=== PATIENT | male | born 1955 | race Caucasian/White ===

== ENCOUNTER → 2018-02-19 11:10 | Outpatient (CLI) | payer BC, SELFPAY ==
[2018-02-19 12:01] LABS: HCT 34.8 % (40.0-50.0); HGB 11.7 g/dL (13.5-17.5); Mean Corp. HGB Concentration 33.6 g/dL (32.0-36.0); Mean Corpuscular Hemoglobin 34.3 pg (27.0-33.0); Mean Corpuscular Volume 102.1 fL (80-95); Mean Platelet Volume 10.9 fL (8.0-11.0); Platelet Count 495 x1000/uL (130-400); RBC 3.41 m/cumm (4.50-6.00); Reticulocyte 8.7 % (0.5-2.4)
[2018-02-19 12:14] LABS: LDH 453 U/L (85-227)
[2018-02-19 12:33] LABS: Absolute Basophil Count 0.29 k/cumm (0.0-0.2); Absolute Lymphocyte Count 2.57 k/cumm (1.2-3.4); Absolute Monocyte Count 2.29 k/cumm (0.11-0.7); Absolute Neutrophil Count 23.46 k/cumm (1.2-6.7); White Blood Cell Count 28.61 k/cumm (4.4-10.8)
[2018-02-19 12:34] LABS: Anisocytosis 1+; Diff Comment Manual Differential; Howell-Jolly Bodies Present; Macrocytosis 1+; Microcytosis 1+; Nucleated RBC 3 /100WBC; Polychromasia Present
== END ==
PROVIDERS: PCP Family Medicine; Visit Provider Internal Medicine Hematology & Oncology
DX: D59.1 Other autoimmune hemolytic anemias (principal)
CPT/HCPCS: 36415; 83615; 85025; 85045

== ENCOUNTER 2018-05-07 09:55 | Day surgery (SDC) | payer BC, SELFPAY ==
[2018-05-07 10:07] VITALS: BP 144/78; PULSE 88; RESP 18; TEMP 37.5; O2SAT 92
[2018-05-07] MEDS: Lactated Ringers 1,000 ML 30 ML IV (10:48)
--- NOTE | 2018-05-07 11:27 | W.COLOREPORT ---
Date of service: 05/07/18 Time of Service: 11:27 Colonoscopy Report Date of procedure: 05/07/18 Pre-op diagnosis general: Personal history of colon polyps Post-op diagnosis procedure note: other (Normal colonoscopy to the cecum) Procedure: Colonoscopy to the cecum Surgeon: Louie Singh Anesthesia proc note operative: MAC (Fanny Boland CRNA; ASA 3 Mallampati class) Estimated blood loss (mL): 0 Pathology: none sent Complications: None Disposition: same day Indications: 62-year-old gentleman presenting for colorectal cancer screening with a personal history of colon polyps. He has been asymptomatic since his last colonoscopy. He has no family history of colorectal cancer. The procedure has been reviewed with him, and the risks of the procedure have been discussed. All his questions been answered to his satisfaction. Consents been obtained to proceed with colonoscopy. Prep: Miralax/Dulcolax (Prep quality excellent) Procedure End Time: 11:55 Findings: Exam the colon from cecum to anus, no abnormalities are noted Procedure Description: The patient was seen in the day surgery waiting area. His identification was confirmed, and procedure checked. He was then brought to the procedure room. Monitoring for telemetry, blood pressure, oxygen saturation, and end tidal CO2 monitoring were applied. An appropriate time out was performed to confirm, identification, allergies, medication, procedure, was performed. Sedation was titrated for affect by the LICENSED WEIGHER; Once adequate sedation was achieved, I performed a inspection of the external perineum, and a digitial rectal examination. No significant external abnormalities were noted. On digital rectal examination, there was no blood, no masses, good rectal tone, and a normal prostate. I advanced the colonoscope from the anus to the cecum under direct visualization. The cecum was identified by the ileal-cecal valve, and the appendiceal orifice. The scope was then withdrawn in circumferential manner from the cecum to the rectum. No abnormalites were noted in the colon. The scope was then withdrawn into the rectum, and retroflexed. No abnormalities were noted of the rectum or anorectal junction. The scope was then withdrawn, terminating the procedure. There were no complications during the procedure, and the patient tolerated the procedure well. He was returned to the day surgery recovery area in good condition. Plan: Will continue with routine screening for colorectal cancer according to current consensus guidelines, which is currently 10 years.
--- NOTE | 2018-05-07 12:03 | W.PM.DSUDISC ---
Discharge Plan Disposition Patient Disposition: HOME Condition: Good Discharge Details Reason For Visit: SCREENING with Personal h/o colon polyps Attending Provider: Louie Singh Primary Care Provider: Carlton Velázquez Home Meds and New Rx's Prescriptions: Continue prednisone 10 mg tablet 12.5 mg PO DAILY RF: 0 alendronate 70 mg tablet 70 mg PO QWEEK RF: 0 sulfamethoxazole-trimethoprim 800-160 mg tablet 1 tab PO .MON, WED, FRI RF: 0 furosemide 20 mg tablet 20 mg PO DAILY RF: 0 albuterol sulfate 90 mcg/actuation HFA aerosol inhaler 2 puff IH Q6H PRNRF: 0 apixaban [Eliquis] 5 mg tablet 5 mg PO BID RF: 0 venlafaxine 37.5 mg tablet 37.5 mg PO DAILY RF: 0 methadone 10 MG/5 ML solution 110 mg PO DAILY RF: 0 magnesium oxide 400 MG tablet 400 mg PO HS Qty: 30 RF: 11 cholecalciferol (vitamin D3) [Vitamin D3] 400 UNIT tablet 1 tab PO DAILY RF: 0 multivitamin 1 EACH tablet 1 ea PO DAILY RF: 0 ferrous sulfate 325 MG tablet 325 mg PO DAILY RF: 0 calcium carbonate [Tums] 200 MG tablet,chewable 2 tab PO DAILY RF: 0 valacyclovir 500 MG tablet 1 tab PO DAILY RF: 0 folic acid 1 MG tablet 1 mg PO DAILY Qty: 90 RF: 4 lisinopril 5 mg tablet 5 mg PO DAILY Qty: 90 RF: 4 prednisone 20 MG tablet 10 mg PO DAILY Qty: 0 RF: 0 Discharge Instructions Instructions: Colonoscopy (DC) Activity:: Activity as Tolerated Diet:: As Tolerated Discharge Orders Discharge Orders: Discharge Order (Routine); Ordered 05/07/18 Ordered By: Louie Singh Discharge Data Discharge Comment: Start ephraim greene DS: Diagnosis Discharge Diagnosis (1) Personal history of colonic polyps: Start date: 05/07/18 Start time: 12:04 Status: Acute Asessment and Plan: Colonoscopy performed: Colonoscopy Report Date of procedure: 05/07/18 Pre-op diagnosis general: Personal history of colon polyps Post-op diagnosis procedure note: other (Normal colonoscopy to the cecum) Procedure: Colonoscopy to the cecum Surgeon: Louie Singh Anesthesia proc note operative: MAC (Fanny Boland CRNA; ASA 3 Mallampati class) Estimated blood loss (mL): 0 Pathology: none sent Complications: NoneDisposition: same day Indications: 62-year-old gentleman presenting for colorectal cancer screening with a personal history of colon polyps. He has been asymptomatic since his last colonoscopy. He has no family history of colorectal cancer. The procedure has been reviewed with him, and the risks of the procedure have been discussed. All his questions been answered to his satisfaction. Consents been obtained to proceed with colonoscopy. Prep: Miralax/Dulcolax (Prep quality excellent) Procedure End Time: 11:55 Findings: Exam the colon from cecum to anus, no abnormalities are noted Procedure Description: The patient was seen in the day surgery waiting area. His identification was confirmed, and procedure checked. He was then brought to the procedure room. Monitoring for telemetry, blood pressure, oxygen saturation, and end tidal CO2 monitoring were applied. An appropriate time out was performed to confirm, identification, allergies, medication, procedure, was performed. Sedation was titrated for affect by the CREATIVE SERVICES DESIGNER; Once adequate sedation was achieved, I performed a inspection of the external perineum, and a digitial rectal examination. No significant external abnormalities were noted. On digital rectal examination, there was no blood, no masses, good rectal tone, and a normal prostate. I advanced the colonoscope from the anus to the cecum under direct visualization. The cecum was identified by the ileal-cecal valve, and the appendiceal orifice. The scope was then withdrawn in circumferential manner from the cecum to the rectum. No abnormalites were noted in the colon. The scope was then withdrawn into the rectum, and retroflexed. No abnormalities were noted of the rectum or anorectal junction. The scope was then withdrawn, terminating the procedure. There were no complications during the procedure, and the patient tolerated the procedure well. He was returned to the day surgery recovery area in good condition. Plan: Will continue with routine screening for colorectal cancer according to current consensus guidelines, which is currently 10 years.
[2018-05-07 12:26] VITALS: BP 139/79; PULSE 75; RESP 16; TEMP 36.9; O2SAT 94
== END 2018-05-07 12:55 | disposition home or self-care (01) ==
PROVIDERS: PCP Family Medicine; Visit Provider Surgery
PROC: 0DJD8ZZ Inspection of Lower Intestinal Tract, Via Natural or Artificial Opening Endoscopic (ICD-10-PCS; CPT 45378; principal; 2018-05-07 10:45)
DX: Z12.11 Encounter for screening for malignant neoplasm of colon (principal); Z86.010 Personal history of colon polyps; J44.9 Chronic obstructive pulmonary disease, unspecified; I10 Essential (primary) hypertension; F17.210 Nicotine dependence, cigarettes, uncomplicated
CPT/HCPCS: 45378

== ENCOUNTER 2019-04-29 06:56 | Outpatient (CLI) | payer BC, SELFPAY ==
--- NOTE | 2019-04-29 10:42 | DI.RAD_ITS ---
EXAM: XR WRIST LT COMPLETE INDICATION: Chronic pain left wrist M25.532. COMPARISON: No exams were available for comparison TECHNIQUE: 2D digital imaging was performed. FINDINGS: There is narrowing of the radiocarpal joint space, greater at the radial scaphoid joint. There is sp urring from the navicular aspect of the distal radius. There is a subchondral cyst seen in the scapho id. There is dorsal tilt of the lunate. The scapholunate lunate joint is not well profiled. Mild d egenerative changes are seen elsewhere. 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
== END 2019-04-29 07:16 ==
PROVIDERS: PCP Family Medicine; Visit Provider Family Medicine
DX: M25.532 Pain in left wrist (principal); G89.29 Other chronic pain; M19.032 Primary osteoarthritis, left wrist
CPT/HCPCS: 73110

== ENCOUNTER 2019-11-25 03:09 | Outpatient (CLI) | payer BC, MEDICARE, SELFPAY ==
[2019-11-25 11:40] LABS: Abs Immature Grans 0.11 k/cumm (0.0-0.09); HCT 30.1 % (40.0-50.0); HGB 9.7 g/dL (13.5-17.5); Mean Corp. HGB Concentration 32.2 g/dL (32.0-36.0); Mean Corpuscular Hemoglobin 35.5 pg (27.0-33.0); Mean Corpuscular Volume 110.3 fL (80-95); Mean Platelet Volume 10.2 fL (8.0-11.0); RBC 2.73 m/cumm (4.50-6.00); RBC Distribution Width 21.5 % (11.8-14.1)
--- NOTE | 2019-11-25 11:53 | DI.RAD_ITS ---
EXAM: XR CHEST 2V PA LATERAL CLINICAL HISTORY: shortness of breath, R06.02 TECHNIQUE: COMPARISON: CR CHEST 2 VIEWS PA,LAT from 10/19/2017 CT CHEST WITH CONTRAST from 12/03/2017 FINDINGS: Heart is not enlarged. Examination is compared with previous examination of October 19, 2017. Small l eft pleural effusion again noted. Bilateral vaguely nodular multifocal radiodensities again seen, a chest CT of November 2017 showed bilateral areas of apparent rounded atelectasis and the areas of pleural based increased radiodensity appear to correspond to these areas, little interval change in appearan ce comparison with prior studies. No gross new consolidation seen. IMPRESSION: Probably stable appearance of the chest. Follow-up chest CT would be more accurate in determining wh ether there has been any change in the masslike radiodensities previously noted to have appearance co nsistent with rounded atelectasis.
[2019-11-25 12:39] LABS: Platelet Count 447 x1000/uL (130-400)
[2019-11-25 12:40] LABS: Anisocytosis 2+; Basophilic Stippling Present; Diff Comment Manual Differential; Hypochromasia 2+; Macrocytosis 2+; Polychromasia Present
[2019-11-25 12:41] LABS: Absolute Eosinophil Count 0.46 k/cumm (0.0-0.7); Absolute Lymphocyte Count 4.41 k/cumm (1.2-3.4); Absolute Monocyte Count 1.67 k/cumm (0.11-0.7); Absolute Neutrophil Count 8.68 k/cumm (1.2-6.7)
[2019-11-25 12:42] LABS: Nucleated RBC 50 /100WBC; White Blood Cell Count 15.22 k/cumm (4.4-10.8)
[2019-11-25 12:53] LABS: ALT 40 U/L (16-63); AST 102 U/L (15-37); Albumin 3.7 g/dL (3.4-5.0); Alkaline Phosphatase 77 U/L (46-116); Anion Gap 6.5 mmol/L (3-11); BUN 15 mg/dL (7-18); Bilirubin, Total 2.7 mg/dL (0.2-1.0); CO2 28.5 mmol/L (21.0-32.0); CREATININE 0.76 mg/dL (0.70-1.30); Calcium 9.2 mg/dL (8.5-10.1); Chloride 107 mmol/L (98-107); Glucose 94 mg/dL (74-106); Potassium 4.6 mmol/L (3.5-5.1); Sodium 142 mmol/L (136-145); Total Protein 6.2 g/dL (6.4-8.2)
== END 2019-11-25 03:29 ==
PROVIDERS: PCP Family Medicine; Visit Provider Nurse Practitioner Family
DX: R06.02 Shortness of breath (principal); J90 Pleural effusion, not elsewhere classified; J98.4 Other disorders of lung
CPT/HCPCS: 36415; 80053; 71046; 85025

== ENCOUNTER 2020-02-18 22:01 | Inpatient (IN) | payer BC, MEDICARE, SELFPAY ==
[2020-02-18] VITALS (18 sets, daily range): BP systolic 125–151; BP diastolic 51–65; PULSE 58–86; RESP 6–29; TEMP 37.2; O2SAT 93–99
--- NOTE | 2020-02-18 22:15 | RT.EKG_ITS ---
APPROVED REPORT Exam: Resting ECG Patient Location: E HR:73 bpm ECG Measurements Heart Rate 73 AXIS LA 175 P 58 QRSd 92 QRS 34 QT 395 T 35 QTc 436 Conclusion Sinus rhythm...normal P axis, V-rate 60- 99 Normal Electrocardiogram
--- NOTE | 2020-02-18 22:27 | W.ED.GENAD ---
Discharge Plan Disposition Patient Disposition: [facility]IENT Condition: Stable Discharge Details Chief Complaint: SOB Clinical Impression: Pleural effusion, right, Pneumonia Admit Date/Time: 02/19/20 01:12 Admit Provider: Carlton Mcdonough Attending Provider: Carlton Mcdonough Primary Care Provider: Kelly Masterson ED Provider: Lorri Ordoñez Discharge Data Discharge Date/Time-TO BE ENTERED AT DEPARTURE: 02/19/20 02:25 Medical Decision Making 64-year-old male presents to the ER chief complaint of shortness of breath which is gotten worse in the last few days. He states that tonight he took a hot bath got out of the bathtub and began with shortness of breath which is gotten worse. He does endorse few beers earlier tonight. He denies any chest pain, fever, chills, nausea vomiting diarrhea. He also states that he has had some increased swelling which is been worse over the last few days as well. He does have a history of hemolytic anemia, COPD, pleural effusions, hypertension, depressive disorder, pulmonary embolus, hepatitis C, and is a current everyday smoker. 2227: Spoke with Federico, son who states he just started Azthiaprinewhich is a immunosuppressive drug prescribed by his family welfare social work professor specialist Dr. Valladares at [facility], has had some increased SOB for last few days. 12:49 AM: CT chest results show a moderate right pleural effusion, right lower lobe infiltrate and atelectasis which is questionable for pneumonia. No pulmonary embolism. I reviewed patient's past thoracentesis cytology report from August 2017 which shows no evidence of a clonal lymphoproliferative disorder. Patient states it has been a couple years since he has had to have a thoracentesis performed. He has no known diagnosis of lung cancer and is not sure why he has recurrent pleural effusions. Will consult with hospitalist regarding patient for pleural effusion and possible pneumonia, and admission to the hospital. 0120: Spoke with Dr. Mcdonough regarding admission for right-sided moderate pleural effusion versus pneumonia. Discussed case in details with him and he was personally able to view the CT. He agrees to accept patient for admission. HPI General Mode of arrival: ambulatory. Date/Time Provider Initiated Documentation: 02/18/20 22:10. Limitations to Documentation: no limitations. Information obtained by: patient and family (7). HPI Narrative: 64-year-old male presents to the ER chief complaint of shortness of breath which is gotten worse in the last few days. He states that tonight he took a hot bath got out of the bathtub and began with shortness of breath which is gotten worse. He does endorse few beers earlier tonight. He denies any chest pain, fever, chills, nausea vomiting diarrhea. He also states that he has had some increased swelling which is been worse over the last few days as well. He does have a history of hemolytic anemia, COPD, pleural effusions, hypertension, depressive disorder, pulmonary embolus, hepatitis C, and is a current everyday smoker. Related Data Home Medications Medication Instructions Recorded Confirmed magnesium oxide 400 mg PO HS #30 tab 02/21/16 02/19/20 calcium carbonate [Tums] 2 tab PO DAILY tab.chew 09/17/16 02/19/20 cholecalciferol (vitamin D3) 1 tab PO DAILY 09/17/16 02/19/20 [Vitamin D3] ferrous sulfate 325 mg PO DAILY 09/17/16 02/19/20 multivitamin 1 ea PO DAILY 09/17/16 02/19/20 folic acid 1 mg tablet 1 mg PO DAILY #90 tab 08/06/18 02/19/20 albuterol sulfate 90 mcg/actuation 2 puff IH Q6H PRN #18 gm 03/08/19 02/19/20 aerosol inhaler alendronate 70 mg tablet 70 mg PO QWEEK #12 tab 05/27/19 02/19/20 furosemide 20 mg tablet 20 mg PO DAILY #90 tab 05/27/19 02/19/20 nicotine 14 mg/24 hr daily 1 patch TD Q24H #28 each 08/22/19 02/19/20 transdermal patch prednisone 5 mg tablet 10 mg PO DAILY #180 tab 08/23/19 02/19/20 methadone 10 mg/5 mL oral solution 115 mg PO DAILY ml 11/23/19 02/19/20 apixaban 5 mg tablet 5 mg PO BID #180 tab 01/03/20 02/19/20 lisinopril 10 mg tablet 10 mg PO DAILY #90 tab 01/20/20 02/19/20 trazodone 50 mg tablet 50 mg PO QHS PRN #30 tab 01/20/20 02/19/20 azathioprine [Azasan] 75 mg PO DAILY 02/19/20 02/19/20 fluocinonide 1 applic TP BID PRN 02/19/20 02/19/20 pantoprazole 40 mg PO DAILY 02/19/20 02/19/20 Previous Rx's Medication Instructions Recorded folic acid 1 mg tablet 1 mg PO DAILY #90 tab 08/06/18 albuterol sulfate 90 mcg/actuation 2 puff IH Q6H PRN #18 gm 03/08/19 aerosol inhaler alendronate 70 mg tablet 70 mg PO QWEEK #12 tab 05/27/19 furosemide 20 mg tablet 20 mg PO DAILY #90 tab 05/27/19 nicotine 14 mg/24 hr daily 1 patch TD Q24H #28 each 08/22/19 transdermal patch prednisone 5 mg tablet 10 mg PO DAILY #180 tab 08/23/19 apixaban 5 mg tablet 5 mg PO BID #180 tab 01/03/20 lisinopril 10 mg tablet 10 mg PO DAILY #90 tab 01/20/20 trazodone 50 mg tablet 50 mg PO QHS PRN #30 tab 01/20/20 Allergies Allergy/AdvReac Type Severity Reaction Status Date / Time No Known Allergies Allergy Unverified 02/18/20 22:11 General Stated Complaint: SOB CANDIDO: 2 Review of Systems Narrative: Constitutional: Negative for weight loss, alert and oriented, well groomed, thin body habitus, appears uncomfortable. And anxious. Appears pale avoids eye contact. HEENT: Denies trauma, headaches, blurry vision, nasal discharge, sore throat, trouble swallowing. Chest: Denies chest pain, palpitations, irregular rhythm, Respiratory: Denies cough, hemoptysis. Positive shortness of breath. GI: Denies abdominal pain, nausea, vomiting, diarrhea, constipation. : Denies dysuria, hematuria, flank pain, rectal bleeding. Neuro: Denies dizziness, blurry vision, weakness, syncope, headache or facial numbness. Hematologic: Denies easy bruising, intolerance to heat or hair loss. [facility] Medical History (Updated 02/19/20 @ 02:52 by Carlton Mcdonough) Opioid dependence on agonist therapy (Acute) Pleural effusion, left (Resolved) Pulmonary emboli (Resolved) Surgical History H/O colonoscopy (Resolved 05/07/18) dr gibson,no abnormalities, repeat 10 years Repair of inguinal hernia RIGHT Status post unilateral inguinal hernia repair (Resolved) Thoracentesis (06/08/16) left Family History Mother Essential hypertension Father No problems noted. Sister Neoplasm Sister No problems noted. Sister No problems noted. Grandfather Heart disease Grandfather No problems noted. Grandmother No problems noted. Grandmother No problems noted. Son No problems noted. Son No problems noted. 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 Lives with girlfriend. Exam Narrative Exam Narrative: Constitutional: Alert and oriented x3. Appears older than stated age. Thin body habitus. Avoids eye contact appears anxious, pale. Head: Normocephalic, no trauma. Eyes: Pupils PERRLA, Red reflex noted, EOM's intact. Eyelids symmetrical without lesions, discharge, or swelling. ENT: Bilateral TM's WNL, External ear normal to inspection, no mastoid TTP, swelling, or erythema, Nasal turbinates WNL, no nasal discharge. Normal dentition, Posterior pharynx WNL, no exudate. Chest: RRR, Normal S1, S2, distal pulses intact. Resp: Lungs diminished bilaterally to auscultation, no wheezes noted. Initial sat is 97% on room air. Does appear dyspneic. Musculoskeletal: Normal gait, 5/5 strength to all four extremities. 2+ pitting edema noted to bilateral lower extremities. Skin: No suspicious rashes or lesions. Capillary refill less than 2 sec. Neurologic: Cranial nerves II-XII intact. Alert and oriented x 3. DTR's intact. Hematologic/Lymphatic: No ecchymosis, no lymphadenopathy. Course Vital Signs Vital signs: Vital Signs Temperature 37.2 C 02/18/20 22:07 Pulse 82 02/18/20 22:07 Respiratory Rate 20 02/18/20 22:07 Blood Pressure 151/54 H 02/18/20 22:07 Pulse Oximetry 94 L 02/18/20 22:07 Temperature 37.2 C 02/18/20 22:07 Temperature Source Temporal Artery Scan 02/18/20 22:07 Pulse 79 02/18/20 22:19 Pulse 86 02/18/20 22:19 Respiratory Rate 23 02/18/20 22:19 Respiratory Effort 02/18/20 22:13 Respiratory Depth Shallow 02/18/20 22:13 Respiratory Pattern Normal 02/18/20 22:13 Blood Pressure 131/51 L 02/18/20 22:19 Blood Pressure Mean 69 02/18/20 22:19 Blood Pressure Position Sitting 02/18/20 22:07 Pulse Oximetry 94 L 02/18/20 22:07 Oxygen Delivery Method Room Air 02/18/20 22:07 Oxygen Flow Rate 0 02/18/20 22:07 Pain Level 0 02/18/20 22:07
[2020-02-18 22:58] LABS: Abs Immature Grans 0.18 10^3/uL (0.0-0.06); HCT 28.1 % (40.0-50.0); MCH 37.5 pg (27.0-33.0); MCV 117.1 fL (80-95); MPV 10.8 fL (8.0-11.0); Platelet Count 411 10^3/uL (130-400); RDW 22.4 % (11.8-14.1); RDW-SD 86.6 fL; WBC 15.99 10^3/uL (4.4-10.8)
[2020-02-18 23:11] LABS: ALT 41 U/L (16-63); AST 143 U/L (15-37); Albumin 3.8 g/dL (3.4-5.0); Alkaline Phosphatase 80 U/L (46-116); Anion Gap 6.8 mmol/L (3-11); BUN 13 mg/dL (7-18); Bilirubin, Total 2.6 mg/dL (0.2-1.0); CO2 31.2 mmol/L (21.0-32.0); CREATININE 0.99 mg/dL (0.70-1.30); Calcium 9.4 mg/dL (8.5-10.1); Chloride 104 mmol/L (98-107); Glucose 80 mg/dL (74-106); Magnesium 2.3 mg/dL (1.8-2.4); Potassium 3.9 mmol/L (3.5-5.1); Sodium 142 mmol/L (136-145); Total Protein 6.7 g/dL (6.4-8.2)
[2020-02-18 23:16] LABS: NT-proBNP 533 pg/mL (<300)
[2020-02-18 23:21] LABS: Troponin I < 0.05 ng/mL (<0.06)
--- NOTE | 2020-02-18 23:44 | DI.CT_ITS ---
EXAM: CT CHEST PE CTA CLINICAL HISTORY: SOB, Hx pleural effusions. TECHNIQUE: Imaging Protocol: Axial CT angiography was performed with multi-slice acquisition and mu lti-planar and/or 3D reconstructions. CONTRAST MATERIAL: Intravenous: Omnipaque 350 Contrast volume:61 mL COMPARISON: CT CHEST FOR PULMONARY EMBOLUS from 10/19/2017 FINDINGS: Pulmonary Arteries: No evidence of filling defect to suggest pulmonary emboli. Tracheobronchial tree: Patent where visualized. Mediastinum and Yin: No dominant adenopathy or fluid collection. Pulmonary parenchyma: Centrilobular and paraseptal emphysema. The rounded opacity in the anterior asp ect of the left upper lobe is again seen. There is also a persistent opacity in the lateral aspect of the left lower lobe. There is a ground-glass infiltrate in the right lower lobe. Pleura: Large right pleural effusion. No pneumothorax. Heart: The heart is not dilated. No coronary artery calcifications are seen. No pericardial effusion. Aorta: Thoracic aorta non-dilated. Atherosclerosis. No dissection. Upper abdomen: Unremarkable. Bones: No acute abnormality. Soft tissues: Unremarkable. IMPRESSION: 1. No evidence of pulmonary embolism, thoracic aortic dissection or aneurysm. 2. Large right pleural effusion. 3. Scarring or rounded atelectasis seen in the right upper lobe and right lower lobe. This was presen t on the examination from 10/19/2017. 4. Right lower lobe infiltrate which may reflect pneumonia or atelectasis. RADIATION DOSE DELIVERED: 286.19mGy.cm Total DLP DATA REPOSITORY: All CT scans at this facility are submitted to the National Radiology Data Registry (NRDR) Dose Index Registry (DIR) with the [employer] (ACR). RADIATION OPTIMIZATION: All CT scans at this facility use at least one of these dose optimization te chniques: automated exposure control; mA and/or kV adjustment per patient size (includes targeted exa ms where dose is matched to clinical indication); or iterative reconstruction.
[2020-02-18 23:45] LABS: Absolute Eosinophil Count 0.32 10^3/uL (0.0-0.7); Absolute Lymphocyte Count 3.52 10^3/uL (1.2-3.4); Absolute Monocyte Count 2.56 10^3/uL (0.1-0.8); Absolute Neutrophil Count 9.59 10^3/uL (1.2-6.7); Diff Comment Manual Differential
[2020-02-18 23:46] LABS: Anisocytosis 2+; Hypochromasia 1+; Macrocytosis 2+; Poikilocytes 1+; Polychromasia Present
[2020-02-18 23:53] LABS: Nucleated RBC 35 %
[2020-02-19] VITALS (30 sets, daily range): BP systolic 122–163; BP diastolic 54–77; PULSE 54–74; RESP 9–22; TEMP 36.4–37.2; O2SAT 89–97
[2020-02-19] MEDS: Omnipaque 350 MG/ML 100 ML BTL IJ (00:08)
[2020-02-19] MEDS: Normal Saline - Diluent 50 ML VIAL IV (00:09)
--- NOTE | 2020-02-19 00:19 | DI.VRAD_ITS ---
PROCEDURE INFORMATION: Exam: CT Angiography Chest With Contrast Exam date and time: 02/18/2020 11:54 PM Age: 64 years old Clinical indication: Shortness of breath; Patient HX: SOB, history of pleural effusions TECHNIQUE: Imaging protocol: Computed tomographic angiography of the chest with intravenous contrast. 3D rendering (Not supervised by radiologist): MIP and/or 3D reconstructed images were created by the technologist. COMPARISON: CT CHEST WITH CONTRAST 12/03/2017 1:50 PM FINDINGS: Pulmonary arteries: Normal. No pulmonary emboli. Aorta: Unremarkable. No aortic aneurysm. No aortic dissection. Lungs: Subpleural opacities bilaterally may reflect areas of scarring/rounded atelectasis. Right lower lobe infiltrate/atelectasis may reflect pneumonia in the correct clinical setting.. Pleural space: Moderate right pleural effusion. Heart: Unremarkable. No cardiomegaly. No pericardial effusion. Lymph nodes: Unremarkable. No enlarged lymph nodes. Bones/joints: Unremarkable. No acute fracture. Soft tissues: Unremarkable. IMPRESSION: 1. Moderate right pleural effusion. 2. Right lower lobe infiltrate/atelectasis may reflect pneumonia in the correct clinical setting.. 3. Probable areas of scarring/rounded atelectasis most prominent in the left upper lobe Dictated and Authenticated by: Sanjay Ma MD. Ordering:DANNY Blackmon MD
[2020-02-19] MEDS: cefTRIAXone 1 GM/50 ML BAG IVPB (01:45)
[2020-02-19 02:10] LABS: Troponin I < 0.05 ng/mL (<0.06)
[2020-02-19] MEDS: AZITHROMYCIN 500 MG in Normal Saline 250 ML 250 MG IVPB (02:21)
--- NOTE | 2020-02-19 02:22 | HPE_ITS ---
Date of service: 02/19/20 Time of Service: 02:22 Assessment and Plan Assessment and plan (1) Pneumonia: Status: Acute Assessment and plan: With the patient's shortness of breath, cough, and CT findings consistent with possible pneumonia I think we should treat this as community-acquired pneumonia. Continue ceftriaxone, but changed from azithromycin to doxycycline to avoid QT prolongation with methadone. Blood cultures have been sent, I ordered sputum cultures as well. (2) Pleural effusion, right: Status: Acute Assessment and plan: Patient has a significant pleural effusion that is likely contributing to his symptoms. Consulted surgery nonurgently to consider thoracentesis. I will hold his apixaban until he is seen. 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 May make sense to touch base with hematology regarding the azathioprine whether to continue this. I will continue it for now. (4) Benign essential hypertension: Status: Chronic Assessment and plan: Continue outpatient regimen (5) Smoker: Status: Chronic Assessment and plan: He is contemplative regarding quitting. Nexium replacement patches for now. (6) COPD (chronic obstructive pulmonary disease): Status: Chronic Assessment and plan: I do not think active COPD playing a significant role in his presentation. Albuterol as needed, continue to observe. (7) Abnormal liver enzymes: Status: Acute Assessment and plan: Patient has elevated AST with a slight upward trend in recent labs. This could be related to alcohol, his azathioprine, hepatitis C, or combination of the above. Will monitor intermittently. The elevated bilirubin is likely related to his hemolysis. (8) Opioid dependence on agonist therapy: Status: Acute Assessment and plan: Confirm methadone dose with BAART in the morning and continue the therapy. UDS ordered test for other drug use that may trigger respiratory symptoms or hemolysis. (9) DVT prophylaxis: Status: Acute Assessment and plan: Patient is on apixaban chronically for history of PE (10) Discharge planning issues: Status: Acute Assessment and plan: Patient will be admitted to medical surgical floor. He is a full code. History of Present Illness History of Present Illness Chief Complaint: Shortness of breath Narrative: 64-year-old man with history of acquired hemolytic anemia, recurrent pleural effusions, history of pulmonary embolus, and opioid dependence on methadone with MILA who presented with increasing shortness of breath starting the afternoon prior to admission. Patient states he went to work as usual on February 17. He came home and had a bath. When he got out of the bath, he had difficulty catching his breath and felt himself gasping for air and called for emergency medical services. He has chronic cough and sputum production, this is not changed appreciably in the past several days. He denies fevers or chills. He did not have any associated chest pain or palpitations. Not had recent leg pain or swelling or immobility. Denies any recent drug use, though he did have a few beers today before coming in today. The patient's azathioprine is a relatively recent addition to his medications, prescribed by his cook larder at [facility]. Patient states he has had effusion drained at least 3 times, which is really helped his symptoms in the past. Review of Systems All systems reviewed & are unremarkable except as noted in HPI and below Constitutional Constitutional: Denies chills, Denies fever(s) and Reports poor appetite Comments: He has lost a little bit of weight over the past several months ENT Ears, Nose, Mouth, and Throat: Reports nasal discharge (Chronic) and Denies sore throat Comments: Chronically has poor taste, this has not changed recently. Integumentary/Breasts Skin/Breast: Denies non-healing lesions and Denies rash Psychiatric Psychiatric: Denies mood swings Hematologic/Lymphatic Hematologic/Lymphatic: Denies easy bleeding and Denies lymphadenopathy [facility] Medical History Pleural effusion, left (Resolved) Pulmonary emboli (Resolved) Surgical History H/O colonoscopy (Resolved 05/07/18) dr gibson,no abnormalities, repeat 10 years Repair of inguinal hernia RIGHT Status post unilateral inguinal hernia repair (Resolved) Thoracentesis (06/08/16) left Family History Mother Essential hypertension Father No problems noted. Sister Neoplasm Sister No problems noted. Sister No problems noted. Grandfather Heart disease Grandfather No problems noted. Grandmother No problems noted. Grandmother No problems noted. Son No problems noted. Son No problems noted. 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 Lives with girlfriend. Meds Home Medications and Allergies Home Medications Medication Instructions Recorded Confirmed Type magnesium oxide 400 mg PO HS #30 tab 02/21/16 02/19/20 History calcium carbonate [Tums] 2 tab PO DAILY tab.chew 09/17/16 02/19/20 History cholecalciferol (vitamin D3) 1 tab PO DAILY 09/17/16 02/19/20 History [Vitamin D3] ferrous sulfate 325 mg PO DAILY 09/17/16 02/19/20 History multivitamin 1 ea PO DAILY 09/17/16 02/19/20 History folic acid 1 mg tablet 1 mg PO DAILY #90 tab 08/06/18 02/19/20 Rx albuterol sulfate 90 mcg/actuation 2 puff IH Q6H PRN #18 gm 03/08/19 02/19/20 Rx aerosol inhaler alendronate 70 mg tablet 70 mg PO QWEEK #12 tab 05/27/19 02/19/20 Rx furosemide 20 mg tablet 20 mg PO DAILY #90 tab 05/27/19 02/19/20 Rx nicotine 14 mg/24 hr daily 1 patch TD Q24H #28 each 08/22/19 02/19/20 Rx transdermal patch prednisone 5 mg tablet 10 mg PO DAILY #180 tab 08/23/19 02/19/20 Rx methadone 10 mg/5 mL oral solution 115 mg PO DAILY ml 11/23/19 02/19/20 History apixaban 5 mg tablet 5 mg PO BID #180 tab 01/03/20 02/19/20 Rx lisinopril 10 mg tablet 10 mg PO DAILY #90 tab 01/20/20 02/19/20 Rx trazodone 50 mg tablet 50 mg PO QHS PRN #30 tab 01/20/20 02/19/20 Rx azathioprine [Azasan] 75 mg PO DAILY 02/19/20 02/19/20 History fluocinonide 1 applic TP BID PRN 02/19/20 02/19/20 History pantoprazole 40 mg PO DAILY 02/19/20 02/19/20 History Allergies Allergy/AdvReac Type Severity Reaction Status Date / Time No Known Allergies Allergy Unverified 02/18/20 22:11 Exam Narrative Exam Narrative: General: Alert and oriented, sitting up and speaking in full sentences with no distress. Pleasant and coherent. HEENT: Atraumatic. Mild icterus. Pupils equal round reactive to light, size 3 to 4 mm in room light. Extraocular motions intact. Moist mucous membranes with oropharynx benign. Neck is supple with no masses or lymphadenopathy. Trachea m idline. No increase in JVP. Lungs: Clear to auscultation bilaterally with normal effort, though slightly diminished in the right base Cardiovascular: Regular rate and rhythm no murmurs gallops or rubs Abdomen: Active bowel sounds, soft, nontender nondistended with no organomegaly. Extremities: Trace bilateral edema to the ankles. Nontender to palpation in the legs. No joint redness or swelling. Skin: No rashes, ulcers, or other skin lesions. No significant bruising. Neurologic: Cranial nerves II through XII grossly intact. Normal movement all 4 extremities. Normal speech and coordination. No tremor. Psychiatric: Affect is mildly depressed, but normal thought process Results CT chest showing moderate right pleural effusion (increased size from previous). Right lower lobe infiltrate/atelectasis, may reflect pneumonia. Probable areas of scarring most prominent left upper lobe. Labs Result diagrams: 02/18/20 22:39 02/18/20 22:39 Labs: Laboratory Results - last 24 hr 02/18/20 02/18/20 02/18/20 22:39 22:39 22:39 WBC 15.99 H RBC 2.40 L Hgb 9.0 L Hct 28.1 L MCV 117.1 H MCH 37.5 H MCHC 32.0 RDW 22.4 H Plt Count 411 H MPV 10.8 Immature Gran % 0.0 Neutrophils % 60.0 Lymphocytes % 22.0 Monocytes % 16.0 Eosinophils % 2.0 Basophils % 0.0 Nucleated RBC % 35 Absolute Neutrophils 9.59 H Absolute Lymphocytes 3.52 H Absolute Monocytes 2.56 H Absolute Eosinophils 0.32 Absolute Basophils 0.00 RBC Morphology See below Polychromasia Present Hypochromasia 1+ Poikilocytosis 1+ Anisocytosis 2+ Macrocytosis 2+ Sodium 142 Potassium 3.9 Chloride 104 Carbon Dioxide 31.2 Anion Gap 6.8 BUN 13 Creatinine 0.99 Estimated GFR/1.73 m2 >= 60.00 Glucose 80 Calcium 9.4 Magnesium 2.3 Total Bilirubin 2.6 H AST 143 H ALT 41 Alkaline Phosphatase 80 Troponin I < 0.05 NT-Pro-B Natriuret Pep 533 H Total Protein 6.7 Albumin 3.8 02/19/20 01:40 WBC RBC Hgb Hct MCV MCH MCHC RDW Plt Count MPV Immature Gran % Neutrophils % Lymphocytes % Monocytes % Eosinophils % Basophils % Nucleated RBC % Absolute Neutrophils Absolute Lymphocytes Absolute Monocytes Absolute Eosinophils Absolute Basophils RBC Morphology Polychromasia Hypochromasia Poikilocytosis Anisocytosis Macrocytosis Sodium Potassium Chloride Carbon Dioxide Anion Gap BUN Creatinine Estimated GFR/1.73 m2 Glucose Calcium Magnesium Total Bilirubin AST ALT Alkaline Phosphatase Troponin I < 0.05 NT-Pro-B Natriuret Pep Total Protein Albumin Last Vital Signs Temp 37.2 C 02/18/20 22:07 Pulse 54 L 02/19/20 02:15 Resp 9 L 02/19/20 02:20 BP 122/55 L 02/19/20 02:15 Pulse Ox 94 L 02/19/20 02:20 COVID-19 Screening Have you,or household,traveled outside [place] in last 14 days?: Yes Had IN PERSON contact w/suspected or confirmed C-19 person: No
[2020-02-19] MEDS: DOXYCYCLINE 100 MG in Normal Saline 100 ML IVPB ×2 (03:49→15:15)
[2020-02-19] MEDS: traZODone 50 MG TAB PO ×2 (03:50→23:45)
[2020-02-19] MEDS: Normal Saline Flush 10 ML SYR IVP ×2 (03:50→15:13)
[2020-02-19] MEDS: Methadone Liquid 10 MG/ML 115 MG PO (08:16)
[2020-02-19] MEDS: predniSONE 5 MG TAB 10 MG PO (08:17)
[2020-02-19] MEDS: Lisinopril 10 MG TAB PO (08:17)
[2020-02-19] MEDS: Furosemide 20 MG TAB PO (08:18)
[2020-02-19] MEDS: Pantoprazole 40 MG TABCR PO (08:18)
[2020-02-19] MEDS: Ferrous Sulfate 325 MG TAB PO (08:18)
[2020-02-19] MEDS: Folic Acid 1 MG TAB PO (08:18)
[2020-02-19] MEDS: azaTHIOprine 50 MG TAB 75 MG PO (08:18)
[2020-02-19] MEDS: Nicotine 21 MG/24 HR PATCH TD (08:28)
[2020-02-19] MEDS: Thiamine 100 MG TAB PO (10:39)
[2020-02-19 10:41] LABS: HCT 24.6 % (40.0-50.0); HGB 7.8 g/dL (13.5-17.5); MCH 36.8 pg (27.0-33.0); MCHC 31.7 % (32.0-36.0); MPV 11.1 fL (8.0-11.0); Platelet Count 344 10^3/uL (130-400); RBC 2.12 10^6/uL (4.36-5.78); RDW-SD 82.7 fL; WBC 14.59 10^3/uL (4.4-10.8)
[2020-02-19 11:02] LABS: Absolute Lymphocyte Count 2.33 10^3/uL (1.2-3.4); Absolute Monocyte Count 1.17 10^3/uL (0.1-0.8)
[2020-02-19 11:03] LABS: Absolute Eosinophil Count 0.29 10^3/uL (0.0-0.7); Anisocytosis 2+; Diff Comment Manual Differential; Macrocytosis 2+; Nucleated RBC 45 %; Polychromasia Present
[2020-02-19 11:12] LABS: *AMPHETAMINES SCREEN URINE Negative (Negative); *BARBITURATES SCREEN URINE Negative (Negative); *BENZODIAZEPINES SCREEN URINE Negative (Negative); Cannabinoids THC Negative (Negative); Cocaine Screen,Urine Negative (Negative); METHADONE URINE SCREEN POSITIVE (Negative); OPIATES URINE SCREEN Negative (Negative)
[2020-02-19 11:15] LABS: Tricyclic Antidepressants Negative (Negative)
[2020-02-19 11:27] LABS: ETHANOL BLOOD < 3.0 mg/dL (<3)
[2020-02-19 11:40] LABS: Bilirubin Negative (Negative); Blood Moderate (Negative); Clarity Clear (Clear); Glucose Negative (Negative); Ketones Negative (Negative); Leukocyte Esterase Negative (Negative); Nitrite Negative (Negative)
[2020-02-19 11:59] LABS: C & S Indicated? No; Epithelial Cells Rare HPF (Negative); RBC 0-2 HPF (0-2); WBC 0-2 HPF (0-5)
[2020-02-19 13:12] LABS: TSH 1.07 uIU/mL (0.36-3.74)
[2020-02-19] MEDS: valACYclovir 500 MG TAB PO (13:35)
--- NOTE | 2020-02-19 14:49 | SCONE_ITS ---
Date of service: 02/19/20 Time of Service: 14:49 Assessment and Plan Assessment and plan (1) Pleural effusion, right: Status: Acute Assessment and plan: right pleural effusion that needs to tapped for erica jimenez. This is re-current. It has been on going sine 2016. There is also an underlying pneumonia. He is a PUI- high risk situation. His Covid is pd. He is also on apixiban for PE in the past. This is being held as of 02/18. He has hep C. 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 He has not been treated for the HepC. We will plan on doing this procedure on 02/19. He is currently stable from resp standpoint and can wait for the procedure until Thursday. Risks: bleeding/infection/PTX/ broncho-pleural fistula/complications of anesthesia, need for more tissue. History of Present Illness Narrative: pt admitted w/ SOB and cough. Hx of pleural eff. has had mult taps in past. Cultures requested. Pt is on apixiban. Will plan on doing Thursday am. Pt lives at [facility]. He is currently a PUI. His RA sat is 96%. He is wearing O2 b/c of his anxiety. Consults Consult date: 02/19/20 Requesting physician: Evelyn Mendoza [facility] Medical History (Updated 02/19/20 @ 02:52 by Carlton Mcdonough) Opioid dependence on agonist therapy (Acute) Pleural effusion, left (Resolved) Pulmonary emboli (Resolved) Surgical History H/O colonoscopy (Resolved 05/07/18) dr gibson,no abnormalities, repeat 10 years Repair of inguinal hernia RIGHT Status post unilateral inguinal hernia repair (Resolved) Thoracentesis (06/08/16) left Family History Mother Essential hypertension Father No problems noted. Sister Neoplasm Sister No problems noted. Sister No problems noted. Grandfather Heart disease Grandfather No problems noted. Grandmother No problems noted. Grandmother No problems noted. Son No problems noted. Son No problems noted. 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 Lives with girlfriend. Results Last Vital Signs Temp 36.9 C 02/19/20 09:25 Pulse 62 02/19/20 09:25 Resp 18 02/19/20 09:25 BP 138/63 02/19/20 09:25 Pulse Ox 94 L 02/19/20 09:25 Labs Result diagrams: 02/19/20 10:20 02/18/20 22:39 Labs: Laboratory Results - last 24 hr 02/18/20 02/18/20 02/18/20 22:39 22:39 22:39 WBC 15.99 H RBC 2.40 L Hgb 9.0 L Hct 28.1 L MCV 117.1 H MCH 37.5 H MCHC 32.0 RDW 22.4 H Plt Count 411 H MPV 10.8 Immature Gran % 0.0 Neutrophils % 60.0 Lymphocytes % 22.0 Monocytes % 16.0 Eosinophils % 2.0 Basophils % 0.0 Nucleated RBC % 35 Absolute Neutrophils 9.59 H Absolute Lymphocytes 3.52 H Absolute Monocytes 2.56 H Absolute Eosinophils 0.32 Absolute Basophils 0.00 RBC Morphology See below Polychromasia Present Hypochromasia 1+ Poikilocytosis 1+ Anisocytosis 2+ Macrocytosis 2+ Sodium 142 Potassium 3.9 Chloride 104 Carbon Dioxide 31.2 Anion Gap 6.8 BUN 13 Creatinine 0.99 Estimated GFR/1.73 m2 >= 60.00 Glucose 80 Calcium 9.4 Magnesium 2.3 Total Bilirubin 2.6 H AST 143 H ALT 41 Alkaline Phosphatase 80 Troponin I < 0.05 NT-Pro-B Natriuret Pep 533 H Total Protein 6.7 Albumin 3.8 TSH Free T4 Urine Color Urine Clarity Urine pH Ur Specific [place] Urine Protein Urine Ketones Urine Blood Urine Nitrite Urine Bilirubin Urine Urobilinogen Ur Leukocyte Esterase Urine RBC Urine WBC Ur Epithelial Cells Urine Crystals Urine Bacteria Urine Mucus Ur Culture Indicated? Urine Glucose Urine Opiates Screen Urine Methadone Screen Ur Barbiturates Screen Ur Tricyclics Screen Ur Amphetamines Screen U Benzodiazepines Scrn Urine Cocaine Screen Ur THC Screen Ethyl Alcohol COVID-19 PCR Nasopharyn COVID-19 PCR Ref Test Perform Site 02/19/20 02/19/20 02/19/20 01:30 01:40 08:20 WBC RBC Hgb Hct MCV MCH MCHC RDW Plt Count MPV Immature Gran % Neutrophils % Lymphocytes % Monocytes % Eosinophils % Basophils % Nucleated RBC % Absolute Neutrophils Absolute Lymphocytes Absolute Monocytes Absolute Eosinophils Absolute Basophils RBC Morphology Polychromasia Hypochromasia Poikilocytosis Anisocytosis Macrocytosis Sodium Potassium Chloride Carbon Dioxide Anion Gap BUN Creatinine Estimated GFR/1.73 m2 Glucose Calcium Magnesium Total Bilirubin AST ALT Alkaline Phosphatase Troponin I < 0.05 NT-Pro-B Natriuret Pep Total Protein Albumin TSH Free T4 Urine Color Urine Clarity Urine pH Ur Specific [place] Urine Protein Urine Ketones Urine Blood Urine Nitrite Urine Bilirubin Urine Urobilinogen Ur Leukocyte Esterase Urine RBC Urine WBC Ur Epithelial Cells Urine Crystals Urine Bacteria Urine Mucus Ur Culture Indicated? Urine Glucose Urine Opiates Screen Negative Urine Methadone Screen Positive A Ur Barbiturates Screen Negative Ur Tricyclics Screen Negative Ur Amphetamines Screen Negative U Benzodiazepines Scrn Negative Urine Cocaine Screen Negative Ur THC Screen Negative Ethyl Alcohol COVID-19 PCR Cancelled Nasopharyn COVID-19 PCR Cancelled Ref Test Perform Site Cancelled 02/19/20 02/19/20 02/19/20 08:20 10:20 10:20 WBC 14.59 H RBC 2.12 L Hgb 7.8 L Hct 24.6 L MCV 116.0 H MCH 36.8 H MCHC 31.7 L RDW 22.0 H Plt Count 344 MPV 11.1 H Immature Gran % 0.0 Neutrophils % 74.0 Lymphocytes % 16.0 Monocytes % 8.0 Eosinophils % 2.0 Basophils % 0.0 Nucleated RBC % 45 Absolute Neutrophils 10.80 H Absolute Lymphocytes 2.33 Absolute Monocytes 1.17 H Absolute Eosinophils 0.29 Absolute Basophils 0.00 RBC Morphology See below Polychromasia Present Hypochromasia Poikilocytosis Anisocytosis 2+ Macrocytosis 2+ Sodium Potassium Chloride Carbon Dioxide Anion Gap BUN Creatinine Estimated GFR/1.73 m2 Glucose Calcium Magnesium Total Bilirubin AST ALT Alkaline Phosphatase Troponin I NT-Pro-B Natriuret Pep Total Protein Albumin TSH 1.07 Free T4 1.00 Urine Color [place] Urine Clarity Clear Urine pH 7.0 Ur Specific [place] 1.020 Urine Protein Trace H Urine Ketones Negative Urine Blood Moderate H Urine Nitrite Negative Urine Bilirubin Negative Urine Urobilinogen 2.0 H Ur Leukocyte Esterase Negative Urine RBC 0-2 Urine WBC 0-2 Ur Epithelial Cells Rare Urine Crystals Not Applicable Urine Bacteria Urine Mucus Not Applicable Ur Culture Indicated? No Urine Glucose Negative Urine Opiates Screen Urine Methadone Screen Ur Barbiturates Screen Ur Tricyclics Screen Ur Amphetamines Screen U Benzodiazepines Scrn Urine Cocaine Screen Ur THC Screen Ethyl Alcohol < 3.0 COVID-19 PCR Nasopharyn COVID-19 PCR Ref Test Perform Site
[2020-02-19] MEDS: IRON SUCROSE COMPLEX 200 MG in Normal Saline 100 ML IVPB (16:24)
--- NOTE | 2020-02-19 17:28 | PGE_ITS ---
Date of Service Date of service: 02/19/20 Time of Service: 17:28 Subjective Subjective Interval history since last seen: Patient seen in brief follow up. COVID-19 still pending. Mr Guzmán will have his thoracenthesis tomorrow. He told us that being on oxygen makes him feel better - so he was placed on oxygen. Remains short of breath. States he feels pressure in his chest. Denies dizziness, chest pain, does endorse nausea. States his urine has been dark. When he hemolizes, he states that usually his dose of steroids is not increased, but I told him I will talk to him licensed physical therapist assistant about this. Objective Objective Clinical Data: Abnormal lab results 02/18/20 02/18/20 02/18/20 Range/Units 22:39 22:39 22:39 WBC 15.99 H (4.4-10.8) 10^3/uL RBC 2.40 L (4.36-5.78) 10^6/uL Hgb 9.0 L (13.5-17.5) g/dL Hct 28.1 L (40.0-50.0) % MCV 117.1 H (80-95) fL MCH 37.5 H (27.0-33.0) pg MCHC (32.0-36.0) % RDW 22.4 H (11.8-14.1) % Plt Count 411 H (130-400) 10^3/uL MPV (8.0-11.0) fL Absolute Neutrophils 9.59 H (1.2-6.7) 10^3/uL Absolute Lymphocytes 3.52 H (1.2-3.4) 10^3/uL Absolute Monocytes 2.56 H (0.1-0.8) 10^3/uL Total Bilirubin 2.6 H (0.2-1.0) mg/dL AST 143 H (15-37) U/L NT-Pro-B Natriuret Pep 533 H (<300) pg/mL Urine Protein (Negative) mg/dL Urine Blood (Negative) Urine Urobilinogen (Up TO 0.2) EU/dL Urine Methadone Screen (Negative) 02/19/20 02/19/20 02/19/20 Range/Units 08: 08: 10:20 WBC 14.59 H (4.4-10.8) 10^3/uL RBC 2.12 L (4.36-5.78) 10^6/uL Hgb 7.8 L (13.5-17.5) g/dL Hct 24.6 L (40.0-50.0) % MCV 116.0 H (80-95) fL MCH 36.8 H (27.0-33.0) pg MCHC 31.7 L (32.0-36.0) % RDW 22.0 H (11.8-14.1) % Plt Count (130-400) 10^3/uL MPV 11.1 H (8.0-11.0) fL Absolute Neutrophils 10.80 H (1.2-6.7) 10^3/uL Absolute Lymphocytes (1.2-3.4) 10^3/uL Absolute Monocytes 1.17 H (0.1-0.8) 10^3/uL Total Bilirubin (0.2-1.0) mg/dL AST (15-37) U/L NT-Pro-B Natriuret Pep (<300) pg/mL Urine Protein Trace H (Negative) mg/dL Urine Blood Moderate H (Negative) Urine Urobilinogen 2.0 H (Up TO 0.2) EU/dL Urine Methadone Screen Positive A (Negative) Vital Signs Temperature 36.4 C L 02/19/20 15:18 Temperature Source Tympanic 02/19/20 15:18 Pulse 62 02/19/20 15:18 Pulse Rhythm Regular 02/19/20 10:09 Pulse 61 02/19/20 02:20 Respiratory Rate 18 02/19/20 15:18 Respiratory Effort 02/19/20 10:09 Respiratory Depth Normal 02/19/20 10:09 Respiratory Pattern Normal 02/19/20 10:09 Blood Pressure 141/74 H 02/19/20 15:18 Blood Pressure Mean 72 02/19/20 02:15 Blood Pressure Position Sitting 02/18/20 22:07 Pulse Oximetry 96 02/19/20 15:18 Oxygen Delivery Method Nasal Cannula 02/19/20 15:18 Oxygen Flow Rate 2 02/19/20 15:18 Pain Level 0 02/19/20 15:18 Intake & Output 02/18/20 02/19/20 02/19/20 23:59 11:59 23:59 Intake Total 850 / 1060 210 / 1060 Output Total 400 / 400 Balance 850 / 660 -190 / 660 Weight 61.235 kg 61.235 kg Intake: IV 150 / 360 210 / 360 Oral 700 / 700 Output: Urine 400 / 400 Other: Urine Color Dark [place] Yellow Comment Pt voided into the toilet and flushed it. Missed hat. unable to measure. Voiding Methods Toilet Toilet Laboratory Results WBC 14.59 10^3/uL (4.4-10.8) H 02/19/20 10:20 RBC 2.12 10^6/uL (4.36-5.78) L 02/19/20 10:20 Hgb 7.8 g/dL (13.5-17.5) L 02/19/20 10:20 Hct 24.6 % (40.0-50.0) L 02/19/20 10:20 MCV 116.0 fL (80-95) H 02/19/20 10:20 MCH 36.8 pg (27.0-33.0) H 02/19/20 10:20 MCHC 31.7 % (32.0-36.0) L 02/19/20 10:20 RDW 22.0 % (11.8-14.1) H 02/19/20 10:20 Plt Count 344 10^3/uL (130-400) 02/19/20 10:20 MPV 11.1 fL (8.0-11.0) H 02/19/20 10:20 Immature Gran % 0.0 02/19/20 10:20 Neutrophils % 74.0 02/19/20 10:20 Lymphocytes % 16.0 02/19/20 10:20 Monocytes % 8.0 02/19/20 10:20 Eosinophils % 2.0 02/19/20 10:20 Basophils % 0.0 02/19/20 10:20 Nucleated RBC % 45 % 02/19/20 10:20 Absolute Neutrophils 10.80 10^3/uL (1.2-6.7) H 02/19/20 10:20 Absolute Lymphocytes 2.33 10^3/uL (1.2-3.4) 02/19/20 10:20 Absolute Monocytes 1.17 10^3/uL (0.1-0.8) H 02/19/20 10:20 Absolute Eosinophils 0.29 10^3/uL (0.0-0.7) 02/19/20 10:20 Absolute Basophils 0.00 10^3/uL (0.0-0.2) 02/19/20 10:20 RBC Morphology See below 02/19/20 10:20 Polychromasia Present 02/19/20 10:20 Hypochromasia 1+ 02/18/20 22:39 Poikilocytosis 1+ 02/18/20 22:39 Anisocytosis 2+ 02/19/20 10:20 Macrocytosis 2+ 02/19/20 10:20 Sodium 142 mmol/L (136-145) 02/18/20 22:39 Potassium 3.9 mmol/L (3.5-5.1) 02/18/20 22:39 Chloride 104 mmol/L (98-107) 02/18/20 22:39 Carbon Dioxide 31.2 mmol/L (21.0-32.0) 02/18/20 22:39 Anion Gap 6.8 mmol/L (3-11) 02/18/20 22:39 BUN 13 mg/dL (7-18) 02/18/20 22:39 Creatinine 0.99 mg/dL (0.70-1.30) 02/18/20 22:39 Estimated GFR/1.73 m2 >= 60.00 (mL/min/1.73m2) 02/18/20 22:39 Glucose 80 mg/dL (74-106) 02/18/20 22:39 Calcium 9.4 mg/dL (8.5-10.1) 02/18/20 22:39 Magnesium 2.3 mg/dL (1.8-2.4) 02/18/20 22:39 Total Bilirubin 2.6 mg/dL (0.2-1.0) H 02/18/20 22:39 AST 143 U/L (15-37) H 02/18/20 22:39 ALT 41 U/L (16-63) 02/18/20 22:39 Alkaline Phosphatase 80 U/L (46-116) 02/18/20 22:39 Troponin I < 0.05 ng/mL (<0.06) 02/19/20 01:40 NT-Pro-B Natriuret Pep 533 pg/mL (<300) H 02/18/20 22:39 Total Protein 6.7 g/dL (6.4-8.2) 02/18/20 22:39 Albumin 3.8 g/dL (3.4-5.0) 02/18/20 22:39 TSH 1.07 uIU/mL (0.36-3.74) 02/19/20 10:20 Free T4 1.00 ng/dL (0.76-1.46) 02/19/20 10:20 Urine Color [place] (Yellow) 02/19/20 08:20 Urine Clarity Clear (Clear) 02/19/20 08:20 Urine pH 7.0 (5-8) 02/19/20 08:20 Ur Specific [place] 1.020 (1.005-1.025) 02/19/20 08:20 Urine Protein Trace mg/dL (Negative) H 02/19/20 08:20 Urine Ketones Negative mg/dL (Negative) 02/19/20 08:20 Urine Blood Moderate (Negative) H 02/19/20 08:20 Urine Nitrite Negative (Negative) 02/19/20 08:20 Urine Bilirubin Negative (Negative) 02/19/20 08:20 Urine Urobilinogen 2.0 EU/dL (Up TO 0.2) H 02/19/20 08:20 Ur Leukocyte Esterase Negative (Negative) 02/19/20 08:20 Urine RBC 0-2 HPF (0-2) 02/19/20 08:20 Urine WBC 0-2 HPF (0-5) 02/19/20 08:20 Ur Epithelial Cells Rare HPF (Negative) 02/19/20 08:20 Urine Crystals Not Applicable 02/19/20 08:20 Urine Bacteria HPF (Negative) 02/19/20 08:20 Urine Mucus Not Applicable 02/19/20 08:20 Ur Culture Indicated? No 02/19/20 08:20 Urine Glucose Negative mg/dL (Negative) 02/19/20 08:20 Urine Opiates Screen Negative (Negative) 02/19/20 08:20 Urine Methadone Screen Positive (Negative) A 02/19/20 08:20 Ur Barbiturates Screen Negative (Negative) 02/19/20 08:20 Ur Tricyclics Screen Negative (Negative) 02/19/20 08:20 Ur Amphetamines Screen Negative (Negative) 02/19/20 08:20 U Benzodiazepines Scrn Negative (Negative) 02/19/20 08:20 Urine Cocaine Screen Negative (Negative) 02/19/20 08:20 Ur THC Screen Negative (Negative) 02/19/20 08:20 Ethyl Alcohol < 3.0 mg/dL (<3) 02/19/20 10:20 COVID-19 PCR Cancelled 02/19/20 01:30 Nasopharyn COVID-19 PCR Cancelled 02/19/20 01:30 Ref Test Perform Site Cancelled 02/19/20 01:30
[2020-02-19] MEDS: LORazepam 0.5 MG TAB PO ×2 (17:37→23:45)
[2020-02-19] MEDS: Magnesium Oxide 400 MG TAB PO (21:24)
--- NOTE | 2020-02-20 | DI.RAD_ITS ---
EXAM: XR PORTABLE CHEST AP CLINICAL HISTORY: pt is in PACU TECHNIQUE: 2D digital imaging was performed. COMPARISON: CR XR CHEST 2V PA LATERAL from 11/25/2019 FINDINGS: Heart size and pulmonary vasculature are within normal limits. The lungs are hyperinflated suggestin g underlying COPD there is unchanged scarring in the right upper lobe. No new infiltrates are seen i n the lungs. There is blunting of both costophrenic angle suggesting small pleural effusions and/or scarring. No pneumothorax is identified. IMPRESSION: Small bilateral pleural effusions and/or scarring. No new pulmonary infiltrates. DATA REPOSITORY: RADIATION DOSE DELIVERED:
[2020-02-20] MEDS: cefTRIAXone 1 GM/50 ML BAG IVPB (01:28)
[2020-02-20] MEDS: Normal Saline Flush 10 ML SYR IVP ×2 (01:29→13:52)
[2020-02-20] MEDS: DOXYCYCLINE 100 MG in Normal Saline 100 ML IVPB (03:24)
[2020-02-20 03:32] VITALS: BP 139/69; PULSE 63; RESP 16; TEMP 36.3; O2SAT 96
[2020-02-20 07:39] VITALS: BP 139/55; PULSE 74; RESP 19; TEMP 36.2; O2SAT 97
[2020-02-20 07:39] LABS: HCT 26.3 % (40.0-50.0); HGB 8.3 g/dL (13.5-17.5); MCH 37.6 pg (27.0-33.0); MCHC 31.6 % (32.0-36.0); MPV 11.1 fL (8.0-11.0); Platelet Count 363 10^3/uL (130-400); RBC 2.21 10^6/uL (4.36-5.78); RDW-SD 91.6 fL; WBC 14.97 10^3/uL (4.4-10.8)
[2020-02-20 07:46] LABS: Prothrombin Time 10.4 sec (9.3-11.0)
[2020-02-20 08:00] LABS: ALT 34 U/L (16-63); AST 119 U/L (15-37); Alkaline Phosphatase 67 U/L (46-116); Anion Gap 6.7 mmol/L (3-11); BUN 12 mg/dL (7-18); Bilirubin, Total 2.1 mg/dL (0.2-1.0); C-Reactive Protein 0.51 mg/dL (0.0-0.3); CO2 29.3 mmol/L (21.0-32.0); CREATININE 0.95 mg/dL (0.70-1.30); Calcium 8.5 mg/dL (8.5-10.1); Chloride 106 mmol/L (98-107); Glucose 80 mg/dL (74-106); Potassium 3.7 mmol/L (3.5-5.1); Sodium 142 mmol/L (136-145); Total Protein 5.5 g/dL (6.4-8.2)
[2020-02-20 08:15] LABS: Absolute Lymphocyte Count 2.54 10^3/uL (1.2-3.4); Absolute Neutrophil Count 10.93 10^3/uL (1.2-6.7); Nucleated RBC 43 %
[2020-02-20 08:16] LABS: Anisocytosis 2+; Diff Comment Manual Differential; Macrocytosis 2+; Polychromasia Present
[2020-02-20 08:24] LABS: Procalcitonin 0.3 ng/mL
[2020-02-20 08:28] LABS: COVID-19 RT-PCR UVMMC Result Negative
[2020-02-20 08:28] LABS: GGT 46 U/L (15-85)
[2020-02-20] MEDS: LORazepam 0.5 MG TAB PO (11:09)
[2020-02-20] MEDS: Methadone Liquid 10 MG/ML 115 MG PO (11:40)
[2020-02-20 11:52] VITALS: BP 135/71; PULSE 72; RESP 18; TEMP 37.2; O2SAT 94
--- NOTE | 2020-02-20 13:13 | W.PM.OP ---
Date of service: 02/20/20 Time of Service: 13:13 Operative Note Operative Note DATE OF PROCEDURE: 02/20/20 PRE-OP DIAGNOSIS: R symptomatic pleural effusion POST-OP DIAGNOSIS: same SURGEON: Shelia Caraballo ANESTHESIA: local ESTIMATED BLOOD LOSS: 1 PATHOLOGY: other Patient was transported to: PACU Patient's condition: stable Procedure Description: Operative Note Pt is here today for thoracentesis for symptoms of shortness of breath. Chest x-ray was reviewed prior to beginning the procedure. Informed consent was obtained explaining risks and benefits of the procedure, including but not limited to bleeding, infection, pneumothorax, recurrence, complications of anesthesia, and other unforetold complications. PROCEDURE: The patient is brought to the procedure room and placed in the seated position. Ultrasound is used to localize the pocket on the left chest. The area is marked and then prepped and draped in the usual sterile fashion using a ChloraPrep scrub solution. 10 cc's of 1% Lidocaine is used to anesthetize the T10 interspace. The small shaun is made with a #11 blade. The needle and catheter is then inserted over the top of the rib, aspirating as it is inserted. The needle is then removed. The catheter is then hooked up to the Vacutainer system and 1100 cc's of gold-colored fluid is evacuated. The catheter is removed; pressure is held. Sterile compression dressing is applied. Portable chest x-ray shows no pneumothorax.
[2020-02-20] MEDS: metroNIDAZOLE 500 MG/100 ML BAG 100 MG IVPB (13:50)
[2020-02-20] MEDS: Nicotine 21 MG/24 HR PATCH TD (13:51)
[2020-02-20] MEDS: Thiamine 100 MG TAB PO (13:51)
[2020-02-20] MEDS: Folic Acid 1 MG TAB PO (13:51)
[2020-02-20] MEDS: predniSONE 5 MG TAB 10 MG PO (13:51)
[2020-02-20] MEDS: valACYclovir 500 MG TAB PO (13:51)
[2020-02-20] MEDS: azaTHIOprine 50 MG TAB 75 MG PO (13:51)
[2020-02-20] MEDS: Ferrous Sulfate 325 MG TAB PO (13:52)
[2020-02-20] MEDS: Lisinopril 10 MG TAB PO (13:52)
[2020-02-20] MEDS: Pantoprazole 40 MG TABCR PO (13:52)
[2020-02-20] MEDS: Furosemide 20 MG TAB PO (13:52)
[2020-02-20] MEDS: Multivitamin TAB 1 TAB PO (13:52)
[2020-02-20 14:28] LABS: Clarity Clear; Source Pleural
[2020-02-20 14:33] LABS: Mononuclear Cells 87 %; Polynuclear Cells 13 %
[2020-02-20 14:34] LABS: Nucleated Cells 1863 uL (0)
[2020-02-20 15:43] VITALS: PULSE 82; PULSE 85; PULSE 98; RESP 17; RESP 18; RESP 20; O2SAT 91; O2SAT 96
[2020-02-20 15:47] VITALS: BP 126/68; PULSE 83; RESP 17; TEMP 36.8; O2SAT 98
--- NOTE | 2020-02-20 16:15 | DSE_ITS ---
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 (4) Opioid dependence on agonist therapy: Status: Acute (5) History of pulmonary embolism: Status: Chronic Asessment and Plan: Ok to resume eliquis tomorrow (02/21/2020) pm (6) Chronic hepatitis C without mention of hepatic coma: Status: Chronic (7) COPD (chronic obstructive pulmonary disease): Status: Chronic (8) Anxiety disorder: Status: Chronic (9) COVID-19 ruled out by laboratory testing: Status: Ruled-out Discharge Plan Disposition Patient Disposition: HOME Condition: Stable Discharge Details Chief Complaint: SOB Clinical Impression: Pleural effusion, right, Pneumonia Reason For Visit: PLEURAL EFFUSION, PNEUMONIA Admit Date/Time: 02/19/20 01:12 Admit Provider: Carlton Mcdonough Attending Provider: Carlton Mcdonough Primary Care Provider: Kelly Masterson ED Provider: [facility] Course Hospital Course: Mr Guzmán is a 64 year old male with PMHx of recurrent pleural effusions, having required thoracenthesis in the past, as well as h/o drug induced hemolytic anemia on prednisone and azathioprine, h/o PE on eliquis, and opioid abuse on methadone through [facility], who was a patient on [facility] hospitalist service from 02/19/2020 until 02/20/2020 for a symptomatic right pleural effusion with suspicion of underlying community acquired vs aspiration pneumonia, based on RLL location. The patient was treated with empiric antibiotics (doxycycline, ceftriaxone, flagyl), hand negative blood cultures, had a normal sputum culture, had ruled out for COVID-19. He underwent a thoracenthesis by Dr Caraballo on 02/20/2020 with 1100 cc of gold-colored fluid removed which was sent for cultures, which are pending at the time of discharge. The patient had a postoperative chest x ray which was negative for a pneumothorax and showed small bilateral pleural effusions. He feels a lot better and feels ready to go home. He is instructed to continue furosemide 20 mg PO daily. His TSH was wnl. He is being discharged home with PO antibiotics (augmentin) x 5 days. He is medically stable for discharge home today with follow up with his PCP in 1-2 weeks. Care for patient as well as completion of his discharge summary took 45 minutes on day of discharge. Of note, per recommendations of patient's chief nursing officer in his last note, his apixaban dose is decreasing to 2.5 mg PO BID, and orophylactic valtrex is being re-instituted. Home Meds and New Rx's Prescriptions: New thiamine mononitrate (vit B1) [Vitamin B-1 (mononitrate)] 100 mg Tablet 100 mg PO DAILY Qty: 30 RF: 0 valacyclovir 500 mg Tablet 500 mg PO DAILY Qty: 30 RF: 0 Eliquis 2.5 mg Tablet 2.5 mg PO BID Qty: 60 RF: 0 amoxicillin-pot clavulanate [Augmentin] 875-125 mg tablet 1 tab PO BID Qty: 10 RF: 0 Continued furosemide 20 mg tablet 20 mg PO DAILY Qty: 90 RF: 4 alendronate 70 mg tablet 70 mg PO QWEEK Qty: 12 RF: 4 trazodone 50 mg tablet 50 mg PO QHS PRN (Reason: sleep) Qty: 30 RF: 3 lisinopril 10 mg tablet 10 mg PO DAILY Qty: 90 RF: 4 magnesium oxide 400 MG tablet 400 mg PO HS Qty: 30 RF: 11 cholecalciferol (vitamin D3) [Vitamin D3] 400 UNIT tablet 1 tab PO DAILY RF: 0 multivitamin 1 EACH tablet 1 ea PO DAILY RF: 0 ferrous sulfate 325 MG tablet 325 mg PO DAILY RF: 0 calcium carbonate [Tums] 200 MG tablet,chewable 2 tab PO DAILY RF: 0 folic acid 1 mg tablet 1 mg PO DAILY Qty: 90 RF: 4 albuterol sulfate 90 mcg/actuation HFA aerosol inhaler 2 puff IH Q6H PRN (Reason: shortness of breath or wheezing) Qty: 18 RF: 4 nicotine 14 mg/24 hr patch 24 hour 1 patch TD Q24H Qty: 28 RF: 1 prednisone 5 mg tablet 10 mg PO DAILY Qty: 180 RF: 4 methadone 10 mg/5 mL solution 115 mg PO DAILY RF: 0 fluocinonide 0.05 % cream 1 applic TP BID PRN (Reason: Rash) RF: 0 pantoprazole 40 mg tablet,delayed release (DR/EC) 40 mg PO DAILY RF: 0 Azasan 75 mg tablet 75 mg PO DAILY RF: 0 Discontinued Eliquis 5 mg tablet 5 mg PO BID Qty: 180 RF: 4 Discharge Instructions Instructions: Amoxicillin/Clavulanate Potassium (By mouth), Aspiration Pneumonia (DC), Pleural Effusion (DC) Additional Instructions: Finish your antibiotics as prescribed. Do not take eliquis until tomorrow evening - and note that your dose has changed to 2.5 mg twice daily. You are supposed to take valtrex for shingles prophylaxis - we represcribed this on discharge. Follow up with your PCP in 1-2 weeks. Referrals: Kelly Masterson NP [Primary Care Provider] - Activity:: Activity as Tolerated Equipment/Supplies:: No Equipment Needed Diet:: As Tolerated Discharge Orders Discharge Orders: Discharge Order (Routine); Ordered 02/20/20 Ordered By: Evelyn Mendoza DS: Summary Status at Discharge Functional status at discharge: independent ambulation Overall status at discharge: patient is back to baseline Mental Status: mental status grossly normal Speech and Movement: speech and movement normal Mood: anxious mood Affect: normal affect Exam Narrative Exam Narrative: General: Pleasant middle-aged male, anxious, A&Ox3, looks better than yesterday HEENT: EOMI, MMM Heart: RRR, +SHIRLEY Lungs: Diminished at B bases Abdomen: soft, nontender, nondistended Extremities: no edema BLEs Psych Mental Status: mental status grossly normal Speech and Movement: speech and movement normal Mood: anxious mood Affect: normal affect DS: Data Vitals/I&O Vitals and I&O: Vital Signs Temperature 36.8 C 02/20/20 15:47 Temperature Source Tympanic 02/20/20 15:47 Pulse 83 02/20/20 15:47 Pulse Rhythm Regular 02/20/20 09:56 Pulse 61 02/19/20 02:20 Respiratory Rate 17 02/20/20 15:47 Respiratory Effort 02/20/20 09:56 Respiratory Depth Normal 02/20/20 09:56 Respiratory Pattern Normal 02/20/20 09:56 Blood Pressure 126/68 02/20/20 15:47 Blood Pressure Mean 72 02/19/20 02:15 Blood Pressure Position Sitting 02/18/20 22:07 Pulse Oximetry 98 02/20/20 15:47 Oxygen Delivery Method Room Air 02/20/20 15:47 Oxygen Flow Rate 0 02/20/20 15:47 Pain Level 0 02/20/20 15:47 Intake & Output 02/19/20 02/20/20 02/20/20 23:59 11:59 23:59 Intake Total 760 / 1610 150 / 150 Output Total 400 / 400 500 / 500 Balance 360 / 1210 -350 / -350 Weight 61.8 kg Intake: IV 210 / 360 150 / 150 Oral 550 / 1250 Output: Urine 400 / 400 500 / 500 Other: Urine Color Yellow Dark Loraine Stool Size Moderate Stool Characteristics Liquid Voiding Methods Toilet Urinal Data Completed and Pending Completed studies during hospitalization [Text1]: CTA 02/18/2020: 1. No evidence of pulmonary embolism, thoracic aortic dissection or aneurysm. 2. Large right pleural effusion. 3. Scarring or rounded atelectasis seen in the right upper lobe and right lower lobe. This was present on the examination from 10/19/2017. 4. Right lower lobe infiltrate which may reflect pneumonia or atelectasis. Post thoracenthesis CXR 02/20/2020: Small bilateral pleural effusions and/or scarring. No new pulmonary infiltrates. Labs on day of discharge: Labs from last 24 hours 02/20/20 02/20/20 02/20/20 12:55 12:55 06:50 WBC RBC Hgb Hct MCV MCH MCHC RDW Plt Count MPV Immature Gran % Neutrophils % Lymphocytes % Monocytes % Eosinophils % Basophils % Nucleated RBC % Absolute Neutrophils Absolute Lymphocytes Absolute Monocytes Absolute Eosinophils Absolute Basophils RBC Morphology Polychromasia Anisocytosis Macrocytosis Haptoglobin PT 10.4 INR 1.0 Sodium Potassium Chloride Carbon Dioxide Anion Gap BUN Creatinine Estimated GFR/1.73 m2 Glucose Calcium Magnesium Total Bilirubin GGT AST ALT Alkaline Phosphatase C-Reactive Protein Total Protein Albumin Procalcitonin Fluid Type Pending Fluid Source Pleural Fluid Color Yellow Fluid Clarity Clear Fluid WBC 1863 Fld Polynuclear WBCs % 13 Fluid Mononuclear Cell 87 Fluid Tot Bilirubin Pending COVID-19 PCR Nasopharyn COVID-19 PCR Path Cons Comment Pending Ref Test Perform Site 02/20/20 02/20/20 02/20/20 06:50 06:50 06:50 WBC 14.97 H RBC 2.21 L Hgb 8.3 L Hct 26.3 L MCV 119.0 H D MCH 37.6 H MCHC 31.6 L RDW 22.0 H Plt Count 363 MPV 11.1 H Immature Gran % 0.0 Neutrophils % 73.0 Lymphocytes % 17.0 Monocytes % 8.0 Eosinophils % 2.0 Basophils % 0.0 Nucleated RBC % 43 Absolute Neutrophils 10.93 H Absolute Lymphocytes 2.54 Absolute Monocytes 1.20 H Absolute Eosinophils 0.30 Absolute Basophils 0.00 RBC Morphology See below Polychromasia Present Anisocytosis 2+ Macrocytosis 2+ Haptoglobin Pending PT INR Sodium Potassium Chloride Carbon Dioxide Anion Gap BUN Creatinine Estimated GFR/1.73 m2 Glucose Calcium Magnesium Total Bilirubin GGT AST ALT Alkaline Phosphatase C-Reactive Protein Total Protein Albumin Procalcitonin 0.3 Fluid Type Fluid Source Fluid Color Fluid Clarity Fluid WBC Fld Polynuclear WBCs % Fluid Mononuclear Cell Fluid Tot Bilirubin COVID-19 PCR Nasopharyn COVID-19 PCR Path Cons Comment Ref Test Perform Site 02/20/20 02/20/20 02/19/20 06:50 05:35 01:30 WBC RBC Hgb Hct MCV MCH MCHC RDW Plt Count MPV Immature Gran % Neutrophils % Lymphocytes % Monocytes % Eosinophils % Basophils % Nucleated RBC % Absolute Neutrophils Absolute Lymphocytes Absolute Monocytes Absolute Eosinophils Absolute Basophils RBC Morphology Polychromasia Anisocytosis Macrocytosis Haptoglobin PT INR Sodium 142 Cancelled Potassium 3.7 Cancelled Chloride 106 Cancelled Carbon Dioxide 29.3 Cancelled Anion Gap 6.7 Cancelled BUN 12 Cancelled Creatinine 0.95 Cancelled Estimated GFR/1.73 m2 >= 60.00 Cancelled Glucose 80 Cancelled Calcium 8.5 Cancelled Magnesium 2.0 Total Bilirubin 2.1 H Cancelled GGT 46 AST 119 H Cancelled ALT 34 Cancelled Alkaline Phosphatase 67 Cancelled C-Reactive Protein 0.51 H Total Protein 5.5 L Cancelled Albumin 3.0 L Cancelled Procalcitonin Fluid Type Fluid Source Fluid Color Fluid Clarity Fluid WBC Fld Polynuclear WBCs % Fluid Mononuclear Cell Fluid Tot Bilirubin COVID-19 PCR Negative Nasopharyn COVID-19 PCR Not Applicable Path Cons Comment Ref Test Perform Site [facility] 02/20/20 12:55 Pleural Body Fluid Culture - Pending Preliminary micro results at discharge 02/20/20 12:55 Body Fluid Culture - Pending Pleural 02/19/20 05:15 Sputum Culture - Preliminary Sputum Normal Ethel 02/19/20 01:28 Blood Culture - Preliminary Blood NO GROWTH 24 HOURS 02/19/20 01:40 Blood Culture - Preliminary Blood NO GROWTH 24 HOURS [facility] Medical History (Updated 02/20/20 @ 16:19 by Evelyn eMndoza MD) Opioid dependence on agonist therapy (Acute) Pleural effusion, left (Resolved) Pulmonary emboli (Resolved) Surgical History H/O colonoscopy (Resolved 05/07/18) dr gibson,no abnormalities, repeat 10 years Repair of inguinal hernia RIGHT Status post unilateral inguinal hernia repair (Resolved) Thoracentesis (06/08/16) left Family History Mother Essential hypertension Father No problems noted. Sister Neoplasm Sister No problems noted. Sister No problems noted. Grandfather Heart disease Grandfather No problems noted. Grandmother No problems noted. Grandmother No problems noted. Son No problems noted. Son No problems noted. 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 Lives with girlfriend.
--- NOTE | 2020-02-20 17:05 | INITIAL_ITS ---
- If Service Date Differs Date of service: 02/20/20 Time of Service: 17:05 Care Management Initial Assess REASON FOR HOSPITALIZATION:: Pneumonia PAST MEDICAL HISTORY/PAST SURGICAL HISTORY:: Medical History . Pleural effusion, left (Resolved). Pulmonary emboli (Resolved). Surgical History . H/O colonoscopy (Resolved 05/07/18). dr gibson,no abnormalities, repeat 10 years. Repair of inguinal hernia. RIGHT. Status post unilateral inguinal hernia repair (Resolved). Thoracentesis (06/08/16). left PREVIOUS FUNCTIONAL STATUS/SOCIAL/FAMILY SUPPORTS:: Franc lives in a single family home in [facility] with his girlfriend Jennifer. 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 CURRENT FUNCTIONAL STATUS:: Franc was sitting up in bed when CM met with him. He was a bit resistant to conversation at first, but gradually became more soci able, even joking with CM. Franc stated that he just really wants to go home. He is scheduled to have a thoracentesis later today. ADVANCE DIRECTIVES:: provided with Vt. AD forms Has patient been provided with info about the portal/API?: Yes Did the patient sign up for the portal?: No CODE STATUS:: Full Code INSURANCE COVERAGE / FINANCIAL ISSUES:: /BS. Medicare CURRENT HOME/COMMUNITY SERVICES/EQUIPMENT:: Franc is on a Methadone maintenance program through [facility] PRIMARY CARE PHYSICIAN:: Kelly Masterson POTENTIAL DISCHARGE NEEDS:: Follow up with PCP and discharge plan of care PATIENT/FAMILY EDUCATION NEEDS:: Discharge plan, limitations, follow up plan. Ask me Three TRANSPORTATION:: via private vehicle with girlfriend PLAN:: Franc will be discharged home with no new services. He will follow up with his PCP and discharge plan of care and transport with his girlfriend.
--- NOTE | 2020-02-20 17:20 | PDOC.CMDIS ---
- If Service Date Differs Date of service: 02/20/20 Time of Service: 17:20 LACE Index Scoring Tool - Questions: Length of Stay (in days): 1 Acuity (Admit via E.D.?): Yes E.D. Visits: 1 - Answers: Total Score: 5 Risk of Readmission: Low Risk Care Management Discharge Reason for Hospitalization: Pneumonia Discharge Plan: Franc will be discharged home with no new services. He will follow up with his PCP and discharge plan of care and transport with his girlfriend. Patient/Family Education Needs: Discharge plan, limitations, follow up plan. Ask me Three
[2020-02-21 10:58] LABS: Haptoglobin <7 mg/dL (32-197)
== END 2020-02-20 17:00 | disposition home or self-care (01) | DRG 194 ==
LOC: ER 02-19 01:07 → MS 02-19 02:27
PROVIDERS: Internal Medicine; Surgery; Admitting Provider Family Medicine; Emergency Provider Registered Nurse Emergency; Visit Provider Family Medicine
PROC: 0W993ZX Drainage of Right Pleural Cavity, Percutaneous Approach, Diagnostic (ICD-10-PCS; CPT 32554; principal; 2020-02-20 10:15)
DX: J18.9 Pneumonia, unspecified organism (principal); J44.0 Chronic obstructive pulmonary disease with (acute) lower respiratory infection; F11.20 Opioid dependence, uncomplicated; J90 Pleural effusion, not elsewhere classified; D59.0 Drug-induced autoimmune hemolytic anemia; I10 Essential (primary) hypertension; F17.210 Nicotine dependence, cigarettes, uncomplicated; F32.9 Major depressive disorder, single episode, unspecified; Z86.711 Personal history of pulmonary embolism; B18.2 Chronic viral hepatitis C; Z11.59 Encounter for screening for other viral diseases
CPT/HCPCS: 32555; 36415; 71275; 80048; 80053; 80307; 84145; 87040; 93005; 94618; 96365; 96375; 99222; 99239; 99285; NC; U0003; 71045; 80320; 81003; 81015; 82247; 82977; 83010; 83735; 83880; 84439; 84443; 84484; 85025; 85610; 86140; 87070; 87205; 89051; 93010; J0456; J0696; J1756; J3490; J7500; J7512

== ENCOUNTER 2020-03-05 18:09 | Outpatient (CLI) | payer BC, MEDICARE, SELFPAY ==
--- NOTE | 2020-03-05 18:21 | DI.RAD_ITS ---
EXAM: XR ABD FLAT UPRIGHT PA CHEST CLINICAL HISTORY: SOB, hx recent pleural effusions. TECHNIQUE: COMPARISON: CR CHEST 2 VIEWS PA,LAT from 10/15/2017 CT CHEST WITH CONTRAST from 12/03/2017 CR XR PORTABLE CHEST AP from 02/20/2020 FINDINGS: Single view of the chest and two views of the abdomen were obtained. Examination is compared with ltiple prior chest films including September 2017. Left and right pleural blunting again noted, probable pleural effusions. Left lateral lower thoracic rounded radiodensity seen on prior examination is le ss prominent the current examination. Triangular pleural-based right apical radiodensity unchanged f rom prior study. Moderate COPD and pulmonary scarring noted. No acute consolidation. No free intraperitoneal air seen. Bowel gas pattern is within normal limits. Probable hepatomegaly. No other specific abnormality seen. IMPRESSION: Chronic findings as described above. No evidence of acute process. Bilateral pleural effusions of u ncertain etiology. Additional evaluation with contrast enhanced chest CT may be obtained for compari son with prior chest CT examinations. RADIATION DOSE DELIVERED: Total DLP
== END 2020-03-05 18:29 ==
PROVIDERS: Visit Provider Physician Assistant
DX: J90 Pleural effusion, not elsewhere classified (principal); R06.02 Shortness of breath; J44.9 Chronic obstructive pulmonary disease, unspecified
CPT/HCPCS: 74022

== ENCOUNTER 2021-07-17 20:23 | Emergency (ER) | payer BC, SELFPAY ==
[2021-07-17] VITALS (8 sets, daily range): BP systolic 131–145; BP diastolic 62–85; PULSE 83–88; RESP 14–21; TEMP 36.6; O2SAT 92–94
--- NOTE | 2021-07-17 20:30 | RT.EKG_ITS ---
APPROVED REPORT Exam: Resting ECG Reason for Exam: sob Patient Location: E HR:82 bpm ECG Measurements Heart Rate 82 AXIS WV 129 P 66 QRSd 93 QRS 55 QT 393 T 43 QTc 461 Conclusion Sinus rhythm...normal P axis, V-rate 60- [address] depression, lateral leads...ST <-0.07mV, I aVL V5 V6
[2021-07-17 21:10] LABS: HCT 30.1 % (40.0-50.0); HGB 9.4 g/dL (13.5-17.5); Immature Grans % 0.9; MCH 35.1 pg (27.0-33.0); MCHC 31.2 % (32.0-36.0); MCV 112.3 fL (80-95); MPV 10.9 fL (8.0-11.0); Platelet Count 452 10^3/uL (130-400); RBC 2.68 10^6/uL (4.36-5.78); RDW-SD 77.4 fL; WBC 17.65 10^3/uL (4.4-10.8)
[2021-07-17 21:23] LABS: Absolute Lymphocyte Count 2.82 10^3/uL (1.2-3.4); Absolute Monocyte Count 1.06 10^3/uL (0.1-0.8); Absolute Neutrophil Count 13.41 10^3/uL (1.2-6.7)
[2021-07-17 21:24] LABS: Absolute Eosinophil Count 0.18 10^3/uL (0.0-0.7); Anisocytosis 2+; Diff Comment Manual Differential; Macrocytosis 2+; Metamyelocytes % 1; Microcytosis 1+; Nucleated RBC 4 %; Polychromasia Present
[2021-07-17 21:28] LABS: ALT 27 U/L (16-63); AST 105 U/L (15-37); Albumin 3.2 g/dL (3.4-5.0); Alkaline Phosphatase 93 U/L (46-116); Anion Gap 9.2 mmol/L (3-11); BUN 17 mg/dL (7-18); Bilirubin, Total 3.2 mg/dL (0.2-1.0); CO2 28.8 mmol/L (21.0-32.0); CREATININE 0.8 mg/dL (0.70-1.30); Calcium 8.7 mg/dL (8.5-10.1); Chloride 105 mmol/L (98-107); Glucose 86 mg/dL (74-106); Potassium 4.3 mmol/L (3.5-5.1); Sodium 143 mmol/L (136-145); Total Protein 6.5 g/dL (6.4-8.2); Troponin I < 50 ng/L (<or=60)
--- NOTE | 2021-07-17 21:30 | DI.RAD_ITS ---
Exam(s) XR CHEST 2V PA LATERAL EXAM: XR CHEST 2V PA LATERAL CLINICAL HISTORY: weakness TECHNIQUE: 2D digital imaging was performed of the chest. Two images were obtained. PA and lateral views were obtained. COMPARISON: CR XR CHEST 2V PA LATERAL from 11/25/[address] CHEST/ABD/PEL W from 05/22/2021 FINDINGS: MEDIASTINUM: Normal. HEART: Normal. PULMONARY VASCULATURE: Normal. LUNGS: There is underlying COPD. There is stable parenchymal scarring in the lungs. No new focal in filtrates are seen. PLEURAL SPACE: There has been interval increase in size of the right pleural effusion which is now mo derate. There is a stable left pleural effusion. No pneumothorax. BONE:Within normal limits for the patient's age. There is an anterior wedge deformity of the T8 vert ebral body. This was not present on the most recent examination of the area which is a CT scan from 05/22/2021. OTHER FINDINGS:Normal. IMPRESSION: 1. No new pulmonary infiltrates. 2. Increase in right pleural effusion which is now moderate. Stable left pleural effusion. 3. Stable parenchymal opacities in the lungs likely reflecting scarring. These are present on the est x-ray from 11/25/2019. 4. Pulmonary emphysema. 5. Anterior wedge deformity of the T8 vertebral body of indeterminate acuity. Follow-up as clinicall y appropriate. DATA REPOSITORY: RADIATION DOSE DELIVERED:
--- NOTE | 2021-07-17 21:39 | W.ED.GENAD ---
Discharge Plan Disposition Patient Disposition: HOME Condition: Stable Discharge Details Clinical Impression: Generalized weakness, Abnormal weight loss, Pleural effusion on right, Opacities of both lungs present on chest x-ray Primary Care Provider: Kelly Masterson ED Provider: Pedro Luis Lopez Home Meds and New Rx's Prescriptions: Continued sertraline 100 mg tablet 200 mg PO DAILY Qty: 180 RF: 3 thiamine mononitrate (vit B1) [Vitamin B-1 (mononitrate)] 100 mg tablet 100 mg PO DAILY Qty: 30 RF: 6 furosemide 20 mg tablet 20 mg PO BID RF: 0 Eliquis 2.5 mg tablet 2.5 mg PO BID Qty: 180 RF: 3 duloxetine 60 mg capsule,delayed release(DR/EC) 60 mg PO DAILY Qty: 90 RF: 3 magnesium oxide 400 MG tablet 400 mg PO HS Qty: 30 RF: 11 cholecalciferol (vitamin D3) [Vitamin D3] 400 UNIT tablet 1 tab PO DAILY RF: 0 multivitamin 1 EACH tablet 1 ea PO DAILY RF: 0 ferrous sulfate 325 MG tablet 325 mg PO DAILY RF: 0 calcium carbonate [Tums] 200 MG tablet,chewable 2 tab PO DAILY RF: 0 albuterol sulfate 90 mcg/actuation HFA aerosol inhaler 2 puff IH Q6H PRN (Reason: shortness of breath or wheezing) Qty: 18 RF: 4 methadone 10 mg/5 mL solution 115 mg PO DAILY RF: 0 lisinopril 10 mg tablet 10 mg PO DAILY Qty: 90 RF: 4 folic acid 1 mg tablet 1 mg PO DAILY Qty: 90 RF: 4 alendronate 70 mg tablet 70 mg PO QWEEK Qty: 12 RF: 4 lorazepam 0.5 mg tablet 0.25 - 0.5 mg PO BID MDD 0.75mg PRN (Reason: anxiety) Qty: 45 RF: 0 prednisone 5 mg tablet 5 mg PO DAILY RF: 0 Discharge Instructions Instructions: Pleural Effusion (ED), Failure to Thrive in Older Adults (ED) Additional Instructions: Please increase caloric intake. I recommend drinking high calorie nutritional shakes daily. Please follow-up with your hematology/human resources benefits specialist as soon as possible. You has a moderate sized right pleural effusion that will likely require drainage. Please discuss radiology findings including chronic pulmonary opacities with your oncologist. Please contact your primary care physician to arrange follow-up. Return to the ER immediately for any worsening or new concerning symptoms. Referrals: Kelly Masterson NP [Primary Care Provider] - Medical Decision Making 66-year-old male with multiple medical problems including history of splenectomy, chronic hemolytic anemia, COPD, hypertension, hepatitis C, recurrent pleural effusions requiring pleurocentesis, here with generalized weakness the past months and worse over the past week, unintentional weight loss over the past year. EKG was reviewed and interpreted by me: Please see report, sinus rhythm 82 bpm, no STEMI, subtle ST depressions noted laterally and were present on a prior EKG. I considered ACS. Patient has no chest pain. Given ongoing symptoms for the past week a troponin was checked and normal. Concern for electrolyte abnormality. Labs reviewed and nondiagnostic. Chronic anemia noted, improved from prior. Leukocytosis, noted this is also chronic. No significant electrolyte abnormalities. Mild transaminitis noted. Normal platelets. Chest x-ray was reviewed and interpreted by radiology: IMPRESSION: 1. Hyperinflation consistent with emphysema. 2. Moderate right pleural effusion. Minor left pleural effusion. 3. Bilateral areas of airspace opacification which are evident on CT 05/22/2021 and are of uncertain significance. These may represent chronic areas of peripheral atelectasis or scarring. No distinct masslike features. These regions also appear stable since 02/18/2020. We discussed pleuracentesis and patient provided informed refusal and would prefer to follow-up with his specialist. He has had this drained a few weeks ago and understands he will likely need it drained again soon. I am concerned that patient is failing to thrive. I did speak with his son who notes that his father is inconsistent in maintaining adequate nutrition. I recommended that he use nutritional high caloric shakes at least daily. Consideration should also be admitted for potential opportunistic infection given splenectomy. Patient is to be referred to his heme-onc specialist for timely outpatient follow-up. HPI General Mode of arrival: ambulatory. Date/Time Provider Initiated Documentation: 07/17/21 20:54. Limitations to Documentation: no limitations. Information obtained by: patient and family. HPI Narrative: 66-year-old male with multiple medical problems including history of hemolytic anemia, COPD, hypertension, hepatitis, pleural effusion requiring pleurocentesis, pulmonary embolism, here with chief complaint of weakness. Patient notes generalized weakness over the past 2 years, worse over the past 1 week. Patient notes decreased energy level. Symptoms are moderate to severe. No modifiers. Patient also notes 60 to 70 pound unintentional weight loss over the past 1 year. Patient is followed by heme-onc at [facility] but has no known cancer. Related Data Home Medications Medication Instructions Recorded Confirmed magnesium oxide 400 mg PO HS #30 tab 02/21/16 07/17/21 calcium carbonate [Tums] 2 tab PO DAILY tab.chew 09/17/16 07/17/21 cholecalciferol (vitamin D3) 1 tab PO DAILY 09/17/16 07/17/21 [Vitamin D3] ferrous sulfate 325 mg PO DAILY 09/17/16 07/17/21 multivitamin 1 ea PO DAILY 09/17/16 07/17/21 albuterol sulfate 90 mcg/actuation 2 puff IH Q6H PRN #18 gm 03/08/19 07/17/21 aerosol inhaler methadone 10 mg/5 mL oral solution 115 mg PO DAILY ml 11/23/19 07/17/21 thiamine mononitrate (vit B1) 100 100 mg PO DAILY #30 tab 04/17/20 07/17/21 mg tablet lisinopril 10 mg tablet 10 mg PO DAILY #90 tab 09/11/20 07/17/21 folic acid 1 mg tablet 1 mg PO DAILY #90 tab 09/24/20 07/17/21 sertraline 100 mg tablet 200 mg PO DAILY #180 tab 02/07/21 07/17/21 apixaban 2.5 mg tablet 2.5 mg PO BID #180 tab 04/30/21 07/17/21 duloxetine 60 mg capsule,delayed 60 mg PO DAILY #90 cap 04/30/21 07/17/21 release furosemide 20 mg tablet 20 mg PO BID 04/30/21 07/17/21 alendronate 70 mg tablet 70 mg PO QWEEK #12 tab 06/12/21 07/17/21 lorazepam 0.5 mg tablet 0.25 - 0.5 mg PO BID PRN #45 tab 07/15/21 07/17/21 MDD 0.75mg prednisone 5 mg PO DAILY 07/17/21 07/17/21 Previous Rx's Medication Instructions Recorded albuterol sulfate 90 mcg/actuation 2 puff IH Q6H PRN #18 gm 03/08/19 aerosol inhaler thiamine mononitrate (vit B1) 100 100 mg PO DAILY #30 tab 04/17/20 mg tablet lisinopril 10 mg tablet 10 mg PO DAILY #90 tab 09/11/20 folic acid 1 mg tablet 1 mg PO DAILY #90 tab 09/24/20 sertraline 100 mg tablet 200 mg PO DAILY #180 tab 02/07/21 apixaban 2.5 mg tablet 2.5 mg PO BID #180 tab 04/30/21 duloxetine 60 mg capsule,delayed 60 mg PO DAILY #90 cap 04/30/21 release alendronate 70 mg tablet 70 mg PO QWEEK #12 tab 06/12/21 lorazepam 0.5 mg tablet 0.25 - 0.5 mg PO BID PRN #45 tab 07/15/21 MDD 0.75mg Allergies Allergy/AdvReac Type Severity Reaction Status Date / Time No Known Allergies Allergy Verified 07/17/21 20:39 General Stated Complaint: GenMedical CANDIDO: 3 Review of Systems All systems reviewed & are unremarkable except as noted in HPI and below Constitutional Constitutional: Denies fever(s), Reports lethargy and Reports weakness Cardiovascular Cardiovascular: Denies chest pain and Denies dyspnea Respiratory Respiratory: Denies cough and Denies dyspnea Gastrointestinal Gastrointestinal: Denies abdominal pain and Reports constipation Genitourinary Genitourinary: Denies dysuria Neurologic Neurologic: Reports weakness PFSH All Active Problems Generalized weakness (Acute) Abnormal weight loss (Acute) Pleural effusion on right (Acute) Opacities of both lungs present on chest x-ray (Acute) Depression (Chronic) Weight loss (Acute) Annual physical exam (Acute) Breathlessness (Acute) History of pulmonary embolism (Chronic) Anxiety disorder (Chronic) Abnormal liver enzymes (Acute) Opioid dependence on agonist therapy (Acute) Pleural effusion, right (Acute) 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) Hand dermatitis (Acute) Left wrist pain (Acute) Insomnia (Acute) Personal history of colonic polyps (Acute) 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) Chronic sphenoidal sinusitis (Chronic 04/07/16) Chronic maxillary sinusitis (Chronic 04/07/16) Chronic frontal sinusitis (Chronic 04/07/16) Chronic ethmoidal sinusitis (Chronic 04/07/16) Chronic hepatitis C without mention of hepatic coma (Chronic 09/20/12) Benign essential hypertension (Chronic 10/21/12) Anosmia (Chronic 04/07/16) Smoker (Chronic 02/15/15) Shingles (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) Sexual function problem (Chronic) Postnasal drip (Chronic 08/07/14) Peyronie disease (Chronic 02/15/15) Nasal polyp, unspecified (Chronic 03/23/17) Moderate single current episode of major depressive disorder (Chronic 04/07/17) Hearing loss (Chronic) Bilateral lower extremity edema (Chronic 08/25/16) Allergic rhinitis due to pollen (Chronic 07/09/15) Allergic fungal sinusitis (Chronic 05/23/13) Allergy Injections COPD (chronic obstructive pulmonary disease) (Chronic) Medical History Pleural effusion, left Pneumonia Pulmonary emboli Surgical History H/O colonoscopy (05/07/18) dr gibson,no abnormalities, repeat 10 years Repair of inguinal hernia RIGHT Status post unilateral inguinal hernia repair Thoracentesis (06/08/16) left Family History Mother Essential hypertension Father No problems noted. Sister Neoplasm Sister No problems noted. Sister No problems noted. Grandfather Heart disease Grandfather No problems noted. Grandmother No problems noted. Grandmother No problems noted. Son No problems noted. Son No problems noted. 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 Lives with girlfriend. Exam Const General: cooperative and no acute distress Nutritional Appearance: cachectic Orientation: alert and awake HENVT Mouth: oral mucosae normal and moist mucous membranes Teeth and gingiva: gingiva normal Eyes Conjunctivae: normal conjunctivae Sclera: scleral abnormality bilaterally other (icterus) Neck Neck: trachea midline and supple Resp Effort & Inspection: able to speak in complete sentences, not labored and no respiratory distress Auscultation: diminished lung sounds on the right in the lower lung solitario, no rales, no rhonchi and no wheezes Cardio Jugular venous pressure: no JVD Rate: regular rate and not tachycardic Rhythm: regular rhythm Heart Sounds: no murmurs GI Palpation: soft, not firm, no guarding, no masses, not rigid and nontender Skin General skin exam: no rashes or lesions noted Neuro General: patient alert, patient awake, patient oriented x3 and tone normal Extrem General: no edema Psych Appearance: grossly normal Mental Status: mental status grossly normal Speech and Movement: speech and movement normal Course Vital Signs Vital signs: Vital Signs Temperature 36.6 C 07/17/21 20:35 Pulse 83 07/17/21 20:35 Respiratory Rate 21 07/17/21 20:35 Blood Pressure 145/69 H 07/17/21 20:35 Pulse Oximetry 92 07/17/21 20:35 Temperature 36.6 C 07/17/21 20:35 Temperature Source Skin 07/17/21 20:35 Pulse 84 07/17/21 21:36 Pulse 85 07/17/21 21:36 Respiratory Rate 16 07/17/21 21:36 Respiratory Effort 07/17/21 20:44 Respiratory Pattern Normal 07/17/21 20:44 Blood Pressure 138/62 07/17/21 21:36 Blood Pressure Mean 82 07/17/21 21:36 Pulse Oximetry 94 07/17/21 21:36 Pain Level 0 07/17/21 20:35 Lab/Test Results Lab/Test Results: Laboratory Tests Range/Units 07/17/21 07/17/21 21:05 21:05 WBC (4.4-10.8) 10^3/uL 17.65 H RBC (4.36-5.78) 10^6/uL 2.68 L Hgb (13.5-17.5) g/dL 9.4 L Hct (40.0-50.0) % 30.1 L MCV (80-95) fL 112.3 H MCH (27.0-33.0) pg 35.1 H MCHC (32.0-36.0) % 31.2 L RDW (11.8-14.1) % 21.0 H Plt Count (130-400) 10^3/uL 452 H MPV (8.0-11.0) fL 10.9 Immature Gran % 0.9 Neutrophils % 76.0 Lymphocytes % 16.0 Monocytes % 6.0 Eosinophils % 1.0 Basophils % 0.0 Metamyelocytes % 1 Nucleated RBC % % 4 Absolute Neutrophils (1.2-6.7) 10^3/uL 13.41 H Absolute Lymphocytes (1.2-3.4) 10^3/uL 2.82 Absolute Monocytes (0.1-0.8) 10^3/uL 1.06 H Absolute Eosinophils (0.0-0.7) 10^3/uL 0.18 Absolute Basophils (0.0-0.2) 10^3/uL 0.00 RBC Morphology See Below Polychromasia Present Anisocytosis 2+ Microcytosis 1+ Macrocytosis 2+ Sodium (136-145) mmol/L 143 Potassium (3.5-5.1) mmol/L 4.3 Chloride (98-107) mmol/L 105 Carbon Dioxide (21.0-32.0) mmol/L 28.8 Anion Gap (3-11) mmol/L 9.2 BUN (7-18) mg/dL 17 Creatinine (0.70-1.30) mg/dL 0.8 Estimated GFR/1.73 m2 (mL/min/1.73m2) >= 60.00 Glucose (74-106) mg/dL 86 Calcium (8.5-10.1) mg/dL 8.7 Magnesium (1.8-2.4) mg/dL 2.0 Total Bilirubin (0.2-1.0) mg/dL 3.2 H AST (15-37) U/L 105 H ALT (16-63) U/L 27 Alkaline Phosphatase (46-116) U/L 93 Troponin I (<or=60) ng/L < 50 Total Protein (6.4-8.2) g/dL 6.5 Albumin (3.4-5.0) g/dL 3.2 L
[2021-07-17 21:49] LABS: Source Nasal/Nares
--- NOTE | 2021-07-17 22:40 | DI.VRAD_ITS ---
PROCEDURE INFORMATION: Exam: XR Chest Exam date and time: 07/17/2021 9:36 PM Age: 66 years old Clinical indication: Other: Weak TECHNIQUE: Imaging protocol: XR of the chest. Views: 2 views. COMPARISON: CT CHEST/ABD/PEL W 05/22/2021 1:05 PM FINDINGS: Lungs: Hyperinflation consistent with emphysema. Scattered bilateral nonspecific lung opacifications. Possibility of these being infectious or neoplastic should be considered. Right lower lobe opacity measuring 9 mm. Left lower lobe opacity measuring 20 mm. Left mid lung field 16 mm opacification. Bilateral areas of streaky interstitial type scarring. There is a previous CT chest from approximately 2 months ago. This study shows severe emphysema. Left upper lobe anterior peripheral consolidated focus or scar like process is evident. Left lower lobe peripheral area of opacification also is noted which appears to correlate with the current x-ray finding. A small right middle lobe peripheral opacification appears to correlate with the x-ray focus in the right lower lung field. Pleural spaces: Moderate right pleural effusion. Minor left pleural effusion. Heart/Mediastinum: Normal heart size. Bones/joints: Degenerative thoracic spine disease. Midthoracic mild anterior wedge compression fracture with chronic appearing features. IMPRESSION: 1. Hyperinflation consistent with emphysema. 2. Moderate right pleural effusion. Minor left pleural effusion. 3. Bilateral areas of airspace opacification which are evident on CT 05/22/2021 and are of uncertain significance. These may represent chronic areas of peripheral atelectasis or scarring. No distinct masslike features. These regions also appear stable since 02/18/2020. Dictated and Authenticated by: Sacha Tilley MD. Ordering:KARLA Cloud MD
[2021-07-18 00:13] LABS: COVID-19 PCR Negative (Negative)
--- NOTE | 2021-07-18 09:24 | NUR.NOTE ---
negative covid result relayed to pt via phone message machine.Nursing Note:
== END 2021-07-17 23:03 | disposition home or self-care (01) ==
PROVIDERS: Emergency Provider Student in an Organized Health Care Education/Training Program
DX: R53.1 Weakness (principal); R63.4 Abnormal weight loss; J90 Pleural effusion, not elsewhere classified; R91.8 Other nonspecific abnormal finding of lung field; R06.02 Shortness of breath; F17.210 Nicotine dependence, cigarettes, uncomplicated
CPT/HCPCS: 80053; 87635; 93005; 99284; 71046; 83735; 84484; 85025; 93010

== ENCOUNTER 2021-08-13 03:18 | Outpatient (CLI) | payer BC, MEDICARE, SELFPAY ==
[2021-08-13 15:11] LABS: Source Nasal/Nares
[2021-08-13 17:12] LABS: COVID-19 PCR Negative (Negative)
== END 2021-08-13 03:19 | disposition home or self-care (01) ==
PROVIDERS: Visit Provider Thoracic Surgery (Cardiothoracic Vascular Surgery)
DX: Z20.822 Contact with and (suspected) exposure to COVID-19 (principal); Z01.818 Encounter for other preprocedural examination
CPT/HCPCS: 87635

== ENCOUNTER 2021-09-30 17:32 | Inpatient (IN) | payer OTHER, MEDICARE, SELFPAY ==
[2021-09-30] VITALS (9 sets, daily range): BP systolic 146–163; BP diastolic 67–81; PULSE 66–82; RESP 16–20; TEMP 36.4; O2SAT 90–100
--- NOTE | 2021-09-30 17:30 | RT.EKG_ITS ---
APPROVED REPORT Exam: Resting ECG Reason for Exam: ANXIETY SOB Patient Location: E HR:68 bpm ECG Measurements Heart Rate 68 AXIS WI 160 P 62 QRSd 76 QRS 41 QT 442 T 47 QTc 471 Conclusion Sinus rhythm.. Borderline ST depression, anterolateral leads...ST <-0.07mV, I aVL V2-V6. Similar to previous of 07/17
--- NOTE | 2021-09-30 18:00 | DI.RAD_ITS ---
Exam(s) XR CHEST 2V PA LATERAL EXAM: XR CHEST 2V PA LATERAL CLINICAL HISTORY: SOB TECHNIQUE: 2D digital imaging was performed of the chest. Two images were obtained. PA and lateral views were obtained. COMPARISON: CR,XR XR CHEST 2V PA LATERAL from 07/17/2021 FINDINGS: MEDIASTINUM: Normal. HEART: Normal. PULMONARY VASCULATURE: Normal. LUNGS: There are persistent bilateral pulmonary infiltrates. They have a chronic appearance. No new infiltrates are seen. The lungs are hyperinflated consistent with underlying COPD. PLEURAL SPACE: There has been an interval decrease in size of the right pleural effusion since 022. There is blunting of both costophrenic angles bilaterally suggesting persistent tiny pleural ef fusions. No pneumothorax. BONE:Within normal limits for the patient's age. Old mid thoracic compression deformity is seen. OTHER FINDINGS:Normal. IMPRESSION: 1. Stable parenchymal findings in the lungs. 2. Small bilateral pleural effusions. Improved since 07/17/2021. DATA REPOSITORY: RADIATION DOSE DELIVERED:
--- NOTE | 2021-09-30 18:05 | ED.GENADUL_ITS ---
Discharge Plan Discharge Details Chief Complaint: SOB Admit Date/Time: 09/30/21 20:34 Admit Provider: Evelyn Mendoza Attending Provider: Evelyn Mendoza Primary Care Provider: Kelly Masterson ED Provider: Venessa Meza Discharge Data Discharge Date/Time-TO BE ENTERED AT DEPARTURE: 09/30/21 21:34 Medical Decision Making Patient is a pleasant 66-year-old gentleman, brought in by significant other, with chief complaint of increased shortness of breath. Patient does have complex past medical history including hemolytic anemia, depression, PE, anxiety, opioid dependence, pleural effusion, drug-induced antibody type hemolytic anemia, chronic hepatitis C, hypertension, smoker, bilateral lower extremity edema, COPD. Patient describes undergoing a pleurodesis by [facility] 1.5 months ago. Over the past few weeks, significant other has noted increased jaundice as well as increased lower extremity edema. Patient reports he had intermittent shortness of breath that has been increasing. In particular, today he began noting increased shortness of breath and feeling quite anxious. He states that he began pacing secondary to the increase shortness of breath and finds that this is to make his symptoms worse. Patient reports that he has run out of his Ativan but is questioning if this may be contributing to his symptoms today. Patient significant other reports that he has been jaundiced historically but that this is worse than his typical. Patient denies any fever/chills, cough, congestion. Reviewed chart from [facility]. Patient was last seen by his hematology oncology team on 09/20/2021. At that time, the patient was endorsing dark urine, increase shortness of breath with exertion. 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 Patient has failed treatment for his hemolyze steroids and rituximab, underwent a splenectomy in 2017 with temporary improvement but now has continued hemolyze once again. This was performed over telehealth visit and patient was noted to slightly jaundiced at that time. Patient O2 in high 90s on 2L NC On exam, patient appears acute on chronically ill. Is quite cachectic with notable jaundice. No petechiae. He does have bruising on his upper extremities. He is 2+ pitting edema bilateral lower extremities. Diminished breath sounds bilaterally. He has incisions from recent surgical intervention appear to be healing well with no evidence of infection. Calves are soft nontender. 2+ pulses. No appreciable ascites. Patient is tender in the right upper quadrant but states this is baseline. Labs reviewed. Leukocytosis noted which appears to be baseline. Hgb 8.0. He was 8.1 3 days ago, 8.7 a week prior to that. PT 15, INR 1.5, aPTT 28.8. Tbili 5.7, AST 167. BNP 1632. Albumoin 3.6. ALT and alk phos normal. Chest x-ray reviewed by radiologist: FINDINGS: Lungs: Lungs are hyperaerated. Mild airspace opacity is present in both lungs. Pulmonary vessels are not congested. Pleural spaces: Blunting noted in both costophrenic angles, mild and notably improved on the right. No pneumothorax. Heart/Mediastinum: Unremarkable. No cardiomegaly. Bones/joints: Unremarkable. IMPRESSION: 1. Chronic lung disease. 2. Bilateral pleural effusions, mild and improved. 3. Mild multifocal infiltrates and/or edema. Will obtain COVID testing. With the new O2 demand and notable jaundice which is reported to be acute per , feel that patient would benefit from admission. Patient and family in agreement with thisplan. They report that he is upposed to start Retuximab this week for his hemolytic anemia. Report that he is corrently on increased prednisone dosing. Came up from 5mg to 60mg PO QD. Consulted with Dr. Mendoza who requested consultation with hematology, will call to discuss. Consulted with hematology at [facility], Dr. Hernandez. He reviewed labs. Does not have acute change. He is questioning if the coag elevation is secondary to vitamin K deficiency. Agrees with US of liver and work up for this further given change in jaundice. SOB likely fluid overload. Recommended continueing with prednisone for the hemolytic anemia. He recommended adding on LDH, Haptoglobin, conjugated bili. Consulted with Dr. Mendoza who agrees to admission. Dr. Hernandez called back, does not feel this is associated with acute hemolysis syndrome. Did recommend adding on reticulocyte count, B12, folate. HPI General Date/Time Provider Initiated Documentation: 09/30/21 17:37 . Limitations to Documentation: no limitations . Information obtained by: patient, family, RN notes reviewed and old records reviewed . History of Present Illness 66 year old M presents to the emergency department with the chief complaint of shortness of breath, described as moderate and similar to prior episodes, and is localized to the chest. Patient reports no radiation. Patient started experiencing this day(s) (has waxed/waned, progressively increased over time, maximal today) and it has been intermittent. improves with Immobilization improves symptom(s), Movement worsens symptoms . Patient notes loss of appetite, malaise, nausea/vomiting, rash (jaundiced) and shortness of breath; denies confusion, chest pain, cough and fever/chills. Patient did receive the following treatments prior to arr ival, none (feels that his anxiety alos makes things worse) Related Data Home Medications Medication Instructions Recorded Confirmed magnesium oxide 400 mg (241.3 mg 400 mg PO HS #30 tab 02/21/16 09/30/21 magnesium) tablet calcium carbonate 200 mg calcium 2 tab PO DAILY tab.chew 09/17/16 09/30/21 (500 mg) chewable tablet (Tums) ferrous sulfate 325 mg (65 mg 325 mg PO DAILY 09/17/16 09/30/21 iron) tablet multivitamin 1 ea PO DAILY 09/17/16 09/30/21 albuterol sulfate 90 mcg/actuation 2 puff IH Q6H PRN #18 gm 03/08/19 09/30/21 aerosol inhaler methadone 10 mg/5 mL oral solution 115 mg PO DAILY ml 11/23/19 09/30/21 thiamine mononitrate (vit B1) 100 100 mg PO DAILY #30 tab 04/17/20 09/30/21 mg tablet (Vitamin B-1 (mononitrate)) folic acid 1 mg tablet 1 mg PO DAILY #90 tab 09/24/20 09/30/21 duloxetine 60 mg capsule,delayed 60 mg PO DAILY #90 cap 04/30/21 09/30/21 release furosemide 20 mg tablet 20 mg PO DAILY 04/30/21 09/30/21 alendronate 70 mg tablet 70 mg PO QWEEK #12 tab 06/12/21 09/30/21 rivaroxaban 10 mg tablet 10 mg PO DAILY #90 tab 07/24/21 09/30/21 atorvastatin 40 mg tablet 40 mg PO DAILY 09/30/21 09/30/21 cetirizine 5 mg tablet 5 mg PO DAILY PRN PRN 09/30/21 09/30/21 gabapentin 300 mg capsule 300 mg PO TID 09/30/21 09/30/21 lisinopril 5 mg tablet 5 mg PO DAILY 09/30/21 09/30/21 lorazepam 0.5 mg tablet 0.25 - 0.5 mg PO DIRECTED PRN 09/30/21 09/30/21 MDD 0.75mg omeprazole 20 mg capsule,delayed 20 mg PO DAILY 09/30/21 09/30/21 release prednisone 20 mg tablet 60 mg PO DAILY 09/30/21 09/30/21 sennosides 8.6 mg tablet (senna) 8.6 mg PO QHS 09/30/21 09/30/21 sertraline 100 mg tablet 150 mg PO DAILY 09/30/21 09/30/21 sertraline 50 mg tablet 150 mg PO DAILY 09/30/21 09/30/21 valacyclovir 500 mg tablet 500 mg PO DAILY 09/30/21 09/30/21 Previous Rx's Medication Instructions Recorded albuterol sulfate 90 mcg/actuation 2 puff IH Q6H PRN #18 gm 03/08/19 aerosol inhaler thiamine mononitrate (vit B1) 100 100 mg PO DAILY #30 tab 04/17/20 mg tablet (Vitamin B-1 (mononitrate)) folic acid 1 mg tablet 1 mg PO DAILY #90 tab 09/24/20 duloxetine 60 mg capsule,delayed 60 mg PO DAILY #90 cap 04/30/21 release alendronate 70 mg tablet 70 mg PO QWEEK #12 tab 06/12/21 rivaroxaban 10 mg tablet 10 mg PO DAILY #90 tab 07/24/21 Allergies Allergy/AdvReac Type Severity Reaction Status Date / Time No Known Allergies Allergy Verified 09/30/21 17:46 General Stated Complaint: SOB CANDIDO: 2 Review of Systems Constitutional Constitutional: Reports as per HPI, Denies chills, Reports fatigue, Denies fever(s), Denies headache(s), Reports lethargy and Reports poor appetite Eyes Eyes: Denies change in vision ENT Ears, Nose, Mouth, and Throat: Denies dizziness and Denies headache(s) Cardiovascular Cardiovascular: Reports as per HPI, Denies chest pain, Reports leg edema, Denies lightheadedness, Denies radiating jaw, neck or arm pain, Reports dyspnea and Reports dyspnea on exertion Respiratory Respiratory: Reports as per HPI, Denies chest congestion, Denies cough, Denies hemoptysis, Denies pain on inspiration, Denies pain with cough, Reports dyspnea, Reports dyspnea on exertion and Denies wheezing Gastrointestinal Gastrointestinal: Reports as per HPI, Reports abdominal pain (reports chronic RUQ discomfort), Denies diarrhea, Reports nausea and Denies vomiting Genitourinary Genitourinary: Denies system reviewed and no additional complaints, except as documented (denies change in urinary habits) Musculoskeletal Musculoskeletal: Reports as per HPI and Denies back pain Integumentary/Breasts Skin/Breast: Reports as per HPI Neurologic Neurologic: Reports as per HPI, Denies dizziness and Denies headache(s) Endocrine Endocrine: Reports fatigue Allergic/Immunologic Allergic/Immunologic: Denies wheezing PFSH All Active Problems (Updated 10/01/21 @ 08:10 by Ethel Paniagua MD) Pulmonary hypertension (Acute) COPD (chronic obstructive pulmonary disease) (Chronic) Hypoxia (Acute) Discharge planning issues (Acute) DVT prophylaxis (Acute) Pulmonary infiltrates (Acute) Hyperbilirubinemia (Chronic) Bilateral pleural effusion (Chronic) Acute diastolic CHF (congestive heart failure) (Acute) Weight loss (Acute) Annual physical exam (Acute) Breathlessness (Acute) History of pulmonary embolism (Chronic) Pleural effusion, right (Acute) 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) Hand dermatitis (Acute) Left wrist pain (Acute) Insomnia (Acute) Personal history of colonic polyps (Acute) Chronic sphenoidal sinusitis (Chronic 04/07/16) Chronic maxillary sinusitis (Chronic 04/07/16) Chronic frontal sinusitis (Chronic 04/07/16) Chronic ethmoidal sinusitis (Chronic 04/07/16) Anosmia (Chronic 04/07/16) Smoker (Chronic 02/15/15) Shingles (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) Sexual function problem (Chronic) Postnasal drip (Chronic 08/07/14) Peyronie disease (Chronic 02/15/15) Nasal polyp, unspecified (Chronic 03/23/17) Moderate single current episode of major depressive disorder (Chronic 04/07/17) Hearing loss (Chronic) Bilateral lower extremity edema (Chronic 08/25/16) Allergic rhinitis due to pollen (Chronic 07/09/15) Allergic fungal sinusitis (Chronic 05/23/13) Allergy Injections Medical History (Updated 10/01/21 @ 08:10 by Ethel Paniagua MD) Abnormal liver enzymes Anxiety disorder Autoimmune hemolytic anemia Benign essential hypertension (10/21/12) Chronic anticoagulation Chronic hepatitis C without mention of hepatic coma (09/20/12) Constipation COPD (chronic obstructive pulmonary disease) Depression 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) Opioid dependence on agonist therapy Pleural effusion, left Pneumonia Pulmonary emboli Pulmonary hypertension Surgical History (Updated 09/30/21 @ 23:15 by Evelyn Mendoza MD) H/O colonoscopy (05/07/18) dr gibson,no abnormalities, repeat 10 years Recurrent right pleural effusion s/p VATS, RML wedge, biopsies, mec/talc pleurodesis 08/14/21 [facility] Repair of inguinal hernia RIGHT Status post unilateral inguinal hernia repair Thoracentesis (06/08/16) left Family History Mother Essential hypertension Father No problems noted. Sister Neoplasm Sister No problems noted. Sister No problems noted. Grandfather Heart disease Grandfather No problems noted. Grandmother No problems noted. Grandmother No problems noted. Son No problems noted. Son No problems noted. Social History Smoking/Tobacco Use Status: Current every day Tobacco Type: cigarettes Tobacco: How many years used: 40 Quit status: has quit before Second Hand Exposure: Yes Smoking risk assessment performed?: Yes Alcohol Intake: current Alcohol Intake frequency: a few times a week Alcohol type: beer Drug use: Current Sobriety Substance use type: does not use Household members: other Details: 2 current occupation: [employer] Pets and animals: No Current gender identity: male Frequency: 1-2 times per week Layne/Anglican: Church Special layne needs: No Do you feel safe at home: Yes Do you feel safe in your relationship?: Yes Additional Social history: 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 Lives with girlfriend. Exam Const General: in distress, anxious, disheveled, frail appearing and ill appearing acutely and chronically Nutritional Appearance: cachectic Orientation: alert, awake and oriented x3 HENMT Head: normal to inspection Ears: hearing grossly normal bilaterally Mouth: mucous membranes dry (patient appears dry, jaundiced membranes, no petechea) and no muffled voice Eyes General: appearance abnormal, both eyes (jaundiced) Neck Neck: normal visual inspection, no lymphadenopathy, no meningeal signs and trachea midline Chest Chest: normal inspection of the chest, normal palpation of entire chest wall and no crepitus Resp Effort & Inspection: able to speak in complete sentences, labored and r espiratory distress (mild, improving with 2L NC) Auscultation: diminished lung sounds, no rales, no rhonchi and no wheezes Cardio Rate: regular rate Rhythm: regular rhythm Heart Sounds: S1 normal and S2 normal GI Inspection: normal to inspection, no edema and non-distended Palpation: soft, not firm, no guarding, hepatomegaly, not rigid and tender (patient reports that this discomfort is chronic) in the RUQ Auscultation: normal bowel sounds Back/Spine/Pelvis Back: no CVA tenderness Thoracic/Lumbar Spine: thoracic and lumbar spine normal to inspection Skin General skin exam: ecchymosis (dorsal hands, appear chronic) and jaundice (trunk and proximal extremities) Trauma: no lacerations or abrasions Neuro General: patient alert, patient awake and patient oriented x3 Cognition: normal cognition Speech: speech normal Gait: normal gait Extrem General: capillary refill normal, no calf tenderness and pedal edema bilaterally pitting and 2+ Psych Appearance: grossly normal and well kempt Mental Status: mental status grossly normal Speech and Movement: speech and movement normal Course Vital Signs Vital signs: Vital Signs Temperature 36.4 C L 09/30/21 17:41 Pulse 72 09/30/21 17:41 Respiratory Rate 16 09/30/21 17:41 Blood Pressure 146/68 H 09/30/21 17:41 Pulse Oximetry 90 L 09/30/21 17:41 Temperature 36.4 C L 09/30/21 17:41 Temperature Source Skin 09/30/21 17:41 Pulse 72 09/30/21 17:41 Respiratory Rate 16 09/30/21 17:41 Respiratory Effort 09/30/21 17:41 Blood Pressure 146/68 H 09/30/21 17:41 Blood Pressure Position Sitting 09/30/21 17:41 Pulse Oximetry 90 L 09/30/21 17:41 Oxygen Delivery Method Room Air 09/30/21 17:41 Oxygen Flow Rate 0 09/30/21 17:41 Pain Level 4 09/30/21 17:41 Comment 09/30/21 17:41
[2021-09-30 18:52] LABS: Absolute Lymphocyte Count 0.58 10^3/uL (1.2-3.4); Absolute Monocyte Count 2.07 10^3/uL (0.1-0.8); Absolute Neutrophil Count 13.57 10^3/uL (1.2-6.7); Basophils % 0.7; HCT 25.1 % (40.0-50.0); Immature Grans % 1.2; Lymphocytes % 3.5; MCH 38.1 pg (27.0-33.0); MCHC 31.9 % (32.0-36.0); MPV 10.8 fL (8.0-11.0); Monocytes % 12.5; Neutrophils % 82.1; Nucleated RBC 54 %; Platelet Count 365 10^3/uL (130-400); RDW 22.7 % (11.8-14.1); RDW-SD 93.3 fL; WBC 16.53 10^3/uL (4.4-10.8)
[2021-09-30] MEDS: LORazepam 2 MG/ML VIAL 1 MG IVP (18:52)
[2021-09-30 19:01] LABS: Absolute Basophil Count 0.12 10^3/uL (0.0-0.2)
--- NOTE | 2021-09-30 19:03 | NUR.NOTE ---
Nursing Note: Pt medicated IV ativan as ordered for anxiety control, pt reports it is helping pt to DI for ordered exams, continue to monitor.
[2021-09-30 19:04] LABS: MCV 119.5 fL (80-95)
[2021-09-30 19:11] LABS: PTT Activated 28.8 sec (21.0-27.5)
[2021-09-30 19:12] LABS: ALT 34 U/L (16-63); AST 167 U/L (15-37); Albumin 3.6 g/dL (3.4-5.0); Alkaline Phosphatase 81 U/L (46-116); Anion Gap 7.6 mmol/L (3-11); BUN 18 mg/dL (7-18); Bilirubin, Total 5.7 mg/dL (0.2-1.0); CO2 29.4 mmol/L (21.0-32.0); CREATININE 0.7 mg/dL (0.70-1.30); Calcium 8.9 mg/dL (8.5-10.1); Chloride 105 mmol/L (98-107); Glucose 85 mg/dL (74-106); INR 1.5 (0.9-1.1); Magnesium 2.1 mg/dL (1.8-2.4); NT-proBNP 1632 pg/mL (<300); Potassium 4.3 mmol/L (3.5-5.1); Sodium 142 mmol/L (136-145); Total Protein 6.3 g/dL (6.4-8.2); Troponin I < 50 ng/L (<or=60)
[2021-09-30 19:33] LABS: Anisocytosis 3+; Basophilic Stippling 1+; Diff Comment Agrees w/ Instrument
[2021-09-30 19:34] LABS: Macrocytosis 3+; Polychromasia Present
[2021-09-30 19:35] LABS: Poikilocytes 2+
--- NOTE | 2021-09-30 19:55 | DI.VRAD_ITS ---
PROCEDURE INFORMATION: Exam: XR Chest Exam date and time: 09/30/2021 7:08 PM Age: 66 years old Clinical indication: Other: SOB TECHNIQUE: Imaging protocol: XR of the chest. Views: 2 views. COMPARISON: CR XR CHEST 2V PA LATERAL 07/17/2021 10:11 PM FINDINGS: Lungs: Lungs are hyperaerated. Mild airspace opacity is present in both lungs. Pulmonary vessels are not congested. Pleural spaces: Blunting noted in both costophrenic angles, mild and notably improved on the right. No pneumothorax. Heart/Mediastinum: Unremarkable. No cardiomegaly. Bones/joints: Unremarkable. IMPRESSION: 1. Chronic lung disease. 2. Bilateral pleural effusions, mild and improved. 3. Mild multifocal infiltrates and/or edema. Dictated and Authenticated by: Franc Muniz MD. Ordering:MARLO Clifford MD
[2021-09-30] MEDS: Furosemide 20 MG/2 ML VIAL IVP (20:18)
[2021-09-30 21:23] LABS: Source Nasal/Nares
[2021-09-30 21:48] LABS: Troponin I < 50 ng/L (<or=60)
[2021-09-30 21:51] LABS: Lab Add On Test DONE
[2021-09-30 21:52] LABS: Bilirubin, Direct 0.8 mg/dL (0.0-0.2)
[2021-09-30 22:06] LABS: Reticulocyte 14.3 % (0.5-2.4)
[2021-09-30 22:10] LABS: COVID-19 PCR Negative (Negative)
[2021-09-30 22:12] LABS: Vitamin B12 1028 pg/mL (193-986)
[2021-09-30 22:22] LABS: Folate > 20.0 ng/mL (8.6-20.0)
--- NOTE | 2021-09-30 22:22 | HPE_ITS ---
Date of service: 09/30/21 Time of Service: 22:22 Assessment and Plan Assessment and plan (1) Acute diastolic CHF (congestive heart failure): Status: Acute Assessment and plan: Probably a combination of fluid retention due to noncompliance with salt restriction (the patient admits to trying to follow it, but he is taking in more than 2 grams/day), recently increased steroid dose. He does also have pulmonary hypertension (never had a sleep study) which could also be contributing to the edema and shortness of breath. Will diurese, while monitoring I/O's and daily weights. (2) Hypoxia: Status: Acute Assessment and plan: Due to above - as above. However, due to a borderline elevated procalcitonin and appearance of possible multifocal process on CXR, I also added antibiotics empirically (doxycycline/ceftriaxone). Also has h/o COPD, PE in the past, and appearance of chronic lung disease on CXR - may benefit from a CT of the chest on this admission and a pulmonology consult. Doubt PE on this admission, however - he is on chronic anticoagulation. Will check venous doppler BLEs. (3) Pulmonary infiltrates: Status: Acute Assessment and plan: As above (4) Bilateral pleural effusion: Status: Chronic Assessment and plan: Chronic and improved from prior CXR. S/p VATS/pleurodesis on R in 07/2021 and had required thoracenthesis on the L in the past. Will monitor with diuresis. May require repeat thoracenthesis. (5) Hyperbilirubinemia: Status: Chronic Assessment and plan: Acute on chronic. Has a h/o untreated Hep C and hemolysis, both of which could result in elevation of Bili, but AST elevation is new. Given pain in RUQ, will obtain US abdomen. The patient no longer drinks alcohol. 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 Refractory to splenectomy, azathioprine, and rituxan, according to [facility] [facility] heme. 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 [facility] hematology recommended obtaining hemolysis labs, which we ordered. Monitor H/H. We will continue to consult with [facility] [place] [facility] hematology on further plan of care. 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, who presented to [facility] ED today c/o shortness of breath. This has been going on for some time, but was especially bad today. The patient states that with his shortness of breath, he was feeling anxious and that he had missed his dose of ativan today and that's why he thinks he was feeling so short of breath. Ativan normally helps him feel better. He does note that his legs got more swollen lately. He denies orthopnea/DIANE, but endorses PND. He denies fever, endorses a chronic minimally productive cough with clear sputum. He does not have a pulse oximeter at home. He was saturating 87% on RA and required 2L of O2 to saturate in the 90s. He does not normally use oxygen. His clinical presentation was c/w CHF with evidence of elevated proBNP and bilateral pleural effusions and pulmonary edema vs infiltrates. He was given one dose of lasix 20 mg IV. He does have a leucocytosis, but it is chronic. He tested negative for COVID-19. Additionally, he was found to be jaundiced with T. bili of 5.7 and Conjugated Bili of 0.8. His AST was 167 and ALT was 34 with Alk phos of 81. Of note, the patient does have a h/o Hep C, which is untreated. The case was discussed with [facility] hematology who recommended continuing current dose of prednisone, obtaining ultrasound of the abdomen to further evaluate his LFT abnormalities, and checking his LDH, reticulocyte count, haptoglobin, and diuresing. If the patient did not respond to diuresis, it was recommended to obtain a CT of the chest. Hospitalist admission was requested. Review of Systems Narrative: Additionally, the patient endorses coca-cola colored urine. All systems reviewed & are unremarkable except as noted in HPI and below PFSH All Active Problems (Updated 10/01/21 @ 00:47 by Evelyn Mendoza MD) Hypoxia (Acute) Discharge planning issues (Acute) DVT prophylaxis (Acute) Pulmonary infiltrates (Acute) Hyperbilirubinemia (Chronic) Bilateral pleural effusion (Chronic) Acute diastolic CHF (congestive heart failure) (Acute) Weight loss (Acute) Annual physical exam (Acute) Breathlessness (Acute) History of pulmonary embolism (Chronic) Pleural effusion, right (Acute) 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) Hand dermatitis (Acute) Left wrist pain (Acute) Insomnia (Acute) Personal history of colonic polyps (Acute) Chronic sphenoidal sinusitis (Chronic 04/07/16) Chronic maxillary sinusitis (Chronic 04/07/16) Chronic frontal sinusitis (Chronic 04/07/16) Chronic ethmoidal sinusitis (Chronic 04/07/16) Anosmia (Chronic 04/07/16) Smoker (Chronic 02/15/15) Shingles (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) Sexual function problem (Chronic) Postnasal drip (Chronic 08/07/14) Peyronie disease (Chronic 02/15/15) Nasal polyp, unspecified (Chronic 03/23/17) Moderate single current episode of major depressive disorder (Chronic 04/07/17) Hearing loss (Chronic) Bilateral lower extremity edema (Chronic 08/25/16) Allergic rhinitis due to pollen (Chronic 07/09/15) Allergic fungal sinusitis (Chronic 05/23/13) Allergy Injections Medical History (Updated 10/01/21 @ 00:47 by Evelyn Mendoza MD) Abnormal liver enzymes Anxiety disorder Autoimmune hemolytic anemia Benign essential hypertension (10/21/12) Chronic anticoagulation Chronic hepatitis C without mention of hepatic coma (09/20/12) Constipation COPD (chronic obstructive pulmonary disease) Depression 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 Sister Neoplasm Sister No problems noted. Sister No problems noted. Grandfather Heart disease Grandfather No problems noted. Grandmother No problems noted. Grandmother No problems noted. Son No problems noted. Son No problems noted. Social History Smoking/Tobacco Use Status: Current every day Tobacco Type: cigarettes Tobacco: How many years used: 40 Quit status: has quit before Second Hand Exposure: Yes Smoking risk assessment performed?: Yes Alcohol Intake: current Alcohol Intake frequency: a few times a week Alcohol type: beer Drug use: Current Sobriety Substance use type: does not use Household members: other Details: 2 current occupation: [employer] Pets and animals: No Current gender identity: male Frequency: 1-2 times per week Layne/Cheondoism: Cheondoism Special layne needs: No Do you feel safe at home: Yes Do you feel safe in your relationship?: Yes Additional Social history: Works in [employer] at a [employer]. Lives with girlfriend. Meds Allergies and Home Medications Allergies Allergy/AdvReac Type Severity Reaction Status Date / Time No Known Allergies Allergy Verified 09/30/21 17:46 Home Medications Medication Instructions Recorded Confirmed Type magnesium oxide 400 mg (241.3 mg 400 mg PO HS #30 tab 02/21/16 09/30/21 History magnesium) tablet calcium carbonate 200 mg calcium 2 tab PO DAILY tab.chew 09/17/16 09/30/21 History (500 mg) chewable tablet (Tums) ferrous sulfate 325 mg (65 mg 325 mg PO DAILY 09/17/16 09/30/21 History iron) tablet multivitamin 1 ea PO DAILY 09/17/16 09/30/21 History albuterol sulfate 90 mcg/actuation 2 puff IH Q6H PRN #18 gm 03/08/19 09/30/21 Rx aerosol inhaler methadone 10 mg/5 mL oral solution 115 mg PO DAILY ml 11/23/19 09/30/21 History thiamine mononitrate (vit B1) 100 100 mg PO DAILY #30 tab 04/17/20 09/30/21 Rx mg tablet (Vitamin B-1 (mononitrate)) folic acid 1 mg tablet 1 mg PO DAILY #90 tab 09/24/20 09/30/21 Rx duloxetine 60 mg capsule,delayed 60 mg PO DAILY #90 cap 04/30/21 09/30/21 Rx release furosemide 20 mg tablet 20 mg PO DAILY 04/30/21 09/30/21 History alendronate 70 mg tablet 70 mg PO QWEEK #12 tab 06/12/21 09/30/21 Rx rivaroxaban 10 mg tablet 10 mg PO DAILY #90 tab 07/24/21 09/30/21 Rx atorvastatin 40 mg tablet 40 mg PO DAILY 09/30/21 09/30/21 History cetirizine 5 mg tablet 5 mg PO DAILY PRN PRN 09/30/21 09/30/21 History gabapentin 300 mg capsule 300 mg PO TID 09/30/21 09/30/21 History lisinopril 5 mg tablet 5 mg PO DAILY 09/30/21 09/30/21 History lorazepam 0.5 mg tablet 0.25 - 0.5 mg PO DIRECTED PRN 09/30/21 09/30/21 History MDD 0.75mg omeprazole 20 mg capsule,delayed 20 mg PO DAILY 09/30/21 09/30/21 History release prednisone 20 mg tablet 60 mg PO DAILY 09/30/21 09/30/21 History sennosides 8.6 mg tablet (senna) 8.6 mg PO QHS 09/30/21 09/30/21 History sertraline 100 mg tablet 150 mg PO DAILY 09/30/21 09/30/21 History sertraline 50 mg tablet 150 mg PO DAILY 09/30/21 09/30/21 History valacyclovir 500 mg tablet 500 mg PO DAILY 09/30/21 09/30/21 History Exam Narrative Exam Narrative: General: Somnolent but arousable middle-aged male who is jaundiced, tired appearing, A&Ox3, forgetful about his medications, on 2L of O2 by NC without increased work of breathing/cyanosis Neurological: A&Ox3, no focal deficits Psychiatric: appropriate speech pattern/content Skin: jaundiced, intact HEENT: Atraumatic, normocephalic, EOMI, MMM, clear oropharynx, no submandibular or cervical lymphadenopathy, no goiter, +mild JVD while sitting up at near 90 degree angle Cardiovascular: RRR, no m/r/g Lungs: Diminished breath sounds R lung base, CTA on L Gastrointestinal: soft, tender in RUQ (ever since VATS), nondistended Genitourinary: deferred Extremities: 2+ BLE edema, symmetric, no clubbing/cyanosis, 1+ pedal pulses palpable despite edema Results Imaging Additional studies: CXR: 1. Chronic lung disease. 2. Bilateral pleural effusions, mild and improved. 3. Mild multifocal infiltrates and/or edema. EKG: HR 68, NSR, ST depressions in lateral precordial leads (old) Also reviewed echo from [facility] 08/07/21: LV chamber size nml. Mild concentric LVH. LVEF 68%. No wall motion abnormalities. RV size nml, RVSP 40 mmHg. Mild to moderate mitral regurgitation, small pericardial effusion, Large bilateral pleural effusions. Labs Result diagrams: 09/30/21 18:45 09/30/21 18:45 Labs: Laboratory Results - last 24 hr 09/30/21 09/30/21 09/30/21 18:45 18:45 18:45 WBC 16.53 H RBC 2.10 L Hgb 8.0 L Hct 25.1 L MCV 119.5 H MCH 38.1 H MCHC 31.9 L RDW 22.7 H Plt Count 365 MPV 10.8 Reticulocyte % (Auto) Immature Gran % 1.2 Neutrophils % 82.1 Lymphocytes % 3.5 Monocytes % 12.5 Eosinophils % 0.0 Basophils % 0.7 Nucleated RBC % 54 Absolute Neutrophils 13.57 H Absolute Lymphocytes 0.58 L Absolute Monocytes 2.07 H Absolute Eosinophils 0.00 Absolute Basophils 0.12 RBC Morphology See Below Polychromasia Present Poikilocytosis 2+ Basophilic Stippling 1+ Anisocytosis 3+ Macrocytosis 3+ PT 15.0 H INR 1.5 H APTT 28.8 H Sodium 142 Potassium 4.3 Chloride 105 Carbon Dioxide 29.4 Anion Gap 7.6 BUN 18 Creatinine 0.7 Estimated GFR/1.73 m2 >= 60.00 Glucose 85 Calcium 8.9 Magnesium 2.1 Total Bilirubin 5.7 H Conjugated Bilirubin AST 167 H ALT 34 Alkaline Phosphatase 81 Troponin I < 50 NT-Pro-B Natriuret Pep 1632 H Total Protein 6.3 L Albumin 3.6 Vitamin B12 Folate COVID-19 Source SARS-CoV-2 (PCR) Add-On Test Request 09/30/21 09/30/21 09/30/21 18:45 18:45 21:10 WBC RBC Hgb Hct MCV MCH MCHC RDW Plt Count MPV Reticulocyte % (Auto) 14.3 H Immature Gran % Neutrophils % Lymphocytes % Monocytes % Eosinophils % Basophils % Nucleated RBC % Absolute Neutrophils Absolute Lymphocytes Absolute Monocytes Absolute Eosinophils Absolute Basophils RBC Morphology Polychromasia Poikilocytosis Basophilic Stippling Anisocytosis Macrocytosis PT INR APTT Sodium Potassium Chloride Carbon Dioxide Anion Gap BUN Creatinine Estimated GFR/1.73 m2 Glucose Calcium Magnesium Total Bilirubin Conjugated Bilirubin AST ALT Alkaline Phosphatase Troponin I NT-Pro-B Natriuret Pep Total Protein Albumin Vitamin B12 1028 H Folate > 20.0 H COVID-19 Source Nasal/Nares SARS-CoV-2 (PCR) Negative Add-On Test Request 09/30/21 09/30/21 09/30/21 21:16 21:16 21:16 WBC RBC Hgb Hct MCV MCH MCHC RDW Plt Count MPV Reticulocyte % (Auto) Immature Gran % Neutrophils % Lymphocytes % Monocytes % Eosinophils % Basophils % Nucleated RBC % Absolute Neutrophils Absolute Lymphocytes Absolute Monocytes Absolute Eosinophils Absolute Basophils RBC Morphology Polychromasia Poikilocytosis Basophilic Stippling Anisocytosis Macrocytosis PT INR APTT Sodium Potassium Chloride Carbon Dioxide Anion Gap BUN Creatinine Estimated GFR/1.73 m2 Glucose Calcium Magnesium Total Bilirubin Conjugated Bilirubin 0.8 H AST ALT Alkaline Phosphatase Troponin I < 50 NT-Pro-B Natriuret Pep Total Protein Albumin Vitamin B12 Folate COVID-19 Source SARS-CoV-2 (PCR) Add-On Test Request DONE Last Vital Signs Temp 36.4 C L 09/30/21 21:48 Pulse 70 09/30/21 21:55 Resp 18 09/30/21 21:48 BP 163/81 H 09/30/21 21:48 Pulse Ox 97 09/30/21 21:55
[2021-09-30 23:04] LABS: Procalcitonin 0.3 ng/mL
[2021-09-30] MEDS: Gabapentin 300 MG CAP PO (23:20)
[2021-09-30] MEDS: Senna TAB 1 TAB PO (23:20)
[2021-09-30] MEDS: Magnesium Oxide 400 MG TAB PO (23:21)
[2021-09-30 23:38] LABS: LDH 3609 U/L (85-227)
[2021-09-30] MEDS: Albuterol/Ipratropium 3 ML UPD VIAL UPD (23:58)
[2021-10-01] VITALS (15 sets, daily range): BP systolic 126–167; BP diastolic 66–78; PULSE 65–83; RESP 1–20; TEMP 36.5–37; O2SAT 94–100
--- NOTE | 2021-10-01 | DI.CT_ITS ---
Exam(s) CT CHEST WO EXAM: CT CHEST WO CLINICAL HISTORY: Plearal effusions, recent VATS. TECHNIQUE: Imaging protocol: Axial computed tomography images were obtained and coronal and sagittal reformatted images were created and reviewed. COMPARISON: CT CT CHEST/ABD/PEL W from 05/22/2021 CR,XR XR CHEST 2V PA LATERAL from 07/17/2021 CR,XR XR CHEST 2V PA LATERAL from 09/30/2021 FINDINGS: Tracheobronchial tree: Patent where visualized. Pulmonary parenchyma: The pleural and parenchymal scarring in the left lung is stable. There is pleu ral and parenchymal scarring in the right lung. No focal consolidating infiltrates are seen. Emphys ematous changes are present in the lungs. Mediastinum and Yin: No dominant adenopathy or fluid collection. There is thickening of the wall of the lower half of the esophagus. Fluid is seen within the distal esophagus. Thyroid gland: Unremarkable. Pleura: There is no left pleural effusion. There has been significant decrease in size of the right pleural effusion which is now small. Heart: The heart is not dilated. No coronary artery calcifications are seen. No pericardial effusion. Aorta: Thoracic aorta non-dilated. Upper abdomen: The fluid collection in the splenic bed now measures 3.5 x 2 cm. This compares to 3. 9 x 2.4 cm on 05/22/2021. Lymph nodes: Within normal limits. Soft tissues: Unremarkable. Bones:Within normal limits for the patient's age. Old bilateral healed rib fractures. There is again seen a compression fracture of the T8 vertebral body. This was present on the x-ray of the chest fro m 07/17/2021. IMPRESSION: 1. Significant decrease in size of right pleural effusion which is now small. 2. Interval decrease in size of the fluid collection in the splenic bed. 3. Thickening of the wall of the distal half of the esophagus. An inflammatory or infectious esophagi tis should be considered. Follow-up as clinically appropriate. Neoplasm not entirely excluded. RADIATION DOSE DELIVERED: 346.04mGy.cm Total DLP 346.04mGy.cm Total DLP DATA REPOSITORY: All CT scans at this facility are submitted to the National Radiology Data Registry (NRDR) Dose Index Registry (DIR) with the [employer] ([employer]). RADIATION OPTIMIZATION: All CT scans at this facility use at least one of these dose optimization te chniques: automated exposure control; mA and/or kV adjustment per patient size (includes targeted exa ms where dose is matched to clinical indication); or iterative reconstruction.
[2021-10-01] MEDS: Normal Saline Flush 10 ML SYR IVP ×5 (00:02→23:07)
[2021-10-01] MEDS: cefTRIAXone 2 GM/50 ML BAG IVPB (00:03)
[2021-10-01] MEDS: LORazepam 0.5 MG TAB 0.25 MG PO (00:27)
[2021-10-01 00:42] LABS: Bilirubin Negative (Negative); Blood Moderate (Negative); Clarity Clear (Clear); Glucose Negative (Negative); Ketones Negative (Negative); Leukocyte Esterase Negative (Negative); Nitrite Negative (Negative); Urobilinogen 0.2 EU/dL (Up TO 0.2)
[2021-10-01] MEDS: DOXYCYCLINE 100 MG in Normal Saline 100 ML IVPB ×3 (00:46→23:06)
[2021-10-01 00:50] LABS: *AMPHETAMINES SCREEN URINE Negative (Negative); *BARBITURATES SCREEN URINE Negative (Negative); *BENZODIAZEPINES SCREEN URINE Negative (Negative); Cannabinoids THC Negative (Negative); Cocaine Screen,Urine Negative (Negative); METHADONE URINE SCREEN Positive (Negative); OPIATES URINE SCREEN Negative (Negative)
[2021-10-01 01:00] LABS: Tricyclic Antidepressants Negative (Negative)
[2021-10-01 01:07] LABS: Bacteria Few HPF (Negative); C & S Indicated? No; Casts 0-2 Hyaline LPF (Negative); Crystals Few Amorphous HPF (Negative); Epithelial Cells Rare HPF (Negative); Mucus Negative (Negative); RBC 0-2 HPF (0-2); WBC 0-2 HPF (0-5)
[2021-10-01] MEDS: Albuterol/Ipratropium 3 ML UPD VIAL UPD ×4 (05:07→23:07)
[2021-10-01 06:48] LABS: HCT 24.5 % (40.0-50.0); HGB 7.3 g/dL (13.5-17.5); MCH 36.9 pg (27.0-33.0); MCHC 29.8 % (32.0-36.0); MCV 123.7 fL (80-95); MPV 11.1 fL (8.0-11.0); Platelet Count 343 10^3/uL (130-400); RBC 1.98 10^6/uL (4.36-5.78); RDW 22.5 % (11.8-14.1); RDW-SD 95.7 fL
[2021-10-01 07:00] LABS: INR 1.1 (0.9-1.1); Prothrombin Time 11.3 sec (9.3-11.0)
[2021-10-01 07:12] LABS: ALT 31 U/L (16-63); AST 150 U/L (15-37); Albumin 3.3 g/dL (3.4-5.0); Alkaline Phosphatase 71 U/L (46-116); Anion Gap 6.7 mmol/L (3-11); BUN 18 mg/dL (7-18); Bilirubin, Direct 0.6 mg/dL (0.0-0.2); Bilirubin, Total 3.8 mg/dL (0.2-1.0); CO2 32.3 mmol/L (21.0-32.0); CREATININE 0.7 mg/dL (0.70-1.30); Calcium 8.5 mg/dL (8.5-10.1); Chloride 105 mmol/L (98-107); Glucose 84 mg/dL (74-106); Magnesium 2.2 mg/dL (1.8-2.4); Potassium 3.4 mmol/L (3.5-5.1); Sodium 144 mmol/L (136-145); TSH (W/Ref FT4) 2.01 uIU/mL (0.36-3.74); Total Protein 5.9 g/dL (6.4-8.2)
--- NOTE | 2021-10-01 07:23 | W.PULMCON ---
General Date Of Service Date of service: 10/01/21 Time of Service: 07:23 Reason for Consult: Hypoxia Assessment and Plan Assessment and plan (1) Hypoxia: Status: Acute (2) Pulmonary infiltrates: Status: Acute (3) History of pulmonary embolism: Status: Chronic (4) COPD (chronic obstructive pulmonary disease): Status: Chronic (5) Pulmonary hypertension: Status: Acute Assessment and plan: This is a complex 66 yo man with active IgG autoimmune hemolytic anemia who also has a history of PE on chronic A/C, pulmonary hypertension and COPD. He does not have any home inhalers and given his diagnosis he should be on some. His eosinophil levels are elevated - 480 so he may benefit from ICS therapy in the future if he exacerbates. Currently starting him on Stiolto will be a good place to start. His dyspnea and hypoxia are likely more related to his hemolytic anemia as opposed to his lungs. That being said, his thoracic surgeon at [facility] did order him for a chest CT in August so we will get this completed today and push the images. He is involved in a smoking cessation program at [facility]. He would benefit from continued pulmonary care. COPD - start Stiolto - continue albuterol prn - can continue Duonebs as needed while admitted - he qualifies to be enrolled in LDCT lung cancer screening - I will do as an outpatient - I will follow up with him as an outpatient h/o PE - will be on lifelong A/C per hematology Pulmonary Hypertension - recommend an updated echo to assess this Pleural effusion - recommend chest CT History of Present Illness Narrative: This is a medically complicated 66 yo man who receives much of his care at [facility]. He follows with hematology for IgG autoimmune hemolytic anemia and is currently on prednisone 60mg for this. It is noted that he had a pleural effusion that seemed temporally related but there in confusion as to how or if this is truly related. He has had a significant work up as well as a complicated treatment history as summarrized in his last hematology note in the [facility] system from 09/20/21. He also follows with thoracic surgery as he is status post right VATS RML wedge, pleural biopsies, mech/talc pleurodesis on 08/14/21 for a recurrent pleural effusion that based on the pleural fluid did look exudative. He also holds a diagnosis of COPD and has had PFT's completed at [facility] on 07/26/21: Spirometry Date FEV1/FVC LLN FEV1 % LLN FVC % LLN Comments 07/26/21 56 64 1.80 63 2.07 3.21 87 2.76 Date TLC % LLN RV % DLCO LLN sGaw % Pressures 07/26/21 8.47 37% He has seen pulmonary in the past at [facility] but the last visit was in 2018. These encounters were in the setting of the pleural effusion and at that time he was not interested in pleurodesis and so he was discharged from pulmonary clinic. He also has had past chest CT's, his last being 05/22/21, which shows significant centrilobular and paraseptal emphysema and at that time he had a pleural effusion as this was pre-VATS. His chest X-ray from this admission shows evidence of the VATS with possible infiltrates. Today, Review of Systems All systems reviewed & are unremarkable except as noted in HPI and below PFSH All Active Problems (Updated 10/01/21 @ 08:10 by Ethel Paniagua MD) Pulmonary hypertension (Acute) COPD (chronic obstructive pulmonary disease) (Chronic) Hypoxia (Acute) Discharge planning issues (Acute) DVT prophylaxis (Acute) Pulmonary infiltrates (Acute) Hyperbilirubinemia (Chronic) Bilateral pleural effusion (Chronic) Acute diastolic CHF (congestive heart failure) (Acute) Weight loss (Acute) Annual physical exam (Acute) Breathlessness (Acute) History of pulmonary embolism (Chronic) Pleural effusion, right (Acute) 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) Hand dermatitis (Acute) Left wrist pain (Acute) Insomnia (Acute) Personal history of colonic polyps (Acute) Chronic sphenoidal sinusitis (Chronic 04/07/16) Chronic maxillary sinusitis (Chronic 04/07/16) Chronic frontal sinusitis (Chronic 04/07/16) Chronic ethmoidal sinusitis (Chronic 04/07/16) Anosmia (Chronic 04/07/16) Smoker (Chronic 02/15/15) Shingles (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) Sexual function problem (Chronic) Postnasal drip (Chronic 08/07/14) Peyronie disease (Chronic 02/15/15) Nasal polyp, unspecified (Chronic 03/23/17) Moderate single current episode of major depressive disorder (Chronic 04/07/17) Hearing loss (Chronic) Bilateral lower extremity edema (Chronic 08/25/16) Allergic rhinitis due to pollen (Chronic 07/09/15) Allergic fungal sinusitis (Chronic 05/23/13) Allergy Injections Medical History (Updated 10/01/21 @ 08:10 by Ethel Paniagua MD) Abnormal liver enzymes Anxiety disorder Autoimmune hemolytic anemia Benign essential hypertension (10/21/12) Chronic anticoagulation Chronic hepatitis C without mention of hepatic coma (09/20/12) Constipation COPD (chronic obstructive pulmonary disease) Depression 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 Sister Neoplasm Sister No problems noted. Sister No problems noted. Grandfather Heart disease Grandfather No problems noted. Grandmother No problems noted. Grandmother No problems noted. Son No problems noted. Son No problems noted. Social History Smoking/Tobacco Use Status: Current every day Tobacco Type: cigarettes Tobacco: How many years used: 40 Quit status: has quit before Second Hand Exposure: Yes Smoking risk assessment performed?: Yes Alcohol Intake: current Alcohol Intake frequency: a few times a week Alcohol type: beer Drug use: Current Sobriety Substance use type: does not use Household members: other Details: 2 current occupation: [employer] Pets and animals: No Current gender identity: male Frequency: 1-2 times per week Layne/Jewish: Yazdanism Special layne needs: No Do you feel safe at home: Yes Do you feel safe in your relationship?: Yes Additional Social history: 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 Lives with girlfriend. Visit Medication and Allergies Active Medications Generic Name Dose Route Start Last Admin Trade Name Freq PRN Reason Stop Dose Admin Acetaminophen 325 - 650 mg 09/30/21 20:33 Acetaminophen 325 Mg Tab PO Q4H PRN PRN Al Hydrox/Mg Hydrox/Simethicone 30 ml 09/30/21 20:33 Mylanta Suspension 30 Ml Cup PO Q2H PRN PRN Albuterol Sulfate 2.5 mg 09/30/21 20:33 Albuterol 2.5 Mg/3 Ml Inh Soln Vial UPD Q2H PRN PRN Albuterol Sulfate 2 puff 09/30/21 22:50 Albuterol Hfa 8 Gm 60 Puff Inh IH Q6H PRN PRN shortness of breath or wheezing Albuterol/Ipratropium 3 ml 10/01/21 00:00 10/01/21 05:07 Albuterol/Ipratropium 3 Ml Upd Vial UPD 3 ml Q6H DIANDRA Administration Atorvastatin Calcium 40 mg 10/01/21 20:00 Atorvastatin 40 Mg Tab PO QPM [facility] Calcium Carbonate 1,000 mg 10/01/21 08:30 Calcium Carbonate *Tums* 500 Mg Chew PO DAILY [facility] Cetirizine HCl 5 mg 09/30/21 23:14 Cetirizine 10 Mg Tab PO DAILY PRN PRN Device 1 each 09/30/21 23:00 Inhaler, Assist Device MC DIRECTED [facility] Dimethicone/Zinc Oxide 0 gm 09/30/21 20:33 Sharron Protect Cream 142 Gm Tube TP PRN PRN Docusate Sodium 100 mg 09/30/21 20:33 Docusate Sodium 100 Mg Cap PO TID PRN PRN Duloxetine HCl 60 mg 10/01/21 08:30 Duloxetine 30 Mg Cap PO DAILY [facility] Ferrous Sulfate 325 mg 10/01/21 08:30 Ferrous Sulfate 325 Mg Tab PO DAILY [facility] Folic Acid 1 mg 10/01/21 08:30 Folic Acid 1 Mg Tab PO DAILY [facility] Furosemide 20 mg 10/01/21 08:00 Furosemide 20 Mg/2 Ml Vial IVP BID@0800,1600 [facility] Gabapentin 300 mg 10/01/21 08:30 Gabapentin 300 Mg Cap PO TID [facility] Doxycycline Hyclate 100 mg/ 100 mls @ 100 mls/hr 10/01/21 00:00 10/01/21 02:28 Sodium Chloride IVPB Infused Q12H DIANDRA Infusion IV Miscellaneous Supplies 1 each 09/30/21 18:15 Iv Access IV DIRECTED [facility] Lisinopril 5 mg 10/01/21 08:30 Lisinopril 5 Mg Tab PO DAILY [facility] Lorazepam 0.25 - 0.5 mg 09/30/21 22:50 Lorazepam 0.5 Mg Tab PO DAILY PRN PRN anxiety Magnesium Hydroxide 30 ml 09/30/21 20:33 Milk Of Magnesia 30 Ml Cup PO DAILY PRN PRN Magnesium Oxide 400 mg 10/01/21 22:00 Magnesium Oxide 400 Mg Tab PO HS [facility] Methadone HCl 115 mg 10/01/21 08:30 Methadone Liquid 10 Mg/Ml PO DAILY [facility] Multivitamins 1 tab 10/01/21 08:30 Multivitamin Tab PO DAILY [facility] Nicotine 21 mg 10/01/21 00:33 Nicotine 21 Mg/24 Hr Patch TD DAILY PRN PRN Omeprazole 20 mg 10/01/21 08:30 Omeprazole 20 Mg Capcr PO DAILY [facility] Prednisone 60 mg 10/01/21 08:30 Prednisone 20 Mg Tab PO DAILY [facility] Rivaroxaban 10 mg 10/01/21 08:30 Rivaroxaban 10 Mg Tablet PO DAILY [facility] Sennosides 1 tab 10/01/21 22:00 Senna Tab PO HS [facility] Sertraline HCl 150 mg 10/01/21 08:30 Sertraline 50 Mg Tab PO DAILY [facility] Sodium Chloride 0 ml 09/30/21 18:06 10/01/21 00:02 Normal Saline Flush 10 Ml Syr IVP 10 ml PRN PRN Administration Thiamine HCl 100 mg 10/01/21 08:30 Thiamine 100 Mg Tab PO DAILY [facility] Valacyclovir HCl 500 mg 10/01/21 08:30 Valacyclovir 500 Mg Tab PO DAILY [facility] Allergies No Known Allergies Allergy (Verified 09/30/21 17:46) Exam Narrative Exam Narrative: Gen: NAD, normal respiratory effort, thin, jaundiced HENT: PERRL, nasal turbinates normal without erythema or inflammation, moist oral mucosa, Mallampati 2, No LAD or JVD Chest: No respiratory distress, normal appearance of chest,bilateral wheeze noted, normal inspiratory effort Heart: regular rate and rhythym, no murmurs, rubs or gallops Abdomen: Non-distended, soft, non tender Extremities: No clubbing, edema, cyanosis, rashes Neuro: AAOx3 , non focal Psych: cooperative, appropriate mental affect Results Last Vital Signs Temp 36.8 C 10/01/21 03:29 Pulse 74 10/01/21 03:29 Resp 18 10/01/21 03:29 BP 126/69 10/01/21 03:29 Pulse Ox 99 10/01/21 03:29 Labs Result diagrams: 10/01/21 12:00 10/01/21 06:32 Labs: Laboratory Results - last 24 hr 09/30/21 09/30/21 09/30/21 18:45 18:45 18:45 WBC 16.53 H RBC 2.10 L Hgb 8.0 L Hct 25.1 L MCV 119.5 H MCH 38.1 H MCHC 31.9 L RDW 22.7 H Plt Count 365 MPV 10.8 Reticulocyte % (Auto) Immature Gran % 1.2 Neutrophils % 82.1 Lymphocytes % 3.5 Monocytes % 12.5 Eosinophils % 0.0 Basophils % 0.7 Nucleated RBC % 54 Absolute Neutrophils 13.57 H Absolute Lymphocytes 0.58 L Absolute Monocytes 2.07 H Absolute Eosinophils 0.00 Absolute Basophils 0.12 RBC Morphology See Below Polychromasia Present Poikilocytosis 2+ Basophilic Stippling 1+ Anisocytosis 3+ Macrocytosis 3+ PT 15.0 H INR 1.5 H APTT 28.8 H Sodium 142 Potassium 4.3 Chloride 105 Carbon Dioxide 29.4 Anion Gap 7.6 BUN 18 Creatinine 0.7 Estimated GFR/1.73 m2 >= 60.00 Glucose 85 Calcium 8.9 Magnesium 2.1 Total Bilirubin 5.7 H Conjugated Bilirubin AST 167 H ALT 34 Alkaline Phosphatase 81 Lactate Dehydrogenase Troponin I < 50 NT-Pro-B Natriuret Pep 1632 H Total Protein 6.3 L Albumin 3.6 Vitamin B12 Folate Procalcitonin TSH Urine Color Urine Clarity Urine pH Ur Specific [place] Urine Protein Urine Ketones Urine Blood Urine Nitrite Urine Bilirubin Urine Urobilinogen Ur Leukocyte Esterase Urine RBC Urine WBC Ur Epithelial Cells Urine Crystals Urine Bacteria Urine Casts Urine Mucus Ur Culture Indicated? Urine Glucose Urine Opiates Screen Urine Methadone Screen Ur Barbiturates Screen Ur Tricyclics Screen Ur Amphetamines Screen U Benzodiazepines Scrn Urine Cocaine Screen Ur THC Screen COVID-19 Source SARS-CoV-2 (PCR) Add-On Test Request 09/30/21 09/30/21 09/30/21 18:45 18:45 21:10 WBC RBC Hgb Hct MCV MCH MCHC RDW Plt Count MPV Reticulocyte % (Auto) 14.3 H Immature Gran % Neutrophils % Lymphocytes % Monocytes % Eosinophils % Basophils % Nucleated RBC % Absolute Neutrophils Absolute Lymphocytes Absolute Monocytes Absolute Eosinophils Absolute Basophils RBC Morphology Polychromasia Poikilocytosis Basophilic Stippling Anisocytosis Macrocytosis PT INR APTT Sodium Potassium Chloride Carbon Dioxide Anion Gap BUN Creatinine Estimated GFR/1.73 m2 Glucose Calcium Magnesium Total Bilirubin Conjugated Bilirubin AST ALT Alkaline Phosphatase Lactate Dehydrogenase Troponin I NT-Pro-B Natriuret Pep Total Protein Albumin Vitamin B12 1028 H Folate > 20.0 H Procalcitonin TSH Urine Color Urine Clarity Urine pH Ur Specific [place] Urine Protein Urine Ketones Urine Blood Urine Nitrite Urine Bilirubin Urine Urobilinogen Ur Leukocyte Esterase Urine RBC Urine WBC Ur Epithelial Cells Urine Crystals Urine Bacteria Urine Casts Urine Mucus Ur Culture Indicated? Urine Glucose Urine Opiates Screen Urine Methadone Screen Ur Barbiturates Screen Ur Tricyclics Screen Ur Amphetamines Screen U Benzodiazepines Scrn Urine Cocaine Screen Ur THC Screen COVID-19 Source Nasal/Nares SARS-CoV-2 (PCR) Negative Add-On Test Request 09/30/21 09/30/21 09/30/21 21:16 21:16 21:16 WBC RBC Hgb Hct MCV MCH MCHC RDW Plt Count MPV Reticulocyte % (Auto) Immature Gran % Neutrophils % Lymphocytes % Monocytes % Eosinophils % Basophils % Nucleated RBC % Absolute Neutrophils Absolute Lymphocytes Absolute Monocytes Absolute Eosinophils Absolute Basophils RBC Morphology Polychromasia Poikilocytosis Basophilic Stippling Anisocytosis Macrocytosis PT INR APTT Sodium Potassium Chloride Carbon Dioxide Anion Gap BUN Creatinine Estimated GFR/1.73 m2 Glucose Calcium Magnesium Total Bilirubin Conjugated Bilirubin 0.8 H AST ALT Alkaline Phosphatase Lactate Dehydrogenase 3609 H Troponin I < 50 NT-Pro-B Natriuret Pep Total Protein Albumin Vitamin B12 Folate Procalcitonin TSH Urine Color Urine Clarity Urine pH Ur Specific [place] Urine Protein Urine Ketones Urine Blood Urine Nitrite Urine Bilirubin Urine Urobilinogen Ur Leukocyte Esterase Urine RBC Urine WBC Ur Epithelial Cells Urine Crystals Urine Bacteria Urine Casts Urine Mucus Ur Culture Indicated? Urine Glucose Urine Opiates Screen Urine Methadone Screen Ur Barbiturates Screen Ur Tricyclics Screen Ur Amphetamines Screen U Benzodiazepines Scrn Urine Cocaine Screen Ur THC Screen COVID-19 Source SARS-CoV-2 (PCR) Add-On Test Request 09/30/21 09/30/21 10/01/21 21:16 21:16 00:05 WBC RBC Hgb Hct MCV MCH MCHC RDW Plt Count MPV Reticulocyte % (Auto) Immature Gran % Neutrophils % Lymphocytes % Monocytes % Eosinophils % Basophils % Nucleated RBC % Absolute Neutrophils Absolute Lymphocytes Absolute Monocytes Absolute Eosinophils Absolute Basophils RBC Morphology Polychromasia Poikilocytosis Basophilic Stippling Anisocytosis Macrocytosis PT INR APTT Sodium Potassium Chloride Carbon Dioxide Anion Gap BUN Creatinine Estimated GFR/1.73 m2 Glucose Calcium Magnesium Total Bilirubin Conjugated Bilirubin AST ALT Alkaline Phosphatase Lactate Dehydrogenase Troponin I NT-Pro-B Natriuret Pep Total Protein Albumin Vitamin B12 Folate Procalcitonin 0.3 TSH Urine Color Urine Clarity Urine pH Ur Specific [place] Urine Protein Urine Ketones Urine Blood Urine Nitrite Urine Bilirubin Urine Urobilinogen Ur Leukocyte Esterase Urine RBC Urine WBC Ur Epithelial Cells Urine Crystals Urine Bacteria Urine Casts Urine Mucus Ur Culture Indicated? Urine Glucose Urine Opiates Screen Negative Urine Methadone Screen Positive A Ur Barbiturates Screen Negative Ur Tricyclics Screen Negative Ur Amphetamines Screen Negative U Benzodiazepines Scrn Negative Urine Cocaine Screen Negative Ur THC Screen Negative COVID-19 Source SARS-CoV-2 (PCR) Add-On Test Request DONE 10/01/21 10/01/21 10/01/21 00:05 06:32 06:32 WBC RBC Hgb Hct MCV MCH MCHC RDW Plt Count MPV Reticulocyte % (Auto) Not Applicable Immature Gran % Neutrophils % Lymphocytes % Monocytes % Eosinophils % Basophils % Nucleated RBC % Absolute Neutrophils Absolute Lymphocytes Absolute Monocytes Absolute Eosinophils Absolute Basophils RBC Morphology Polychromasia Poikilocytosis Basophilic Stippling Anisocytosis Macrocytosis PT INR APTT Sodium 144 Potassium 3.4 L Chloride 105 Carbon Dioxide 32.3 H Anion Gap 6.7 BUN 18 Creatinine 0.7 Estimated GFR/1.73 m2 >= 60.00 Glucose 84 Calcium 8.5 Magnesium 2.2 Total Bilirubin 3.8 H Conjugated Bilirubin 0.6 H AST 150 H ALT 31 Alkaline Phosphatase 71 Lactate Dehydrogenase Troponin I NT-Pro-B Natriuret Pep Total Protein 5.9 L Albumin 3.3 L Vitamin B12 Folate Procalcitonin TSH 2.01 Urine Color Yellow Urine Clarity Clear Urine pH 7.0 Ur Specific [place] 1.020 Urine Protein Negative Urine Ketones Negative Urine Blood Moderate H Urine Nitrite Negative Urine Bilirubin Negative Urine Urobilinogen 0.2 Ur Leukocyte Esterase Negative Urine RBC 0-2 Urine WBC 0-2 Ur Epithelial Cells Rare Urine Crystals Few Amorphous Urine Bacteria Few Urine Casts 0-2 Hyaline Urine Mucus Negative Ur Culture Indicated? No Urine Glucose Negative Urine Opiates Screen Urine Methadone Screen Ur Barbiturates Screen Ur Tricyclics Screen Ur Amphetamines Screen U Benzodiazepines Scrn Urine Cocaine Screen Ur THC Screen COVID-19 Source SARS-CoV-2 (PCR) Add-On Test Request 10/01/21 06:32 WBC RBC Hgb Hct MCV MCH MCHC RDW Plt Count MPV Reticulocyte % (Auto) Immature Gran % Neutrophils % Lymphocytes % Monocytes % Eosinophils % Basophils % Nucleated RBC % Absolute Neutrophils Absolute Lymphocytes Absolute Monocytes Absolute Eosinophils Absolute Basophils RBC Morphology Polychromasia Poikilocytosis Basophilic Stippling Anisocytosis Macrocytosis PT 11.3 H D INR 1.1 APTT Sodium Potassium Chloride Carbon Dioxide Anion Gap BUN Creatinine Estimated GFR/1.73 m2 Glucose Calcium Magnesium Total Bilirubin Conjugated Bilirubin AST ALT Alkaline Phosphatase Lactate Dehydrogenase Troponin I NT-Pro-B Natriuret Pep Total Protein Albumin Vitamin B12 Folate Procalcitonin TSH Urine Color Urine Clarity Urine pH Ur Specific [place] Urine Protein Urine Ketones Urine Blood Urine Nitrite Urine Bilirubin Urine Urobilinogen Ur Leukocyte Esterase Urine RBC Urine WBC Ur Epithelial Cells Urine Crystals Urine Bacteria Urine Casts Urine Mucus Ur Culture Indicated? Urine Glucose Urine Opiates Screen Urine Methadone Screen Ur Barbiturates Screen Ur Tricyclics Screen Ur Amphetamines Screen U Benzodiazepines Scrn Urine Cocaine Screen Ur THC Screen COVID-19 Source SARS-CoV-2 (PCR) Add-On Test Request
[2021-10-01 07:51] LABS: Absolute Eosinophil Count 0.48 10^3/uL (0.0-0.7); Absolute Lymphocyte Count 4.16 10^3/uL (1.2-3.4); Absolute Monocyte Count 1.28 10^3/uL (0.1-0.8); Absolute Neutrophil Count 10.08 10^3/uL (1.2-6.7); Anisocytosis 3+; Diff Comment Manual Differential; Nucleated RBC 57 %
[2021-10-01 07:52] LABS: Hypochromasia 2+; Macrocytosis 2+
--- NOTE | 2021-10-01 08:00 | DI.US_ITS ---
Exam(s) US EXTREMITY VENOUS BI EXAM: US EXTREMITY VENOUS BI CLINICAL HISTORY: BLE edema, h/o VTE. TECHNIQUE: Bilateral lower extremity venous ultrasound performed using grayscale, color-flow, and sp ectral Doppler analysis. COMPARISON: No exams were available for comparison FINDINGS: The bilateral common femoral, femoral and popliteal veins demonstrate normal compressibility, augment ation, and color Doppler. The posterior tibial veins are patent. The saphenofemoral junctions are unr emarkable. There is no evidence of a Garzon's cyst. The soft tissues are unremarkable. IMPRESSION: Right: Negative for DVT Left: Negative for DVT DATA REPOSITORY:
--- NOTE | 2021-10-01 08:00 | DI.US_ITS ---
Exam(s) US ABDOMEN EXAM: US ABDOMEN CLINICAL HISTORY: hyperbilirubinemia TECHNIQUE: Ultrasound abdomen performed using standard protocol. COMPARISON: CT CT CHEST/ABD/PEL W from 05/22/2021 FINDINGS: ABDOMINAL AORTA AND IVC: Visualized portions normal caliber. Atherosclerosis is present. PANCREAS: Normal where visualized. LIVER: Normal. Hepatopedal flow in the Portal Vein. The liver measures 15 cm long. GALLBLADDER:No evidence of cholelithiasis. No evidence of wall thickening. No pericholecystic fluid i dentified. There is a 3.2 mm polyp on the gallbladder. BILIARY SYSTEM: Common bile duct measures < 7 mm. No intrahepatic biliary ductal dilation. SANABRIA'S SIGN: Negative. KIDNEYS: Kidneys are symmetric in size. No evidence of renal calculi. No evidence of hydronephrosis. There is a 3.3 x 1.9 x 2.4 cm simple cyst in the left kidney. SPLEEN: Status post splenectomy. ASCITES: None seen. IMPRESSION: Small gallbladder polyp. Otherwise unremarkable abdominal ultrasound. DATA REPOSITORY:
[2021-10-01] MEDS: Gabapentin 300 MG CAP PO ×3 (08:51→21:15)
[2021-10-01] MEDS: predniSONE 20 MG TAB 60 MG PO (08:51)
[2021-10-01] MEDS: Sertraline 50 MG TAB 150 MG PO (08:51)
[2021-10-01] MEDS: valACYclovir 500 MG TAB PO (08:51)
[2021-10-01] MEDS: Folic Acid 1 MG TAB PO (08:52)
[2021-10-01] MEDS: Ferrous Sulfate 325 MG TAB PO (08:52)
[2021-10-01] MEDS: Multivitamin TAB 1 TAB PO (08:52)
[2021-10-01] MEDS: Thiamine 100 MG TAB PO (08:52)
[2021-10-01] MEDS: DULoxetine 30 MG CAP 60 MG PO (08:52)
[2021-10-01] MEDS: Calcium Carbonate *TUMS* 500 MG CHEW 1000 MG PO (08:52)
[2021-10-01] MEDS: Lisinopril 5 MG TAB PO (08:52)
[2021-10-01] MEDS: Omeprazole 20 MG CAPCR PO (08:53)
[2021-10-01] MEDS: Furosemide 20 MG/2 ML VIAL IVP ×2 (08:53→16:33)
[2021-10-01] MEDS: Methadone Liquid 10 MG/ML 115 MG PO (08:54)
--- NOTE | 2021-10-01 09:16 | PDOC.CMIN ---
- If Service Date Differs Date of service: 10/01/21 Time of Service: 09:16 Care Management Initial Assess REASON FOR HOSPITALIZATION:: Acute CHF, Hypoxia PAST MEDICAL HISTORY/PAST SURGICAL HISTORY:: All Active Problems (Updated 10/01/21 @ 00:47 by Evelyn Mendoza MD). Hypoxia (Acute). Discharge planning issues (Acute). DVT prophylaxis (Acute). Pulmonary infiltrates (Acute). Hyperbilirubinemia (Chronic). Bilateral pleural effusion (Chronic). Acute diastolic CHF (congestive heart failure) (Acute). Weight loss (Acute). Annual physical exam (Acute). Breathlessness (Acute). History of pulmonary embolism (Chronic). Pleural effusion, right (Acute). 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). Hand dermatitis (Acute). Left wrist pain (Acute). Insomnia (Acute). Personal history of colonic polyps (Acute). Chronic sphenoidal sinusitis (Chronic 04/07/16). Chronic maxillary sinusitis (Chronic 04/07/16). Chronic frontal sinusitis (Chronic 04/07/16). Chronic ethmoidal sinusitis (Chronic 04/07/16). Anosmia (Chronic 04/07/16). Smoker (Chronic 02/15/15). Shingles (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). Sexual function problem (Chronic). Postnasal drip (Chronic 08/07/14). Peyronie disease (Chronic 02/15/15). Nasal polyp, unspecified (Chronic 03/23/17). Moderate single current episode of major depressive disorder (Chronic 04/07/17). Hearing loss (Chronic). Bilateral lower extremity edema (Chronic 08/25/16). Allergic rhinitis due to pollen (Chronic 07/09/15). Allergic fungal sinusitis (Chronic 05/23/13). Allergy Injections. Medical History (Updated 10/01/21 @ 00:47 by Evelyn Mendoza MD). Abnormal liver enzymes. Anxiety disorder. Autoimmune hemolytic anemia. Benign essential hypertension (10/21/12). Chronic anticoagulation. Chronic hepatitis C without mention of hepatic coma (09/20/12). Constipation. COPD (chronic obstructive pulmonary disease). Depression. 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 Opioid dependence on agonist therapy. Pleural effusion, left. Pneumonia. Pulmonary emboli. Pulmonary hypertension. Surgical History (Updated 09/30/21 @ 23:15 by Eevlyn Mendoza MD). H/O colonoscopy (05/07/18). dr gibson,no abnormalities, repeat 10 years. Recurrent right pleural effusion. s/p VATS, RML wedge, biopsies, mec/talc pleurodesis 08/14/21 [facility] [place]. Repair of inguinal hernia. RIGHT. Status post unilateral inguinal hernia repair. Thoracentesis (06/08/16). left PREVIOUS FUNCTIONAL STATUS/SOCIAL/FAMILY SUPPORTS:: Franc lives in a single family home in [place] [facility] with his girlfriend Jennifer. 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 CURRENT FUNCTIONAL STATUS:: Franc was sitting up in bed when CM met with him. He was drowsy, alert and able to engage in conversation. He is 96% on room air. He shared with CM that he hasn't had much of an appetite for several months. He would be willing to try an appetite stimulant if the provider feels it may help. ADVANCE DIRECTIVES:: None on file, Franc has AD forms to fill out at home when he's ready. Has patient been provided with info about the portal/API?: Yes Did the patient sign up for the portal?: No CODE STATUS:: Full Code INSURANCE COVERAGE / FINANCIAL ISSUES:: /BS. Medicare. [facility] CURRENT HOME/COMMUNITY SERVICES/EQUIPMENT:: Franc is on a Methadone maintenance program through [facility] PRIMARY CARE PHYSICIAN:: [facility] POTENTIAL DISCHARGE NEEDS:: Follow up appointments and discharge plan of care PATIENT/FAMILY EDUCATION NEEDS:: Review discharge plan, limitations, medications and plan to follow up with community providers. Ask me Three ANTICIPATED BARRIERS TO DISCHARGE:: None identified. TRANSPORTATION:: via private vehicle with girlfriend PLAN:: Franc requires hospital admission for close monitoring and Franc will be discharged home with no new services. He will follow up with his PCP and discharge plan of care and transport with his girlfriend.
[2021-10-01 12:11] LABS: HCT 25.6 % (40.0-50.0); HGB 7.8 g/dL (13.5-17.5)
--- NOTE | 2021-10-01 13:30 | W.NUTCONSULT ---
Date of service: 10/01/21 Time of Service: 13:30 Nutritional Consult ASSESSMENT: Met with Franc and his significant other. 66 year old male admitted with pulmonary hypertension, COPD, CHF, hx of wt loss with BMI>19 indicating underweight status. Appears cachexic with muscle wasting. Weight has been stable x 1 year however, reports appetite has decreased in last couple of weeks due to nausea. Following low sodium diet with adequate intake since admission. SO reports not using salt in cooking, however, Franc likes going to diner often and often eats high salt foods. Estimated needs: [id number] kcal, 60-70 g protein, 1600 ml fluid. Will meet nutrient needs with 75% meal completion. NUTRITIONAL DIAGNOSIS: Severe malnutrition in view of low BMI, muscle wasting and lack of subqutaneous fat stores INTERVENTION: continue current diet order/ continue reinforcement of importance of low sodium diet choices for CHF consider appetite stimulant such as marinol at time of discharge MONITORING AND EVALUATION: weight, po intake, labs Time Spent in Nutritional Counseling and Treatment: 10
[2021-10-01] MEDS: Potassium Chloride 20 MEQ TABCR 40 MEQ PO (14:27)
[2021-10-01 17:57] LABS: Legionella Ag Detection Urine Negative (Negative)
[2021-10-01] MEDS: Atorvastatin 40 MG TAB PO (21:14)
[2021-10-01] MEDS: Senna TAB 1 TAB PO (21:14)
[2021-10-01] MEDS: Magnesium Oxide 400 MG TAB PO (21:15)
[2021-10-02] VITALS (11 sets, daily range): BP systolic 136–156; BP diastolic 58–71; PULSE 60–81; RESP 17–21; TEMP 36.5–37.2; O2SAT 94–99
[2021-10-02] MEDS: Albuterol/Ipratropium 3 ML UPD VIAL UPD ×2 (05:12→11:46)
[2021-10-02 06:33] LABS: HCT 23.4 % (40.0-50.0); HGB 7.1 g/dL (13.5-17.5); MCH 37.4 pg (27.0-33.0); MCHC 30.3 % (32.0-36.0); MCV 123.2 fL (80-95); Nucleated RBC 20 %; Platelet Count 350 10^3/uL (130-400); RDW 22.3 % (11.8-14.1); RDW-SD 92.8 fL; WBC 21.71 10^3/uL (4.4-10.8)
[2021-10-02 07:05] LABS: ALT 29 U/L (16-63); AST 138 U/L (15-37); Albumin 3.3 g/dL (3.4-5.0); Alkaline Phosphatase 64 U/L (46-116); Anion Gap 4.6 mmol/L (3-11); BUN 17 mg/dL (7-18); Bilirubin, Total 3.9 mg/dL (0.2-1.0); CO2 32.4 mmol/L (21.0-32.0); CREATININE 0.8 mg/dL (0.70-1.30); Calcium 8.6 mg/dL (8.5-10.1); Chloride 106 mmol/L (98-107); Glucose 98 mg/dL (74-106); LDH 3236 U/L (85-227); Potassium 4.2 mmol/L (3.5-5.1); Sodium 143 mmol/L (136-145); Total Protein 5.9 g/dL (6.4-8.2)
--- NOTE | 2021-10-02 07:13 | PGE_ITS ---
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 He does not have any home inhalers and given his diagnosis he should be on some. His eosinophil levels are elevated - 480 so he may benefit from ICS therapy in the future if he exacerbates. Currently starting him on Stiolto will be a good place to start. His dyspnea and hypoxia are likely more related to his hemolytic anemia as opposed to his lungs. His chest CT looks much improved and his pleurodesis does seem to be holding. He has stable scarring present on the left lung as well. He would benefit from continued pulmonary care. COPD - continue Stiolto - continue albuterol prn - can continue Duonebs as needed while admitted - he qualifies to be enrolled in LDCT lung cancer screening - I will do as an outpatient - I will follow up with him as an outpatient h/o PE - will be on lifelong A/C per hematology Pulmonary Hypertension - recommend an updated echo to assess this Pleural effusion - minimal effusion - pleurodesis is holding General Date Of Service Date of service: 10/02/21 Time of Service: 07:13 Reason for Consult: Emphysema, pleural effusion Exam Narrative Exam Narrative: Gen: NAD, normal respiratory effort, well-nourished HENT: PERRL, nasal turbinates normal without erythema or inflammation, moist oral mucosa, Mallampati 2, No LAD or JVD Chest: No respiratory distress, normal appearance of chest, clear to auscultation bilaterally, no crackles or wheezes, normal inspiratory effort Heart: regular rate and rhythym, no murmurs, rubs or gallops Abdomen: Non-distended, soft, non tender Extremities: No clubbing, edema, cyanosis, rashes Neuro: AAOx3 , non focal Psych: cooperative, appropriate mental affect Objective Last Vital Signs Temp 36.5 C 10/02/21 03:30 Pulse 60 10/02/21 03:30 Resp 20 10/02/21 03:30 BP 156/71 H 10/02/21 03:30 Pulse Ox 99 04/13/22 03:30 Laboratory Results - last 24 hr 10/01/21 10/01/21 10/01/21 06:32 06:32 06:32 WBC 16.00 H RBC 1.98 L Hgb 7.3 L Hct 24.5 L MCV 123.7 H D MCH 36.9 H MCHC 29.8 L RDW 22.5 H Plt Count 343 MPV 11.1 H Reticulocyte % (Auto) Cancelled Immature Gran % 0.0 Neutrophils % 63.0 Lymphocytes % 26.0 Monocytes % 8.0 Eosinophils % 3.0 Basophils % 0.0 Nucleated RBC % 57 Absolute Neutrophils 10.08 H Absolute Lymphocytes 4.16 H Absolute Monocytes 1.28 H Absolute Eosinophils 0.48 Absolute Basophils 0.00 RBC Morphology See Below Hypochromasia 2+ Anisocytosis 3+ Macrocytosis 2+ PT 11.3 H D INR 1.1 Sodium 144 Potassium 3.4 L Chloride 105 Carbon Dioxide 32.3 H Anion Gap 6.7 BUN 18 Creatinine 0.7 Estimated GFR/1.73 m2 >= 60.00 Glucose 84 Calcium 8.5 Magnesium 2.2 Total Bilirubin 3.8 H Conjugated Bilirubin 0.6 H AST 150 H ALT 31 Alkaline Phosphatase 71 Lactate Dehydrogenase Total Protein 5.9 L Albumin 3.3 L TSH 2.01 10/01/21 10/02/21 12:00 06:10 WBC RBC Hgb 7.8 L Hct 25.6 L MCV MCH MCHC RDW Plt Count MPV Reticulocyte % (Auto) Immature Gran % Neutrophils % Lymphocytes % Monocytes % Eosinophils % Basophils % Nucleated RBC % Absolute Neutrophils Absolute Lymphocytes Absolute Monocytes Absolute Eosinophils Absolute Basophils RBC Morphology Hypochromasia Anisocytosis Macrocytosis PT INR Sodium 143 Potassium 4.2 D Chloride 106 Carbon Dioxide 32.4 H Anion Gap 4.6 BUN 17 Creatinine 0.8 Estimated GFR/1.73 m2 >= 60.00 Glucose 98 Calcium 8.6 Magnesium Total Bilirubin 3.9 H Conjugated Bilirubin AST 138 H ALT 29 Alkaline Phosphatase 64 Lactate Dehydrogenase 3236 H Total Protein 5.9 L Albumin 3.3 L TSH Results Medications Medications: Active Medications Generic Name Dose Route Start Last Admin Trade Name Freq PRN Reason Stop Dose Admin Acetaminophen 325 - 650 mg 09/30/21 20:33 Acetaminophen 325 Mg Tab PO Q4H PRN PRN Al Hydrox/Mg Hydrox/Simethicone 30 ml 09/30/21 20:33 Mylanta Suspension 30 Ml Cup PO Q2H PRN PRN Albuterol Sulfate 2 puff 09/30/21 22:50 Albuterol Hfa 8 Gm 60 Puff Inh IH Q6H PRN PRN shortness of breath or wheezing Albuterol/Ipratropium 3 ml 10/01/21 00:00 10/02/21 05:12 Albuterol/Ipratropium 3 Ml Upd Vial UPD 3 ml Q6H DIANDRA Administration Atorvastatin Calcium 40 mg 10/01/21 20:00 10/01/21 21:14 Atorvastatin 40 Mg Tab PO 40 mg QPM DIANDRA Administration Calcium Carbonate 1,000 mg 10/01/21 08:30 10/01/21 08:52 Calcium Carbonate *Tums* 500 Mg Chew PO 1,000 mg DAILY DIANDRA Administration Cetirizine HCl 5 mg 09/30/21 23:14 Cetirizine 10 Mg Tab PO DAILY PRN PRN Device 1 each 09/30/21 23:00 Inhaler, Assist Device MC DIRECTED [facility] Device 1 each 10/01/21 14:00 Inhaler, Assist Device MC DIRECTED [facility] Dimethicone/Zinc Oxide 0 gm 09/30/21 20:33 Sharron Protect Cream 142 Gm Tube TP PRN PRN Docusate Sodium 100 mg 09/30/21 20:33 Docusate Sodium 100 Mg Cap PO TID PRN PRN Duloxetine HCl 60 mg 10/01/21 08:30 10/01/21 08:52 Duloxetine 30 Mg Cap PO 60 mg DAILY DIANDRA Administration Ferrous Sulfate 325 mg 10/01/21 08:30 10/01/21 08:52 Ferrous Sulfate 325 Mg Tab PO 325 mg DAILY DIANDRA Administration Folic Acid 1 mg 10/01/21 08:30 10/01/21 08:52 Folic Acid 1 Mg Tab PO 1 mg DAILY DIANDRA Administration Furosemide 20 mg 10/01/21 08:00 10/01/21 16:33 Furosemide 20 Mg/2 Ml Vial IVP 20 mg BID@0800,1600 DIANDRA Administration Gabapentin 300 mg 10/01/21 08:30 10/01/21 21:15 Gabapentin 300 Mg Cap PO 300 mg TID DIANDRA Administration Doxycycline Hyclate 100 mg/ 100 mls @ 100 mls/hr 10/01/21 00:00 10/02/21 00:31 Sodium Chloride IVPB Infused Q12H DIANDRA Infusion IV Miscellaneous Supplies 1 each 09/30/21 18:15 Iv Access IV DIRECTED DIANDRA Lisinopril 5 mg 10/01/21 08:30 10/01/21 08:52 Lisinopril 5 Mg Tab PO 5 mg DAILY DIANDRA Administration Lorazepam 0.25 mg 10/01/21 13:15 Lorazepam 0.5 Mg Tab PO Q8H PRN PRN Magnesium Hydroxide 30 ml 09/30/21 20:33 Milk Of Magnesia 30 Ml Cup PO DAILY PRN PRN Magnesium Oxide 400 mg 10/01/21 22:00 10/01/21 21:15 Magnesium Oxide 400 Mg Tab PO 400 mg HS DIANDRA Administration Methadone HCl 115 mg 10/01/21 08:30 10/01/21 08:54 Methadone Liquid 10 Mg/Ml PO 115 mg DAILY DIANDRA Administration Multivitamins 1 tab 10/01/21 08:30 10/01/21 08:52 Multivitamin Tab PO 1 tab DAILY DIANDRA Administration Nicotine 21 mg 10/01/21 00:33 Nicotine 21 Mg/24 Hr Patch TD DAILY PRN PRN Omeprazole 20 mg 10/01/21 08:30 10/01/21 08:53 Omeprazole 20 Mg Capcr PO 20 mg DAILY [facility] Administration Potassium Chloride 20 meq 10/02/21 08:30 Potassium Chloride 20 Meq Tabcr PO DAILY [facility] Prednisone 60 mg 10/01/21 08:30 10/01/21 08:51 Prednisone 20 Mg Tab PO 60 mg DAILY DIANDRA Administration Rivaroxaban 10 mg 10/01/21 08:30 10/01/21 08:55 Rivaroxaban 10 Mg Tablet PO Not Given DAILY [facility] Sennosides 1 tab 10/01/21 22:00 10/01/21 21:14 Senna Tab PO 1 tab HS DIANDRA Administration Sertraline HCl 150 mg 10/01/21 08:30 10/01/21 08:51 Sertraline 50 Mg Tab PO 150 mg DAILY [facility] Administration Sodium Chloride 0 ml 09/30/21 18:06 10/01/21 23:07 Normal Saline Flush 10 Ml Syr IVP 10 ml PRN PRN Administration Thiamine HCl 100 mg 10/01/21 08:30 10/01/21 08:52 Thiamine 100 Mg Tab PO 100 mg DAILY [facility] Administration Tiotropium [place]/Olodaterol 2 puff 04/13/22 08:30 Tiotropium/Olodaterol 10 Puff Inhaler IH DAILY DIANDRA Valacyclovir HCl 500 mg 10/01/21 08:30 10/01/21 08:51 Valacyclovir 500 Mg Tab PO 500 mg DAILY DIANDRA Administration Allergies No Known Allergies Allergy (Verified 09/30/21 17:46) Labs Result Diagrams: 10/01/21 12:00 10/02/21 06:10 Labs: 10/01/21 02:18 Blood Blood Culture - Preliminary NO GROWTH 24 HOURS 10/01/21 02:18 Blood Blood Culture - Preliminary NO GROWTH 24 HOURS 10/01/21 00:01 Nose MRSA Screen - Pending Laboratory Tests Range/Units 09/30/21 09/30/21 09/30/21 18:45 18:45 18:45 WBC (4.4-10.8) 10^3/uL 16.53 H RBC (4.36-5.78) 10^6/uL 2.10 L Hgb (13.5-17.5) g/dL 8.0 L Hct (40.0-50.0) % 25.1 L MCV (80-95) fL 119.5 H MCH (27.0-33.0) pg 38.1 H MCHC (32.0-36.0) % 31.9 L RDW (11.8-14.1) % 22.7 H Plt Count (130-400) 10^3/uL 365 MPV (8.0-11.0) fL 10.8 Reticulocyte % (Auto) (0.5-2.4) % Immature Gran % 1.2 Neutrophils % 82.1 Lymphocytes % 3.5 Monocytes % 12.5 Eosinophils % 0.0 Basophils % 0.7 Nucleated RBC % % 54 Absolute Neutrophils (1.2-6.7) 10^3/uL 13.57 H Absolute Lymphocytes (1.2-3.4) 10^3/uL 0.58 L Absolute Monocytes (0.1-0.8) 10^3/uL 2.07 H Absolute Eosinophils (0.0-0.7) 10^3/uL 0.00 Absolute Basophils (0.0-0.2) 10^3/uL 0.12 RBC Morphology See Below Polychromasia Present Hypochromasia Poikilocytosis 2+ Basophilic Stippling 1+ Anisocytosis 3+ Macrocytosis 3+ PT (9.3-11.0) sec 15.0 H INR (0.9-1.1) 1.5 H APTT (21.0-27.5) sec 28.8 H Sodium (136-145) mmol/L 142 Potassium (3.5-5.1) mmol/L 4.3 Chloride (98-107) mmol/L 105 Carbon Dioxide (21.0-32.0) mmol/L 29.4 Anion Gap (3-11) mmol/L 7.6 BUN (7-18) mg/dL 18 Creatinine (0.70-1.30) mg/dL 0.7 Estimated GFR/1.73 m2 (mL/min/1.73m2) >= 60.00 Glucose (74-106) mg/dL 85 Calcium (8.5-10.1) mg/dL 8.9 Magnesium (1.8-2.4) mg/dL 2.1 Total Bilirubin (0.2-1.0) mg/dL 5.7 H Conjugated Bilirubin (0.0-0.2) mg/dL AST (15-37) U/L 167 H ALT (16-63) U/L 34 Alkaline Phosphatase (46-116) U/L 81 Lactate Dehydrogenase (85-227) U/L Troponin I (<or=60) ng/L < 50 NT-Pro-B Natriuret Pep (<300) pg/mL 1632 H Total Protein (6.4-8.2) g/dL 6.3 L Albumin (3.4-5.0) g/dL 3.6 Vitamin B12 (193-986) pg/mL Folate (8.6-20.0) ng/mL Procalcitonin ng/mL TSH (0.36-3.74) uIU/mL Urine Color (Yellow) Urine Clarity (Clear) Urine pH (5-8) Ur Specific [place] (1.005-1.025) Urine Protein (Negative) mg/dL Urine Ketones (Negative) mg/dL Urine Blood (Negative) Urine Nitrite (Negative) Urine Bilirubin (Negative) Urine Urobilinogen (Up TO 0.2) EU/dL Ur Leukocyte Esterase (Negative) Urine RBC (0-2) HPF Urine WBC (0-5) HPF Ur Epithelial Cells (Negative) HPF Urine Crystals (Negative) HPF Urine Bacteria (Negative) HPF Urine Casts (Negative) LPF Urine Mucus (Negative) Ur Culture Indicated? Urine Glucose (Negative) mg/dL Urine Opiates Screen (Negative) Urine Methadone Screen (Negative) Ur Barbiturates Screen (Negative) Ur Tricyclics Screen (Negative) Ur Amphetamines Screen (Negative) U Benzodiazepines Scrn (Negative) Urine Cocaine Screen (Negative) Ur THC Screen (Negative) COVID-19 Source SARS-CoV-2 (PCR) (Negative) Add-On Test Request Range/Units 09/30/21 09/30/21 09/30/21 18:45 18:45 21:10 WBC (4.4-10.8) 10^3/uL RBC (4.36-5.78) 10^6/uL Hgb (13.5-17.5) g/dL Hct (40.0-50.0) % MCV (80-95) fL MCH (27.0-33.0) pg MCHC (32.0-36.0) % RDW (11.8-14.1) % Plt Count (130-400) 10^3/uL MPV (8.0-11.0) fL Reticulocyte % (Auto) (0.5-2.4) % 14.3 H Immature Gran % Neutrophils % Lymphocytes % Monocytes % Eosinophils % Basophils % Nucleated RBC % % Absolute Neutrophils (1.2-6.7) 10^3/uL Absolute Lymphocytes (1.2-3.4) 10^3/uL Absolute Monocytes (0.1-0.8) 10^3/uL Absolute Eosinophils (0.0-0.7) 10^3/uL Absolute Basophils (0.0-0.2) 10^3/uL RBC Morphology Polychromasia Hypochromasia Poikilocytosis Basophilic Stippling Anisocytosis Macrocytosis PT (9.3-11.0) sec INR (0.9-1.1) APTT (21.0-27.5) sec Sodium (136-145) mmol/L Potassium (3.5-5.1) mmol/L Chloride (98-107) mmol/L Carbon Dioxide (21.0-32.0) mmol/L Anion Gap (3-11) mmol/L BUN (7-18) mg/dL Creatinine (0.70-1.30) mg/dL Estimated GFR/1.73 m2 (mL/min/1.73m2) Glucose (74-106) mg/dL Calcium (8.5-10.1) mg/dL Magnesium (1.8-2.4) mg/dL Total Bilirubin (0.2-1.0) mg/dL Conjugated Bilirubin (0.0-0.2) mg/dL AST (15-37) U/L ALT (16-63) U/L Alkaline Phosphatase (46-116) U/L Lactate Dehydrogenase (85-227) U/L Troponin I (<or=60) ng/L NT-Pro-B Natriuret Pep (<300) pg/mL Total Protein (6.4-8.2) g/dL Albumin (3.4-5.0) g/dL Vitamin B12 (193-986) pg/mL 1028 H Folate (8.6-20.0) ng/mL > 20.0 H Procalcitonin ng/mL TSH (0.36-3.74) uIU/mL Urine Color (Yellow) Urine Clarity (Clear) Urine pH (5-8) Ur Specific [place] (1.005-1.025) Urine Protein (Negative) mg/dL Urine Ketones (Negative) mg/dL Urine Blood (Negative) Urine Nitrite (Negative) Urine Bilirubin (Negative) Urine Urobilinogen (Up TO 0.2) EU/dL Ur Leukocyte Esterase (Negative) Urine RBC (0-2) HPF Urine WBC (0-5) HPF Ur Epithelial Cells (Negative) HPF Urine Crystals (Negative) HPF Urine Bacteria (Negative) HPF Urine Casts (Negative) LPF Urine Mucus (Negative) Ur Culture Indicated? Urine Glucose (Negative) mg/dL Urine Opiates Screen (Negative) Urine Methadone Screen (Negative) Ur Barbiturates Screen (Negative) Ur Tricyclics Screen (Negative) Ur Amphetamines Screen (Negative) U Benzodiazepines Scrn (Negative) Urine Cocaine Screen (Negative) Ur THC Screen (Negative) COVID-19 Source Nasal/Nares SARS-CoV-2 (PCR) (Negative) Negative Add-On Test Request Range/Units 09/30/21 09/30/21 09/30/21 21:16 21:16 21:16 WBC (4.4-10.8) 10^3/uL RBC (4.36-5.78) 10^6/uL Hgb (13.5-17.5) g/dL Hct (40.0-50.0) % MCV (80-95) fL MCH (27.0-33.0) pg MCHC (32.0-36.0) % RDW (11.8-14.1) % Plt Count (130-400) 10^3/uL MPV (8.0-11.0) fL Reticulocyte % (Auto) (0.5-2.4) % Immature Gran % Neutrophils % Lymphocytes % Monocytes % Eosinophils % Basophils % Nucleated RBC % % Absolute Neutrophils (1.2-6.7) 10^3/uL Absolute Lymphocytes (1.2-3.4) 10^3/uL Absolute Monocytes (0.1-0.8) 10^3/uL Absolute Eosinophils (0.0-0.7) 10^3/uL Absolute Basophils (0.0-0.2) 10^3/uL RBC Morphology Polychromasia Hypochromasia Poikilocytosis Basophilic Stippling Anisocytosis Macrocytosis PT (9.3-11.0) sec INR (0.9-1.1) APTT (21.0-27.5) sec Sodium (136-145) mmol/L Potassium (3.5-5.1) mmol/L Chloride (98-107) mmol/L Carbon Dioxide (21.0-32.0) mmol/L Anion Gap (3-11) mmol/L BUN (7-18) mg/dL Creatinine (0.70-1.30) mg/dL Estimated GFR/1.73 m2 (mL/min/1.73m2) Glucose (74-106) mg/dL Calcium (8.5-10.1) mg/dL Magnesium (1.8-2.4) mg/dL Total Bilirubin (0.2-1.0) mg/dL Conjugated Bilirubin (0.0-0.2) mg/dL 0.8 H AST (15-37) U/L ALT (16-63) U/L Alkaline Phosphatase (46-116) U/L Lactate Dehydrogenase (85-227) U/L 3609 H Troponin I (<or=60) ng/L < 50 NT-Pro-B Natriuret Pep (<300) pg/mL Total Protein (6.4-8.2) g/dL Albumin (3.4-5.0) g/dL Vitamin B12 (193-986) pg/mL Folate (8.6-20.0) ng/mL Procalcitonin ng/mL TSH (0.36-3.74) uIU/mL Urine Color (Yellow) Urine Clarity (Clear) Urine pH (5-8) Ur Specific [place] (1.005-1.025) Urine Protein (Negative) mg/dL Urine Ketones (Negative) mg/dL Urine Blood (Negative) Urine Nitrite (Negative) Urine Bilirubin (Negative) Urine Urobilinogen (Up TO 0.2) EU/dL Ur Leukocyte Esterase (Negative) Urine RBC (0-2) HPF Urine WBC (0-5) HPF Ur Epithelial Cells (Negative) HPF Urine Crystals (Negative) HPF Urine Bacteria (Negative) HPF Urine Casts (Negative) LPF Urine Mucus (Negative) Ur Culture Indicated? Urine Glucose (Negative) mg/dL Urine Opiates Screen (Negative) Urine Methadone Screen (Negative) Ur Barbiturates Screen (Negative) Ur Tricyclics Screen (Negative) Ur Amphetamines Screen (Negative) U Benzodiazepines Scrn (Negative) Urine Cocaine Screen (Negative) Ur THC Screen (Negative) COVID-19 Source SARS-CoV-2 (PCR) (Negative) Add-On Test Request Range/Units 09/30/21 09/30/21 10/01/21 21:16 21:16 00:05 WBC (4.4-10.8) 10^3/uL RBC (4.36-5.78) 10^6/uL Hgb (13.5-17.5) g/dL Hct (40.0-50.0) % MCV (80-95) fL MCH (27.0-33.0) pg MCHC (32.0-36.0) % RDW (11.8-14.1) % Plt Count (130-400) 10^3/uL MPV (8.0-11.0) fL Reticulocyte % (Auto) (0.5-2.4) % Immature Gran % Neutrophils % Lymphocytes % Monocytes % Eosinophils % Basophils % Nucleated RBC % % Absolute Neutrophils (1.2-6.7) 10^3/uL Absolute Lymphocytes (1.2-3.4) 10^3/uL Absolute Monocytes (0.1-0.8) 10^3/uL Absolute Eosinophils (0.0-0.7) 10^3/uL Absolute Basophils (0.0-0.2) 10^3/uL RBC Morphology Polychromasia Hypochromasia Poikilocytosis Basophilic Stippling Anisocytosis Macrocytosis PT (9.3-11.0) sec INR (0.9-1.1) APTT (21.0-27.5) sec Sodium (136-145) mmol/L Potassium (3.5-5.1) mmol/L Chloride (98-107) mmol/L Carbon Dioxide (21.0-32.0) mmol/L Anion Gap (3-11) mmol/L BUN (7-18) mg/dL Creatinine (0.70-1.30) mg/dL Estimated GFR/1.73 m2 (mL/min/1.73m2) Glucose (74-106) mg/dL Calcium (8.5-10.1) mg/dL Magnesium (1.8-2.4) mg/dL Total Bilirubin (0.2-1.0) mg/dL Conjugated Bilirubin (0.0-0.2) mg/dL AST (15-37) U/L ALT (16-63) U/L Alkaline Phosphatase (46-116) U/L Lactate Dehydrogenase (85-227) U/L Troponin I (<or=60) ng/L NT-Pro-B Natriuret Pep (<300) pg/mL Total Protein (6.4-8.2) g/dL Albumin (3.4-5.0) g/dL Vitamin B12 (193-986) pg/mL Folate (8.6-20.0) ng/mL Procalcitonin ng/mL 0.3 TSH (0.36-3.74) uIU/mL Urine Color (Yellow) Urine Clarity (Clear) Urine pH (5-8) Ur Specific [place] (1.005-1.025) Urine Protein (Negative) mg/dL Urine Ketones (Negative) mg/dL Urine Blood (Negative) Urine Nitrite (Negative) Urine Bilirubin (Negative) Urine Urobilinogen (Up TO 0.2) EU/dL Ur Leukocyte Esterase (Negative) Urine RBC (0-2) HPF Urine WBC (0-5) HPF Ur Epithelial Cells (Negative) HPF Urine Crystals (Negative) HPF Urine Bacteria (Negative) HPF Urine Casts (Negative) LPF Urine Mucus (Negative) Ur Culture Indicated? Urine Glucose (Negative) mg/dL Urine Opiates Screen (Negative) Negative Urine Methadone Screen (Negative) Positive A Ur Barbiturates Screen (Negative) Negative Ur Tricyclics Screen (Negative) Negative Ur Amphetamines Screen (Negative) Negative U Benzodiazepines Scrn (Negative) Negative Urine Cocaine Screen (Negative) Negative Ur THC Screen (Negative) Negative COVID-19 Source SARS-CoV-2 (PCR) (Negative) Add-On Test Request DONE Range/Units 10/01/21 10/01/21 10/01/21 00:05 06:32 06:32 WBC (4.4-10.8) 10^3/uL 16.00 H RBC (4.36-5.78) 10^6/uL 1.98 L Hgb (13.5-17.5) g/dL 7.3 L Hct (40.0-50.0) % 24.5 L MCV (80-95) fL 123.7 H D MCH (27.0-33.0) pg 36.9 H MCHC (32.0-36.0) % 29.8 L RDW (11.8-14.1) % 22.5 H Plt Count (130-400) 10^3/uL 343 MPV (8.0-11.0) fL 11.1 H Reticulocyte % (Auto) (0.5-2.4) % Cancelled Immature Gran % 0.0 Neutrophils % 63.0 Lymphocytes % 26.0 Monocytes % 8.0 Eosinophils % 3.0 Basophils % 0.0 Nucleated RBC % % 57 Absolute Neutrophils (1.2-6.7) 10^3/uL 10.08 H Absolute Lymphocytes (1.2-3.4) 10^3/uL 4.16 H Absolute Monocytes (0.1-0.8) 10^3/uL 1.28 H Absolute Eosinophils (0.0-0.7) 10^3/uL 0.48 Absolute Basophils (0.0-0.2) 10^3/uL 0.00 RBC Morphology See Below Polychromasia Hypochromasia 2+ Poikilocytosis Basophilic Stippling Anisocytosis 3+ Macrocytosis 2+ PT (9.3-11.0) sec INR (0.9-1.1) APTT (21.0-27.5) sec Sodium (136-145) mmol/L 144 Potassium (3.5-5.1) mmol/L 3.4 L Chloride (98-107) mmol/L 105 Carbon Dioxide (21.0-32.0) mmol/L 32.3 H Anion Gap (3-11) mmol/L 6.7 BUN (7-18) mg/dL 18 Creatinine (0.70-1.30) mg/dL 0.7 Estimated GFR/1.73 m2 (mL/min/1.73m2) >= 60.00 Glucose (74-106) mg/dL 84 Calcium (8.5-10.1) mg/dL 8.5 Magnesium (1.8-2.4) mg/dL 2.2 Total Bilirubin (0.2-1.0) mg/dL 3.8 H Conjugated Bilirubin (0.0-0.2) mg/dL 0.6 H AST (15-37) U/L 150 H ALT (16-63) U/L 31 Alkaline Phosphatase (46-116) U/L 71 Lactate Dehydrogenase (85-227) U/L Troponin I (<or=60) ng/L NT-Pro-B Natriuret Pep (<300) pg/mL Total Protein (6.4-8.2) g/dL 5.9 L Albumin (3.4-5.0) g/dL 3.3 L Vitamin B12 (193-986) pg/mL Folate (8.6-20.0) ng/mL Procalcitonin ng/mL TSH (0.36-3.74) uIU/mL 2.01 Urine Color (Yellow) Yellow Urine Clarity (Clear) Clear Urine pH (5-8) 7.0 Ur Specific [place] (1.005-1.025) 1.020 Urine Protein (Negative) mg/dL Negative Urine Ketones (Negative) mg/dL Negative Urine Blood (Negative) Moderate H Urine Nitrite (Negative) Negative Urine Bilirubin (Negative) Negative Urine Urobilinogen (Up TO 0.2) EU/dL 0.2 Ur Leukocyte Esterase (Negative) Negative Urine RBC (0-2) HPF 0-2 Urine WBC (0-5) HPF 0-2 Ur Epithelial Cells (Negative) HPF Rare Urine Crystals (Negative) HPF Few Amorphous Urine Bacteria (Negative) HPF Few Urine Casts (Negative) LPF 0-2 Hyaline Urine Mucus (Negative) Negative Ur Culture Indicated? No Urine Glucose (Negative) mg/dL Negative Urine Opiates Screen (Negative) Urine Methadone Screen (Negative) Ur Barbiturates Screen (Negative) Ur Tricyclics Screen (Negative) Ur Amphetamines Screen (Negative) U Benzodiazepines Scrn (Negative) Urine Cocaine Screen (Negative) Ur THC Screen (Negative) COVID-19 Source SARS-CoV-2 (PCR) (Negative) Add-On Test Request Range/Units 10/01/21 10/01/21 10/02/21 06:32 12:00 06:10 WBC (4.4-10.8) 10^3/uL RBC (4.36-5.78) 10^6/uL Hgb (13.5-17.5) g/dL 7.8 L Hct (40.0-50.0) % 25.6 L MCV (80-95) fL MCH (27.0-33.0) pg MCHC (32.0-36.0) % RDW (11.8-14.1) % Plt Count (130-400) 10^3/uL MPV (8.0-11.0) fL Reticulocyte % (Auto) (0.5-2.4) % Immature Gran % Neutrophils % Lymphocytes % Monocytes % Eosinophils % Basophils % Nucleated RBC % % Absolute Neutrophils (1.2-6.7) 10^3/uL Absolute Lymphocytes (1.2-3.4) 10^3/uL Absolute Monocytes (0.1-0.8) 10^3/uL Absolute Eosinophils (0.0-0.7) 10^3/uL Absolute Basophils (0.0-0.2) 10^3/uL RBC Morphology Polychromasia Hypochromasia Poikilocytosis Basophilic Stippling Anisocytosis Macrocytosis PT (9.3-11.0) sec 11.3 H D INR (0.9-1.1) 1.1 APTT (21.0-27.5) sec Sodium (136-145) mmol/L 143 Potassium (3.5-5.1) mmol/L 4.2 D Chloride (98-107) mmol/L 106 Carbon Dioxide (21.0-32.0) mmol/L 32.4 H Anion Gap (3-11) mmol/L 4.6 BUN (7-18) mg/dL 17 Creatinine (0.70-1.30) mg/dL 0.8 Estimated GFR/1.73 m2 (mL/min/1.73m2) >= 60.00 Glucose (74-106) mg/dL 98 Calcium (8.5-10.1) mg/dL 8.6 Magnesium (1.8-2.4) mg/dL Total Bilirubin (0.2-1.0) mg/dL 3.9 H Conjugated Bilirubin (0.0-0.2) mg/dL AST (15-37) U/L 138 H ALT (16-63) U/L 29 Alkaline Phosphatase (46-116) U/L 64 Lactate Dehydrogenase (85-227) U/L 3236 H Troponin I (<or=60) ng/L NT-Pro-B Natriuret Pep (<300) pg/mL Total Protein (6.4-8.2) g/dL 5.9 L Albumin (3.4-5.0) g/dL 3.3 L Vitamin B12 (193-986) pg/mL Folate (8.6-20.0) ng/mL Procalcitonin ng/mL TSH (0.36-3.74) uIU/mL Urine Color (Yellow) Urine Clarity (Clear) Urine pH (5-8) Ur Specific [place] (1.005-1.025) Urine Protein (Negative) mg/dL Urine Ketones (Negative) mg/dL Urine Blood (Negative) Urine Nitrite (Negative) Urine Bilirubin (Negative) Urine Urobilinogen (Up TO 0.2) EU/dL Ur Leukocyte Esterase (Negative) Urine RBC (0-2) HPF Urine WBC (0-5) HPF Ur Epithelial Cells (Negative) HPF Urine Crystals (Negative) HPF Urine Bacteria (Negative) HPF Urine Casts (Negative) LPF Urine Mucus (Negative) Ur Culture Indicated? Urine Glucose (Negative) mg/dL Urine Opiates Screen (Negative) Urine Methadone Screen (Negative) Ur Barbiturates Screen (Negative) Ur Tricyclics Screen (Negative) Ur Amphetamines Screen (Negative) U Benzodiazepines Scrn (Negative) Urine Cocaine Screen (Negative) Ur THC Screen (Negative) COVID-19 Source SARS-CoV-2 (PCR) (Negative) Add-On Test Request
[2021-10-02 07:26] LABS: Absolute Lymphocyte Count 4.34 10^3/uL (1.2-3.4); Absolute Monocyte Count 1.74 10^3/uL (0.1-0.8); Anisocytosis 3+; Bands % 1; Diff Comment Manual Differential; Macrocytosis 2+; Other Cells % 2
[2021-10-02 07:27] LABS: Polychromasia Present
[2021-10-02] MEDS: Ferrous Sulfate 325 MG TAB PO (07:48)
[2021-10-02] MEDS: Omeprazole 20 MG CAPCR PO (07:48)
[2021-10-02] MEDS: Gabapentin 300 MG CAP PO ×3 (07:48→19:41)
[2021-10-02] MEDS: Rivaroxaban 10 MG TABLET PO (07:48)
[2021-10-02] MEDS: Lisinopril 5 MG TAB PO (07:48)
[2021-10-02] MEDS: predniSONE 20 MG TAB 60 MG PO (07:49)
[2021-10-02] MEDS: Sertraline 50 MG TAB 150 MG PO (07:49)
[2021-10-02] MEDS: Calcium Carbonate *TUMS* 500 MG CHEW 1000 MG PO (07:49)
[2021-10-02] MEDS: Thiamine 100 MG TAB PO (07:50)
[2021-10-02] MEDS: valACYclovir 500 MG TAB PO (07:50)
[2021-10-02] MEDS: Folic Acid 1 MG TAB PO (07:50)
[2021-10-02] MEDS: Multivitamin TAB 1 TAB PO (07:50)
[2021-10-02] MEDS: Furosemide 20 MG/2 ML VIAL IVP ×2 (07:51→16:44)
[2021-10-02] MEDS: Potassium Chloride 20 MEQ TABCR PO (07:51)
[2021-10-02] MEDS: DULoxetine 30 MG CAP 60 MG PO (07:51)
[2021-10-02] MEDS: Normal Saline Flush 10 ML SYR IVP ×2 (07:52→16:44)
[2021-10-02] MEDS: Tiotropium/Olodaterol 10 PUFF INHALER 2 PUFF IH (09:28)
[2021-10-02] MEDS: Methadone Liquid 10 MG/ML 115 MG PO (09:30)
--- NOTE | 2021-10-02 09:49 | PDOC.CMPRO ---
- If Service Date Differs Date of service: 10/02/21 Time of Service: 09:49 Care Management Progress Note S/O: Rocky was sitting up in bed when CM met with him. He was shaky, which he shares is a normal response when he gets anxious. RN aware and gave patient Lorazapam. Franc c/o decreased appetite for several weeks and was started on an appetite stimulant this afternoon. A: 66 year old male admitted to [facility] on 09/30/21 for Acute CHF, Hypoxia P: Franc requires hospital admission for close monitoring, labs and further medical workup. Anticipate, Franc will be discharged home with no new services via private vehicle with Jennifer. He will follow up with his PCP and discharge plan of care.
[2021-10-02] MEDS: DOXYCYCLINE 100 MG in Normal Saline 100 ML IVPB (11:56)
[2021-10-02] MEDS: Dronabinol 2.5 MG CAP PO ×2 (11:57→16:12)
[2021-10-02] MEDS: LORazepam 0.5 MG TAB 0.25 MG PO (12:38)
[2021-10-02 14:25] LABS: HCT 24.2 % (40.0-50.0); HGB 7.4 g/dL (13.5-17.5)
--- NOTE | 2021-10-02 16:06 | W.PM.PROGNOT ---
Date of Service Date of service: 10/02/21 Time of Service: 16:06 Assessment and Plan Assessment and plan (1) Acute diastolic CHF (congestive heart failure): Status: Acute Assessment and plan: Probably a combination of fluid retention due to noncompliance with salt restriction (the patient admits to trying to follow it, but he is taking in more than 2 grams/day), recently increased steroid dose. He does also have pulmonary hypertension (never had a sleep study) which could also be contributing to the edema and shortness of breath. Diuresing well. Cont lasix and wt monitoring. (2) Hypoxia: Status: Acute Assessment and plan: Due to above - as above. Now on RA and stable. CT chest showed only a small left sided pleural effusion. He is s/p VATS with pleuradesis recently. Pulmonary medicine evaluated. (3) Bilateral pleural effusion: Status: Chronic Assessment and plan: Chronic and improved from prior CXR and CT scan. S/p VATS/pleurodesis on R in 07/2021 and had required thoracenthesis on the L in the past. Diuresing. (4) Hyperbilirubinemia: Status: Chronic Assessment and plan: Acute on chronic. Has a h/o untreated Hep C and hemolysis, both of which could result in elevation of Bili, but AST elevation is new but is improving. Abd US w/o ascites. +gall bladder polyp. The patient no longer drinks alcohol. 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 Refractory to splenectomy, azathioprine, and rituxan, [place] [facility] 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 Cont prednisone 60mg daily; discussed with [facility] [place]. Hgb 7.1 this AM; repeat at 1400 was 7.4 LDH modestly lower today. Haptglobin pending. We will continue to consult with [facility] [place] on further plan of care. (6) DVT prophylaxis: Status: Acute Assessment and plan: On therapeutic xarelto (7) Discharge planning issues: Status: Acute Assessment and plan: Full code Subjective Subjective Patient reports: no new complaints, tolerating a regular diet and afebrile; denies nausea, vomiting or shortness of breath Interval history since last seen: Feels some fatigue but not worsened. Exam Const General: cooperative, no acute distress and frail appearing Nutritional Appearance: underweight Orientation: alert and oriented x3 Eyes General: appearance normal, both eyes and all related structures Conjunctivae: conjunctival abnormality bilaterally conjunctival icterus and pallor Resp Effort & Inspection: normal respiratory effort Auscultation: clear to auscultation bilaterally Cardio Rate: regular rate Rhythm: regular rhythm Heart Sounds: S1 normal and S2 normal GI Palpation: soft and nontender Auscultation: normal bowel sounds Skin General skin exam: no rashes or lesions noted and jaundice Extrem General: no calf tenderness and edema Laterality: bilateral Psych Appearance: grossly normal Speech and Movement: speech clear Affect: normal affect Objective Last Vital Signs Temp 36.7 C 10/02/21 11:48 Pulse 78 10/02/21 15:05 Resp 18 10/02/21 11:48 BP 136/65 10/02/21 11:48 Pulse Ox 94 10/02/21 11:48 Laboratory Results - last 24 hr 09/30/21 10/01/21 10/02/21 21:16 00:05 06:10 WBC RBC Hgb Hct MCV MCH MCHC RDW Plt Count MPV Immature Gran % Neutrophils % Band Neutrophils % Lymphocytes % Monocytes % Eosinophils % Basophils % Other Cells % Nucleated RBC % Absolute Neutrophils Absolute Lymphocytes Absolute Monocytes Absolute Eosinophils Absolute Basophils RBC Morphology Polychromasia Anisocytosis Macrocytosis Haptoglobin SEE BELOW Sodium 143 Potassium 4.2 D Chloride 106 Carbon Dioxide 32.4 H Anion Gap 4.6 BUN 17 Creatinine 0.8 Estimated GFR/1.73 m2 >= 60.00 Glucose 98 Calcium 8.6 Total Bilirubin 3.9 H AST 138 H ALT 29 Alkaline Phosphatase 64 Lactate Dehydrogenase 3236 H Total Protein 5.9 L Albumin 3.3 L Urine Legionella Ag Negative 10/02/21 10/02/21 10/02/21 06:10 08:30 14:07 WBC 21.71 H D RBC 1.90 L Hgb 7.1 L Cancelled 7.4 L Hct 23.4 L Cancelled 24.2 L MCV 123.2 H MCH 37.4 H MCHC 30.3 L RDW 22.3 H Plt Count 350 MPV 11.0 Immature Gran % 0.0 Neutrophils % 69.0 Band Neutrophils % 1 Lymphocytes % 20.0 Monocytes % 8.0 Eosinophils % 0.0 Basophils % 0.0 Other Cells % 2 Nucleated RBC % 20 Absolute Neutrophils 15.20 H Absolute Lymphocytes 4.34 H Absolute Monocytes 1.74 H Absolute Eosinophils 0.00 Absolute Basophils 0.00 RBC Morphology See Below Polychromasia Present Anisocytosis 3+ Macrocytosis 2+ Haptoglobin Sodium Potassium Chloride Carbon Dioxide Anion Gap BUN Creatinine Estimated GFR/1.73 m2 Glucose Calcium Total Bilirubin AST ALT Alkaline Phosphatase Lactate Dehydrogenase Total Protein Albumin Urine Legionella Ag PAWSS Have you Been Recently Intoxicated or Drunk Within the Last 30 days?: No Have you Ever Experienced Previous Episodes of Alcohol Withdrawal?: No Have you ever Experienced Withdrawal Seizures?: No Have you ever Experienced Delirium Tremens(DT)s?: No Have you ever undergone Alcohol Rehabilitation Treatment (i.e, inpt ot outpatient treatment programs)?: No Have you ever Experienced Blackouts?: No Have you ever Combined Alcohol with other Downers within the last 90 days?: No Have you ever Combined Alcohol with any other Substance of Abuse during the last 90 days?: No Positive Blood Alcohol level on Presentation? [PCS.BAL]: Unable to Obtain Evidence of Increased Autonomic Activity (i.e. HR>120, tremor, sweating, agitation, nausea)?: No Result: 0
[2021-10-02 16:48] LABS: Streptococcus Pneumoniae Ag, U Negative (Negative)
[2021-10-02] MEDS: Atorvastatin 40 MG TAB PO (19:41)
[2021-10-02] MEDS: Magnesium Oxide 400 MG TAB PO (22:28)
[2021-10-02] MEDS: Senna TAB 1 TAB PO (22:28)
[2021-10-03] VITALS (9 sets, daily range): BP systolic 128–154; BP diastolic 55–72; PULSE 65–78; RESP 16–18; TEMP 36.2–37.2; O2SAT 90–99
[2021-10-03] MEDS: Albuterol/Ipratropium 3 ML UPD VIAL UPD ×2 (00:02→05:57)
[2021-10-03] MEDS: DOXYCYCLINE 100 MG in Normal Saline 100 ML IVPB ×3 (00:03→23:30)
[2021-10-03 07:50] LABS: HCT 21.6 % (40.0-50.0); HGB 6.7 g/dL (13.5-17.5)
[2021-10-03 07:59] LABS: ALT 34 U/L (16-63); AST 148 U/L (15-37); Albumin 3.3 g/dL (3.4-5.0); Alkaline Phosphatase 70 U/L (46-116); Anion Gap 5.2 mmol/L (3-11); BUN 18 mg/dL (7-18); Bilirubin, Total 4.1 mg/dL (0.2-1.0); CO2 33.8 mmol/L (21.0-32.0); CREATININE 0.7 mg/dL (0.70-1.30); Calcium 8.3 mg/dL (8.5-10.1); Chloride 104 mmol/L (98-107); Glucose 76 mg/dL (74-106); Sodium 143 mmol/L (136-145); Total Protein 5.8 g/dL (6.4-8.2)
[2021-10-03 08:22] LABS: LDH 3175 U/L (85-227)
[2021-10-03] MEDS: Normal Saline Flush 10 ML SYR IVP ×3 (08:30→20:27)
[2021-10-03] MEDS: Methadone Liquid 10 MG/ML 115 MG PO (08:30)
[2021-10-03] MEDS: Tiotropium/Olodaterol 10 PUFF INHALER 2 PUFF IH (08:31)
[2021-10-03] MEDS: Furosemide 20 MG/2 ML VIAL IVP ×2 (08:31→16:28)
[2021-10-03] MEDS: Calcium Carbonate *TUMS* 500 MG CHEW 1000 MG PO (08:32)
[2021-10-03] MEDS: DULoxetine 30 MG CAP 60 MG PO (08:32)
[2021-10-03] MEDS: Gabapentin 300 MG CAP PO ×3 (08:33→21:08)
[2021-10-03] MEDS: Potassium Chloride 20 MEQ TABCR PO (08:33)
[2021-10-03] MEDS: Omeprazole 20 MG CAPCR 40 MG PO (08:33)
[2021-10-03] MEDS: Thiamine 100 MG TAB PO (08:34)
[2021-10-03] MEDS: Sertraline 50 MG TAB 150 MG PO (08:34)
[2021-10-03] MEDS: Multivitamin TAB 1 TAB PO (08:34)
[2021-10-03] MEDS: Rivaroxaban 10 MG TABLET PO (08:34)
[2021-10-03] MEDS: predniSONE 20 MG TAB 60 MG PO (08:34)
[2021-10-03] MEDS: Ferrous Sulfate 325 MG TAB PO (08:35)
[2021-10-03] MEDS: Lisinopril 5 MG TAB PO (08:35)
[2021-10-03] MEDS: Folic Acid 1 MG TAB PO (08:35)
[2021-10-03] MEDS: valACYclovir 500 MG TAB PO (08:35)
[2021-10-03 08:50] LABS: Procalcitonin 0.2 ng/mL
[2021-10-03 10:01] LABS: Misc Referral (UVM) See Comments
--- NOTE | 2021-10-03 10:35 | PDOC.CMPRO ---
- If Service Date Differs Date of service: 10/03/21 Time of Service: 10:35 Care Management Progress Note S/O: Franc requires hospitalization for his low blood count and sob. He is currently 95% on 1L NC. Dr. Stokes continues to consult [facility] [place]. His hemoglobin is being closely monitored. Franc will have repeat labs tomorrow. CM will continue to support discharge planning. A: 66 year old male admitted to [facility] on 09/30/21 for Acute CHF, Hypoxia P: Franc requires hospital admission for close monitoring, labs and further medical workup. Anticipate, Franc will be discharged home with no new services via private vehicle with Jennifer. He will follow up with his PCP and discharge plan of care.
--- NOTE | 2021-10-03 13:54 | PGE_ITS ---
Date of Service Date of service: 10/03/21 Time of Service: 13:54 Assessment and Plan Assessment and plan (1) Acute diastolic CHF (congestive heart failure): Status: Acute Assessment and plan: Probably a combination of fluid retention due to noncompliance with salt restriction (the patient admits to trying to follow it, but he is taking in more than 2 grams/day), recently increased steroid dose. He does also have pulmonary hypertension (never had a sleep study) which could also be contributing to the edema and shortness of breath. Diuresing well. Cont lasix and wt monitoring. (2) Hypoxia: Status: Acute Assessment and plan: Due to above - as above. Now on RA - 1L NC. CT chest showed only a small left sided pleural effusion. He is s/p VATS with pleuradesis recently. Pulmonary medicine evaluated. (3) Bilateral pleural effusion: Status: Chronic Assessment and plan: Chronic and improved from prior CXR and CT scan. S/p VATS/pleurodesis on R in 07/2021 and had required thoracenthesis on the L in the past. Diuresing. (4) Hyperbilirubinemia: Status: Chronic Assessment and plan: Acute on chronic. Has a h/o untreated Hep C and hemolysis, both of which could result in elevation of Bili, but AST elevation is new but is improving. Abd US w/o ascites. +gall bladder polyp. The patient no longer drinks alcohol. 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 Refractory to splenectomy, azathioprine, and rituxan, according to [facility] [place] heme. 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 Cont prednisone 60mg daily; discussed with [facility] [place] heme/Onc. Hgb 6.7 this AM LDH modestly lower today. Haptglobin pending. We will continue to consult with [facility] [place] hematology on further plan of care. No change in current plan unless develops symptoms or hemoglobin continues to drop. (6) DVT prophylaxis: Status: Acute Assessment and plan: On therapeutic xarelto (7) Discharge planning issues: Status: Acute Assessment and plan: Full code Subjective Subjective Patient reports: no new complaints, tolerating a regular diet and afebrile; denies nausea or vomiting Interval history since last seen: Fatigued. No CP/palpitations. Exam Const General: cooperative, no acute distress and frail appearing Nutritional Appearance: underweight Orientation: alert and oriented x3 Eyes General: appearance normal, both eyes and all related structures Conjunctivae: conjunctival abnormality bilaterally conjunctival icterus and pallor Resp Effort & Inspection: normal respiratory effort Auscultation: clear to auscultation bilaterally Cardio Rate: regular rate Rhythm: regular rhythm Heart Sounds: S1 normal and S2 normal GI Palpation: soft and nontender Auscultation: normal bowel sounds Skin General skin exam: no rashes or lesions noted and jaundice Extrem General: no calf tenderness and edema Laterality: bilateral Psych Appearance: grossly normal Speech and Movement: speech clear Affect: normal affect Objective Last Vital Signs Temp 36.7 C 10/03/21 11:16 Pulse 74 10/03/21 11:16 Resp 18 10/03/21 11:16 BP 129/62 10/03/21 11:16 Pulse Ox 95 10/03/21 11:16 Laboratory Results - last 24 hr 10/01/21 10/01/21 10/02/21 00:05 06:32 14:07 Hgb 7.4 L Hct 24.2 L Sodium Potassium Chloride Carbon Dioxide Anion Gap BUN Creatinine Estimated GFR/1.73 m2 Glucose Calcium Total Bilirubin AST ALT Alkaline Phosphatase Lactate Dehydrogenase Total Protein Albumin Procalcitonin Ur Strep pneumoniae Ag Negative Miscellaneous Test See Comments 10/03/21 10/03/21 10/03/21 07:10 07:10 07:10 Hgb 6.7 L* Hct 21.6 L Sodium 143 Potassium 4.0 Chloride 104 Carbon Dioxide 33.8 H Anion Gap 5.2 BUN 18 Creatinine 0.7 Estimated GFR/1.73 m2 >= 60.00 Glucose 76 Calcium 8.3 L Total Bilirubin 4.1 H AST 148 H ALT 34 Alkaline Phosphatase 70 Lactate Dehydrogenase 3175 H Total Protein 5.8 L Albumin 3.3 L Procalcitonin 0.2 Ur Strep pneumoniae Ag Miscellaneous Test PAWSS Have you Been Recently Intoxicated or Drunk Within the Last 30 days?: No Have you Ever Experienced Previous Episodes of Alcohol Withdrawal?: No Have you ever Experienced Withdrawal Seizures?: No Have you ever Experienced Delirium Tremens(DT)s?: No Have you ever undergone Alcohol Rehabilitation Treatment (i.e, inpt ot outpatient treatment programs)?: No Have you ever Experienced Blackouts?: No Have you ever Combined Alcohol with other Downers within the last 90 days?: No Have you ever Combined Alcohol with any other Substance of Abuse during the last 90 days?: No Positive Blood Alcohol level on Presentation? [PCS.BAL]: Unable to Obtain Evidence of Increased Autonomic Activity (i.e. HR>120, tremor, sweating, agitation, nausea)?: No Result: 0
[2021-10-03] MEDS: LORazepam 0.5 MG TAB 0.25 MG PO (14:38)
[2021-10-03] MEDS: Magnesium Oxide 400 MG TAB PO (21:07)
[2021-10-03] MEDS: Senna TAB 1 TAB PO (21:08)
[2021-10-03] MEDS: Atorvastatin 40 MG TAB PO (21:08)
[2021-10-04] VITALS (10 sets, daily range): BP systolic 145–155; BP diastolic 62–73; PULSE 64–87; RESP 18–20; TEMP 36.4–36.8; O2SAT 92–96
--- NOTE | 2021-10-04 03:19 | NUR.NOTE ---
Nursing Note: assumed care of Pt. Requested drink, Pt sitting in bed watching tv alert and able to make needs known.
[2021-10-04 06:46] LABS: HCT 20.9 % (40.0-50.0); HGB 6.5 g/dL (13.5-17.5)
[2021-10-04] MEDS: Tiotropium/Olodaterol 10 PUFF INHALER 2 PUFF IH (07:21)
[2021-10-04] MEDS: Normal Saline Flush 10 ML SYR IVP ×3 (07:41→16:36)
[2021-10-04] MEDS: Furosemide 20 MG/2 ML VIAL IVP ×2 (07:43→16:35)
[2021-10-04] MEDS: Thiamine 100 MG TAB PO (07:44)
[2021-10-04] MEDS: Rivaroxaban 10 MG TABLET PO (07:44)
[2021-10-04] MEDS: Omeprazole 20 MG CAPCR 40 MG PO (07:44)
[2021-10-04] MEDS: predniSONE 20 MG TAB 60 MG PO (07:44)
[2021-10-04] MEDS: Sertraline 50 MG TAB 150 MG PO (07:44)
[2021-10-04] MEDS: Ferrous Sulfate 325 MG TAB PO (07:44)
[2021-10-04] MEDS: Folic Acid 1 MG TAB PO (07:45)
[2021-10-04] MEDS: Potassium Chloride 20 MEQ TABCR PO (07:45)
[2021-10-04] MEDS: Calcium Carbonate *TUMS* 500 MG CHEW 1000 MG PO (07:45)
[2021-10-04] MEDS: DULoxetine 30 MG CAP 60 MG PO (07:45)
[2021-10-04] MEDS: Gabapentin 300 MG CAP PO ×3 (07:45→21:12)
[2021-10-04] MEDS: Multivitamin TAB 1 TAB PO (07:45)
[2021-10-04] MEDS: Lisinopril 5 MG TAB PO (07:45)
[2021-10-04] MEDS: valACYclovir 500 MG TAB PO (07:45)
[2021-10-04] MEDS: Methadone Liquid 10 MG/ML 115 MG PO (07:52)
--- NOTE | 2021-10-04 10:06 | CMPROGNOTE_ITS ---
- If Service Date Differs Date of service: 10/04/21 Time of Service: 10:06 Care Management Progress Note S/O: Franc requires hospitalization for his low blood count and sob. He is currently 96% on RA Dr. Stokes continues to consult [facility] hemotology. His hemoglobin is being closely monitored. CM will continue to support discharge planning. A: 66 year old male admitted to [facility] on 09/30/21 for Acute CHF, Hypoxia P: Franc requires hospital admission for close monitoring, labs and further medical workup. Anticipate, Franc will be discharged home with no new services via private vehicle with Jennifer. He will follow up with his PCP and discharge plan of care.
[2021-10-04] MEDS: DOXYCYCLINE 100 MG in Normal Saline 100 ML IVPB (12:08)
[2021-10-04 12:10] LABS: Bilirubin, Direct 0.8 mg/dL (0.0-0.2); Bilirubin, Total 3.8 mg/dL (0.2-1.0); LDH 3359 U/L (85-227); NT-proBNP 1352 pg/mL (<300)
--- NOTE | 2021-10-04 18:15 | PGE_ITS ---
Date of Service Date of service: 10/04/21 Time of Service: 18:16 Assessment and Plan Assessment and plan (1) Acute diastolic CHF (congestive heart failure): Status: Acute Assessment and plan: Probably a combination of fluid retention due to noncompliance with salt restriction (the patient admits to trying to follow it, but he is taking in more than 2 grams/day), recently increased steroid dose. He does also have pulmonary hypertension (never had a sleep study) which could also be contributing to the edema and shortness of breath. Negative troponins. Diuresing well. BNP decreased but still elevated above normal. Change to torsemide 20mg po QAM. (2) Hypoxia: Status: Acute Assessment and plan: Due to above - as above. Now on RA - 1L NC. CT chest showed only a small left sided pleural effusion. He is s/p VATS with pleuradesis recently. Pulmonary medicine evaluated and initiated Stiolto. Cont prn albuterol I, [place]. (3) Bilateral pleural effusion: Status: Chronic Assessment and plan: Chronic and improved from prior CXR and CT scan. S/p VATS/pleurodesis on R in 07/2021 and had required thoracenthesis on the L in the past. Diuresing. (4) Hyperbilirubinemia: Status: Chronic Assessment and plan: Acute on chronic. Has a h/o untreated Hep C and hemolysis, both of which could result in elevation of Bili, but AST elevation is new but is improving. Abd US w/o ascites. +gall bladder polyp. The patient no longer drinks alcohol. 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 Refractory to splenectomy, azathioprine, and rituxan, according to [facility] [place]. 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 Cont prednisone 60mg daily; discussing daily with [facility] heme/Onc. Hgb 6.5 today; LDH consistently in the 3000's. Haptoglobin was unable to be obtained d/t icteric state interferring with the assay. We will continue to consult with [facility] hematology on further plan of care. No change in current plan unless develops symptoms or hemoglobin continues to drop and/or LDH trends upward. (6) DVT prophylaxis: Status: Acute Assessment and plan: On therapeutic xarelto (7) Discharge planning issues: Status: Acute Assessment and plan: Full code Subjective Subjective Patient reports: no new complaints, tolerating a regular diet and afebrile; denies nausea or vomiting Interval history since last seen: Fatigued. No CP/palpitations. Anxious intermittently Exam Const General: cooperative, no acute distress and frail appearing Nutritional Appearance: underweight Orientation: alert and oriented x3 Eyes General: appearance normal, both eyes and all related structures Conjunctivae: conjunctival abnormality bilaterally conjunctival icterus and pallor Resp Effort & Inspection: normal respiratory effort Auscultation: clear to auscultation bilaterally Cardio Rate: regular rate Rhythm: regular rhythm Heart Sounds: S1 normal and S2 normal GI Palpation: soft and nontender Auscultation: normal bowel sounds Skin General skin exam: no rashes or lesions noted and jaundice Extrem General: no calf tenderness and edema Laterality: bilateral Psych Appearance: grossly normal Speech and Movement: speech clear Affect: normal affect Objective Last Vital Signs Temp 36.8 C 10/04/21 13:51 Pulse 80 10/04/21 13:51 Resp 18 10/04/21 13:51 BP 148/68 H 10/04/21 13:51 Pulse Ox 93 10/04/21 13:51 Laboratory Results - last 24 hr 10/04/21 10/04/21 10/04/21 06:15 07:39 10:39 Hgb 6.5 L* Hct 20.9 L* Reticulocyte % (Auto) Total Bilirubin Conjugated Bilirubin Lactate Dehydrogenase Cancelled NT-Pro-B Natriuret Pep Add-On Test Request TNP 10/04/21 10/04/21 10/04/21 10:39 10:39 10:39 Hgb Hct Reticulocyte % (Auto) Cancelled Total Bilirubin Cancelled Conjugated Bilirubin Cancelled Lactate Dehydrogenase NT-Pro-B Natriuret Pep Add-On Test Request 10/04/21 10/04/21 10:39 11:30 Hgb Hct Reticulocyte % (Auto) Total Bilirubin Cancelled 3.8 H Conjugated Bilirubin Cancelled 0.8 H Lactate Dehydrogenase Cancelled 3359 H NT-Pro-B Natriuret Pep Cancelled 1352 H Add-On Test Request PAWSS Have you Been Recently Intoxicated or Drunk Within the Last 30 days?: No Have you Ever Experienced Previous Episodes of Alcohol Withdrawal?: No Have you ever Experienced Withdrawal Seizures?: No Have you ever Experienced Delirium Tremens(DT)s?: No Have you ever undergone Alcohol Rehabilitation Treatment (i.e, inpt ot outpatient treatment programs)?: No Have you ever Experienced Blackouts?: No Have you ever Combined Alcohol with other Downers within the last 90 days?: No Have you ever Combined Alcohol with any other Substance of Abuse during the last 90 days?: No Positive Blood Alcohol level on Presentation? [PCS.BAL]: Unable to Obtain Evidence of Increased Autonomic Activity (i.e. HR>120, tremor, sweating, agitation, nausea)?: No Result: 0
[2021-10-04] MEDS: Atorvastatin 40 MG TAB PO (21:11)
[2021-10-04] MEDS: Magnesium Oxide 400 MG TAB PO (21:12)
[2021-10-04] MEDS: Senna TAB 1 TAB PO (21:12)
[2021-10-05] VITALS (9 sets, daily range): BP systolic 115–162; BP diastolic 61–83; PULSE 61–94; RESP 18–20; TEMP 36.8–37.1; O2SAT 91–96
[2021-10-05] MEDS: DOXYCYCLINE 100 MG in Normal Saline 100 ML IVPB ×2 (00:54→11:58)
[2021-10-05 06:25] LABS: HCT 23.7 % (40.0-50.0); HGB 7.3 g/dL (13.5-17.5); Immature Grans % 1.9; MCH 37.1 pg (27.0-33.0); MCHC 30.8 % (32.0-36.0); MCV 120.3 fL (80-95); MPV 11.2 fL (8.0-11.0); Platelet Count 365 10^3/uL (130-400); RBC 1.97 10^6/uL (4.36-5.78); RDW 20.5 % (11.8-14.1); RDW-SD 80.3 fL; WBC 20.49 10^3/uL (4.4-10.8)
[2021-10-05 06:45] LABS: ALT 35 U/L (16-63); AST 125 U/L (15-37); Albumin 3.2 g/dL (3.4-5.0); Alkaline Phosphatase 76 U/L (46-116); BUN 22 mg/dL (7-18); Bilirubin, Total 3.4 mg/dL (0.2-1.0); CREATININE 0.7 mg/dL (0.70-1.30); Calcium 8.5 mg/dL (8.5-10.1); Chloride 104 mmol/L (98-107); Glucose 76 mg/dL (74-106); Potassium 4.2 mmol/L (3.5-5.1); Sodium 142 mmol/L (136-145); Total Protein 5.7 g/dL (6.4-8.2)
[2021-10-05 06:47] LABS: LDH 3021 U/L (85-227)
[2021-10-05 07:10] LABS: Absolute Lymphocyte Count 4.51 10^3/uL (1.2-3.4); Absolute Monocyte Count 1.84 10^3/uL (0.1-0.8); Absolute Neutrophil Count 13.93 10^3/uL (1.2-6.7); Anisocytosis 2+; Diff Comment Manual Differential; Macrocytosis 2+; Microcytosis 1+; Polychromasia Present
[2021-10-05] MEDS: Tiotropium/Olodaterol 10 PUFF INHALER 2 PUFF IH (07:44)
[2021-10-05] MEDS: DULoxetine 30 MG CAP 60 MG PO (07:45)
[2021-10-05] MEDS: Calcium Carbonate *TUMS* 500 MG CHEW 1000 MG PO (07:45)
[2021-10-05] MEDS: valACYclovir 500 MG TAB PO (07:46)
[2021-10-05] MEDS: Thiamine 100 MG TAB PO (07:46)
[2021-10-05] MEDS: Lisinopril 5 MG TAB PO (07:46)
[2021-10-05] MEDS: Omeprazole 20 MG CAPCR 40 MG PO (07:46)
[2021-10-05] MEDS: Gabapentin 300 MG CAP PO ×3 (07:46→21:01)
[2021-10-05] MEDS: Ferrous Sulfate 325 MG TAB PO (07:46)
[2021-10-05] MEDS: Potassium Chloride 20 MEQ TABCR PO (07:46)
[2021-10-05] MEDS: Multivitamin TAB 1 TAB PO (07:46)
[2021-10-05] MEDS: predniSONE 20 MG TAB 60 MG PO (07:46)
[2021-10-05] MEDS: Torsemide 20 MG TAB PO (07:46)
[2021-10-05] MEDS: Sertraline 50 MG TAB 150 MG PO (07:46)
[2021-10-05] MEDS: Rivaroxaban 10 MG TABLET PO (07:46)
[2021-10-05] MEDS: Folic Acid 1 MG TAB PO (07:47)
[2021-10-05] MEDS: Methadone Liquid 10 MG/ML 115 MG PO (09:54)
[2021-10-05] MEDS: Normal Saline Flush 10 ML SYR IVP (11:58)
--- NOTE | 2021-10-05 16:43 | PGE_ITS ---
Date of Service Date of service: 10/05/21 Time of Service: 16:43 Assessment and Plan Assessment and plan (1) Hypoxia: Status: Acute Assessment and plan: Dr. Paniagua felt that most of his hypoxia initially was secondary to his hemolytic anemia rather than his lungs. Dr. Stokes felt the patient had some diastolic heart failure and the patient has improved since diuresis. I think his hypoxemia was multifactorial in origin including his chronic lung disease and diastolic heart failure in the setting of severe anemia. (2) Autoimmune hemolytic anemia: Assessment and plan: Patient is status post splenectomy and has been refractory to multiple medications including azathioprine and Rituxan and is currently followed by [facility] hematology. Currently patient is on prednisone 60 mg daily. Hemoglobin up to 7.3 g today. (3) COPD (chronic obstructive pulmonary disease): Status: Chronic Assessment and plan: Dr. Paniagua recommended starting the patient on Stiolto and also indicated that he may benefit from inhaled corticosteroid therapy in the future given his elevated eosinophil levels. She also recommended rechecking a CT scan of his chest which we have done and showed improvement in his pleural effusions. She indicated that she will follow-up as an outpatient and enroll him in low-dose CT lung cancer screening. The patient also would benefit from pulmonary rehab program. CT demonstrated the following IMPRESSION: 1. Significant decrease in size of right pleural effusion which is now small. 2. Interval decrease in size of the fluid collection in the splenic bed. 3. Thickening of the wall of the distal half of the esophagus. An inflammatory or infectious esophagitis should be considered. Follow-up as clinically appropriate. Neoplasm not entirely excluded. (4) Acute diastolic CHF (congestive heart failure): Status: Acute Assessment and plan: Last echocardiogram on file at [facility] was from 10/20/2017 and showed normal left ventricular function with an EF of 65 to 70% with no wall motion abnormalities. RV size and RV systolic function was normal at that time however he had significant pulmonary hypertension with pulmonary systolic pressure of 60 to 65 mm. He may have a more recent echocardiogram done at [facility]. No discussion was mention about diastolic function. (5) Esophageal thickening: Status: Acute Assessment and plan: CT scan of his chest demonstrated distal esophageal wall thickening. This should be evaluated with EGD. I will discuss with surgery regarding whether to proceed with having this done here or referral to [facility] where patient has had most of his care. (6) Pulmonary hypertension: Status: Chronic Assessment and plan: If patient is not had a recent echocardiogram in the last 6 to 12 months he needs an updated (7) History of pulmonary embolism: Status: Chronic Assessment and plan: Patient needs to remain on long-term anticoagulation (currently on rivaroxaban) (8) Bilateral pleural effusion: Status: Chronic Assessment and plan: repeat CT scan was performed this admission and shows marked improvement in his bilateral pleural effusions. Patient is status postVATS procedure with pleurodesis of the right hemithorax (9) Chronic hepatitis C without mention of hepatic coma: (10) DVT prophylaxis: Status: Acute Assessment and plan: Currently on rivaroxaban (11) Discharge planning issues: Status: Acute Assessment and plan: Discharge home in the next 24 to 48 hours. Plan for follow-up with Dr. Paniagua in the pulmonary clinic. Subjective Subjective Interval history since last seen: Patient reports breathing has improved. He is concerned about his oxygen level dropping at night or w/ activity. He has not had an ambulatory pulse oximetry nor any nocturnal studies. He has underlying COPD but was not on inhalers at home. He is now on scheduled and prn inhalers. Exam Narrative Exam Narrative: Franc sitting up in his bed fully dressed he is alert and oriented person place time circumstance. Lungs are clear anteriorly he has prolonged expiratory phase no rhonchi or wheezes posteriorly has some fine crackles at the bases Heart is regular rate and rhythm Abdomen soft nondistended nontender Extremities without peripheral cyanosis or edema Objective Last Vital Signs Temp 36.9 C 10/05/21 07:40 Pulse 94 H 10/05/21 15:00 Resp 18 10/05/21 07:40 BP 154/64 H 10/05/21 07:40 Pulse Ox 94 10/05/21 07:40 Laboratory Results - last 24 hr 10/05/21 10/05/21 06:05 06:05 WBC 20.49 H RBC 1.97 L Hgb 7.3 L Hct 23.7 L MCV 120.3 H MCH 37.1 H MCHC 30.8 L RDW 20.5 H Plt Count 365 MPV 11.2 H Immature Gran % 1.9 Neutrophils % 68.0 Lymphocytes % 22.0 Monocytes % 9.0 Eosinophils % 1.0 Basophils % 0.0 Nucleated RBC % 28.0 H Absolute Neutrophils 13.93 H Absolute Lymphocytes 4.51 H Absolute Monocytes 1.84 H Absolute Eosinophils 0.20 Absolute Basophils 0.00 RBC Morphology See Below Polychromasia Present Anisocytosis 2+ Microcytosis 1+ Macrocytosis 2+ Sodium 142 Potassium 4.2 Chloride 104 Carbon Dioxide 33.0 H Anion Gap 5.0 BUN 22 H Creatinine 0.7 Estimated GFR/1.73 m2 >= 60.00 Glucose 76 Calcium 8.5 Total Bilirubin 3.4 H AST 125 H ALT 35 Alkaline Phosphatase 76 Lactate Dehydrogenase 3021 H Total Protein 5.7 L Albumin 3.2 L Reviewed Pertinent PMH: Yes PAWSS Have you Been Recently Intoxicated or Drunk Within the Last 30 days?: No Have you Ever Experienced Previous Episodes of Alcohol Withdrawal?: No Have you ever Experienced Withdrawal Seizures?: No Have you ever Experienced Delirium Tremens(DT)s?: No Have you ever undergone Alcohol Rehabilitation Treatment (i.e, inpt ot outpatient treatment programs)?: No Have you ever Experienced Blackouts?: No Have you ever Combined Alcohol with other Downers within the last 90 days?: No Have you ever Combined Alcohol with any other Substance of Abuse during the last 90 days?: No Positive Blood Alcohol level on Presentation? [PCS.BAL]: Unable to Obtain Evidence of Increased Autonomic Activity (i.e. HR>120, tremor, sweating, agitation, nausea)?: No Result: 0
--- NOTE | 2021-10-05 17:51 | RESPIRATORY ---
overnight ox given to pt and explained .
[2021-10-05] MEDS: LORazepam 0.5 MG TAB 0.25 MG PO (18:54)
[2021-10-05] MEDS: Magnesium Oxide 400 MG TAB PO (21:01)
[2021-10-05] MEDS: Atorvastatin 40 MG TAB PO (21:01)
[2021-10-05] MEDS: Senna TAB 1 TAB PO (21:01)
[2021-10-06] MEDS: DOXYCYCLINE 100 MG in Normal Saline 100 ML IVPB (00:51)
[2021-10-06] MEDS: Normal Saline Flush 10 ML SYR IVP (00:51)
[2021-10-06 02:44] VITALS: BP 167/71; PULSE 58; RESP 12; TEMP 36.5; O2SAT 95
[2021-10-06 03:00] VITALS: PULSE 56
[2021-10-06 07:00] VITALS: PULSE 65
[2021-10-06 07:14] LABS: HCT 23.6 % (40.0-50.0); HGB 7.5 g/dL (13.5-17.5); Immature Grans % 1.6; MCH 37.1 pg (27.0-33.0); MCHC 31.8 % (32.0-36.0); MCV 116.8 fL (80-95); MPV 10.9 fL (8.0-11.0); Platelet Count 348 10^3/uL (130-400); RBC 2.02 10^6/uL (4.36-5.78); RDW 21.4 % (11.8-14.1); RDW-SD 76.6 fL; WBC 19.02 10^3/uL (4.4-10.8)
[2021-10-06 07:19] LABS: Anion Gap 2.1 mmol/L (3-11); BUN 23 mg/dL (7-18); CO2 36.9 mmol/L (21.0-32.0); CREATININE 0.7 mg/dL (0.70-1.30); Calcium 8.6 mg/dL (8.5-10.1); Chloride 101 mmol/L (98-107); Glucose 71 mg/dL (74-106); Potassium 4.5 mmol/L (3.5-5.1); Sodium 140 mmol/L (136-145)
[2021-10-06 07:26] LABS: Absolute Eosinophil Count 0.19 10^3/uL (0.0-0.7); Absolute Lymphocyte Count 3.42 10^3/uL (1.2-3.4); Absolute Monocyte Count 2.47 10^3/uL (0.1-0.8); Absolute Neutrophil Count 12.93 10^3/uL (1.2-6.7); Diff Comment Manual Differential
[2021-10-06 07:27] LABS: Anisocytosis 2+; Macrocytosis 2+; Microcytosis 1+; Polychromasia Present
[2021-10-06 07:32] VITALS: BP 134/64; PULSE 60; RESP 16; TEMP 36.4; O2SAT 95
[2021-10-06] MEDS: Tiotropium/Olodaterol 10 PUFF INHALER 2 PUFF IH (07:56)
[2021-10-06] MEDS: Rivaroxaban 10 MG TABLET PO (08:33)
[2021-10-06] MEDS: Potassium Chloride 20 MEQ TABCR PO (08:33)
[2021-10-06] MEDS: valACYclovir 500 MG TAB PO (08:33)
[2021-10-06] MEDS: Methadone Liquid 10 MG/ML 115 MG PO (08:33)
[2021-10-06] MEDS: Omeprazole 20 MG CAPCR 40 MG PO (08:33)
[2021-10-06] MEDS: Calcium Carbonate *TUMS* 500 MG CHEW 1000 MG PO (08:33)
[2021-10-06] MEDS: Thiamine 100 MG TAB PO (08:34)
[2021-10-06] MEDS: predniSONE 20 MG TAB 60 MG PO (08:34)
[2021-10-06] MEDS: Torsemide 20 MG TAB PO (08:34)
[2021-10-06] MEDS: Lisinopril 5 MG TAB PO (08:34)
[2021-10-06] MEDS: Folic Acid 1 MG TAB PO (08:34)
[2021-10-06] MEDS: Ferrous Sulfate 325 MG TAB PO (08:34)
[2021-10-06] MEDS: Gabapentin 300 MG CAP PO ×2 (08:34→14:01)
[2021-10-06] MEDS: Multivitamin TAB 1 TAB PO (08:34)
[2021-10-06] MEDS: Sertraline 50 MG TAB 150 MG PO (08:34)
[2021-10-06] MEDS: DULoxetine 30 MG CAP 60 MG PO (08:35)
[2021-10-06 09:50] VITALS: PULSE 52; PULSE 60; PULSE 62; RESP 16; RESP 18; O2SAT 89; O2SAT 93; O2SAT 94
[2021-10-06 10:05] VITALS: PULSE 74
[2021-10-06] MEDS: LORazepam 0.5 MG TAB PO (16:02)
--- NOTE | 2021-10-06 18:32 | W.PM.DS.N ---
Date of service: 10/06/21 Time of Service: 14:30 DS: Diagnosis Discharge Diagnosis (1) Acute diastolic CHF (congestive heart failure): Status: Acute Asessment and Plan: presumed diastolic HF based on prior echo from [facility]. Patient responded to iv lasix and was transitioned to torsemide w/ good diuretic response w/ improved leg edema and improve oxygenation w/ activity. HOwever follow up echo is recommended and has been scheduled for outpatient at [facility] in the next week. His admission wt was 55.79 kg and dc wt was 52.5 kg. His dc BUN and creatinine were 23 and 0.7. BNP was 1632 on admission but declined to 1352 by 10/04. However repeat level was not done at the time of dc. (2) Autoimmune hemolytic anemia: Asessment and Plan: serial CBC was monitored. His admission Hb was 8.0 gm but dropped to as low as 6.5 gm before recovering to 7.5 gm at time of his discharge. He was kept on his prednisone 60 mg daily. He did not have any hematochezia or melena. he was kept on his prilosec for GI protection. He is to follow up w/ his equipment operator/laborer/supervisor at [facility], Dr. Valladares (3) COPD (chronic obstructive pulmonary disease): Status: Chronic Asessment and Plan: patient was started on Stiolto and prn albuterol MDI. Dr. Paniagua saw the patient in consultation and CT scan was performed during his hospitalization (see summary below) No infiltrates were seen and his pleural effusions appeared to be smaller. Patient is to follow up w/ Dr. Paniagua regarding his COPD and PHTN. Ambulatory pulse oximetry prior to dc did not demonstrate any hypoxemia. Nocturnal oximetry study done the night prior to dc is pending at this time. Patient should follow up w/ Dr Paniagua regarding this as well as to consider a PSG to rule out BERRY. (4) Pulmonary hypertension: Status: Chronic Asessment and Plan: patient was started on torsemide after intial good diuretic response to lasix iv. Patient to have follow up echocardiogram next week and repeat labs including CMP and CBC. (5) Esophageal thickening: Status: Acute Asessment and Plan: the patient and his son were advised to follow up w/ his PCP regarding this CT finding (6) History of pulmonary embolism: Status: Chronic Asessment and Plan: patient was kept on his Xarelto. Venous duplex scan was done to rule out DVT d/t bilateral leg edema which responded to diuretics. (7) Bilateral pleural effusion: Status: Chronic Asessment and Plan: marked improvement was seen on follow up CT scan of his chest compared to prior to his thoracentesis and VATS procedure done at [facility] in the past month (8) Chronic hepatitis C without mention of hepatic coma: (9) Anxiety disorder: Asessment and Plan: patient to remain on his lorazepam and sertraline. Patient was given limited supply of lorazepam 0.5 mg 1/2 tab q8hr prn anxiety, dispensed #2 tabs given from pharmacy pending patient's son getting his father's prior RX filled. 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 by Dr. Valladares. He also has a history of pulmonary embolism for which she is on chronic anticoagulation with Xarelto. He has a history of bilateral pleural effusions previously requiring thoracentesis and status post right-sided VATS procedure with wedge resection and mechanical/talc pleurodesis on 08/13/[address] [facility]. He also has pulmonary hypertension and has chronically abnormal LFTs and a history of opioid dependence with a dependence on methadone treated through [facility], he has a history of hepatitis C that is untreated. He presented to the emergency department on 09/30/2021 with increasing shortness of breath and increased anxiety for which she chronically takes Ativan. He is noted increased edema of his legs along with orthopnea and PND. Evaluate department clued a chest x-ray that showed stable parenchymal findings in his lungs including persistent bilateral pulmonary infiltrates that appear to be chronic however he has had an interval decrease in the size of his right pleural effusion since 07/17/2021. On admission his CBC demonstrated elevated white count of 16,500 and a chronic anemia with hemoglobin 8 g with macrocytic changes. CMP demonstrated elevated total bilirubin of 5.7 and elevated AST of 167. Troponin I levels were normal at less than 50 and proBNP was elevated at 1632. The ER personnel consulted with [facility] hematology recommended continued his current dose of prednisone and obtaining an ultrasound of his abdomen to further evaluate his LFT abnormalities and recommended diuresis. Patient was placed on supplemental oxygen and given a dose of Lasix 20 mg IV. He was admitted to the hospital for further diuresis and was started on empiric antibiotic therapy for possible respiratory infection although the patient had no fever or chills and had minimally productive cough of clear mucus. Patient was initially treated with Rocephin and doxycycline. Pulmonary consultation was obtained with Dr. Ethel Suarez, please see her note from 10/01/2021. Her impression is that this is untreated COPD and that the patient should be started on Stiolto continued on albuterol aerosol treatments as needed. She recommended getting a follow-up CT scan to evaluate his pleural effusions and a follow-up echocardiogram to assess his pulmonary hypertension. She recommended lifelong and acute anticoagulation because of his history of pulmonary embolism. She did note that he had elevated eosinophil count on his peripheral blood smear and indicated that he may benefit from inhaled corticosteroid therapy in the future. She indicated that she would followed in the pulmonary clinic. Venous duplex scan was obtained of his legs because of bilateral leg edema even though he is chronically on anticoagulation with Xarelto. This did not show any DVT. Chest CT scan was performed with contrast and showed a significant decrease in the size of his right pleural effusion which now appears to be small there is been interval decrease in the fluid collection in the splenic bed. However what is noted to be new is some thickening of the wall the distal half of the esophagus for which an inflammatory infectious cause cannot be excluded and furthermore neoplasm cannot be excluded. An abdominal ultrasound was performed and this showed a small gallbladder polyp but otherwise was unremarkable. Daily blood counts were monitored and he had a drop in his hemoglobin to as low as 6.5 g. His hemoglobin eventually recovered to 7.5 g prior to discharge. He was kept on prednisone and high-dose 60 mg daily for his hemolytic anemia. Patient was begun on Stiolto Respimat 2 puffs inhaled daily along with as needed albuterol inhaler. He was initially given Lasix 20 mg IV in the emergency department and then was begun on Lasix 20 mg IV twice a day through 10/04/2021 at which point he was started on torsemide 20 mg daily. Patient was kept on his usual home medications including his omeprazole for GI protection and prednisone 60 mg daily as well as his sertraline 150 mg daily for his anxiety and depression and was kept on his lorazepam 0.25 mg p.o. 3 times daily as needed anxiety. He was kept on his rivaroxaban for PE and DVT protection. He was kept on his methadone for his opioid dependence. With diuresis the patient did well and was weaned off of oxygen. The time of discharge his pulse oximetry was running 95 to 96% on room air. He was not exhibiting any exertional dyspnea and he had no cough or sputum production no fever. While he was initially treated with ceftriaxone on admission as well as doxycycline the ceftriaxone was stopped after a day and he was kept on doxycycline. However when the CT scan of his chest revealed that there was no parenchymal infiltrates and patient had no fever or purulent sputum production his doxycycline was discontinued. While his hemoglobin on admission was 8 g it did reach a alirio of 6.5 g on 10/04/2021 before recovering to 7.5 g on 10/06/2021. Patient will be discharged on his usual home dose of prednisone 60 mg daily with the expectation he will follow-up with his equipment operator/laborer/supervisor Dr. Graff at [facility]. Dr. Saurez indicated that she would follow him locally for his COPD and his pulmonary hypertension. Patient will be scheduled for an outpatient echocardiogram next week as well as repeat lab studies including a CMP and CBC. Because the patient did not have any lorazepam which been prescribed by his PCP but never filled we did dispense enough to get him through the hol. He was dispensed lorazepam 0.5 mg tablet with instructions to take half a tablet p.o. every 8 hours as needed anxiety. 2 tablets were dispensed. He has a previous prescription which he has not filled from his PCP. Both the patient and his son were instructed about the need for follow-up labs and follow-up echocardiogram as well as follow-up with local helicopter engineer as well as his PCP and his equipment operator/laborer/supervisor. I also advised him both about the nonspecific abnormalities of his esophagus on CT scan and the need for follow-up regarding this. Wt at discharge was 52.5 kg (admission wt was 55.79 kg). Home Meds and New Rx's Prescriptions: New potassium chloride 20 mEq Tablet,Er Particles/Crystals 20 meq PO DAILY Qty: 30 0RF Stiolto Respimat 2.5-2.5 mcg/actuation Mist 2 puff inhalation DAILY Qty: 4 0RF torsemide 20 mg Tablet 20 mg PO DAILY Qty: 30 0RF Continued thiamine mononitrate (vit B1) [Vitamin B-1 (mononitrate)] 100 mg tablet 100 mg PO DAILY Qty: 30 6RF duloxetine 60 mg capsule,delayed release(DR/EC) 60 mg PO DAILY Qty: 90 3RF magnesium oxide 400 MG tablet 400 mg PO HS Qty: 30 11RF Rx Instructions: for leg cramps multivitamin 1 EACH tablet 1 ea PO DAILY 0RF ferrous sulfate 325 MG tablet 325 mg PO DAILY 0RF Label Comments: 01/05/17 takes ev. other day. DL calcium carbonate [Tums] 200 MG tablet,chewable 2 tab PO DAILY 0RF albuterol sulfate 90 mcg/actuation HFA aerosol inhaler 2 puff IH Q6H PRN (Reason: shortness of breath or wheezing) Qty: 18 4RF methadone 10 mg/5 mL solution 115 mg PO DAILY 0RF Rx Instructions: REPORTED MED folic acid 1 mg tablet 1 mg PO DAILY Qty: 90 4RF alendronate 70 mg tablet 70 mg PO QWEEK Qty: 12 4RF rivaroxaban 10 mg tablet 10 mg PO DAILY Qty: 90 1RF Rx Instructions: for 35 days atorvastatin 40 mg tablet 40 mg PO DAILY 0RF sennosides [senna] 8.6 mg Tablet 8.6 mg PO QHS 0RF cetirizine 5 mg Tablet 5 mg PO DAILY PRN PRN (Reason: Allergy Symptoms) 0RF valacyclovir 500 mg Tablet 500 mg PO DAILY 0RF gabapentin 300 mg capsule 300 mg PO TID 0RF omeprazole 20 mg capsule,delayed release(DR/EC) 20 mg PO DAILY 0RF lisinopril 5 mg Tablet 5 mg PO DAILY 0RF sertraline 50 mg tablet 150 mg PO DAILY 0RF Rx Instructions: Take 50 mg in addition to the 100 mg tablet for a total dose of 150 mg sertraline 100 mg tablet 150 mg PO DAILY 0RF Rx Instructions: Take 100 mg tablet in addition to the 50 mg tablet lorazepam 0.5 mg tablet 0.25 - 0.5 mg PO DIRECTED MDD 0.75mg PRN (Reason: anxiety) 0RF Rx Instructions: Take 1 tab daily and 1/2 tab daily the second time for a total of 1.5 tabs (0.75mg) daily prednisone 20 mg tablet 60 mg PO DAILY Qty: 30 0RF Discontinued furosemide 20 mg tablet 20 mg PO DAILY 0RF Discharge Instructions Instructions: Pulmonary Arterial Hypertension (DC) Additional Instructions: You were treated for acute hypoxia (low oxygen levels) which was felt to be a combination of your underlying emphysema (COPD) and some diastolic congestive heart failure in the setting of your hemolytic anemia. You were treated w/ diuretics and started on bronchodilators (Stiolto and albuterol). You should follow up w/ a lung specialist, Dr. Paniagua. You had the following studies performed: CT scan of the chest (this showed improvement in your pleural effusions but you have emphysema and scarring in both lung bases). you also have a non-specific thickening of your lower esophagus for which you should follow up with your doctors to consider upper endoscopy to rule out esophagitis or a tumor of the esophagus. YOu had an abdominal ultrasound which showed a gall bladder polyp. Ultrasound of your legs was performed and no blood clots were seen in your legs. Your autoimmune hemolytic anemia is improving. You came in w/ a hemoglobin of 8 gm which dropped to as low as 6.7 gm. You are now on prednisone 60 mg per day and your hemoglobin has come up to 7.5 gm. You should follow up w/ Dr. Graff at [facility]. We have ordered an echocardiogram to be done in the next week to evaluate your pulmonary hypertension and to evaluate your heart function. Dr. Paniagua, the helicopter engineer who saw you in consultation would like to continue to follow you for your COPD and pulmonary hypertension. We have made a referral for you. Stand Alone Forms: Nursing Discharge Form Referrals: [facility] Lab [Other] (Please call Thursday to make an appointment for labs.) Kelly Masterson, [employer] [Primary Care Provider] - (We will call you Thursday with appointment) Ethel Paniagua MD [ [facility] STAFF PHYSICIAN] - (We will call you Thursday with appointment.) Activity:: Activity as Tolerated Equipment/Supplies:: No Equipment Needed Diet:: Low Sodium Discharge Orders Discharge Orders: Discharge Order (Routine); Ordered 10/06/21 Ordered By: Charles Husain Ambulatory Orders: Basic Metabolic Panel (Routine) Timeframe: 1 Week Facility: [facility] - Location: Laboratory Outpatient Ordered By: Charles Robles Complete Blood Count w/Diff (Routine) Timeframe: 1 Week Facility: [facility] - Location: Laboratory Outpatient Ordered By: Charles Robles US echocardiogram (Routine) Timeframe: 1 Week Location: None Selected Ordered By: Charles Robles Discharge Data Discharge Date/Time-TO BE ENTERED AT DEPARTURE: 10/06/21 16:05 DS: Summary Time Spent with Patient providing and/or coordinating discharge services: Greater than 30 minutes Status at Discharge Functional status at discharge: independent ambulation Overall status at discharge: patient is progressing back to baseline Mental Status: mental status grossly normal Speech and Movement: speech and movement normal Mood: congruent mood Affect: normal affect Exam Narrative Exam Narrative: Franc is up out of bed, dressed, no respiratory distress Lungs prolonged expiratory phase w/out rhonchi or rales or wheezing Heart: RRR Abdomen: soft, nontender and nondistended. Legs/feet: no pitting edema Psych Mental Status: mental status grossly normal Speech and Movement: speech and movement normal Mood: congruent mood Affect: normal affect DS: Data Vitals/I&O Vitals and I&O: Vital Signs Temperature 36.4 C L 10/06/21 07:32 Temperature Source Tympanic 10/06/21 07:32 Pulse 74 10/06/21 10:05 Pulse Rhythm Regular 10/06/21 09:37 Respiratory Rate 16 10/06/21 07:32 Respiratory Effort 10/06/21 09:37 Respiratory Depth Normal 10/06/21 09:37 Respiratory Pattern Normal 10/06/21 09:37 Blood Pressure 134/64 10/06/21 07:32 Blood Pressure Position Sitting 09/30/21 17:41 Pulse Oximetry 95 10/06/21 07:32 Oxygen Delivery Method Room Air 10/06/21 07:32 Oxygen Flow Rate 0 10/06/21 07:32 Pain Level 0 10/06/21 07:32 Comment 10/01/21 08:45 Intake & Output 10/05/21 10/06/2110/06/22 23:59 11:59 23:59 Intake Total 580 / 1320 580 / 820 240 / 820 Balance 580 / 1320 580 / 820 240 / 820 Weight 52.5 kg Intake: IV 100 / 300 100 / 100 Oral 480 / 1020 480 / 720 240 / 720 Other: Urine Color Light Loraine Urine Appearance Clear Urine Odor Strong Comment Patient voided an unmeasurable amount in the toliet. Voiding Methods Toilet Toilet Data Completed and Pending Labs on day of discharge: Labs from last 24 hours 10/06/21 10/06/21 07:05 07:05 WBC 19.02 H RBC 2.02 L Hgb 7.5 L Hct 23.6 L MCV 116.8 H MCH 37.1 H MCHC 31.8 L RDW 21.4 H Plt Count 348 MPV 10.9 Immature Gran % 1.6 Neutrophils % 68.0 Lymphocytes % 18.0 Monocytes % 13.0 Eosinophils % 1.0 Basophils % 0.0 Nucleated RBC % 53.0 H Absolute Neutrophils 12.93 H Absolute Lymphocytes 3.42 H Absolute Monocytes 2.47 H Absolute Eosinophils 0.19 Absolute Basophils 0.00 RBC Morphology See Below Polychromasia Present Anisocytosis 2+ Microcytosis 1+ Macrocytosis 2+ Sodium 140 Potassium 4.5 Chloride 101 Carbon Dioxide 36.9 H Anion Gap 2.1 L BUN 23 H Creatinine 0.7 Estimated GFR/1.73 m2 >= 60.00 Glucose 71 L Calcium 8.6 PFSH All Active Problems (Updated 10/05/21 @ 20:54 by Charles Robles) Esophageal thickening (Acute) Pulmonary hypertension (Chronic) COPD (chronic obstructive pulmonary disease) (Chronic) Hypoxia (Acute) Discharge planning issues (Acute) DVT prophylaxis (Acute) Pulmonary infiltrates (Acute) Hyperbilirubinemia (Chronic) Bilateral pleural effusion (Chronic) Acute diastolic CHF (congestive heart failure) (Acute) Weight loss (Acute) Annual physical exam (Acute) Breathlessness (Acute) History of pulmonary embolism (Chronic) Pleural effusion, right (Acute) 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) Hand dermatitis (Acute) Left wrist pain (Acute) Insomnia (Acute) Personal history of colonic polyps (Acute) Chronic sphenoidal sinusitis (Chronic 04/07/16) Chronic maxillary sinusitis (Chronic 04/07/16) Chronic frontal sinusitis (Chronic 04/07/16) Chronic ethmoidal sinusitis (Chronic 04/07/16) Anosmia (Chronic 04/07/16) Smoker (Chronic 02/15/15) Shingles (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) Sexual function problem (Chronic) Postnasal drip (Chronic 08/07/14) Peyronie disease (Chronic 02/15/15) Nasal polyp, unspecified (Chronic 03/23/17) Moderate single current episode of major depressive disorder (Chronic 04/07/17) Hearing loss (Chronic) Bilateral lower extremity edema (Chronic 08/25/16) Allergic rhinitis due to pollen (Chronic 07/09/15) Allergic fungal sinusitis (Chronic 05/23/13) Allergy Injections Medical History (Updated 10/05/21 @ 20:54 by Charles Robles) Abnormal liver enzymes Anxiety disorder Autoimmune hemolytic anemia Benign essential hypertension (10/21/12) Chronic anticoagulation Chronic hepatitis C without mention of hepatic coma (09/20/12) Constipation COPD (chronic obstructive pulmonary disease) Depression 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 Sister Neoplasm Sister No problems noted. Sister No problems noted. Grandfather Heart disease Grandfather No problems noted. Grandmother No problems noted. Grandmother No problems noted. Son No problems noted. Son No problems noted. 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 Lives with girlfriend.
[2021-10-07 09:45] LABS: Misc Referral (UVM) See Comments
== END 2021-10-06 16:05 | disposition home or self-care (01) | DRG 292 ==
LOC: ER 18:10 → MS 21:43
PROVIDERS: Family Medicine; Internal Medicine; Admitting Provider Internal Medicine; Emergency Provider Physician Assistant; Visit Provider Internal Medicine
DX: I50.31 Acute diastolic (congestive) heart failure (principal); D59.10 Autoimmune hemolytic anemia, unspecified; Z68.1 Body mass index [BMI] 19.9 or less, adult; R17 Unspecified jaundice; J44.9 Chronic obstructive pulmonary disease, unspecified; B18.2 Chronic viral hepatitis C; I27.20 Pulmonary hypertension, unspecified; F10.20 Alcohol dependence, uncomplicated; R63.4 Abnormal weight loss; G47.00 Insomnia, unspecified; F17.210 Nicotine dependence, cigarettes, uncomplicated; J32.9 Chronic sinusitis, unspecified; R09.02 Hypoxemia; F41.9 Anxiety disorder, unspecified; Z79.01 Long term (current) use of anticoagulants; Z86.711 Personal history of pulmonary embolism; Z79.52 Long term (current) use of systemic steroids; Z90.81 Acquired absence of spleen
CPT/HCPCS: 36415; 71250; 80048; 80053; 80076; 80307; 84145; 85045; 87040; 87081; 87449; 87635; 93005; 94618; 94640; 96374; 96375; 99285; 71046; 76700; 81003; 81015; 82247; 82248; 82607; 82746; 83010; 83615; 83735; 83880; 84443; 84484; 85014; 85018; 85025; 85610; 85730; 87899; 93010; 93970; 94762; 99223; 99232; 99233; 99239; J1941; J2060; J7512; J7620

== ENCOUNTER 2021-10-11 01:57 | Outpatient (CLI) | payer OTHER, SELFPAY ==
[2021-10-11 16:49] LABS: Anion Gap 5.8 mmol/L (3-11); BUN 25 mg/dL (7-18); CO2 32.2 mmol/L (21.0-32.0); CREATININE 0.9 mg/dL (0.70-1.30); Calcium 8.7 mg/dL (8.5-10.1); Chloride 97 mmol/L (98-107); Glucose 103 mg/dL (74-106); Potassium 4.9 mmol/L (3.5-5.1); Sodium 135 mmol/L (136-145)
[2021-10-11 16:51] LABS: Abs Immature Grans 0.19 10^3/uL (0.0-0.06); Absolute Lymphocyte Count 0.13 10^3/uL (1.2-3.4); Absolute Monocyte Count 0.24 10^3/uL (0.1-0.8); Basophils % 0.2; HCT 29.4 % (40.0-50.0); HGB 9.5 g/dL (13.5-17.5); Lymphocytes % 0.7; MCH 37.3 pg (27.0-33.0); MCHC 32.3 % (32.0-36.0); MCV 115.3 fL (80-95); MPV 11.2 fL (8.0-11.0); Monocytes % 1.3; Neutrophils % 96.8; Nucleated RBC 29.8 % (0.0-0.3); Platelet Count 313 10^3/uL (130-400); RBC 2.55 10^6/uL (4.36-5.78); RDW-SD 79.7 fL; WBC 18.28 10^3/uL (4.4-10.8)
[2021-10-11 16:55] LABS: Absolute Basophil Count 0.04 10^3/uL (0.0-0.2)
[2021-10-11 18:23] LABS: Anisocytosis 3+; Diff Comment RBC Morph Reviewed; Macrocytosis 3+; Spherocytes 3+
--- NOTE | 2021-10-15 14:22 | W.PFT ---
Date of service: 10/05/21 Time of Service: 22:00 Pulmonary Function Test Result Requesting Provider Charles Robles Indications: Concern for need for home O2 Overnight oximetry Analyzed from 2200 to 0950, for a total of 7:38 hours 31min spent under 88% O2. APARNA is 16.8 Pattern of nocturnal oximetry shows sudden drops that may be consistent with BERRY. Recommend sleep study or repeat nocturnal oximetry while on 2LPM supplemental oxygen. Ethel Paniagua MD Pulmonary & Critical Care
--- NOTE | 2021-12-27 10:54 | W.PM.PROGNOT ---
Date of Service Date of service: 11/04/21 Time of Service: 10:55 Assessment and Plan Assessment and plan (1) Acute diastolic CHF (congestive heart failure): Status: Acute Assessment and plan: Probably a combination of fluid retention due to noncompliance with salt restriction (the patient admits to trying to follow it, but he is taking in more than 2 grams/day), recently increased steroid dose. He does also have pulmonary hypertension (never had a sleep study) which could also be contributing to the edema and shortness of breath. Negative troponins. Diuresing well. BNP decreased but still elevated above normal. Change to torsemide 20mg po QAM. (2) Hypoxia: Status: Resolved Assessment and plan: Due to above - as above. Now on RA - 1L NC. CT chest showed only a small left sided pleural effusion. He is s/p VATS with pleuradesis recently. Pulmonary medicine evaluated and initiated Stiolto. Cont prn albuterol I, [place]. (3) Bilateral pleural effusion: Status: Resolved Assessment and plan: Chronic and improved from prior CXR and CT scan. S/p VATS/pleurodesis on R in 07/2021 and had required thoracenthesis on the L in the past. Diuresing. (4) Hyperbilirubinemia: Status: Chronic Assessment and plan: Acute on chronic. Has a h/o untreated Hep C and hemolysis, both of which could result in elevation of Bili, but AST elevation is new but is improving. Abd US w/o ascites. +gall bladder polyp. The patient no longer drinks alcohol. (5) Autoimmune hemolytic anemia: Status: Acute Assessment and plan: Ongoing. Refractory to splenectomy, azathioprine, and rituxan, according to [facility] heme. Per patient, his cutting inspector did talk to him about using rituxan again or entering a study involving a chemotherapeutic agent. Cont prednisone 60mg daily; discussing daily with [facility] heme/Onc. Hgb 6.5 today; LDH consistently in the 3000's. Haptoglobin was unable to be obtained d/t icteric state interferring with the assay. We will continue to consult with [facility] hematology on further plan of care. No change in current plan unless develops symptoms or hemoglobin continues to drop and/or LDH trends upward. (6) DVT prophylaxis: Status: Deleted Assessment and plan: On therapeutic xarelto (7) Discharge planning issues: Status: Deleted Assessment and plan: Full code Subjective Subjective Patient reports: tolerating a regular diet and shortness of breath (Improved.); denies afebrile Exam Const General: cooperative, no acute distress and frail appearing Nutritional Appearance: underweight Orientation: alert and oriented x3 Eyes General: appearance normal, both eyes and all related structures Conjunctivae: conjunctival abnormality bilaterally conjunctival icterus and pallor Resp Effort & Inspection: normal respiratory effort Auscultation: clear to auscultation bilaterally Cardio Rate: regular rate Rhythm: regular rhythm Heart Sounds: S1 normal and S2 normal GI Palpation: soft and nontender Auscultation: normal bowel sounds Skin General skin exam: no rashes or lesions noted and jaundice Extrem General: no calf tenderness and edema Laterality: bilateral Psych Appearance: grossly normal Speech and Movement: speech clear Affect: normal affect
== END 2021-10-11 01:58 | disposition home or self-care (01) ==
LOC: LBO 01:58
PROVIDERS: Visit Provider Internal Medicine
DX: D59.10 Autoimmune hemolytic anemia, unspecified (principal); I50.31 Acute diastolic (congestive) heart failure
CPT/HCPCS: 36415; 80048; 85025

== ENCOUNTER → 2022-03-25 01:02 | Outpatient (CLI) | payer OTHER, SELFPAY ==
--- NOTE | 2022-03-25 10:04 | DI.US_ITS ---
APPROVED REPORT EXAM: Comprehensive 2D, Doppler, and color-flow Echocardiogram Patient Location: Out-Patient [employer]ef[employer] Pet[employer] Gasfitter: Aubree Barkley RDCS (AE) Indications: Evaluate for diastolic HF, Evaluate pulmonary hypertension, acute chf Other Information Study Quality: Adequate Conclusion Normal left ventricular wall thickness and chamber size. Estimated ejection fraction is 60 to 65%. Wall motion is normal. Diastolic function is normal Normal right ventricular size and systolic function Both atria are normal in size Aortic valve is trileaflet and mildly sclerotic without stenosis or regurgitation Normal mitral valve with mild regurgitation Normal tricuspid valve with trace to mild regurgitation. Estimated right ventricular systolic pressu re is 31 mmHg Mildly dilated ascending aorta measuring 3.58 cm Wall motion Left Ventricle The left ventricle is normal size. The left ventricular systolic function is normal. The left ventric ular ejection fraction is within the normal range. There is normal left ventricular wall thickness. T here is normal LV segmental wall motion. The left ventricular diastolic function is normal. There is no ventricular septal defect visualized. LVEF is 60-65%. Right Ventricle The right ventricle is normal size. The right ventricular systolic function is normal. The RVSP is 30 .9 mmHg. Atria The left atrium size is normal. The right atrium size is normal. The interatrial septum is intact wit h no evidence for an atrial septal defect. Aortic Valve The Aortic valve is mildly sclerotic. Aortic valve is trileaflet. There is no aortic valvular stenosi s. No aortic regurgitation is present. Mitral Valve The mitral valve is normal in structure. No evidence of mitral valve stenosis. Mild mitral regurgitat ion. Tricuspid Valve The tricuspid valve is normal in structure. There is no tricuspid valve stenosis. Trace to mild tricu spid regurgitation. Pulmonic Valve The pulmonary valve is normal in structure. There is no pulmonic valvular stenosis. Trace pulmonic re gurgitation. Great Vessels The aortic root is normal in size. The ascending aorta is mildly dilated.3.58 cm Aortic arch is dewayne l in caliber. IVC is normal in size and collapses >50% with inspiration. Pericardium There is no pericardial effusion. 2D Dimensions IVSD d PLAX 0.87 cm M: 0.6-1.2 LV Vol A2C d MOD 111.0 mL LVPW d PLAX 0.80 cm M: 0.6 - 1.2 LV Vol A4C d MOD 109.2 mL LVID d PLAX 4.88 cm M: 4.2 - 5.8 LA vol/ BSA A2C s A-L 25.1 mL/m2 LVDs 3.30 cm M: 2.5 - 4.0 LA vol/ BSA A4C s A-L 24.1 mL/m2 Ao Root d 3.10 cm M: 3.1 - 3.7 LA Vol/ BSA Biplane s A-L 25.7 mL/m2 RA Area A4C 11.72 cm2 LA Area A4C s MOD 15.18 cm2 RA Vol/ BSA A4C s A-L 17.9 mL/m2 LA Area A2C s MOD 14.80 cm2 Ao Asc Diam d 3.58 cm M: 2.6 - 3.4 LV EF A4C MOD 65.6 % LV EF Teichholz 59.5 % LV EF A2C MOD 60.4 % LVEF (Wayne's) 62.96 % M: 52 - 72 LV EF Biplane MOD 63.0 % LV Volume 89.83 mL M: 62 - 150 SV 70.07 mL LV Volume Index 55.45 mL/m2 M: 34 - 74 SV Index 43.05 mL/m2 LV Vol Biplane MOD 111.3 mL FS 31.60 % M-Mode TAPSE 2.21 cm (M/F) >1.7 LV Diastology MV E' medial 0.091 (>0.07 m/s) E/A Ratio 1.2 LV E/e MED 10.30 (<14) MV E Vmax 0.94 (0.4-1.3 m/s) MV E' lateral 0.098 (>0.1 m/s) MV A Vmax 0.80 (0.4-1.3 m/s) LV E/e LAT 9.60 (<14) MV E/A Ratio 1.11 MV E/E' medial 10.33 MV E/E' lateral 9.64 Aortic Valve LVOT Area 3.49 cm2 AoV Area Vmax 3.12 cm2 LVOT Vmax 1.20 m/s AoV Area/ BSA (Vmax) 1.92 cm2/m2 LVOT Mean Kiel. 0.76 m/s NO Mean Kiel. 2.87 cm2 LVOT Peak Grad 5.8 mmHg NO Mean Kiel. Index 1.76 cm2/m2 LVOT Mean Grad 2.7 mmHg LVOT VTI 0.258 m LVOT Diam s 2.10 cm AoV Vmax 1.34 m/s Velocity Ratio 0.89 AoV Mean Kiel. 0.92 m/s AoV Peak Grad 7.2 mmHg LVOT SV 90.21 mL AoV Mean Grad 3.8 mmHg AoV VTI 0.286 m AoV Area VTI 3.16 cm2 AoV Area/ BSA (VTI) 1.94 cm/m2 Mitral Valve MV DT 228 (160-240 msec) MV PHT 66 msec MV Area PHT 3.33 cm2 MV VTI 0.289 m MV Area VTI 3.12 (4.0-6.0 cm2) Pulmonary Valve PV Vmax 0.99 (0.5-1.5 m/s) RVOT Peak Gr. 2.64 mmHg PV Peak Grad 3.9 mmHg RVOT Mean Gr. 1.45 mmHg PV Mean Grad 2.1 mmHg RVOT VTI 0.190 m PV VTI 0.233 m RVOT Vmax 0.81 m/s Tricuspid Valve TR Peak Grad 27.8 mmHg TR Vmax 2.64 m/s RA Pressure 3.00 mmHg RVSP (TR) 30.9 mmHg
== END ==
DX: I27.20 Pulmonary hypertension, unspecified (principal); I50.31 Acute diastolic (congestive) heart failure
CPT/HCPCS: 93306

== ENCOUNTER 2022-07-27 13:05 | Emergency (ER) | payer OTHER, MEDICARE, SELFPAY ==
[2022-07-27 13:11] VITALS: BP 136/69; PULSE 93; TEMP 36.6; O2SAT 94
--- NOTE | 2022-07-27 13:15 | RT.EKG_ITS ---
APPROVED REPORT Exam: Resting ECG Reason for Exam: shortness of breath Patient Location: E HR:82 bpm ECG Measurements Heart Rate 82 AXIS AK 174 P 70 QRSd 150 QRS 0 QT 465 T 61 QTc 542 Conclusion Sinus rhythm...normal P axis, V-rate 60- 99 Left bundle branch block...QRSd>120, broad/notched R
--- NOTE | 2022-07-27 13:30 | DI.RAD_ITS ---
Exam(s) XR PORTABLE CHEST AP EXAM: XR PORTABLE CHEST AP CLINICAL HISTORY: shortness of breath TECHNIQUE: 2D digital imaging was performed of the chest. Two images were obtained. AP views were obtained. COMPARISON: CR,XR XR CHEST 2V PA LATERAL from 09/30/2021 FINDINGS: MEDIASTINUM: Normal. HEART: Normal. PULMONARY VASCULATURE: Normal. LUNGS: Emphysematous changes are seen in the lungs. There is parenchymal scarring. No focal consoli dation is present. PLEURAL SPACE: No pleural effusion or pneumothorax. BONE:Within normal limits for the patient's age. OTHER FINDINGS:Normal. IMPRESSION: No acute pulmonary findings. DATA REPOSITORY: RADIATION DOSE DELIVERED:
--- NOTE | 2022-07-27 13:43 | W.ED.GENAD ---
Discharge Plan Disposition Patient Disposition: Home Condition: Stable Discharge Details Clinical Impression: Leg swelling Primary Care Provider: Jose Luis Miranda ED Provider: Franc Tom [place] Meds and New Rx's Prescriptions: New amoxicillin-pot clavulanate 875-125 mg tablet 1 tab PO BID Qty: 14 0RF Continued atorvastatin 40 mg tablet 40 mg PO DAILY Qty: 90 4RF gabapentin 300 mg capsule 300 mg PO TID Qty: 270 4RF omeprazole 20 mg capsule,delayed release(DR/EC) 20 mg PO DAILY Qty: 90 4RF sennosides [senna] 8.6 mg tablet 8.6 mg PO QHS Qty: 90 4RF sertraline 100 mg tablet 100 mg PO DAILY Qty: 90 0RF Rx Instructions: Dose decrease lorazepam 0.5 mg tablet 0.25 - 0.5 mg PO BID MDD 0.75mg PRN (Reason: anxiety) Qty: 45 0RF Rx Instructions: Take 1 tab in the morning and 1/2 tab in the afternoon and evening if needed for anxiety mirtazapine 7.5 mg tablet 7.5 mg PO QHS Qty: 90 0RF magnesium oxide 400 MG tablet 400 mg PO HS Qty: 30 Rx Instructions: for leg cramps multivitamin 1 EACH tablet 1 ea PO DAILY calcium carbonate [Tums] 200 MG tablet,chewable 2 tab PO DAILY methadone 10 mg/5 mL solution 115 mg PO DAILY Rx Instructions: REPORTED MED duloxetine 60 mg capsule,delayed release(DR/EC) 60 mg PO DAILY Qty: 90 3RF rivaroxaban 10 mg tablet 10 mg PO DAILY Qty: 90 4RF alendronate 70 mg tablet 70 mg PO QWEEK Qty: 12 4RF lisinopril 5 mg tablet 5 mg PO DAILY Qty: 90 3RF furosemide 20 mg tablet 20 mg PO DAILY Qty: 90 3RF albuterol sulfate 90 mcg/actuation HFA aerosol inhaler 2 puff IH Q6H PRN (Reason: shortness of breath or wheezing) Qty: 18 4RF thiamine mononitrate (vit B1) [Vitamin B-1 (mononitrate)] 100 mg tablet 100 mg PO DAILY Qty: 90 4RF folic acid 1 mg tablet 1 mg PO DAILY Qty: 90 4RF Stiolto Respimat 2.5-2.5 mcg/actuation mist 2 puff inhalation DAILY Qty: 4 0RF cetirizine 5 mg Tablet 5 mg PO DAILY PRN PRN (Reason: Allergy Symptoms) potassium chloride 20 mEq Tablet,Er Particles/Crystals 20 meq PO DAILY Qty: 30 0RF Discharge Instructions Additional Instructions: Your blood work did not show any significant change from your baseline. Your xray did not show concerning findings start taking 40mg prednisone daily for 5 days follow up with your primary care provider within 1 week if you feel more ill, have severe worsening pain or difficulty breathing return to the emergency department Medical Decision Making 67 yo female multiple chronic medical problems including chf, autoimmune hemolytic anemia, copd, who comes in with chief complaint of leg swelling for 4 days and also shortness of breath with exertion. He states his left leg started to become swollen 4 days ago and then his right foot started to swelling 2 days ago. He has noticed a slight increase in shortness of breath with exertion, states he normally has baseline dyspnea with exertion but has worsened the last few days. No chest pain, no fevers, no chills. He arrives hemodynamically stable caox4. He is in no distress on exam. He has swelling of both lower extremities with the left being more swollen then the right and has erythema of the left foot and distal 1/3 tibia. He has very mild erythema of the right mid foot. The skin on his left leg where it is red is warm to touch, no crepitus or severe tenderness. He has diminished breath sounds of both lungs at the bases, no wheezing. Suspect exacerbation of his chf and possible cellulitis of the left leg, will obtain blood cultures, cbc, cmp, troponin, probnp and portable chest xray and reassess. labs show no significant changes from baseline. Xray unremarkable. He feels well not requiring oxygen. Unclear if his left leg redness is infectious or inflammatory. Recommended admission but he is hesitant to be admitted and prefers to try outpatient management with oral antibiotics and he has decision making capacity. He is on xarelto already so doubt dvt but offered to have him return tomorrow for u/s but he declines at this time, wants to see if it improves with prednisone and antibiotics. Given stable vitals feel this is not unreasonable. He does have wbc of 16 but seems to be chronically elevated. Will start him on augmentin and prednisone (he states he has this at his house, advised to start 40mg daily for 5 days until he sees his pcp). Return precautions given Differential Diagnosis Differential Diagnosis: chf, peripheral edema, cellulitis Medical Records Medical records reviewed: Yes I reviewed the patient's medical records. Lab Data Lab results reviewed: Yes I reviewed the patient's lab results. ECG Data Attestation: I personally reviewed and interpreted this ECG (s) as follows: Prior ECG tracings: available for review Interpretation: sinus rhythm, rate of 82, no stemi HPI General Mode of arrival: ambulatory. Date/Time Provider Initiated Documentation: 07/27/22 13:12. Limitations to Documentation: no limitations. Information obtained by: patient. History of Present Illness 67 year old M presents to the emergency department with the chief complaint of leg swelling, described as moderate, Patient reports no radiation. Patient started experiencing this day(s) (4) and it has been constant. No relieving factors improve symptom(s), No exacerbating factors reported . Patient notes shortness of breath. Patient did receive the following treatments prior to arrival, none Related Data Home Medications Medication Instructions Recorded Confirmed magnesium oxide 400 mg (241.3 mg 400 mg PO HS #30 tabs 02/21/16 07/27/22 magnesium) tablet calcium carbonate 200 mg calcium 2 tab PO DAILY 09/17/16 07/27/22 (500 mg) chewable tablet (Tums) multivitamin 1 ea PO DAILY 09/17/16 07/27/22 methadone 10 mg/5 mL oral solution 115 mg PO DAILY 11/23/19 07/27/22 cetirizine 5 mg tablet 5 mg PO DAILY PRN PRN Allergy 09/30/21 07/27/22 Symptoms potassium chloride 20 mEq 20 meq PO DAILY #30 tabs 10/06/21 07/27/22 tablet,extended release(part/cryst) duloxetine 60 mg capsule,delayed 60 mg PO DAILY #90 caps 04/11/22 07/27/22 release albuterol sulfate 90 mcg/actuation 2 puff inhalation Q6H PRN 05/05/22 07/27/22 aerosol inhaler shortness of breath or wheezing #18 grams alendronate 70 mg tablet 70 mg PO QWEEK #12 tabs 05/05/22 07/27/22 folic acid 1 mg tablet 1 mg PO DAILY #90 tabs 05/05/22 07/27/22 furosemide 20 mg tablet 20 mg PO DAILY #90 tabs 05/05/22 07/27/22 lisinopril 5 mg tablet 5 mg PO DAILY #90 tabs 05/05/22 07/27/22 rivaroxaban 10 mg tablet 10 mg PO DAILY life long AC for 05/05/22 07/27/22 prophy. due HR hemolosis/spenecto #90 tabs thiamine mononitrate (vit B1) 100 100 mg PO DAILY #90 tabs 05/05/22 07/27/22 mg tablet (Vitamin B-1 (mononitrate)) tiotropium 2.5 mcg-olodaterol 2.5 2 puff inhalation DAILY #4 grams 05/05/22 07/27/22 mcg/actuation mist for inhalation (Stiolto Respimat) mirtazapine 7.5 mg tablet 7.5 mg PO QHS #90 tabs 06/17/22 07/27/22 atorvastatin 40 mg tablet 40 mg PO DAILY #90 tabs 07/15/22 07/27/22 gabapentin 300 mg capsule 300 mg PO TID #270 caps 07/15/22 07/27/22 lorazepam 0.5 mg tablet 0.25 - 0.5 mg PO BID PRN anxiety 07/15/22 07/27/22 #45 tabs omeprazole 20 mg capsule,delayed 20 mg PO DAILY #90 caps 07/15/22 07/27/22 release sennosides 8.6 mg tablet (senna) 8.6 mg PO QHS #90 tabs 07/15/22 07/27/22 sertraline 100 mg tablet 100 mg PO DAILY #90 tabs 07/15/22 07/27/22 amoxicillin 875 mg-potassium 1 tab PO BID #14 tabs 07/27/22 clavulanate 125 mg tablet Previous Rx's Medication Instructions Recorded potassium chloride 20 mEq 20 meq PO DAILY #30 tabs 10/06/21 tablet,extended release(part/cryst) duloxetine 60 mg capsule,delayed 60 mg PO DAILY #90 caps 04/11/22 release albuterol sulfate 90 mcg/actuation 2 puff inhalation Q6H PRN 05/05/22 aerosol inhaler shortness of breath or wheezing #18 grams alendronate 70 mg tablet 70 mg PO QWEEK #12 tabs 11/14/22 folic acid 1 mg tablet 1 mg PO DAILY #90 tabs 05/05/22 furosemide 20 mg tablet 20 mg PO DAILY #90 tabs 05/05/22 lisinopril 5 mg tablet 5 mg PO DAILY #90 tabs 05/05/22 rivaroxaban 10 mg tablet 10 mg PO DAILY life long AC for 05/05/22 prophy. due HR hemolosis/spenecto #90 tabs thiamine mononitrate (vit B1) 100 100 mg PO DAILY #90 tabs 05/05/22 mg tablet (Vitamin B-1 (mononitrate)) tiotropium 2.5 mcg-olodaterol 2.5 2 puff inhalation DAILY #4 grams 05/05/22 mcg/actuation mist for inhalation (Stiolto Respimat) mirtazapine 7.5 mg tablet 7.5 mg PO QHS #90 tabs 06/17/22 atorvastatin 40 mg tablet 40 mg PO DAILY #90 tabs 07/15/22 gabapentin 300 mg capsule 300 mg PO TID #270 caps 07/15/22 lorazepam 0.5 mg tablet 0.25 - 0.5 mg PO BID PRN anxiety 07/15/22 #45 tabs omeprazole 20 mg capsule,delayed 20 mg PO DAILY #90 caps 07/15/22 release sennosides 8.6 mg tablet (senna) 8.6 mg PO QHS #90 tabs 07/15/22 sertraline 100 mg tablet 100 mg PO DAILY #90 tabs 07/15/22 amoxicillin 875 mg-potassium 1 tab PO BID #14 tabs 07/27/22 clavulanate 125 mg tablet Allergies Allergy/AdvReac Type Severity Reaction Status Date / Time No Known Allergies Allergy Verified 07/27/22 13:14 General Stated Complaint: SOB CANDIDO: 3 Review of Systems All systems reviewed & are unremarkable except as noted in HPI and below Constitutional Constitutional: Denies chills and Denies fever(s) Cardiovascular Cardiovascular: Denies chest pain Respiratory Respiratory: Denies cough Gastrointestinal Gastrointestinal: Denies abdominal pain, Denies nausea and Denies vomiting Genitourinary Genitourinary: Denies dysuria PFSH All Active Problems (Updated 07/27/22 @ 15:20 by Franc Tom MD) Leg swelling (Acute) Hypercholesteremia (Acute) COVID-19 (Acute ~01/30/22) Anxiety disorder (Acute) Autoimmune hemolytic anemia (Acute) Esophageal thickening (Acute) Pulmonary hypertension (Chronic) COPD (chronic obstructive pulmonary disease) (Chronic) Hyperbilirubinemia (Chronic) Acute diastolic CHF (congestive heart failure) (Acute) Weight loss (Acute) Annual physical exam (Acute) Breathlessness (Acute) History of pulmonary embolism (Chronic) Pleural effusion, right (Acute) 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) Hand dermatitis (Acute) Left wrist pain (Acute) Insomnia (Acute) Personal history of colonic polyps (Acute) Chronic sphenoidal sinusitis (Chronic 04/07/16) Chronic maxillary sinusitis (Chronic 04/07/16) Chronic frontal sinusitis (Chronic 04/07/16) Chronic ethmoidal sinusitis (Chronic 04/07/16) Anosmia (Chronic 04/07/16) Smoker (Chronic 02/15/15) Shingles (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) Sexual function problem (Chronic) Postnasal drip (Chronic 08/07/14) Peyronie disease (Chronic 02/15/15) Nasal polyp, unspecified (Chronic 03/23/17) Moderate single current episode of major depressive disorder (Chronic 04/07/17) Hearing loss (Chronic) Bilateral lower extremity edema (Chronic 08/25/16) Allergic rhinitis due to pollen (Chronic 07/09/15) Allergic fungal sinusitis (Chronic 05/23/13) Allergy Injections Medical History Abnormal liver enzymes Benign essential hypertension (10/21/12) Chronic anticoagulation Chronic hepatitis C without mention of hepatic coma (09/20/12) Constipation COPD (chronic obstructive pulmonary disease) Depression 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 Sister Neoplasm Sister No problems noted. Sister No problems noted. Grandfather Heart disease Grandfather No problems noted. Grandmother No problems noted. Grandmother No problems noted. Son No problems noted. Son No problems noted. 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 Lives with girlfriend. Exam Const General: no acute distress Orientation: alert HENMT Head: normal to inspection Ears: external ears normal General nose exam: external nose normal Mouth: moist mucous membranes Eyes General: appearance normal, both eyes and all related structures Neck Neck: normal visual inspection Resp Auscultation: no wheezes Cardio Jugular venous pressure: no JVD Rate: regular rate Heart Sounds: no murmurs Skin General skin exam: no rashes or lesions noted Neuro General: patient alert and patient oriented x3 Psych Mental Status: mental status grossly normal Course Vital Signs Vital signs: Vital Signs Temperature 36.6 C 07/27/22 13:11 Pulse 93 H 07/27/22 13:11 Blood Pressure 136/69 07/27/22 13:11 Pulse Oximetry 94 07/27/22 13:11 Temperature 36.6 C 07/27/22 13:11 Temperature Source Oral 07/27/22 13:11 Pulse 93 H 07/27/22 13:11 Blood Pressure 136/69 07/27/22 13:11 Blood Pressure Position Sitting 07/27/22 13:11 Pulse Oximetry 94 07/27/22 13:11 Oxygen Delivery Method Room Air 07/27/22 13:11 Oxygen Flow Rate 0 07/27/22 13:11 Pain Level 6 07/27/22 13:11 Lab/Test Results Lab/Test Results: 07/27/22 13:35 Blood Blood Culture - Pending 07/27/22 13:16 Blood Blood Culture - Pending
--- NOTE | 2022-07-27 14:12 | DI.VRAD_ITS ---
PROCEDURE INFORMATION: Exam: XR Chest Exam date and time: 07/27/2022 1:23 PM Age: 67 years old Clinical indication: Shortness of breath TECHNIQUE: Imaging protocol: Radiologic exam of the chest. Views: 1 view. COMPARISON: CT CHEST WO 10/01/2021 1:34 PM FINDINGS: Lungs: Emphysematous changes. Scarring at the left base. No focal consolidation. Pleural spaces: Unremarkable. No pleural effusion. No pneumothorax. Heart/Mediastinum: Unremarkable. No cardiomegaly. Bones/joints: Unremarkable. IMPRESSION: Emphysematous changes. Scarring at the left base. No focal consolidation. Dictated and Authenticated by: Loren Callahan MD. Ordering:CARINA Bruner MD
[2022-07-27 14:19] LABS: Abs Immature Grans 0.13 10^3/uL (0.0-0.06); HCT 28.5 % (40.0-50.0); HGB 9.5 g/dL (13.5-17.5); MCH 34.5 pg (27.0-33.0); MCHC 33.3 % (32.0-36.0); MCV 104 fL (80-95); MPV 10.5 fL (8.0-11.0); Platelet Count 415 10^3/uL (130-400); RBC 2.75 10^6/uL (4.36-5.78); RDW 16.1 % (11.8-14.1); RDW-SD 54.8 fL; WBC 16.94 10^3/uL (4.4-10.8)
[2022-07-27 14:31] LABS: ALT 33 U/L (16-63); AST 90 U/L (15-37); Albumin 3.7 g/dL (3.4-5.0); Alkaline Phosphatase 100 U/L (46-116); Anion Gap 5.4 mmol/L (3-11); BUN 15 mg/dL (7-18); Bilirubin, Total 3.4 mg/dL (0.2-1.0); CO2 32.6 mmol/L (21.0-32.0); CREATININE 0.7 mg/dL (0.70-1.30); Calcium 9.1 mg/dL (8.5-10.1); Chloride 101 mmol/L (98-107); Estimated GFR 99.74 (mL/min/1.73m2); Glucose 106 mg/dL (74-106); Lipase 42 U/L (16-77); Magnesium 1.8 mg/dL (1.8-2.4); NT-proBNP 454 pg/mL (<300); Potassium 4.1 mmol/L (3.5-5.1); Sodium 139 mmol/L (136-145); Total Protein 6.7 g/dL (6.4-8.2); Troponin I < 50 ng/L (<or=60)
[2022-07-27 14:32] LABS: Source Nasal/Nares
[2022-07-27 14:35] LABS: Bilirubin Negative (Negative); Blood Negative (Negative); Clarity Clear (Clear); Glucose Negative (Negative); Ketones Negative (Negative); Leukocyte Esterase Negative (Negative); Nitrite Negative (Negative); Specific Gravity 1.015 (1.005-1.025); Urobilinogen 0.2 EU/dL (Up TO 0.2)
[2022-07-27 14:54] LABS: Absolute Basophil Count 0.17 10^3/uL (0.0-0.2); Absolute Eosinophil Count 0.51 10^3/uL (0.0-0.7); Absolute Lymphocyte Count 3.05 10^3/uL (1.2-3.4); Absolute Monocyte Count 3.05 10^3/uL (0.1-0.8); Absolute Neutrophil Count 9.99 10^3/uL (1.2-6.7); Anisocytosis 1+; Bands % 1; Diff Comment Manual Differential; Howell-Jolly Bodies 1+; Macrocytosis 1+; Metamyelocytes % 1; Polychromasia Present
[2022-07-27] MEDS: predniSONE 20 MG TAB 40 MG PO (15:16)
[2022-07-27] MEDS: Amoxicillin 875/Clav. 125 TAB PO (15:16)
[2022-07-27 15:17] VITALS: BP 135/61; PULSE 76; O2SAT 95
[2022-07-27 15:23] LABS: COVID-19 PCR Negative (Negative)
[2022-07-27 18:18] LABS: APTT (LRH) 35.2 secs (21.3-28.4); INR (LRH) 1.2 (0.9-1.1); Protime (LRH) 12.4 secs (9.1-10.6)
== END 2022-07-27 15:36 | disposition home or self-care (01) ==
PROVIDERS: Emergency Provider Emergency Medicine; PCP Nurse Practitioner Family
DX: R22.42 Localized swelling, mass and lump, left lower limb (principal); I50.31 Acute diastolic (congestive) heart failure; J44.9 Chronic obstructive pulmonary disease, unspecified; Z86.16 Personal history of COVID-19; Z20.822 Contact with and (suspected) exposure to COVID-19
CPT/HCPCS: 36415; 80053; 83690; 87040; 87635; 93005; 99284; 71045; 81003; 83735; 83880; 84484; 85025; 85610; 85730; 93010; 99285; J7512

== ENCOUNTER 2022-08-21 03:19 | Outpatient (CLI) | payer OTHER, MEDICARE, SELFPAY ==
[2022-08-21 11:44] LABS: HCT 28.7 % (40.0-50.0); HGB 9.5 g/dL (13.5-17.5); MCH 34.7 pg (27.0-33.0); MCHC 33.1 % (32.0-36.0); MCV 105 fL (80-95); MPV 9.9 fL (8.0-11.0); Platelet Count 591 10^3/uL (130-400); RBC 2.74 10^6/uL (4.36-5.78); RDW 19.4 % (11.8-14.1); RDW-SD 58.9 fL; WBC 24.02 10^3/uL (4.4-10.8)
[2022-08-21 12:00] LABS: Reticulocyte 14.8 % (0.5-2.4)
[2022-08-21 12:01] LABS: Absolute Basophil Count 0.48 10^3/uL (0.0-0.2); Absolute Eosinophil Count 0.24 10^3/uL (0.0-0.7); Absolute Lymphocyte Count 8.65 10^3/uL (1.2-3.4); Absolute Monocyte Count 1.44 10^3/uL (0.1-0.8); Absolute Neutrophil Count 13.21 10^3/uL (1.2-6.7); Bands % 1; Diff Comment Manual Differential
[2022-08-21 12:02] LABS: Polychromasia Present
[2022-08-21 12:30] LABS: ALT 23 U/L (16-63); AST 52 U/L (15-37); Albumin 3.3 g/dL (3.4-5.0); Alkaline Phosphatase 106 U/L (46-116); Anion Gap 7.3 mmol/L (3-11); BUN 10 mg/dL (7-18); Bilirubin, Total 3.2 mg/dL (0.2-1.0); CO2 31.7 mmol/L (21.0-32.0); CREATININE 0.6 mg/dL (0.70-1.30); Calcium 9.3 mg/dL (8.5-10.1); Chloride 103 mmol/L (98-107); Estimated GFR 104.49 (mL/min/1.73m2); Glucose 125 mg/dL (74-106); Potassium 3.9 mmol/L (3.5-5.1); Sodium 142 mmol/L (136-145); Total Protein 6.7 g/dL (6.4-8.2); Vitamin B12 1451 pg/mL (193-986)
[2022-08-21 12:31] LABS: Folate > 20.0 ng/mL (8.6-20.0)
[2022-08-21 12:47] LABS: LDH 954 U/L (85-227)
== END 2022-08-21 03:20 | disposition home or self-care (01) ==
LOC: LBO 03:26
PROVIDERS: PCP Nurse Practitioner Family; Visit Provider Internal Medicine Hematology & Oncology
DX: D59.10 Autoimmune hemolytic anemia, unspecified (principal); Z79.899 Other long term (current) drug therapy
CPT/HCPCS: 36415; 80053; 82607; 82746; 83615; 85025; 85045; 86880

== ENCOUNTER 2022-08-28 03:12 | Outpatient (CLI) | payer MEDICARE, OTHER, SELFPAY ==
[2022-08-28 14:31] LABS: Abs Immature Grans 0.48 10^3/uL (0.0-0.06); Basophils % 0.6; Eosinophils % 1.3; HCT 31.2 % (40.0-50.0); HGB 10.1 g/dL (13.5-17.5); Immature Grans % 1.7; Lymphocytes % 17.8; MCH 37.1 pg (27.0-33.0); MCHC 32.4 % (32.0-36.0); MCV 115 fL (80-95); MPV 9.6 fL (8.0-11.0); Monocytes % 10.4; Neutrophils % 68.2; Nucleated RBC 21.8 % (0.0-0.3); Platelet Count 465 10^3/uL (130-400); RBC 2.72 10^6/uL (4.36-5.78); RDW 25.3 % (11.8-14.1); RDW-SD 89.6 fL
[2022-08-28 14:48] LABS: Absolute Basophil Count 0.17 10^3/uL (0.0-0.2); Absolute Eosinophil Count 0.37 10^3/uL (0.0-0.7); Absolute Lymphocyte Count 5.01 10^3/uL (1.2-3.4); Absolute Monocyte Count 2.93 10^3/uL (0.1-0.8); Absolute Neutrophil Count 19.21 10^3/uL (1.2-6.7)
[2022-08-28 14:53] LABS: WBC 28.17 10^3/uL (4.4-10.8)
[2022-08-28 14:54] LABS: Anisocytosis 2+; Diff Comment Diff Reviewed; Macrocytosis 2+; Polychromasia Present
[2022-08-28 15:11] LABS: ALT 24 U/L (16-63); AST 57 U/L (15-37); Albumin 3.3 g/dL (3.4-5.0); Alkaline Phosphatase 100 U/L (46-116); Anion Gap 5.8 mmol/L (3-11); BUN 15 mg/dL (7-18); Bilirubin, Total 2.8 mg/dL (0.2-1.0); CO2 34.2 mmol/L (21.0-32.0); CREATININE 0.7 mg/dL (0.70-1.30); Calcium 9.4 mg/dL (8.5-10.1); Chloride 107 mmol/L (98-107); Estimated GFR 99.74 (mL/min/1.73m2); Glucose 101 mg/dL (74-106); Sodium 147 mmol/L (136-145); Total Protein 6.2 g/dL (6.4-8.2)
== END 2022-08-28 03:13 | disposition home or self-care (01) ==
PROVIDERS: PCP Nurse Practitioner Family; Visit Provider Nurse Practitioner Adult Health
DX: D59.10 Autoimmune hemolytic anemia, unspecified (principal)
CPT/HCPCS: 36415; 80053; 85025

== ENCOUNTER 2022-09-04 02:16 | Outpatient (CLI) | payer MEDICARE, OTHER, SELFPAY ==
[2022-09-04 13:43] LABS: Abs Immature Grans 0.23 10^3/uL (0.0-0.06); Absolute Basophil Count 0.09 10^3/uL (0.0-0.2); Absolute Eosinophil Count 0.23 10^3/uL (0.0-0.7); Absolute Monocyte Count 1.24 10^3/uL (0.1-0.8); Basophils % 0.4; HCT 35.5 % (40.0-50.0); HGB 11.3 g/dL (13.5-17.5); Lymphocytes % 5.1; MCH 35.4 pg (27.0-33.0); MCHC 31.8 % (32.0-36.0); MCV 111 fL (80-95); Monocytes % 5.5; Nucleated RBC 14.1 % (0.0-0.3); Platelet Count 596 10^3/uL (130-400); RBC 3.19 10^6/uL (4.36-5.78); RDW 22.5 % (11.8-14.1); RDW-SD 85.2 fL; WBC 22.53 10^3/uL (4.4-10.8)
[2022-09-04 14:16] LABS: Absolute Lymphocyte Count 1.15 10^3/uL (1.2-3.4)
[2022-09-04 14:40] LABS: ALT 30 U/L (16-63); AST 71 U/L (15-37); Albumin 3.7 g/dL (3.4-5.0); Alkaline Phosphatase 91 U/L (46-116); Anion Gap 6.7 mmol/L (3-11); BUN 15 mg/dL (7-18); Bilirubin, Total 3.3 mg/dL (0.2-1.0); CO2 31.3 mmol/L (21.0-32.0); CREATININE 0.9 mg/dL (0.70-1.30); Calcium 9.3 mg/dL (8.5-10.1); Chloride 101 mmol/L (98-107); Estimated GFR 92.45 (mL/min/1.73m2); Glucose 90 mg/dL (74-106); Potassium 3.7 mmol/L (3.5-5.1); Sodium 139 mmol/L (136-145); Total Protein 6.8 g/dL (6.4-8.2)
[2022-09-04 14:49] LABS: Anisocytosis 2+; Diff Comment Agrees w/ Instrument
[2022-09-04 14:50] LABS: Macrocytosis 2+; Polychromasia Present
== END 2022-09-04 02:17 | disposition home or self-care (01) ==
PROVIDERS: PCP Nurse Practitioner Family; Visit Provider Nurse Practitioner Adult Health
DX: D59.10 Autoimmune hemolytic anemia, unspecified (principal)
CPT/HCPCS: 36415; 80053; 85025

== ENCOUNTER 2022-09-18 02:47 | Outpatient (CLI) | payer MEDICARE, OTHER, SELFPAY ==
[2022-09-18 15:32] LABS: Absolute Basophil Count 0.16 10^3/uL (0.0-0.2); HCT 36.7 % (40.0-50.0); HGB 12.3 g/dL (13.5-17.5); MCH 35.8 pg (27.0-33.0); MCHC 33.5 % (32.0-36.0); MCV 107 fL (80-95); MPV 10.3 fL (8.0-11.0); RBC 3.44 10^6/uL (4.36-5.78); RDW 18.3 % (11.8-14.1); RDW-SD 66.2 fL; WBC 16.37 10^3/uL (4.4-10.8)
[2022-09-18 15:48] LABS: ALT 24 U/L (16-63); AST 75 U/L (15-37); Albumin 4.2 g/dL (3.4-5.0); Alkaline Phosphatase 100 U/L (46-116); Anion Gap 10.7 mmol/L (3-11); BUN 16 mg/dL (7-18); Bilirubin, Total 3.9 mg/dL (0.2-1.0); CO2 28.3 mmol/L (21.0-32.0); CREATININE 0.9 mg/dL (0.70-1.30); Calcium 9.8 mg/dL (8.5-10.1); Chloride 100 mmol/L (98-107); Estimated GFR 92.45 (mL/min/1.73m2); Glucose 128 mg/dL (74-106); Sodium 139 mmol/L (136-145); Total Protein 7.6 g/dL (6.4-8.2)
[2022-09-18 16:02] LABS: Absolute Neutrophil Count 13.91 10^3/uL (1.2-6.7); Platelet Count 367 10^3/uL (130-400)
[2022-09-18 16:03] LABS: Absolute Lymphocyte Count 1.47 10^3/uL (1.2-3.4); Absolute Monocyte Count 0.82 10^3/uL (0.1-0.8); Anisocytosis 2+; Atypical Lymphocytes % 1; Diff Comment Manual Differential; Macrocytosis 2+; Polychromasia Present
== END 2022-09-18 02:48 | disposition home or self-care (01) ==
PROVIDERS: PCP Nurse Practitioner Family; Visit Provider Nurse Practitioner Adult Health
DX: D59.10 Autoimmune hemolytic anemia, unspecified (principal)
CPT/HCPCS: 36415; 80053; 85025

== ENCOUNTER 2022-10-07 13:02 | Outpatient (CLI) | payer MEDICARE, OTHER, SELFPAY ==
[2022-10-07 15:40] LABS: HCT 35.4 % (40.0-50.0); HGB 11.7 g/dL (13.5-17.5); MCH 35.6 pg (27.0-33.0); MCHC 33.1 % (32.0-36.0); MCV 108 fL (80-95); MPV 10.6 fL (8.0-11.0); Platelet Count 447 10^3/uL (130-400); RBC 3.29 10^6/uL (4.36-5.78); WBC 22.26 10^3/uL (4.4-10.8)
[2022-10-07 16:05] LABS: ALT 29 U/L (16-63); AST 68 U/L (15-37); Albumin 3.7 g/dL (3.4-5.0); Alkaline Phosphatase 94 U/L (46-116); Anion Gap 8.9 mmol/L (3-11); BUN 10 mg/dL (7-18); Bilirubin, Total 2.8 mg/dL (0.2-1.0); CO2 28.1 mmol/L (21.0-32.0); CREATININE 0.7 mg/dL (0.70-1.30); Calcium 9.3 mg/dL (8.5-10.1); Chloride 106 mmol/L (98-107); Estimated GFR 99.74 (mL/min/1.73m2); Glucose 78 mg/dL (74-106); Potassium 3.9 mmol/L (3.5-5.1); Sodium 143 mmol/L (136-145); Total Protein 6.7 g/dL (6.4-8.2)
[2022-10-07 16:40] LABS: Absolute Eosinophil Count 0.45 10^3/uL (0.0-0.7); Absolute Lymphocyte Count 6.68 10^3/uL (1.2-3.4); Absolute Neutrophil Count 12.69 10^3/uL (1.2-6.7); Diff Comment Manual Differential; Myelocytes % 2
[2022-10-07 16:41] LABS: Anisocytosis 2+; Ferritin 330 ng/mL (26-388)
[2022-10-07 16:42] LABS: Macrocytosis 1+; Polychromasia Present
== END 2022-10-07 13:03 | disposition home or self-care (01) ==
PROVIDERS: PCP Nurse Practitioner Family; Visit Provider Nurse Practitioner Adult Health
DX: M25.532 Pain in left wrist (principal); R25.1 Tremor, unspecified; F41.8 Other specified anxiety disorders; D64.9 Anemia, unspecified
CPT/HCPCS: 36415; 80053; 82728; 85025

== ENCOUNTER 2022-10-28 02:37 | Outpatient (CLI) | payer MEDICARE, OTHER, SELFPAY ==
[2022-10-28 09:11] LABS: Anion Gap 7.3 mmol/L (3-11); BUN 14 mg/dL (7-18); CO2 31.7 mmol/L (21.0-32.0); CREATININE 0.7 mg/dL (0.70-1.30); Calcium 9.4 mg/dL (8.5-10.1); Chloride 104 mmol/L (98-107); Estimated GFR 99.74 (mL/min/1.73m2); Glucose 78 mg/dL (74-106); Potassium 4.1 mmol/L (3.5-5.1); Sodium 143 mmol/L (136-145)
== END 2022-10-28 02:38 | disposition home or self-care (01) ==
LOC: LBO 02:39
PROVIDERS: PCP Nurse Practitioner Family; Visit Provider Nurse Practitioner Family
DX: R60.0 Localized edema (principal)
CPT/HCPCS: 36415; 80048

== ENCOUNTER 2023-01-06 03:18 | Outpatient (CLI) | payer MEDICARE, OTHER, SELFPAY ==
[2023-01-06 16:38] LABS: HCT 34.2 % (40.0-50.0); MCH 35.1 pg (27.0-33.0); MCHC 35.1 % (32.0-36.0); MCV 100 fL (80-95); MPV 10.4 fL (8.0-11.0); RBC 3.42 10^6/uL (4.36-5.78); RDW 16.8 % (11.8-14.1); RDW-SD 55.4 fL; WBC 18.35 10^3/uL (4.4-10.8)
[2023-01-06 17:08] LABS: ALT 28 U/L (16-63); AST 61 U/L (15-37); Albumin 3.7 g/dL (3.4-5.0); Alkaline Phosphatase 93 U/L (46-116); Anion Gap 6.2 mmol/L (3-11); BUN 11 mg/dL (7-18); Bilirubin, Total 3.5 mg/dL (0.2-1.0); CO2 31.8 mmol/L (21.0-32.0); CREATININE 0.8 mg/dL (0.70-1.30); Calcium 8.8 mg/dL (8.5-10.1); Chloride 102 mmol/L (98-107); Glucose 77 mg/dL (74-106); Potassium 3.9 mmol/L (3.5-5.1); Sodium 140 mmol/L (136-145); Total Protein 6.4 g/dL (6.4-8.2)
[2023-01-06 17:29] LABS: LDH 932 U/L (85-227)
[2023-01-06 19:22] LABS: Absolute Basophil Count 0.18 10^3/uL (0.0-0.2); Absolute Eosinophil Count 0.55 10^3/uL (0.0-0.7); Absolute Lymphocyte Count 5.87 10^3/uL (1.2-3.4); Absolute Neutrophil Count 10.46 10^3/uL (1.2-6.7); Anisocytosis 2+; Atypical Lymphocytes % 8; Diff Comment Manual Differential; Macrocytosis 1+; Myelocytes % 1; Polychromasia Present
[2023-01-06 19:23] LABS: Platelet Count 464 10^3/uL (130-400)
== END 2023-01-06 03:19 | disposition home or self-care (01) ==
LOC: LBO 03:18
PROVIDERS: PCP Nurse Practitioner Family; Visit Provider Internal Medicine Hematology & Oncology
DX: D59.10 Autoimmune hemolytic anemia, unspecified (principal)
CPT/HCPCS: 36415; 80053; 85045; 83615; 85025

== ENCOUNTER 2023-05-22 15:16 | Outpatient (REF) | payer MEDICARE, SELFPAY ==
[2023-05-22 22:22] LABS: ALT 31 U/L (16-63); AST 67 U/L (15-37); Albumin 3.8 g/dL (3.4-5.0); Alkaline Phosphatase 100 U/L (46-116); Anion Gap 5.6 mmol/L (3-11); BUN 11 mg/dL (7-18); Bilirubin, Total 2.6 mg/dL (0.2-1.0); CO2 34.4 mmol/L (21.0-32.0); CREATININE 0.8 mg/dL (0.70-1.30); Calcium 9.3 mg/dL (8.5-10.1); Calculated LDL 60 mg/dL (<100); Chloride 101 mmol/L (98-107); Cholesterol 147 mg/dL (<200); Glucose 84 mg/dL (74-106); HDL Cholesterol 72 mg/dL (40-60); Potassium 4.5 mmol/L (3.5-5.1); Sodium 141 mmol/L (136-145); Total Protein 6.5 g/dL (6.4-8.2); Triglyceride 79 mg/dL (<150)
[2023-05-24 12:18] LABS: HIV-1/2 Ag & Ab Screen Negative (Negative)
[2023-05-25 10:21] LABS: HBs Antibody, Quant 17.8 mIU/mL (See Note); Hepatitis B Surface Ab Positive (See Note)
[2023-05-25 10:35] LABS: Lyme Ab w Rflx to Lyme Confirm Positive (Negative)
[2023-05-25 12:40] LABS: Lyme IgG Ab Positive (Negative); Lyme IgM Ab Positive (Negative)
[2023-05-25 13:06] LABS: Hepatitis B Surface Ag Negative (Negative)
[2023-05-26 12:33] LABS: Hepatitis C Ab w Rflx HCV PCR Reactive (Negative)
[2023-05-26 19:08] LABS: Anaplasma phagocytophilum Negative (Negative); B. miyamotoi PCR Negative (Negative); Babesia divergens/MO-1 Negative (Negative); Babesia duncani Negative (Negative); Babesia microti Negative (Negative); Ehrlichia chaffeensis Negative (Negative); Ehrlichia ewingii/canis Negative (Negative); Ehrlichia muris eauclairensis Negative (Negative)
[2023-05-27 13:41] LABS: HCV RNA Qualitative Undetected (Undetected)
== END 2023-05-22 15:17 | disposition home or self-care (01) ==
LOC: LBN 15:16
PROVIDERS: PCP Nurse Practitioner Family; Visit Provider Nurse Practitioner Family
DX: Z13.220 Encounter for screening for lipoid disorders (principal); Z11.59 Encounter for screening for other viral diseases; Z11.4 Encounter for screening for human immunodeficiency virus [HIV]; W57.XXXA Bitten or stung by nonvenomous insect and other nonvenomous arthropods, initial encounter
CPT/HCPCS: 80053; 80061; 86617; 86706; 86803; 87340; 87389; 87522; 87798; 86618

== ENCOUNTER → 2023-05-26 00:41 | Outpatient (CLI) | payer MEDICARE, SELFPAY ==
--- NOTE | 2023-05-26 08:30 | DI.US_ITS ---
Exam(s) US AAA SCREENING EXAM: US AAA SCREENING CLINICAL HISTORY: screening for aaa, smoker, z13.6 COMPARISON: US US ABDOMEN from 10/01/2021 FINDINGS: Limited visualization of the distal aorta and iliac arteries due to overlying bowel gas. Abdominal Aorta: Proximal: 2.1 cm Mid: 1.9 cm Distal: 1.8 cm Iliacs: Right: 1.2 cm Left: 0.9 cm IMPRESSION: No evidence of abdominal aortic aneurysm. DATA REPOSITORY:
--- NOTE | 2023-05-26 13:27 | DI.CTLCSR_ITS ---
Exam(s) CT CHEST LUNG CANCER SCREEN EXAM: CT CHEST LUNG CANCER SCREEN CLINICAL HISTORY: Screening for lung cancer,current smoker, f17.210 TECHNIQUE: Imaging Protocol: Axial computed tomography images with coronal and sagittal reformatted images were created and reviewed. Low dose screening protocol. COMPARISON: CT CT CHEST WO from 10/01/2021 CR,XR XR PORTABLE CHEST AP from 07/27/2022 FINDINGS: Tracheobronchial tree: No bronchiectasis or mucus plugging.. Mediastinum and Yin: No dominant adenopathy or fluid collection. Pulmonary parenchyma: Multifocal areas of scarring, stable.. Suture material seen in the right later al upper lobe. Centrilobular and paraseptal emphysematous changes greater in the upper lobes. Lung Nodules: No suspicious pulmonary nodules. Pleura: Left pleural thickening.. No pneumothorax. Heart: The heart is not dilated. Aortic valve calcifications. Moderate coronary artery calcification s are seen. Trace pericardial effusion. Aorta: Ending aorta 3.8 cm. Atherosclerotic changes. Upper abdomen: Loculated collection left upper quadrant presumably related to prior splenectomy. Bones: Old bilateral rib fractures. Old compression fracture T8. Soft Tissues: Bilateral gynecomastia. IMPRESSION: No suspicious pulmonary nodules. Left pleural scarring. Bilateral areas of pulmonary scarring. Emphysematous changes. Lung RADS Cat 1 - Negative: No nodules and definitely benign nodules Lung-RADS 1.0 CATEGORIES: Category 0 - Prior chest CT exam(s) being located for comparison. Category 1 - Annual screening in 12 months. No nodules or definitely benign nodules. Category 2 - Annual screening in 12 months. Benign appearance. Nodules with low likelihood of becomin g active cancer. Category 3 - 6-month follow-up. Probably benign. Short-term follow-up suggested. Nodules with low lik elihood of becoming active cancer. Category 4A - 3-month follow-up and CT/PET if >8 mm in size. Suspicious finding. Findings which requi re additional testing. Category 4B - Findings which require additional testing and tissue sampling. Category 4X - Category 3 or 4 nodules with additional features or imaging findings that increases the suspicion of malignancy. Modifier S- Potentially clinically significant findings (non lung cancer) RADIATION DOSE DELIVERED: Total DLP DATA REPOSITORY: All CT scans at this facility are submitted to the National Radiology Data Registry (NRDR) Dose Index Registry (DIR) with the [employer] (ACR). RADIATION OPTIMIZATION: All CT scans at this facility use at least one of these dose optimization te chniques: automated exposure control; mA and/or kV adjustment per patient size (includes targeted exa ms where dose is matched to clinical indication); or iterative reconstruction.
== END ==
PROVIDERS: PCP Nurse Practitioner Family; Visit Provider Nurse Practitioner Family
DX: Z13.6 Encounter for screening for cardiovascular disorders (principal); F17.210 Nicotine dependence, cigarettes, uncomplicated; Z12.2 Encounter for screening for malignant neoplasm of respiratory organs
CPT/HCPCS: 71271; 76706

== ENCOUNTER → 2023-07-24 01:09 | Outpatient (CLI) | payer MEDICARE, SELFPAY ==
--- NOTE | 2023-07-24 13:23 | DI.DEXA_ITS ---
Exam(s) XR DEXA BONE DENSITY W/WO KARLO EXAM: XR DEXA BONE DENSITY W/WO KARLO CLINICAL HISTORY: ANEMIA AUTOIMMUNE HEMOLYTIC, ASSISTED CURRENT USE SYSTEMIC STEROID Z79.52 TECHNIQUE: COMPARISON: CR,XR XR PORTABLE CHEST AP from 07/27/[address] CHEST LUNG CANCER SCREEN from 05/26/2023 FINDINGS: Lateral Spine Image: Stable compression deformities are seen at T8 and L2. Left hip: Total T-Score: -1.6 Total Z-Score: -1.0 T- and Z-scores: Findings are consistent with osteopenia. Lumbar Spine: Total T-Score: -1.4 Total Z-Score: -0.5 T- and Z-scores: Findings are consistent with osteopenia. Note is made of osteoporosis in the right forearm with a total T-score of -2.9 and a Z-score of 1.7. IMPRESSION: 1. No evidence of osteoporosis in the lumbar spine or left hip. 2. Osteoporosis in the right forearm.
== END ==
PROVIDERS: PCP Nurse Practitioner Family; Visit Provider Internal Medicine Hematology & Oncology
DX: Z79.52 Long term (current) use of systemic steroids (principal); Z13.820 Encounter for screening for osteoporosis; M81.0 Age-related osteoporosis without current pathological fracture; M85.88 Other specified disorders of bone density and structure, other site
CPT/HCPCS: 77080

== ENCOUNTER → 2024-02-18 10:47 | Outpatient (BNVA) | payer MEDICARE, SELFPAY | PROVIDERS: PCP Nurse Practitioner Family; Referring Provider Nurse Practitioner Family; Visit Provider Nurse Practitioner Gerontology | DX: N52.9 Male erectile dysfunction, unspecified (principal) | CPT/HCPCS: 99215 ==

== ENCOUNTER 2024-05-24 16:42 | Outpatient (REF) | payer MEDICARE, SELFPAY ==
[2024-05-24 22:02] LABS: ALT 25 U/L (16-63); AST 64 U/L (15-37); Albumin 3.5 g/dL (3.4-5.0); Alkaline Phosphatase 101 U/L (46-116); Anion Gap 6.8 mmol/L (3-11); BUN 14 mg/dL (7-18); Bilirubin, Total 2.85 mg/dL (0.2-1.0); CO2 34.2 mmol/L (21.0-32.0); CREATININE 0.8 mg/dL (0.70-1.30); Calcium 9.9 mg/dL (8.5-10.1); Calculated LDL 87 mg/dL (<100); Chloride 102 mmol/L (98-107); Cholesterol 167 mg/dL (<200); Estimated GFR 95.21 (mL/min/1.73m2); Glucose 88 mg/dL (74-106); HDL Cholesterol 67 mg/dL (40-60); Potassium 4.5 mmol/L (3.5-5.1); Sodium 143 mmol/L (136-145); Total Protein 6.8 g/dL (6.4-8.2); Triglyceride 69 mg/dL (<150)
== END 2024-05-24 16:43 | disposition home or self-care (01) ==
LOC: LBN 16:42
PROVIDERS: PCP Nurse Practitioner Family; Visit Provider Nurse Practitioner Family
DX: E78.00 Pure hypercholesterolemia, unspecified (principal)
CPT/HCPCS: 80053; 80061

== ENCOUNTER 2024-05-31 01:02 | Outpatient (CLI) | payer MEDICARE, SELFPAY ==
--- NOTE | 2024-05-31 07:30 | DI.CTLCSR_ITS ---
Exam(s) CT CHEST LUNG CANCER SCREEN EXAM: CT CHEST LUNG CANCER SCREEN CLINICAL HISTORY: Screening for lung cancer,current smoker, f17.210 TECHNIQUE: Imaging Protocol: Axial computed tomography images with coronal and sagittal reformatted images were created and reviewed. Low dose screening protocol. COMPARISON: CT CT CHEST LUNG CANCER SCREEN from 05/26/2023 FINDINGS: Tracheobronchial tree: No bronchiectasis or mucus plugging. Mediastinum and Yin: No dominant adenopathy or fluid collection. Pulmonary parenchyma: No consolidation or dominant measurable mass. Moderate emphysematous changes, g reater in the upper lobes. Stable appearance of left lower lobe rounded atelectasis and scarring. St able appearance of anterior left upper lobe rounded atelectasis and adjacent scarring. Scarring also present at bilateral upper lobes, greater on the right. Right upper lobe volume loss. Lung Nodules: Stable 3 millimeter nodule right lower lobe. Pleura: No effusion. No pneumothorax. Stable pleural thickening, greater at the left lower lobe and at both lung apices. Subpleural calcification present at the apices. Heart: The heart is mildly dilated. Coronary artery calcifications are seen. No pericardial effusio n. Aorta: Thoracic aorta non-dilated. Upper abdomen: Unremarkable. Bones: Old right bilateral fractures. Stable T8 compression fracture. Soft Tissues: Unremarkable. IMPRESSION: No suspicious pulmonary nodules. Lung RADS Cat 2 - Benign Appearance / Behavior: Nodules with a very low likelihood of becoming a clin ically active cancer due to size or lack of growth Lung-RADS 1.0 CATEGORIES: Category 0 - Prior chest CT exam(s) being located for comparison. Category 1 - Annual screening in 12 months. No nodules or definitely benign nodules. Category 2 - Annual screening in 12 months. Benign appearance. Nodules with low likelihood of becomin g active cancer. Category 3 - 6-month follow-up. Probably benign. Short-term follow-up suggested. Nodules with low lik elihood of becoming active cancer. Category 4A - 3-month follow-up and CT/PET if >8 mm in size. Suspicious finding. Findings which requi re additional testing. Category 4B - Findings which require additional testing and tissue sampling. Category 4X - Category 3 or 4 nodules with additional features or imaging findings that increases the suspicion of malignancy. Modifier S- Potentially clinically significant findings (non lung cancer) RADIATION DOSE DELIVERED: !Error Total DLP DATA REPOSITORY: All CT scans at this facility are submitted to the National Radiology Data Registry (NRDR) Dose Index Registry (DIR) with the [employer] (ACR). RADIATION OPTIMIZATION: All CT scans at this facility use at least one of these dose optimization te chniques: automated exposure control; mA and/or kV adjustment per patient size (includes targeted exa ms where dose is matched to clinical indication); or iterative reconstruction.
== END 2024-05-31 01:22 ==
PROVIDERS: PCP Nurse Practitioner Family; Visit Provider Nurse Practitioner Family
DX: F17.210 Nicotine dependence, cigarettes, uncomplicated (principal); Z12.2 Encounter for screening for malignant neoplasm of respiratory organs
CPT/HCPCS: 71271

== ENCOUNTER 2024-06-24 08:16 | Inpatient (IN) | payer MEDICARE, SELFPAY ==
[2024-06-24] VITALS (33 sets, daily range): BP systolic 111–166; BP diastolic 39–101; PULSE 67–100; RESP 9–24; TEMP 36.3–37; O2SAT 68–97
--- NOTE | 2024-06-24 08:15 | RT.EKG_ITS ---
APPROVED REPORT Exam: Resting ECG Reason for Exam: sob Patient Location: E HR:94 bpm ECG Measurements Heart Rate 94 AXIS FL 164 P 75 QRSd 170 QRS -9 QT 445 T 79 QTc 556 Conclusion Sinus rhythm...normal P axis, V-rate 60- 99 Left atrial enlargement...P, P'>60mS, <-0.15mV V1 Left bundle branch block...QRSd>120, broad/notched R ST elevation secondary to IVCD...Multiple VCG criteria
--- NOTE | 2024-06-24 08:30 | DI.RAD_ITS ---
Exam(s) XR PORTABLE CHEST AP EXAM: XR PORTABLE CHEST AP CLINICAL HISTORY: cough. TECHNIQUE: 2D digital imaging was performed. COMPARISON: CR,XR XR PORTABLE CHEST AP from 07/27/[address] CHEST LUNG CANCER SCREEN from 05/31/2024 FINDINGS: Single AP portable view. Heart size is upper normal. The mediastinum is not widened. Again noted are COPD emphysematous changes in lung solitario and parenchymal scarring the lingular segme nt of the left lung as well as blunting of left costophrenic angle which is either related to pleural thickening or some pleural fluid. There is no pulmonary edema. No new infiltrates but there is a n ew nodular density measuring 9 mm projected over the mid-lower right lung field, larger than previous . IMPRESSION: Increasing size nodule in the right lung.There is a possibly that this is the right breast nipple. H owever, does appear to have increased in size from the previous study. Consider follow-up CT scan. DATA REPOSITORY: RADIATION DOSE DELIVERED:
[2024-06-24 08:57] LABS: Abs Immature Grans 0.48 10^3/uL (0.0-0.06); Basophils % 0.5 %; Eosinophils % 0.4 %; HCT 30.8 % (40.0-50.0); HGB 9.4 g/dL (13.5-17.5); Immature Grans % 1.3 %; Lymphocytes % 10.4 %; MCH 31.4 pg (27.0-33.0); MCHC 30.5 % (32.0-36.0); MCV 103 fL (80-95); MPV 10.3 fL (8.0-11.0); Monocytes % 9.2 %; Neutrophils % 78.2 %; Nucleated RBC 2.8 % (0.0-0.3); Platelet Count 413 10^3/uL (130-400); RBC 2.99 10^6/uL (4.36-5.78); RDW 20.6 % (11.8-14.1)
[2024-06-24 09:02] LABS: Absolute Basophil Count 0.19 10^3/uL (0.0-0.2); Absolute Eosinophil Count 0.15 10^3/uL (0.0-0.7); Absolute Lymphocyte Count 3.98 10^3/uL (1.2-3.4); Absolute Monocyte Count 3.52 10^3/uL (0.1-0.8); Absolute Neutrophil Count 29.94 10^3/uL (1.2-6.7)
[2024-06-24 09:17] LABS: Anisocytosis 2+; Diff Comment RBC Morph Reviewed; Macrocytosis 1+; Polychromasia Present; WBC 38.29 10^3/uL (4.4-10.8)
[2024-06-24 09:19] LABS: D-Dimer 1620 ng/mlFEU (<500)
[2024-06-24 09:21] LABS: ALT 28 U/L (16-63); AST 80 U/L (15-37); Albumin 2.8 g/dL (3.4-5.0); Alkaline Phosphatase 91 U/L (46-116); BUN 11 mg/dL (7-18); CREATININE 0.8 mg/dL (0.70-1.30); Calcium 9.7 mg/dL (8.5-10.1); Chloride 102 mmol/L (98-107); Estimated GFR 95.21 (mL/min/1.73m2); Glucose 154 mg/dL (74-106); Magnesium 1.7 mg/dL (1.8-2.4); NT-proBNP 4498 pg/mL (<300); Potassium 3.5 mmol/L (3.5-5.1); Sodium 141 mmol/L (136-145); Total Protein 6.7 g/dL (6.4-8.2); Troponin I 13 ng/L (<or=76)
[2024-06-24 09:31] LABS: COVID-19 PCR Negative (Negative); Influenza A PCR Negative (Negative); Influenza B PCR Negative (Negative); RSV PCR Negative (Negative)
[2024-06-24 09:35] LABS: Source Nasopharynx
--- NOTE | 2024-06-24 09:45 | DI.CT_ITS ---
Exam(s) CT CHEST PE CTA EXAM: CT CHEST PE CTA CLINICAL HISTORY: cough, sob, elev ddimer, nodule on cxr. TECHNIQUE: Imaging Protocol: CT angiography of the chest was performed using pulmonary embolus gregory col. Multi planar reconstructions were performed. CONTRAST MATERIAL: Intravenous: Omnipaque 350 Contrast volume: 61 cc COMPARISON: CT CT CHEST LUNG CANCER SCREEN from 05/26/[address] CHEST LUNG CANCER SCREEN from 05/31/2024 FINDINGS: CHEST: PULMONARY ARTERIES: There are intraluminal filling defects noted in 1 of the right middle lobe arteri es 1 of the right lower lobe arteries distal to the bifurcation which appears to be at the level the lateral basal segment. consistent with pulmonary emboli. there are no central pulmonary emboli. Th ere are no filling defects in the opposite-left pulmonary arterial tree. LUNGS: Previously described pleural based infiltrates in the anterior segment of the left upper lobe as well as in left lower lobe appear unchanged from 05/31/2024 and 05/26/2023.. There increased wilian ings in the basal segments of the right lower lobe, similar to 05/31/2024. MEDIASTINUM: There is right-sided hilar adenopathy. Minimally increased adenopathy left hilum. No a denopathy in the anterior mediastinal fat and subcarinal region. CARDIAC: Mild cardiomegaly.Diameter of the ascending thoracic aorta is upper normal. No evidence of dissection. No reflux of intravenous contrast into the IVC. There is no significant shift of the in terventricular septum. PARTIALLY VISUALIZED UPPERMOST ABDOMEN: No obvious findings OSSEOUS: No significant osseous lesions.There is a compression fracture of superior endplate of T8 no marcia which is unchanged from 05/26/2023. Calcification within the central disc space at T11-12 is als o unchanged.. IMPRESSION: 1. This study is positive for the presence of small peripheral intraluminal pulmonary emboli in the r ight middle and right lower lobes.No pleural effusions. 2. Unchanged pleural based infiltrates in left lower lobe and left upper lobe superimposed upon emphy sematous changes. Also some mild infiltrate noted in the right lower lobe posterior basal segment. There are no pleural effusions. 3. There is adenopathy in the right hilum noted Report called by myself to ER physician 06/24/2024 12:25 p.m. RADIATION DOSE DELIVERED: 63.36mGy.cm Total DLP DATA REPOSITORY: All CT scans at this facility are submitted to the National Radiology Data Registry (NRDR) Dose Index Registry (DIR) with the [employer] (ACR). RADIATION OPTIMIZATION: All CT scans at this facility use at least one of these dose optimization te chniques: automated exposure control; mA and/or kV adjustment per patient size (includes targeted exa ms where dose is matched to clinical indication); or iterative reconstruction.
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
[2024-06-24] MEDS: Normal Saline - Diluent 50 ML VIAL IJ (10:15)
[2024-06-24] MEDS: Omnipaque 350 MG/ML 500 ML BTL-Imaging package 61 ML IJ (10:16)
[2024-06-24 11:01] LABS: Troponin I 13 ng/L (<or=76)
[2024-06-24] MEDS: cefTRIAXone 1 GM/50 ML BAG IVPB (12:57)
[2024-06-24] MEDS: DOXYCYCLINE 100 MG in Normal Saline 100 ML IVPB ×2 (12:57→22:08)
[2024-06-24 13:12] LABS: Troponin I 13 ng/L (<or=76)
--- NOTE | 2024-06-24 14:05 | DI.US_ITS ---
Exam(s) US EXTREMITY VENOUS BI EXAM: US EXTREMITY VENOUS BI CLINICAL HISTORY: PE. TECHNIQUE: Bilateral lower extremity venous ultrasound performed using grayscale, color-flow, and sp ectral Doppler analysis. COMPARISON: No exams were available for comparison FINDINGS: The bilateral common femoral, femoral and popliteal veins demonstrate normal compressibility, augment ation, and color Doppler. The posterior tibial and peroneal veins are patent. No hematoma or Garzon's cyst. Mild calf edema. IMPRESSION: Right: Negative for DVT Left: Negative for DVT DATA REPOSITORY:
[2024-06-24] MEDS: Enoxaparin 60 MG/0.6 ML SYR SC (14:34)
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
--- NOTE | 2024-06-24 17:37 | W.PC.ACHO ---
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) Chronic hepatitis C without mention of hepatic coma (09/20/12) Benign essential hypertension (10/21/12) Pulmonary emboli Pleural effusion, left COPD (chronic obstructive pulmonary disease) (Last Updated 06/24/24 @ 15:33 by Pedro Luis Lopez MD) H/O splenectomy Recurrent right pleural effusion Status post unilateral inguinal hernia repair H/O colonoscopy (05/07/18) Thoracentesis (06/08/16) Repair of inguinal hernia Most Recent Vital Signs Pulse 72 06/24/24 17:31 Pulse 72 06/24/24 17:31 Respiratory Rate 13 06/24/24 17:31 Respiratory Effort Short of Breath 06/24/24 10:02 Respiratory Depth Normal 06/24/24 10:02 Respiratory Pattern Normal 06/24/24 10:02 Blood Pressure 161/44 H 06/24/24 17:31 Blood Pressure Mean 81 06/24/24 17:31 Pulse Oximetry 96 06/24/24 17:31 Oxygen Delivery Method Nasal Cannula 06/24/24 08:30 Oxygen Flow Rate 3 06/24/24 08:30 Allergies No Known Allergies Allergy (Verified 06/24/24 08:31) Active Medications Generic Name Dose Route Start Last Admin Trade Name Freq PRN Reason Stop Dose Admin Iohexol 61 ml 06/24/24 10:15 06/24/24 10:16 Omnipaque 350 Mg/Ml 500 Ml Btl-Imaging Package IJ 07/24/24 23:59 61 ml DIRECTED DIANDRA Administration Sodium Chloride 50 ml 06/24/24 10:15 06/24/24 10:15 Normal Saline - Diluent 50 Ml Vial IJ 50 ml .FOR DI USE DIANDRA Administration IV IV Catheter Type [Right Saline Lock Forearm] IV Catheter Gauge [Right 20 Forearm] Diagnostics 01/03/25 01/03/25 01/03/25 Range/Units 12:45 10:30 08:43 WBC (4.4-10.8) 10^3/uL RBC (4.36-5.78) 10^6/uL Hgb (13.5-17.5) g/dL Hct (40.0-50.0) % MCV (80-95) fL MCH (27.0-33.0) pg MCHC (32.0-36.0) % RDW (11.8-14.1) % Plt Count (130-400) 10^3/uL MPV (8.0-11.0) fL Immature Gran % % Neutrophils % % Lymphocytes % % Monocytes % % Eosinophils % % Basophils % % Nucleated RBC % (0.0-0.3) % Absolute Neutrophils (1.2-6.7) 10^3/uL Absolute Lymphocytes (1.2-3.4) 10^3/uL Absolute Monocytes (0.1-0.8) 10^3/uL Absolute Eosinophils (0.0-0.7) 10^3/uL Absolute Basophils (0.0-0.2) 10^3/uL RBC Morphology Polychromasia Anisocytosis Macrocytosis D-Dimer (<500) ng/mlFEU VBG Lactate 1.0 (0.6-1.4) mmol/L Sodium (136-145) mmol/L Potassium (3.5-5.1) mmol/L Chloride (98-107) mmol/L Carbon Dioxide (21.0-32.0) mmol/L Anion Gap (3-11) mmol/L BUN (7-18) mg/dL Creatinine (0.70-1.30) mg/dL Est GFR (CKD-EPI 2020) (mL/min/1.73m2) Glucose (74-106) mg/dL Calcium (8.5-10.1) mg/dL Magnesium (1.8-2.4) mg/dL Total Bilirubin (0.2-1.0) mg/dL AST (15-37) U/L ALT (16-63) U/L Alkaline Phosphatase (46-116) U/L Troponin I 13 13 NT-Pro-B Natriuret Pep Total Protein (6.4-8.2) g/dL Albumin (3.4-5.0) g/dL COVID-19 Source Nasopharynx SARS-CoV-2 (PCR) Negative (Negative) Influenza Type A (PCR) Negative (Negative) Influenza Type B (PCR) Negative (Negative) RSV (PCR) Negative (Negative) 06/24/24 06/24/24 06/24/24 Range/Units 08:40 08:40 08:40 WBC 38.29 H* (4.4-10.8) 10^3/uL RBC 2.99 L (4.36-5.78) 10^6/uL Hgb 9.4 L (13.5-17.5) g/dL Hct 30.8 L (40.0-50.0) % MCV 103 H (80-95) fL MCH 31.4 (27.0-33.0) pg MCHC 30.5 L (32.0-36.0) % RDW 20.6 H (11.8-14.1) % Plt Count 413 H (130-400) 10^3/uL MPV 10.3 (8.0-11.0) fL Immature Gran % 1.3 % Neutrophils % 78.2 % Lymphocytes % 10.4 % Monocytes % 9.2 % Eosinophils % 0.4 % Basophils % 0.5 % Nucleated RBC % 2.8 H (0.0-0.3) % Absolute Neutrophils 29.94 H (1.2-6.7) 10^3/uL Absolute Lymphocytes 3.98 H (1.2-3.4) 10^3/uL Absolute Monocytes 3.52 H (0.1-0.8) 10^3/uL Absolute Eosinophils 0.15 (0.0-0.7) 10^3/uL Absolute Basophils 0.19 (0.0-0.2) 10^3/uL RBC Morphology See Below Polychromasia Present Anisocytosis 2+ Macrocytosis 1+ D-Dimer 1620 H (<500) ng/mlFEU VBG Lactate (0.6-1.4) mmol/L Sodium 141 (136-145) mmol/L Potassium 3.5 (3.5-5.1) mmol/L Chloride 102 (98-107) mmol/L Carbon Dioxide 35.0 H (21.0-32.0) mmol/L Anion Gap 4.0 (3-11) mmol/L BUN 11 (7-18) mg/dL Creatinine 0.8 (0.70-1.30) mg/dL Est GFR (CKD-EPI 2020) 95.21 (mL/min/1.73m2) Glucose 154 H (74-106) mg/dL Calcium 9.7 (8.5-10.1) mg/dL Magnesium 1.7 L (1.8-2.4) mg/dL Total Bilirubin 4.10 H (0.2-1.0) mg/dL AST 80 H (15-37) U/L ALT 28 (16-63) U/L Alkaline Phosphatase 91 (46-116) U/L Troponin I 13 Cancelled NT-Pro-B Natriuret Pep 4498 H Cancelled Total Protein 6.7 (6.4-8.2) g/dL Albumin 2.8 L (3.4-5.0) g/dL COVID-19 Source SARS-CoV-2 (PCR) (Negative) Influenza Type A (PCR) (Negative) Influenza Type B (PCR) (Negative) RSV (PCR) (Negative) 06/24/24 09:50 Blood Culture - Pending Blood 06/24/24 09:26 Blood Culture - Pending Blood Intake and Output - 24 Hour Total 06/24/24 08:16 thru 06/24/24 14:06 Intake Total 160 Output Total 550 Balance -390 Weight 61.371 kg Intake: IV 160 Output: Urine 550 Falls Risk Assessment History of Falls No History 06/24/24 10:02 Fall Total Score 0 06/24/24 10:02 Level of Risk Standard/Low Risk 06/24/24 10:02 Problems (Last Reviewed 06/24/24 @ 10:17 by Pedro Luis Lopez MD) Hypoxia (Acute) COPD (chronic obstructive pulmonary disease) (Chronic) CHF (congestive heart failure) (Chronic) Pulmonary embolism (Chronic) Pneumonia (Acute) v v v v v v v v v Sending and/or Receiving Nurses: Please use comment section below to note any information pertinent to the patient hand-off not included above. Information / Comments: Report received from: Loraine GANDHI (ED)
[2024-06-24] MEDS: LORazepam 0.5 MG TAB PO (18:13)
[2024-06-24] MEDS: Furosemide 20 MG/2 ML VIAL IVP (19:48)
[2024-06-24] MEDS: MAGNESIUM SULFATE 2 GM/50 ML BAG IV_INF (19:48)
[2024-06-24] MEDS: Normal Saline Flush 10 ML SYR IVP ×2 (19:49→20:18)
[2024-06-24] MEDS: Magnesium Oxide 400 MG TAB PO (20:17)
[2024-06-24] MEDS: Senna TAB 1 TAB PO (20:17)
[2024-06-24] MEDS: Gabapentin 300 MG CAP PO (20:17)
[2024-06-24] MEDS: guaiFENesin 600 MG TABCR PO (20:17)
[2024-06-24] MEDS: Benzonatate 100 MG CAP PO (20:18)
[2024-06-24] MEDS: Mirtazapine 15 MG TAB 30 MG PO (20:18)
[2024-06-25] VITALS (11 sets, daily range): BP systolic 122–150; BP diastolic 55–68; PULSE 62–87; RESP 2–18; TEMP 36.1–36.8; O2SAT 84–95
[2024-06-25] MEDS: Enoxaparin 60 MG/0.6 ML SYR SC ×3 (00:14→23:05)
[2024-06-25] MEDS: DULoxetine 30 MG CAP 60 MG PO (07:45)
[2024-06-25] MEDS: Furosemide 20 MG/2 ML VIAL IVP ×2 (07:45→15:59)
[2024-06-25] MEDS: Benzonatate 100 MG CAP PO ×3 (07:46→21:41)
[2024-06-25] MEDS: Thiamine 100 MG TAB PO (07:46)
[2024-06-25] MEDS: Gabapentin 300 MG CAP PO ×3 (07:46→21:41)
[2024-06-25] MEDS: Calcium Carbonate *TUMS* 500 MG CHEW PO (07:46)
[2024-06-25] MEDS: Multivitamin TAB 1 TAB PO (07:46)
[2024-06-25] MEDS: LORazepam 0.5 MG TAB PO ×3 (07:46→21:48)
[2024-06-25] MEDS: guaiFENesin 600 MG TABCR PO ×2 (07:47→21:41)
[2024-06-25] MEDS: Lisinopril 5 MG TAB PO (07:47)
[2024-06-25] MEDS: Potassium Chloride 20 MEQ TABCR PO (07:47)
[2024-06-25] MEDS: Folic Acid 1 MG TAB PO (07:47)
[2024-06-25] MEDS: Omeprazole 20 MG CAPCR PO (07:47)
[2024-06-25] MEDS: Methadone Liquid 10 MG/ML 130 MG PO (07:55)
[2024-06-25] MEDS: Tiotropium/Olodaterol 10 PUFF INHALER 2 PUFF IH (08:02)
[2024-06-25] MEDS: DOXYCYCLINE 100 MG in Normal Saline 100 ML IVPB ×2 (11:14→21:36)
[2024-06-25] MEDS: Normal Saline Flush 10 ML SYR IVP ×3 (11:14→21:39)
--- NOTE | 2024-06-25 11:44 | PHA.REVIEW2 ---
Pharmacy Admission Review Admission Clinical Review Admission Pharmacy Review: Hypomagnesemia (Acute) Methadone dependence (Acute) Tobacco abuse (Acute) Discharge planning issues (Acute) Sepsis (Acute) AIHA (autoimmune hemolytic anemia) (Acute) Hypoxia (Acute) Pneumonia (Acute) Anxiety disorder (Acute) No Known Allergies Allergy (Verified 06/24/24 08:31) Resuscitation Status DNR/DNI Height 5 ft 7 in Weight 59.7 kg Comments Comments/Follow Ups: Watch for addition of any more QTc prolonging meds (on methadone, QTc 556 - provider aware) Pharmacy Admission Review Renal Dosing Renal Dosing: BUN 11 mg/dL (7-18) 06/24/24 08:40 Creatinine 0.8 mg/dL (0.70-1.30) 06/24/24 08:40 Medications needing adjustments: Intervened (CrCl 58 mL/min - added height to patients profile) List of meds needing interventions: Current medications are okay Anticoagulation Anticoagulation: Hgb 9.4 g/dL (13.5-17.5) L 06/24/24 08:40 Hct 30.8 % (40.0-50.0) L 06/24/24 08:40 Plt Count 413 10^3/uL (130-400) H 06/24/24 08:40 Creatinine 0.8 mg/dL (0.70-1.30) 06/24/24 08:40 Therapeutic Anticoagulation: Reviewed Medications: Enoxaparin (60mg q12h (weight 59.7kg) - for PE) Opiate Usage Evaluate Pain Scale/Pains Meds: Reviewed (methadone 130mg daily) Scheduled Bowel Reg ordered if on Opiates?: Yes (senna daily) Relevant Labs Relevant Labs: Sodium 141 mmol/L (136-145) 06/24/24 08:40 Potassium 3.5 mmol/L (3.5-5.1) 06/24/24 08:40 Chloride 102 mmol/L (98-107) 06/24/24 08:40 Magnesium 1.7 mg/dL (1.8-2.4) L 06/24/24 08:40 Electrolytes, C-Reactive P, ESR: Reviewed (No new labs for today) Cardiac Review Cardiac Review: Troponin I 13 ng/L (<or=76) 06/24/24 12:45 NT-Pro-B Natriuret Pep 4498 pg/mL (<300) H 06/24/24 08:40 NT-Pro-B Natriuret Pep Cancelled 06/24/24 08:40 BP, HR, EF%: Reviewed (BP and HR WNL, Ox 90 on 1L) List meds needing interventions: Has order for furosemide 20mg IVP BID and lisinopril 5mg daily. QTc Review QTc: Intervened (556 06/24/23) List meds needing interventions: Reached out to provider regarding methadone with prolonged QTc - provider looking into it. Watch for addition of any more QTc prolonging meds IV to PO Switch IV Medications: Reviewed (ceftriaxone, doxycycline and furosemide) Home Meds Home Med List reviewed: Intervened Relevent Home Meds Not ordered & why?: alendronate (weekly) and Xarelto (receiving treatment dose enoxaparin for PE) Reached out to nursing to confirm patients home prednisone dose. Has 5mg daily and 10mg daily listed on home med list. Waiting to hear back. Current Meds Current Medication Order Review: Intervened Comments: Confirmed methadone dose with BAART - 130mg daily with take home doses through 07/10/24 Changed IV access from ED Pharmacy Antibiotic Review Relevant Labs: WBC 38.29 10^3/uL (4.4-10.8) H* 06/24/24 08:40 Temperature 36.4 C Temperature 36.1 C Temperature 36.5 C Comments: Patient is on doxycycline and ceftriaxone, day 2, for pneumonia/CHF. Blood and sputum cultures pending. No new WBC level for today. Comments Comments/Follow Ups: Watch for addition of any more QTc prolonging meds (on methadone, QTc 556 - provider aware)
[2024-06-25] MEDS: cefTRIAXone 1 GM/50 ML BAG IVPB (12:09)
--- NOTE | 2024-06-25 13:35 | W.PM.PROGNOT ---
Date of Service Date of service: 06/25/24 Time of Service: 13:35 Assessment and Plan Assessment and plan (1) Sepsis: Status: Resolved Assessment and plan: Patient presenting with respiratory rate over 22, tachycardia over 90 with probable source of infection being the community-acquired pneumonia as per chest imaging. Resolved with symptoms markedly improved (2) Pneumonia: Status: Acute Assessment and plan: Continue treatment with IV doxycycline and IV ceftriaxone day 2 of 5 I-S, Acapella As needed neb treatments Mucinex Tessalon Perles (3) COPD (chronic obstructive pulmonary disease): Status: Chronic Assessment and plan: Continue home medicines. The patient did report increased sputum production as well as green-colored sputum but was unable to correlate the duration or origin of the change in color. Patient is already on daily prednisone 10 mg; at this time as per Dr. Valladares recommendation we will not administer any bursal steroids. Patient treated for pneumonia with doxycycline and ceftriaxone which also covers COPD exacerbation. (4) CHF (congestive heart failure): Status: Chronic Assessment and plan: History of CHF on oral Lasix at home daily and ongoing leg swelling?BNP higher than usual at 4500, the patient could have had a oxygen requirement due to both pneumonia and pulmonary emboli. Will nevertheless use low-dose IV Lasix at this time and reevaluate in the morning. BMP in a.m. Mag in a.m. Echo completed with LVEF at 55% without hypokinesis or PFO and RVSP at 57 mmHg (5) Pulmonary embolism: Status: Chronic Assessment and plan: As per CTA and symptomatology and treatment discussed with [facility] hematology Dr. VELEZ. The patient developed pulmonary embolism while on Xarelto Continue Lovenox 60 mg SC twice daily Lung nodule/adenopathy noticed on imaging: This could be infectious, inflammatory, benign or malignant. Follow-up required with pulmonary medicine once infection is treated. CBC in a.m. Telemetry echo completed (6) Anxiety disorder: Status: Acute Assessment and plan: Continue home med regimen (7) AIHA (autoimmune hemolytic anemia): Status: Acute Assessment and plan: Post conversation with Dr. Valladares from [facility]?no acute stress dose steroid. As per report the patient also had a splenectomy and this might account for jaundiced sclera skin and sclera in the setting of the AIHA. Continue to monitor with lab trending Continue to treat infection (8) Tobacco abuse: Status: Acute Assessment and plan: Transdermal nicotine replacement therapy (9) Methadone dependence: Status: Acute Assessment and plan: Patient on daily methadone therapy Continue dosing as per outpatient treatment (10) Hypomagnesemia: Status: Acute Assessment and plan: Replete and follow (11) QT prolongation: Status: Acute Assessment and plan: Will administer 2 mg IV magnesium continue to monitor (12) Discharge planning issues: Status: Acute Assessment and plan: Discharge home when medically clear Pulmonary referral needed on discharge Follow-up with specialty providers Discussed with Dr. Ward Subjective Subjective Patient reports: no new complaints, feels better, tolerating liquids well, tolerating a regular diet, shortness of breath and afebrile Exam Narrative Exam Narrative: Frail-appearing chronically ill-appearing older than stated age cachectic head atraumatic eyes nonicteric noninjected oral mucosa slightly dry neck full range of motion no meningeal signs no JVD cardiovascular regular rate and rhythm respirations are even and unlabored he is diminished throughout no wheezing occasional coarse scattered breath sounds abdomen flat moves all extremities no peripheral edema Objective Last Vital Signs Temp 36.4 C L 06/25/24 11:06 Pulse 81 06/25/24 12:21 Resp 16 06/25/24 11:06 BP 125/60 06/25/24 11:06 Pulse Ox 90 L 06/25/24 11:06 PAWSS Have you Been Recently Intoxicated or Drunk Within the Last 30 days?: Yes Have you Ever Experienced Previous Episodes of Alcohol Withdrawal?: No Have you ever Experienced Withdrawal Seizures?: No Have you ever Experienced Delirium Tremens(DT)s?: No Have you ever undergone Alcohol Rehabilitation Treatment (i.e, inpt ot outpatient treatment programs)?: No Have you ever Experienced Blackouts?: No Have you ever Combined Alcohol with other Downers within the last 90 days?: No Have you ever Combined Alcohol with any other Substance of Abuse during the last 90 days?: No Positive Blood Alcohol level on Presentation? [PCS.BAL]: Unable to Obtain Evidence of Increased Autonomic Activity (i.e. HR>120, tremor, sweating, agitation, nausea)?: No Result: 1 Time Spent with Patient Time Spent with Patient: 35-49 minutes Time was spent: preparing to see the patient(eg.review tests), obtaining and/or reviewing separately otained hiistory, ordering medications,tests, procedures, referring, communicating with other health animal care worker and indepentently interpreting results
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
[2024-06-25] MEDS: MAGNESIUM SULFATE 2 GM/50 ML BAG IV_INF (14:52)
[2024-06-25 15:27] LABS: Magnesium 1.9 mg/dL (1.8-2.4)
[2024-06-25] MEDS: Senna TAB 1 TAB PO (21:40)
[2024-06-25] MEDS: Magnesium Oxide 400 MG TAB PO (21:41)
[2024-06-25] MEDS: Mirtazapine 15 MG TAB 30 MG PO (21:41)
[2024-06-25] MEDS: Albuterol/Ipratropium 3 ML UPD VIAL UPD (21:55)
[2024-06-25 22:19] LABS: Legionella Ag Detection Urine Negative (Negative)
[2024-06-26] VITALS (10 sets, daily range): BP systolic 103–137; BP diastolic 46–59; PULSE 65–75; RESP 15–20; TEMP 35.8–36.7; O2SAT 89–97
[2024-06-26 06:45] LABS: Abs Immature Grans 0.22 10^3/uL (0.0-0.06); Absolute Lymphocyte Count 3.68 10^3/uL (1.2-3.4); Absolute Monocyte Count 3.17 10^3/uL (0.1-0.8); Basophils % 0.6 %; Eosinophils % 3.3 %; HCT 26.5 % (40.0-50.0); HGB 8.4 g/dL (13.5-17.5); Immature Grans % 0.8 %; Lymphocytes % 12.9 %; MCH 31.6 pg (27.0-33.0); MCHC 31.7 % (32.0-36.0); MCV 100 fL (80-95); MPV 10.8 fL (8.0-11.0); Monocytes % 11.1 %; Neutrophils % 71.3 %; Nucleated RBC 2.4 % (0.0-0.3); Platelet Count 437 10^3/uL (130-400); RBC 2.66 10^6/uL (4.36-5.78); RDW 20.9 % (11.8-14.1); RDW-SD 64.5 fL
[2024-06-26 06:50] LABS: Absolute Basophil Count 0.17 10^3/uL (0.0-0.2); Absolute Eosinophil Count 0.94 10^3/uL (0.0-0.7); Absolute Neutrophil Count 20.34 10^3/uL (1.2-6.7)
[2024-06-26 06:55] LABS: Anion Gap 5.4 mmol/L (3-11); BUN 18 mg/dL (7-18); CO2 32.6 mmol/L (21.0-32.0); CREATININE 0.9 mg/dL (0.70-1.30); Calcium 9.1 mg/dL (8.5-10.1); Chloride 104 mmol/L (98-107); Estimated GFR 91.88 (mL/min/1.73m2); Glucose 81 mg/dL (74-106); Potassium 3.4 mmol/L (3.5-5.1); Sodium 142 mmol/L (136-145)
[2024-06-26 07:05] LABS: Anisocytosis 2+; Diff Comment Diff Reviewed; Polychromasia Present; WBC 28.53 10^3/uL (4.4-10.8)
[2024-06-26] MEDS: Tiotropium/Olodaterol 10 PUFF INHALER 2 PUFF IH (07:47)
[2024-06-26] MEDS: Calcium Carbonate *TUMS* 500 MG CHEW PO (07:58)
[2024-06-26] MEDS: Omeprazole 20 MG CAPCR PO (07:59)
[2024-06-26] MEDS: Furosemide 20 MG/2 ML VIAL IVP (07:59)
[2024-06-26] MEDS: Gabapentin 300 MG CAP PO ×3 (08:00→19:59)
[2024-06-26] MEDS: Potassium Chloride 20 MEQ TABCR PO (08:00)
[2024-06-26] MEDS: DULoxetine 30 MG CAP 60 MG PO (08:00)
[2024-06-26] MEDS: Multivitamin TAB 1 TAB PO (08:01)
[2024-06-26] MEDS: guaiFENesin 600 MG TABCR PO ×2 (08:01→20:02)
[2024-06-26] MEDS: Folic Acid 1 MG TAB PO (08:01)
[2024-06-26] MEDS: Benzonatate 100 MG CAP PO ×3 (08:01→20:02)
[2024-06-26] MEDS: predniSONE 10 MG TAB PO (08:01)
[2024-06-26] MEDS: Thiamine 100 MG TAB PO (08:01)
[2024-06-26] MEDS: Lisinopril 5 MG TAB PO (08:02)
[2024-06-26] MEDS: Methadone Liquid 10 MG/ML 130 MG PO (08:12)
[2024-06-26] MEDS: DOXYCYCLINE 100 MG in Normal Saline 100 ML IVPB (10:07)
[2024-06-26] MEDS: Normal Saline Flush 10 ML SYR IVP (12:20)
[2024-06-26] MEDS: Enoxaparin 60 MG/0.6 ML SYR SC ×2 (12:30→23:28)
--- NOTE | 2024-06-26 12:42 | NUR.NOTE ---
Nursing Note: RE 06/25/24 Upon administration of Magnesium, co-signer/ charge nurse observed no recent mag level drawn. Per charge direction Magnesium held until STAT lab draw was obtained. Provider notified.
[2024-06-26 13:29] LABS: *AMPHETAMINES SCREEN URINE Negative (Negative); *BARBITURATES SCREEN URINE Negative (Negative); *BENZODIAZEPINES SCREEN URINE Negative (Negative); Cannabinoids THC Negative (Negative); Cocaine Screen,Urine Negative (Negative); METHADONE URINE SCREEN Positive (Negative); OPIATES URINE SCREEN Negative (Negative)
[2024-06-26 13:40] LABS: Tricyclic Antidepressants Negative (Negative)
--- NOTE | 2024-06-26 14:18 | W.PM.PROGNOT ---
Date of Service Date of service: 06/26/24 Time of Service: 14:18 Assessment and Plan Assessment and plan (1) Sepsis: Status: Resolved Assessment and plan: Patient presenting with respiratory rate over 22, tachycardia over 90 with probable source of infection being the community-acquired pneumonia as per chest imaging. Resolved with symptoms markedly improved (2) Pneumonia: Status: Acute Assessment and plan: Continue treatment with IV doxycycline and IV ceftriaxone day 3 of 5, will downstep to oral doxy and augmentin as he lost IV access today I-S, Acapella As needed neb treatments Mucinex Derian Graham (3) COPD (chronic obstructive pulmonary disease): Status: Chronic Assessment and plan: Continue home medicines. The patient did report increased sputum production as well as green-colored sputum but was unable to correlate the duration or origin of the change in color. Patient is already on daily prednisone 10 mg; at this time as per Dr. Valladares recommendation we will not administer any bursal steroids. (4) CHF (congestive heart failure): Status: Chronic Assessment and plan: History of CHF on oral Lasix at home daily and ongoing leg swelling?BNP higher than usual at 4500, the patient could have had a oxygen requirement due to both pneumonia and pulmonary emboli. Will nevertheless use low-dose IV Lasix at this time and reevaluate in the morning. BMP in a.m. Mag in a.m. Echo completed with LVEF at 55% without hypokinesis or PFO and RVSP at 57 mmHg (5) Pulmonary embolism: Status: Chronic Assessment and plan: As per CTA and symptomatology and treatment discussed with [facility] [place] Dr. VELEZ. The patient developed pulmonary embolism while on Xarelto Continue Lovenox 60 mg SC twice daily Lung nodule/adenopathy noticed on imaging: This could be infectious, inflammatory, benign or malignant. Follow-up required with pulmonary medicine once infection is treated. CBC in a.m. Telemetry echo completed (6) Anxiety disorder: Status: Acute Assessment and plan: Continue home med regimen (7) AIHA (autoimmune hemolytic anemia): Status: Acute Assessment and plan: Post conversation with Dr. Valladares from [facility]?no acute stress dose steroid. As per report the patient also had a splenectomy and this might account for jaundiced sclera skin and sclera in the setting of the AIHA. Continue to monitor with lab trending Continue to treat infection (8) Tobacco abuse: Status: Acute Assessment and plan: Transdermal nicotine replacement therapy (9) Methadone dependence: Status: Acute Assessment and plan: Patient on daily methadone therapy, 130 mg but has appeared oversedated the past 2 days, ? he's not taking full 130 mg daily at home, ? he's taking other substances, will check urine drug screen split daily methodone to 65 mg po BID, keeping total dosing as per outpatient treatment (10) Hypomagnesemia: Status: Acute Assessment and plan: Replete and follow (11) QT prolongation: Status: Acute Assessment and plan: Will administer 2 mg IV magnesium continue to monitor (12) Discharge planning issues: Status: Acute Assessment and plan: Discharge home when medically clear Pulmonary referral needed on discharge Follow-up with specialty providers Discussed with Dr. Jacinto Subjective Subjective Patient reports: tolerating liquids well, tolerating a regular diet and afebrile; denies shortness of breath Interval history since last seen: Patient still requiring oxygen also has been noted to be oversedated for 2 days in a row now. His symptoms do wax and wane at times he is so sedate he cannot hold a drink in his hand and is spilling it all over himself at other times he is more awake. Last night he had an episode where he was extremely agitated and required lorazepam. does report this is his baseline and that he behaves like this at home as well Exam Narrative Exam Narrative: Chronically and acutely ill older than stated age skin is jaundice head is atraumatic neck with full range of motion no meningeal signs respirations are even and unlabored diminished throughout cardiovascular regular rate and rhythm abdomen is benign he moves all extremities no peripheral edema Objective Last Vital Signs Temp 36.4 C L 06/26/24 11:20 Pulse 65 06/26/24 11:10 Resp 20 06/26/24 11:10 BP 120/53 L 06/26/24 11:10 Pulse Ox 90 L 06/26/24 11:10 Laboratory Results - last 24 hr 06/25/24 06/26/24 06/26/24 15:11 06:15 13:04 WBC 28.53 H* RBC 2.66 L Hgb 8.4 L Hct 26.5 L MCV 100 H MCH 31.6 MCHC 31.7 L RDW 20.9 H Plt Count 437 H MPV 10.8 Immature Gran % 0.8 Neutrophils % 71.3 Lymphocytes % 12.9 Monocytes % 11.1 Eosinophils % 3.3 Basophils % 0.6 Nucleated RBC % 2.4 H Absolute Neutrophils 20.34 H Absolute Lymphocytes 3.68 H Absolute Monocytes 3.17 H Absolute Eosinophils 0.94 H Absolute Basophils 0.17 RBC Morphology See Below Polychromasia Present Anisocytosis 2+ Sodium 142 Potassium 3.4 L Chloride 104 Carbon Dioxide 32.6 H Anion Gap 5.4 BUN 18 Creatinine 0.9 Est GFR (CKD-EPI 2020) 91.88 Glucose 81 Calcium 9.1 Magnesium 1.9 Urine Opiates Screen Negative Urine Methadone Screen Positive A Ur Barbiturates Screen Negative Ur Tricyclics Screen Negative Ur Amphetamines Screen Negative U Benzodiazepines Scrn Negative Urine Cocaine Screen Negative Ur THC Screen Negative PAWSS Have you Been Recently Intoxicated or Drunk Within the Last 30 days?: Yes Have you Ever Experienced Previous Episodes of Alcohol Withdrawal?: No Have you ever Experienced Withdrawal Seizures?: No Have you ever Experienced Delirium Tremens(DT)s?: No Have you ever undergone Alcohol Rehabilitation Treatment (i.e, inpt ot outpatient treatment programs)?: No Have you ever Experienced Blackouts?: No Have you ever Combined Alcohol with other Downers within the last 90 days?: No Have you ever Combined Alcohol with any other Substance of Abuse during the last 90 days?: No Positive Blood Alcohol level on Presentation? [PCS.BAL]: Unable to Obtain Evidence of Increased Autonomic Activity (i.e. HR>120, tremor, sweating, agitation, nausea)?: No Result: 1 Time Spent with Patient Time Spent with Patient: 35-49 minutes Time was spent: preparing to see the patient(eg.review tests), obtaining and/or reviewing separately otained hiistory, ordering medications,tests, procedures, referring, communicating with other health toddler caregiver, indepentently interpreting results and counseling the patient
[2024-06-26] MEDS: Furosemide 20 MG TAB PO (18:37)
[2024-06-26] MEDS: Amoxicillin 875/Clav. 125 TAB PO (19:59)
[2024-06-26] MEDS: Mirtazapine 15 MG TAB 30 MG PO (20:00)
[2024-06-26] MEDS: Magnesium Oxide 400 MG TAB PO (20:00)
[2024-06-26] MEDS: Potassium Chloride 20 MEQ TABCR 40 MEQ PO (20:01)
[2024-06-26] MEDS: Doxycycline Hyclate 100 MG CAP PO (20:02)
[2024-06-26] MEDS: Senna TAB 1 TAB PO (20:02)
[2024-06-26] MEDS: LORazepam 0.5 MG TAB PO (20:10)
[2024-06-27] VITALS (8 sets, daily range): BP systolic 116–140; BP diastolic 52–75; PULSE 68–76; RESP 16–98; TEMP 36.3–37.1; O2SAT 88–95
[2024-06-27 06:58] LABS: Abs Immature Grans 0.26 10^3/uL (0.0-0.06); HCT 24.1 % (40.0-50.0); HGB 7.6 g/dL (13.5-17.5); MCH 32.1 pg (27.0-33.0); MCHC 31.5 % (32.0-36.0); MCV 102 fL (80-95); Platelet Count 450 10^3/uL (130-400); RBC 2.37 10^6/uL (4.36-5.78); RDW 20.5 % (11.8-14.1); RDW-SD 69.1 fL; WBC 22.73 10^3/uL (4.4-10.8)
[2024-06-27 07:13] LABS: Anion Gap 0.5 mmol/L (3-11); BUN 15 mg/dL (7-18); CO2 34.5 mmol/L (21.0-32.0); CREATININE 0.8 mg/dL (0.70-1.30); Calcium 9.2 mg/dL (8.5-10.1); Chloride 107 mmol/L (98-107); Estimated GFR 95.21 (mL/min/1.73m2); Glucose 79 mg/dL (74-106); Potassium 3.7 mmol/L (3.5-5.1); Sodium 142 mmol/L (136-145)
[2024-06-27 07:26] LABS: Absolute Basophil Count 0.23 10^3/uL (0.0-0.2); Absolute Eosinophil Count 0.45 10^3/uL (0.0-0.7); Absolute Lymphocyte Count 3.41 10^3/uL (1.2-3.4); Absolute Monocyte Count 2.27 10^3/uL (0.1-0.8); Absolute Neutrophil Count 16.37 10^3/uL (1.2-6.7); Diff Comment Manual Differential
[2024-06-27 07:27] LABS: Anisocytosis 2+; Hypochromasia 2+
[2024-06-27] MEDS: Potassium Chloride 20 MEQ TABCR 40 MEQ PO ×2 (07:58→19:49)
[2024-06-27] MEDS: Omeprazole 20 MG CAPCR PO (07:58)
[2024-06-27] MEDS: DULoxetine 30 MG CAP 60 MG PO (07:58)
[2024-06-27] MEDS: Multivitamin TAB 1 TAB PO (07:58)
[2024-06-27] MEDS: Thiamine 100 MG TAB PO (07:58)
[2024-06-27] MEDS: Folic Acid 1 MG TAB PO (07:58)
[2024-06-27] MEDS: Amoxicillin 875/Clav. 125 TAB PO ×2 (07:58→19:49)
[2024-06-27] MEDS: Doxycycline Hyclate 100 MG CAP PO ×2 (07:58→19:49)
[2024-06-27] MEDS: Furosemide 20 MG TAB PO ×2 (07:59→16:01)
[2024-06-27] MEDS: Calcium Carbonate *TUMS* 500 MG CHEW PO (07:59)
[2024-06-27] MEDS: predniSONE 10 MG TAB PO (07:59)
[2024-06-27] MEDS: guaiFENesin 600 MG TABCR PO ×2 (07:59→19:50)
[2024-06-27] MEDS: Benzonatate 100 MG CAP PO ×3 (07:59→19:50)
[2024-06-27] MEDS: Lisinopril 5 MG TAB PO (07:59)
[2024-06-27] MEDS: Gabapentin 300 MG CAP PO ×3 (07:59→19:50)
[2024-06-27] MEDS: Methadone Liquid 10 MG/ML 65 MG PO ×2 (08:07→20:06)
[2024-06-27] MEDS: Tiotropium/Olodaterol 10 PUFF INHALER 2 PUFF IH (09:04)
[2024-06-27] MEDS: Enoxaparin 60 MG/0.6 ML SYR SC ×2 (11:25→23:41)
--- NOTE | 2024-06-27 12:12 | W.PM.PROGNOT ---
Date of Service Date of service: 06/27/24 Time of Service: 12:12 Assessment and Plan Assessment and plan (1) Sepsis: Status: Resolved Assessment and plan: Patient presenting with respiratory rate over 22, tachycardia over 90 with probable source of infection being the community-acquired pneumonia as per chest imaging. Resolved with symptoms markedly improved (2) Pneumonia: Status: Acute Assessment and plan: Continue treatment with IV doxycycline and IV ceftriaxone day 4 of 5, will downstep to oral doxy and augmentin as he lost IV access today I-S, Acapella As needed neb treatments Mucinex Derian Graham (3) COPD (chronic obstructive pulmonary disease): Status: Chronic Assessment and plan: Continue home medicines. The patient did report increased sputum production as well as green-colored sputum but was unable to correlate the duration or origin of the change in color. Patient is already on daily prednisone 10 mg; at this time as per Dr. Valladares recommendation we will not administer any bursal steroids. (4) CHF (congestive heart failure): Status: Chronic Assessment and plan: History of CHF on oral Lasix at home daily and ongoing leg swelling?BNP higher than usual at 4500, the patient could have had a oxygen requirement due to both pneumonia and pulmonary emboli. Will nevertheless use low-dose IV Lasix at this time and reevaluate in the morning. BMP in a.m. Mag in a.m. Echo completed with LVEF at 55% without hypokinesis or PFO and RVSP at 57 mmHg (5) Pulmonary embolism: Status: Chronic Assessment and plan: As per CTA and symptomatology and treatment [place] [facility] [place]. The patient developed pulmonary embolism while on Xarelto Continue Lovenox 60 mg SC twice daily Lung nodule/adenopathy noticed on imaging: This could be infectious, inflammatory, benign or malignant. Follow-up required with pulmonary medicine once infection is treated. CBC in a.m. Telemetry echo completed (6) Anxiety disorder: Status: Acute Assessment and plan: Continue home med regimen (7) AIHA (autoimmune hemolytic anemia): Status: Acute Assessment and plan: Post conversation [place] Vallada[place] [facility] [place]no acute stress dose steroid. As per report the patient also had a splenectomy and this might account for jaundiced sclera skin and sclera in the setting of the AIHA. Continue to monitor with lab trending Continue to treat infection (8) Tobacco abuse: Status: Acute Assessment and plan: Transdermal nicotine replacement therapy (9) Methadone dependence: Status: Acute Assessment and plan: Patient on daily methadone therapy, 130 mg but has appeared oversedated the past 2 days, ? he's not taking full 130 mg daily at home, ? he's taking other substances, urine drug screen only positive for methadone trial split daily methodone to 65 mg po BID, keeping total dosing as per outpatient treatment (10) Hypomagnesemia: Status: Acute Assessment and plan: Replete and follow (11) QT prolongation: Status: Acute Assessment and plan: received 2 mg IV magnesium, continue to monitor (12) Discharge planning issues: Status: Acute Assessment and plan: Discharge home when medically clear Pulmonary referral needed on discharge Follow-up with specialty providers Discussed with Dr. Jacinto Subjective Subjective Patient reports: no new complaints, tolerating liquids well, tolerating a regular diet, shortness of breath and afebrile Interval history since last seen: Continues to remain hypoxic with oxygen requirements. Reports slow improvement in his symptoms clinically. Still with cough. No abdominal pain nausea or vomiting Exam Narrative Exam Narrative: Chronically and acutely ill older than stated age skin is yellowish/pale, head is atraumatic neck with full range of motion no meningeal signs respirations are even and unlabored diminished throughout cardiovascular regular rate and rhythm abdomen is benign he moves all extremities no peripheral edema neurologic alert awake and more interactive today, psychiatric appropriate mood and affect Objective Last Vital Signs Temp 36.9 C 06/27/24 11:25 Pulse 76 06/27/24 11:25 Resp 18 06/27/24 11:25 BP 119/75 06/27/24 11:25 Pulse Ox 93 06/27/24 11:25 Laboratory Results - last 24 hr 06/24/24 06/26/24 06/27/24 23:20 13:04 06:17 WBC 22.73 H RBC 2.37 L Hgb 7.6 L Hct 24.1 L MCV 102 H MCH 32.1 MCHC 31.5 L RDW 20.5 H Plt Count 450 H MPV 11.0 Immature Gran % See Differential Neutrophils % 72.0 Lymphocytes % 15.0 Monocytes % 10.0 Eosinophils % 2.0 Basophils % 1.0 Nucleated RBC % 3.0 H Absolute Neutrophils 16.37 H Absolute Lymphocytes 3.41 H Absolute Monocytes 2.27 H Absolute Eosinophils 0.45 Absolute Basophils 0.23 H RBC Morphology See Below Hypochromasia 2+ Anisocytosis 2+ Sodium 142 Potassium 3.7 Chloride 107 Carbon Dioxide 34.5 H Anion Gap 0.5 L BUN 15 Creatinine 0.8 Est GFR (CKD-EPI 2020) 95.21 Glucose 79 Calcium 9.2 Urine Opiates Screen Negative Urine Methadone Screen Positive A Ur Barbiturates Screen Negative Ur Tricyclics Screen Negative Ur Amphetamines Screen Negative U Benzodiazepines Scrn Negative Urine Cocaine Screen Negative Ur THC Screen Negative Urine Legionella Ag Negative PAWSS Have you Been Recently Intoxicated or Drunk Within the Last 30 days?: Yes Have you Ever Experienced Previous Episodes of Alcohol Withdrawal?: No Have you ever Experienced Withdrawal Seizures?: No Have you ever Experienced Delirium Tremens(DT)s?: No Have you ever undergone Alcohol Rehabilitation Treatment (i.e, inpt ot outpatient treatment programs)?: No Have you ever Experienced Blackouts?: No Have you ever Combined Alcohol with other Downers within the last 90 days?: No Have you ever Combined Alcohol with any other Substance of Abuse during the last 90 days?: No Positive Blood Alcohol level on Presentation? [PCS.BAL]: Unable to Obtain Evidence of Increased Autonomic Activity (i.e. HR>120, tremor, sweating, agitation, nausea)?: No Result: 1 Time Spent with Patient Time Spent with Patient: 25-34 minutes Time was spent: preparing to see the patient(eg.review tests), obtaining and/or reviewing separately otained hiistory, indepentently interpreting results and counseling the patient
--- NOTE | 2024-06-27 13:31 | CMPROGNOTE_ITS ---
Date of service: 06/27/24 Time of Service: 13:31 Care Management Progress Note Progress Note Text Progress Note Text: Franc was up in the bedside chair when CM met with him today. He was very pleasant, he was dressed in his street clothes. He said he is feeling a bit better, is still getting SOB pretty easily, however. He asked if he could get a portable O2 tank so that he can walk around the unit. Currently Franc is requiring 1L of nc O2. He stated that he is getting kind of bored. Nursing was notified of this request. Discharge Potential Discharge Needs: PCP F/U Appt Anticipated Barriers to Discharge: None Identified Patient/Family Education Needs: Review discharge instructions, discuss Ask Me Three Transportation: Private vehicle Plan: Anticipate that Franc will discharge home once medically stable. It is unknown at this time if he will require home O2. Franc will f/u with his PCP and continue per his prescribed plan of care. He will transport home in a private vehicle. CM will continue to follow. Social Determinants of Health Screening Social Determinants of Health last assessed: 06/27/24 Will the Patient Participate in the Screening?: Yes Do you worry about having a steady place to live?: no Problems where you live: no known problems In the past 12 months, have you had to go without electric, gas, oil or water in your home?: no Have you or anyone in your house had to go without enough food to eat?: no Has lack of transportation kept you from medical appointments or from doing things needed for daily living?: no Has anyone in your life made you feel unsafe or unsupported?: yes How hard is it for you to pay for the very basics like food, housing, medical care, and heating? Would you say it is:: Not hard at all Do you want help finding or keeping work or a job?: I do not need or want help If for any reason you need help with day-to-day activities such as bathing, preparing meals, shopping, managing finances, etc., do you get the help you need?: I don?t need any help How often do you feel lonely or isolated from those around you?: Never Do you speak a language other than [place] at home?: No Does the patient want assistance with any of the above?: No
[2024-06-27] MEDS: LORazepam 0.5 MG TAB PO (19:49)
[2024-06-27] MEDS: Magnesium Oxide 400 MG TAB PO (19:49)
[2024-06-27] MEDS: Mirtazapine 15 MG TAB 30 MG PO (19:49)
[2024-06-27] MEDS: Senna TAB 1 TAB PO (19:50)
[2024-06-28] VITALS (7 sets, daily range): BP systolic 112–136; BP diastolic 49–60; PULSE 67–93; RESP 16–20; TEMP 36.3–37.1; O2SAT 85–97
[2024-06-28] MEDS: Omeprazole 20 MG CAPCR PO (07:35)
[2024-06-28] MEDS: Calcium Carbonate *TUMS* 500 MG CHEW PO (08:17)
[2024-06-28] MEDS: Furosemide 20 MG TAB PO (08:18)
[2024-06-28] MEDS: Potassium Chloride 20 MEQ TABCR 40 MEQ PO (08:18)
[2024-06-28] MEDS: Multivitamin TAB 1 TAB PO (08:18)
[2024-06-28] MEDS: Amoxicillin 875/Clav. 125 TAB PO (08:19)
[2024-06-28] MEDS: predniSONE 10 MG TAB PO (08:19)
[2024-06-28] MEDS: Doxycycline Hyclate 100 MG CAP PO (08:19)
[2024-06-28] MEDS: Lisinopril 5 MG TAB PO (08:19)
[2024-06-28] MEDS: Benzonatate 100 MG CAP PO ×2 (08:19→14:12)
[2024-06-28] MEDS: guaiFENesin 600 MG TABCR PO (08:19)
[2024-06-28] MEDS: Folic Acid 1 MG TAB PO (08:19)
[2024-06-28] MEDS: Thiamine 100 MG TAB PO (08:19)
[2024-06-28] MEDS: Methadone Liquid 10 MG/ML 65 MG PO (08:20)
[2024-06-28] MEDS: DULoxetine 30 MG CAP 60 MG PO (08:20)
[2024-06-28] MEDS: Gabapentin 300 MG CAP PO ×2 (08:20→14:12)
[2024-06-28] MEDS: Tiotropium/Olodaterol 10 PUFF INHALER 2 PUFF IH (08:39)
--- NOTE | 2024-06-28 09:38 | W.PM.PROGNOT ---
Date of Service Date of service: 06/28/24 Time of Service: 09:38 Assessment and Plan Assessment and plan (1) Sepsis: Status: Resolved Assessment and plan: Patient presenting with respiratory rate over 22, tachycardia over 90 with probable source of infection being the community-acquired pneumonia as per chest imaging. Resolved with symptoms markedly improved (2) Pneumonia: Status: Acute Assessment and plan: Continue treatment with IV doxycycline and IV ceftriaxone day 4 of 5, will downstep to oral doxy and augmentin as he lost IV access today I-S, Acapella As needed neb treatments Mucinex Derian Graham (3) COPD (chronic obstructive pulmonary disease): Status: Chronic Assessment and plan: Continue home medicines. The patient did report increased sputum production as well as green-colored sputum but was unable to correlate the duration or origin of the change in color. Patient is already on daily prednisone 10 mg; at this time as per Dr. Valladares recommendation we will not administer any bursal steroids. (4) CHF (congestive heart failure): Status: Chronic Assessment and plan: History of CHF on oral Lasix at home daily and ongoing leg swelling?BNP higher than usual at 4500, the patient could have had a oxygen requirement due to both pneumonia and pulmonary emboli. Will nevertheless use low-dose IV Lasix at this time and reevaluate in the morning. BMP in a.m. Mag in a.m. Echo completed with LVEF at 55% without hypokinesis or PFO and RVSP at 57 mmHg (5) Pulmonary embolism: Status: Chronic Assessment and plan: As per CTA and symptomatology and treatment discussed with [facility] [place] hemat[place] Dr. VELEZ. The patient developed pulmonary embolism while on Xarelto Continue Lovenox 60 mg SC twice daily Lung nodule/adenopathy noticed on imaging: This could be infectious, inflammatory, benign or malignant. Follow-up required with pulmonary medicine once infection is treated. CBC in a.m. Telemetry echo completed (6) Anxiety disorder: Status: Acute Assessment and plan: Continue home med regimen (7) AIHA (autoimmune hemolytic anemia): Status: Acute Assessment and plan: Post conversation with Dr. Valladares from [facility] [place]?no acute stress dose steroid. As per report the patient also had a splenectomy and this might account for jaundiced sclera skin and sclera in the setting of the AIHA. Continue to monitor with lab trending Continue to treat infection (8) Tobacco abuse: Status: Acute Assessment and plan: Transdermal nicotine replacement therapy (9) Methadone dependence: Status: Acute Assessment and plan: Patient on daily methadone therapy, 130 mg but has appeared oversedated the past 2 days, ? he's not taking full 130 mg daily at home, ? he's taking other substances, urine drug screen only positive for methadone trial split daily methodone to 65 mg po BID, keeping total dosing as per outpatient treatment (10) Hypomagnesemia: Status: Acute Assessment and plan: Replete and follow (11) QT prolongation: Status: Acute Assessment and plan: received 2 mg IV magnesium, continue to monitor (12) Discharge planning issues: Status: Acute Assessment and plan: Discharge home when medically clear Pulmonary referral needed on discharge Follow-up with specialty providers Discussed with Dr. Jacinto Objective Last Vital Signs Temp 37.1 C 06/28/24 07:55 Pulse 70 06/28/24 07:55 Resp 16 06/28/24 07:55 BP 129/59 L 06/28/24 07:55 Pulse Ox 93 06/28/24 08:41 PAWSS Have you Been Recently Intoxicated or Drunk Within the Last 30 days?: Yes Have you Ever Experienced Previous Episodes of Alcohol Withdrawal?: No Have you ever Experienced Withdrawal Seizures?: No Have you ever Experienced Delirium Tremens(DT)s?: No Have you ever undergone Alcohol Rehabilitation Treatment (i.e, inpt ot outpatient treatment programs)?: No Have you ever Experienced Blackouts?: No Have you ever Combined Alcohol with other Downers within the last 90 days?: No Have you ever Combined Alcohol with any other Substance of Abuse during the last 90 days?: No Positive Blood Alcohol level on Presentation? [PCS.BAL]: Unable to Obtain Evidence of Increased Autonomic Activity (i.e. HR>120, tremor, sweating, agitation, nausea)?: No Result: 1
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
[2024-06-28 10:49] LABS: HCT 28.4 % (40.0-50.0); HGB 8.9 g/dL (13.5-17.5); MCH 31.2 pg (27.0-33.0); MCHC 31.3 % (32.0-36.0); MCV 100 fL (80-95); MPV 10.6 fL (8.0-11.0); RBC 2.85 10^6/uL (4.36-5.78); RDW 19.9 % (11.8-14.1); RDW-SD 65.7 fL; WBC 21.16 10^3/uL (4.4-10.8)
[2024-06-28 10:55] LABS: Anion Gap 1.7 mmol/L (3-11); BUN 14 mg/dL (7-18); CO2 33.3 mmol/L (21.0-32.0); CREATININE 0.8 mg/dL (0.70-1.30); Calcium 9.2 mg/dL (8.5-10.1); Chloride 104 mmol/L (98-107); Estimated GFR 95.21 (mL/min/1.73m2); Glucose 87 mg/dL (74-106); Magnesium 1.5 mg/dL (1.8-2.4); Potassium 4.6 mmol/L (3.5-5.1); Sodium 139 mmol/L (136-145)
[2024-06-28 11:08] LABS: Absolute Basophil Count 0.42 10^3/uL (0.0-0.2); Absolute Eosinophil Count 0.85 10^3/uL (0.0-0.7); Absolute Lymphocyte Count 4.23 10^3/uL (1.2-3.4); Absolute Neutrophil Count 13.54 10^3/uL (1.2-6.7); Atypical Lymphocytes % 1 %; Bands % 1 %; Platelet Count 524 10^3/uL (130-400)
[2024-06-28 11:09] LABS: Anisocytosis 3+; Diff Comment Manual Differential; Hypochromasia 1+; Myelocytes % 1; Polychromasia Present
[2024-06-28] MEDS: Enoxaparin 60 MG/0.6 ML SYR SC (12:10)
--- NOTE | 2024-06-28 15:16 | PDOC.HHF2F ---
Home Health Referral Home Health Orders Clinical synopsis of why skilled professionals are needed: This 68 years old male patient with a past medical history of not oxygen dependent COPD, pulmonary hypertension, hepatitis C, splenectomy, current tobacco abuse, pulmonary emboli, CHF, autoimmune hemolytic anemia presented to the ED at [facility] for evaluation of worsening shortness of breath starting few days ago, productive cough with ongoing fatigue. On arrival to the ED the patient displayed tachypnea at 24 and hypoxia with a saturation oxygen at 68% but was responsive to oxygen therapy. The patient remained normotensive, tachycardia with a heart rate of 100 and afebrile. Emergency room workup was significant for WBC at 38.29, H&H at 9.4 and 30.8, D-dimer at 1620 and magnesium at 1.7. BNP was 4500. Chest CTA was positive is positive for the presence of small peripheral intraluminal pulmonary emboli in the right middle and right lower lobes right ilium adenopathy,pleural based infiltrates in left lower lobe and left upper lobe superimposed upon emphysematous changes. Chest x-ray showed new nodular density measuring 9 mm projected over the mid-lower right lung field, larger than previous.The ED provider discussed the case with Dr. Frost at [facility] [place] with recommendation for treatment with Lovenox at 1mg/kg SC twice daily. Dr. Frost recommended to discuss the case with Dr. Valladares regarding treatment for hemolytic anemia with ongoing PE for which no recommendation for steroids burst or rituximab were made. Recommendations were for trending labs and treating the infection. Hospitalist team admitted to the medical surgical floor with telemetry for pulmonary embolism, sepsis in the setting of community acquired pneumonia,CHF, hypomagnesemia, hypoxemia, anemia in the setting of autoimmune hemolytic anemia history . During the stay, the patient continued to be treated with Lovenox 60 mg subcutaneous twice a day. The patient received IV antibiotic treatment initially with furhter transition to oral doxycycline and Augmentin and course completion outpatient. Blood cultures were negative X 96 hours, sputum Gram stain normal with mycoplasma and streptococcus pneumonia results pending. H&H remained stable at 8.69 & 28.4 with resolution of oxygen requirement s/p evaluation by RT services.The patient will be discharge home with home health nursing as he will need ongoing teaching for Lovenox injection and monitoring for worsening of condition. An Echocardiogram was completed and showed an LVEF at 55% without hypokinesis or PFO with a RVSP at 57 mmHg. Imaging revealed no DVT. The patient was treated with an increased dose of Furosemide and will resume home dosage on discharge. The patient will require a pulmonary medicine referral d/t new lung nodule findings. The patient will need to follow-up with his hematology medical practitioner regarding further management. The patient will need a PCP follow-up with 7 days of discharge. Discussed with Dr. Jacinto Medical diagnosis necessitation home health referral: PE, Pneumonia, autoimmune hemolytic anemia Registered Nurse: Check all that apply Instruct on new or changed medication(s)/assess compliance: Ordered Assess for exacerbation of medical condition, instruct patient/caregivers on signs and symptoms to report for early detection: Ordered Home Bound Status Describe why leaving home would require a considerable and taxing effort: Requires frequent rest periods (PE, pneumonia) Encounter Date and Reason: I certify that a FTF encounter for this patient was performed on June 28, 2024 and that such encounter was related to the primary reason the patient requires home health services. The encounter was conducted in the following manner: By me as the certifying physician, WINDER HELPER, PA or By an inpatient physician, WINDER HELPER or PA during an inpatient stay who communicated findings to me, Certification And Authentication I certify that I composed the above information based on my clinical judgment relating to this patient's medical condition and, if applicable, clinical findings communicated to me by the NPP or inpatient physician who performed the FTF encounter. Name of Provider that will be monitoring home health services: Jose Luis Redmond
--- NOTE | 2024-06-28 15:32 | CMDISCH_ITS ---
Date of service: 06/28/24 Time of Service: 15:32 LACE Index Scoring Tool Questions: Length of Stay (in days): 4 - 6 Was the patient admitted via the E.D.?: Yes Comorbidities: Congestive Heart Failure and Chronic Pulmonary Disease E.D. Visits: 1 Answers: Total Score: 13 Risk of Readmission: High Risk Care Management Discharge Plan Reason for Hospitalization: SOB, cough and fatigue Found to be septic, small pulmonary embolism, O2 requirement Discharge Plan: Franc was discharged home today with new orders for oral antibiotics and enoxaprin. He also has new orders for HH RN to check his respiratory status and also to teach how to give the enoxaprin, which is a subQ injection. He will f/u with his PCP on 07/06/24, continue per his plan of care, and transport home with his partner. Franc was given a note written by this CM to give to his methadone provider indicating why his home methadone will have extra doses - missed due to hospitalization, [facility] provided. Patient/Family Education Needs: Review of discharge instructions, activity, limitations and f/u plan. Discuss ask me three [facility] Health Related Social Needs: No Data to Display
[2024-06-28 15:56] LABS: Streptococcus Pneumoniae Ag, U Negative (Negative)
[2024-06-29 14:36] LABS: Mycoplasma Pneumoniae PCR Negative (Negative); Specimen source sputum
--- NOTE | 2024-06-30 11:11 | SUR.INTRAOP ---
In chart for quality/documentation review
== END 2024-06-28 15:31 | disposition home health service (06) | DRG 871 ==
LOC: ER 16:59 → MS 17:43
PROVIDERS: Nurse Practitioner Acute Care; Admitting Provider Hospitalist; Emergency Provider Student in an Organized Health Care Education/Training Program; PCP Nurse Practitioner Family; Visit Provider Hospitalist
DX: A41.9 Sepsis, unspecified organism (principal); J18.9 Pneumonia, unspecified organism; J44.0 Chronic obstructive pulmonary disease with (acute) lower respiratory infection; D59.10 Autoimmune hemolytic anemia, unspecified; F11.20 Opioid dependence, uncomplicated; I27.82 Chronic pulmonary embolism; I50.30 Unspecified diastolic (congestive) heart failure; E83.42 Hypomagnesemia; R91.1 Solitary pulmonary nodule; F41.9 Anxiety disorder, unspecified; F17.210 Nicotine dependence, cigarettes, uncomplicated; I27.20 Pulmonary hypertension, unspecified; Z90.81 Acquired absence of spleen; R59.0 Localized enlarged lymph nodes; R09.02 Hypoxemia; Z79.01 Long term (current) use of anticoagulants; G25.0 Essential tremor; E78.00 Pure hypercholesterolemia, unspecified; G47.00 Insomnia, unspecified; N48.6 Induration penis plastica; Z66 Do not resuscitate; I11.0 Hypertensive heart disease with heart failure; I45.81 Long QT syndrome
CPT/HCPCS: 00123; 36415; 71275; 80048; 80053; 80307; 87040; 87449; 87637; 93005; 94618; 94640; 96365; 96368; 96372; 99285; 71045; 83605; 83735; 83880; 84484; 85025; 85379; 87070; 87205; 87581; 87899; 93010; 93306; 93970; 94664; 94667; 94668; 94760; 99223; 99232; 99233; 99239; J0696; J1650; J1941; J3475; J7512; J7620

== ENCOUNTER 2024-08-12 00:39 | Outpatient (CLI) | payer MEDICARE, SELFPAY ==
[2024-08-12 13:00] LABS: ALT 30 U/L (16-63); AST 59 U/L (15-37); Albumin 3.3 g/dL (3.4-5.0); Alkaline Phosphatase 90 U/L (46-116); BUN 20 mg/dL (7-18); CREATININE 0.9 mg/dL (0.70-1.30); Calcium 9.6 mg/dL (8.5-10.1); Chloride 102 mmol/L (98-107); Estimated GFR 91.31 (mL/min/1.73m2); Glucose 124 mg/dL (74-106); Potassium 4.1 mmol/L (3.5-5.1); Sodium 141 mmol/L (136-145); Total Protein 7.2 g/dL (6.4-8.2)
[2024-08-12 13:01] LABS: LDH 1046 U/L (85-227)
[2024-08-12 13:12] LABS: Bilirubin, Total 2.25 mg/dL (0.2-1.0)
[2024-08-12 14:03] LABS: HCT 32.5 % (40.0-50.0); MCH 30.3 pg (27.0-33.0); MCHC 30.8 % (32.0-36.0); MCV 99 fL (80-95); MPV 10.4 fL (8.0-11.0); Platelet Count 585 10^3/uL (130-400); RDW 20.6 % (11.8-14.1); RDW-SD 65.1 fL
[2024-08-12 14:04] LABS: Absolute Lymphocyte Count 5.53 10^3/uL (1.2-3.4); Absolute Monocyte Count 2.99 10^3/uL (0.1-0.8); Absolute Neutrophil Count 14.51 10^3/uL (1.2-6.7)
[2024-08-12 14:05] LABS: Atypical Lymphocytes % 0 %; Bands % 0 %
[2024-08-12 14:07] LABS: Diff Comment Manual Differential; Howell-Jolly Bodies 2+
[2024-08-12 14:08] LABS: Anisocytosis 2+; Polychromasia Present
[2024-08-12 14:15] LABS: WBC 23.03 10^3/uL (4.4-10.8)
[2024-08-16 10:13] LABS: Reticulocyte Count 16.1 % (0.5-2.5)
== END 2024-08-12 00:40 | disposition home or self-care (01) ==
LOC: LBO 00:39
PROVIDERS: PCP Nurse Practitioner Family; Visit Provider Internal Medicine Hematology & Oncology
DX: D59.10 Autoimmune hemolytic anemia, unspecified (principal)
CPT/HCPCS: 36415; 80053; 85045; 83615; 85025

== ENCOUNTER 2024-08-23 04:31 | Inpatient (IN) | payer MEDICARE, SELFPAY ==
[2024-08-23] VITALS (155 sets, daily range): BP systolic 75–159; BP diastolic 24–123; PULSE 56–97; RESP 5–28; TEMP 36.4–37.1; O2SAT 68–98
--- NOTE | 2024-08-23 04:30 | RT.EKG_ITS ---
APPROVED REPORT Exam: Resting ECG Reason for Exam: short of breath Patient Location: E HR:90 bpm ECG Measurements Heart Rate 90 AXIS AR 169 P 55 QRSd 150 QRS -13 QT 418 T 87 QTc 511 Conclusion Sinus rhythm...normal P axis, V-rate 60- 99 Probable left atrial enlargement...P >50mS, <-0.10mV V1 Left bundle branch block...QRSd>120, broad/notched R ST elevation secondary to IVCD...Multiple VCG criteria
--- NOTE | 2024-08-23 04:45 | DI.RAD_ITS ---
Exam(s) XR PORTABLE CHEST AP EXAM: XR PORTABLE CHEST AP CLINICAL HISTORY: cough, shortness of breath. TECHNIQUE: 2D digital imaging was performed. COMPARISON: CT CT CHEST PE CTA from 06/24/2024 CR XR PORTABLE CHEST AP from 06/24/2024 FINDINGS: Single AP portable view. Heart size upper normal. Mediastinum is not widened. Infiltrate in the left lung is increased from previous, and indeed there is now extensive interstitia l and partially confluent infiltrates throughout both lung solitario. Blunting of left costophrenic ang le is unchanged from 06/24/2024. Slightly prominent right hilum is unchanged and recall in that rece nt CT scan June 2024 revealed right hilar adenopathy. Apical scarring bilaterally is again noted. COPD findings again noted. IMPRESSION: There are now extensive bilateral infiltrates with significant deterioration when compared to prior i mages of 06/24/2024. DATA REPOSITORY: RADIATION DOSE DELIVERED:
[2024-08-23] MEDS: Albuterol/Ipratropium 3 ML UPD VIAL UPD ×4 (04:46→20:53)
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
[2024-08-23] MEDS: methylPREDNISolone SUCC 125 MG VIAL IVP (05:16)
[2024-08-23 05:29] LABS: Abs Immature Grans 0.22 10^3/uL (0.0-0.06); HCT 30.3 % (40.0-50.0); HGB 9.3 g/dL (13.5-17.5); MCH 29.2 pg (27.0-33.0); MCHC 30.7 % (32.0-36.0); MCV 95 fL (80-95); MPV 10.5 fL (8.0-11.0); RBC 3.18 10^6/uL (4.36-5.78); RDW-SD 56.4 fL
[2024-08-23 05:52] LABS: ALT 32 U/L (16-63); AST 67 U/L (15-37); Alkaline Phosphatase 84 U/L (46-116); Anion Gap 7.5 mmol/L (3-11); BUN 20 mg/dL (7-18); Bilirubin, Total 2.04 mg/dL (0.2-1.0); CO2 33.5 mmol/L (21.0-32.0); Calcium 9.8 mg/dL (8.5-10.1); Chloride 99 mmol/L (98-107); Estimated GFR 80.47 (mL/min/1.73m2); Glucose 95 mg/dL (74-106); Magnesium 1.6 mg/dL (1.8-2.4); NT-proBNP 3390 pg/mL (<300); Potassium 4.9 mmol/L (3.5-5.1); Sodium 140 mmol/L (136-145); Total Protein 6.8 g/dL (6.4-8.2); Troponin I 19 ng/L (<or=76)
[2024-08-23 06:01] LABS: WBC 26.46 10^3/uL (4.4-10.8)
[2024-08-23 06:03] LABS: COVID-19 PCR Negative (Negative); Influenza A PCR Negative (Negative); Influenza B PCR Negative (Negative); RSV PCR Negative (Negative)
[2024-08-23 06:05] LABS: Source Nasopharynx
[2024-08-23 06:12] LABS: Absolute Neutrophil Count 19.85 10^3/uL (1.2-6.7)
[2024-08-23 06:13] LABS: Absolute Lymphocyte Count 3.18 10^3/uL (1.2-3.4); Absolute Monocyte Count 3.44 10^3/uL (0.1-0.8); Atypical Lymphocytes % 1 %; Diff Comment Manual Differential; Polychromasia Present
[2024-08-23 06:14] LABS: Platelet Count 466 10^3/uL (130-400)
--- NOTE | 2024-08-23 06:43 | DI.VRAD_ITS ---
PROCEDURE INFORMATION: Exam: XR Chest Exam date and time: 08/23/2024 5:49 AM Age: 69 years old Clinical indication: Cough and shortness of breath; Cough, SOB TECHNIQUE: Imaging protocol: Radiologic exam of the chest. Views: 1 view. COMPARISON: CT CHEST PE CTA 06/24/2024 10:20 AM FINDINGS: Lungs: Interval development bilateral multifocal airspace disease. Centrilobular emphysema. Venous congestion . Right pulmonary nodule unchanged Pleural spaces: Small left pleural effusion unchanged. Left apical pleural thickening Heart/Mediastinum: Stable cardiomegaly. Bones/joints: Unremarkable. IMPRESSION: Interval development multifocal bilateral pneumonia Dictated and Authenticated by: Tiara Ray MD. Orderin Jamie Moreau MD
[2024-08-23 06:45] LABS: Troponin I 18 ng/L (<or=76)
[2024-08-23] MEDS: PIPERACILLIN/TAZO 4.5 GM in Normal Saline 100 ML IVPB ×3 (08:31→23:41)
[2024-08-23] MEDS: Methadone Liquid 10 MG/ML 130 MG PO (08:31)
[2024-08-23 08:57] LABS: Troponin I 19 ng/L (<or=76)
[2024-08-23] MEDS: Enoxaparin 60 MG/0.6 ML SYR SC ×2 (09:19→20:53)
[2024-08-23] MEDS: Calcium Carbonate *TUMS* 500 MG CHEW PO (09:20)
[2024-08-23] MEDS: predniSONE 20 MG TAB 40 MG PO (09:20)
[2024-08-23] MEDS: Docusate Sodium 100 MG CAP 200 MG PO (09:21)
[2024-08-23] MEDS: Folic Acid 1 MG TAB PO (09:21)
[2024-08-23] MEDS: Gabapentin 300 MG CAP PO ×3 (09:22→20:52)
[2024-08-23] MEDS: Lisinopril 10 MG TAB 5 MG PO (09:22)
[2024-08-23] MEDS: Furosemide 20 MG TAB PO (09:22)
[2024-08-23] MEDS: VANCOMYCIN 1,000 MG in Normal Saline 250 ML 166.6666 MG IVPB (09:22)
[2024-08-23] MEDS: LORazepam 0.5 MG TAB PO (09:23)
[2024-08-23] MEDS: Multivitamin TAB 1 TAB PO (09:45)
[2024-08-23] MEDS: DULoxetine 30 MG CAP 60 MG PO (09:47)
[2024-08-23] MEDS: Lactated Ringers 1,000 ML 1000 ML IV (13:25)
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
[2024-08-23] MEDS: MAGNESIUM SULFATE 2 GM/50 ML BAG IV_INF (15:31)
[2024-08-23] MEDS: Normal Saline Flush 10 ML SYR IVP (15:33)
[2024-08-23 15:48] LABS: BE (Venous) 4 mmol/L (-2-3); HCO3 (Venous) 28 mmol/L (23-28); TCO2 (Venous) 27 mmol/L (24-29); pCO2 (Venous) 43 mmHg (41-51); pH (Venous) 7.42 (7.31-7.41); pO2 (Venous) 100 mmHg
[2024-08-23 15:49] LABS: O2 Sat (Venous) > 99 %
[2024-08-23] MEDS: VANCOMYCIN 1,500 MG in Normal Saline 250 ML 166.667 MG IVPB (16:36)
--- NOTE | 2024-08-23 16:39 | PHA.REVIEW2 ---
Pharmacy Admission Review Admission Clinical Review Admission Pharmacy Review: Severe sepsis (Acute) Acute hypoxic respiratory failure (Acute) Multifocal pneumonia (Acute) Acute exacerbation of chronic obstructive pulmonary disease (COPD) (Acute) Pneumonia (Acute) Methadone dependence (Acute) Tobacco abuse (Acute) Autoimmune hemolytic anemia (Acute) No Known Allergies Allergy (Verified 07/07/24 09:32) Resuscitation Status Full Code Height 5 ft 5 in Weight 59.2 kg Pharmacy Admission Review Renal Dosing Renal Dosing: BUN 20 mg/dL (7-18) H 08/23/24 05:15 Creatinine 1.0 mg/dL (0.70-1.30) 08/23/24 05:15 Medications needing adjustments: Reviewed (CrCl 56 mL/min) List of meds needing interventions: Current medications are okay Anticoagulation Anticoagulation: Hgb 9.3 g/dL (13.5-17.5) L 08/23/24 05:15 Hct 30.3 % (40.0-50.0) L 08/23/24 05:15 Plt Count 466 10^3/uL (130-400) H 08/23/24 05:15 Creatinine 1.0 mg/dL (0.70-1.30) 08/23/24 05:15 Therapeutic Anticoagulation: Reviewed Medications: Enoxaparin (60MG Q12H) Opiate Usage Evaluate Pain Scale/Pains Meds: Intervened (methadone 130mg daily - confirmed with MILA Garcia) Scheduled Bowel Reg ordered if on Opiates?: Yes (docusate + PRN Miralax) Relevant Labs Relevant Labs: Sodium 140 mmol/L (136-145) 08/23/24 05:15 Potassium 4.9 mmol/L (3.5-5.1) 08/23/24 05:15 Chloride 99 mmol/L (98-107) 08/23/24 05:15 Magnesium 1.6 mg/dL (1.8-2.4) L 08/23/24 05:15 Electrolytes, C-Reactive P, ESR: Reviewed (Mg 1.6 - has order for Mg IV infusion) Cardiac Review Cardiac Review: Troponin I 19 ng/L (<or=76) 08/23/24 08:25 NT-Pro-B Natriuret Pep 3390 pg/mL (<300) H 08/23/24 05:15 BP, HR, EF%: Reviewed (HR and BP WNL) List meds needing interventions: has order for furosemide 20mg daily and lisinopril 5mg daily QTc Review QTc: Reviewed (EKG pending) IV to PO Switch IV Medications: Reviewed (Zosyn and vancomycin) Home Meds Home Med List reviewed: Reviewed Relevent Home Meds Not ordered & why?: potassium, Xarelto (has order for Lovenox) and thiamine Bevespi changed to patients own order - per nurse patient is seeing if this can be brought in tomorrow Current Meds Current Medication Order Review: Intervened Comments: Added 2nd PRN to albuterol order Canceled Mucinex order - from home med list and was last filled 07/15 for 15 day supply Nurse confirmed with patient that they take alendronate on Wednesdays. Set order for Wednesdays at 0700 per pharmacy protocol. Pharmacy Antibiotic Review Relevant Labs: WBC 26.46 10^3/uL (4.4-10.8) H* 08/23/24 05:15 Temperature 36.8 C Temperature 37 C Temperature 36.4 C Pharmacy Antibiotic Activity: C/S review and Reviewed, no change Comments: Patient is currently on vancomycin and Zosyn, day 1, for pneumonia. Vancomycin dose 1500mg q24h, predicted trough of 16.6. Level ordered for tomorrow at 1200, will adjust dose as needed based on level. Blood and sputum cultures pending.
[2024-08-23 17:39] LABS: MRSA PCR Negative (Negative)
[2024-08-23] MEDS: Mirtazapine 15 MG TAB 30 MG PO (20:52)
[2024-08-23] MEDS: Magnesium Oxide 400 MG TAB PO (20:53)
[2024-08-24] VITALS (66 sets, daily range): BP systolic 95–148; BP diastolic 40–78; PULSE 48–91; RESP 3–22; TEMP 36–37.1; O2SAT 80–100
[2024-08-24 07:10] LABS: Abs Immature Grans 0.38 10^3/uL (0.0-0.06); Absolute Basophil Count 0.06 10^3/uL (0.0-0.2); Absolute Lymphocyte Count 1.78 10^3/uL (1.2-3.4); Basophils % 0.2 %; Eosinophils % 0.2 %; HCT 27.3 % (40.0-50.0); HGB 8.2 g/dL (13.5-17.5); Immature Grans % 1.3 %; Lymphocytes % 5.9 %; MCH 29.3 pg (27.0-33.0); MCV 98 fL (80-95); MPV 11.1 fL (8.0-11.0); Monocytes % 7.8 %; Neutrophils % 84.6 %; Platelet Count 446 10^3/uL (130-400); RDW 17.5 % (11.8-14.1); RDW-SD 57.7 fL
[2024-08-24 07:14] LABS: Absolute Eosinophil Count 0.06 10^3/uL (0.0-0.7); Absolute Monocyte Count 2.36 10^3/uL (0.1-0.8); Absolute Neutrophil Count 25.57 10^3/uL (1.2-6.7)
[2024-08-24 07:21] LABS: WBC 30.23 10^3/uL (4.4-10.8)
[2024-08-24 07:26] LABS: Diff Comment Agrees w/ Instrument; Polychromasia Present
[2024-08-24 07:27] LABS: ALT 18 U/L (16-63); AST 40 U/L (15-37); Albumin 2.2 g/dL (3.4-5.0); Alkaline Phosphatase 71 U/L (46-116); Anion Gap 5.3 mmol/L (3-11); BUN 23 mg/dL (7-18); Bilirubin, Total 1.46 mg/dL (0.2-1.0); CO2 30.7 mmol/L (21.0-32.0); CREATININE 0.9 mg/dL (0.70-1.30); Calcium 9.1 mg/dL (8.5-10.1); Chloride 105 mmol/L (98-107); Estimated GFR 91.31 (mL/min/1.73m2); Glucose 112 mg/dL (74-106); Magnesium 2.2 mg/dL (1.8-2.4); Potassium 3.9 mmol/L (3.5-5.1); Sodium 141 mmol/L (136-145); Total Protein 5.7 g/dL (6.4-8.2)
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
[2024-08-24] MEDS: DULoxetine 30 MG CAP 60 MG PO (08:55)
[2024-08-24] MEDS: Gabapentin 300 MG CAP PO ×3 (08:55→20:17)
[2024-08-24] MEDS: Enoxaparin 60 MG/0.6 ML SYR SC ×2 (08:55→20:16)
[2024-08-24] MEDS: predniSONE 20 MG TAB 40 MG PO (08:56)
[2024-08-24] MEDS: Furosemide 20 MG TAB PO (08:56)
[2024-08-24] MEDS: Calcium Carbonate *TUMS* 500 MG CHEW PO (08:56)
[2024-08-24] MEDS: Folic Acid 1 MG TAB PO (08:56)
[2024-08-24] MEDS: Docusate Sodium 100 MG CAP 200 MG PO (08:56)
[2024-08-24] MEDS: LORazepam 0.5 MG TAB PO (08:56)
[2024-08-24] MEDS: Multivitamin TAB 1 TAB PO (08:57)
[2024-08-24] MEDS: Omeprazole 20 MG CAPCR PO (08:57)
[2024-08-24] MEDS: Lisinopril 10 MG TAB 5 MG PO (08:57)
[2024-08-24] MEDS: PIPERACILLIN/TAZO 4.5 GM in Normal Saline 100 ML IVPB ×2 (09:04→15:59)
[2024-08-24 09:09] LABS: Lactate 2.1 mmol/L (<or=2.0)
[2024-08-24] MEDS: Normal Saline Flush 10 ML SYR IVP ×3 (09:13→20:30)
[2024-08-24] MEDS: Albuterol/Ipratropium 3 ML UPD VIAL UPD ×3 (09:25→20:18)
[2024-08-24] MEDS: Alendronate 70 MG TAB PO (09:34)
[2024-08-24] MEDS: Methadone Liquid 10 MG/ML 130 MG PO (09:55)
[2024-08-24] MEDS: VANCOMYCIN 1,500 MG in Normal Saline 250 ML 166.667 MG IVPB (16:09)
--- NOTE | 2024-08-24 18:10 | W.PM.PROGNOT ---
Date of Service Date of service: 08/24/24 Time of Service: 13:36 Assessment and Plan Assessment and plan (1) Multifocal pneumonia: Status: Acute Assessment and plan: Noted on chest x-ray. Viral swabs negative. Given his immune suppression, sepsis picture, and history he was started on piperacillin/vancomycin. Blood and sputum cultures pending. Get MRSA nasal screen negative, stop vancomycin as clinically stable, start doxycycline with pip/tazo My only concern is elevated WBC, though he did get steroids and runs chronically high (2) Acute hypoxic respiratory failure: Status: Acute Assessment and plan: Secondary to above pneumonia in setting of COPD. BNaP high but clinically not in CHF, BNaP higher last visit. No hypercarbia on VBG History not c/w another PE, he is on treatment. (3) Severe sepsis: Status: Acute Assessment and plan: Meets criteria on admission with high WBC, elevated RR, and hypotension responsive to fluids, pneumonia as source. Will not give additional fluids with h/o HFpEF. Lactate was high but improved this morning. BP has been stable. Can be floor status. (4) Tobacco abuse: Status: Acute Assessment and plan: NRT prn (5) Acute exacerbation of chronic obstructive pulmonary disease (COPD): Status: Acute Assessment and plan: Treating with prednisone burst along with nebulized bronchodilators. 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 (7) Autoimmune hemolytic anemia: Status: Acute Assessment and plan: hemoglobin near recent levels. Bili does suggest ongoing hemolysis, AST also possibly related. Trend is down, continue to follow. (8) History of pulmonary embolism: Status: Chronic Assessment and plan: Continue enoxaparin (9) LLQ abdominal pain: Status: Acute Assessment and plan: With cough suggesting MSK or hernia. I don't feel a hernia. Can treat pain, if continues get imaging. Subjective Subjective Patient reports: tolerating a regular diet and voiding w/o difficulty; denies fever Interval history since last seen: Breathing feels okay, a little better. C/o pain in LLQ with cough for the past several days. No change in BMs. Feels into groin. No buldge. No n/v. Exam Narrative Exam Narrative: GEN: Alert and oriented x 4, No acute distress at rest. LUNGS: Somewhat diminished diffusely but no wheezes or rales. Speaking in sentences with normal effort CV: RRR with no murmurs, gallops, or rubs. No JVP elevation. ABD: active bowel sounds, soft, nontender and nondistended abdomen. No masses. fullness and tenderness on/above left inguinal ligament, no hernia or tenderness on hernia exam. EXT: no cyanosis, clubbing. Trace bilateral LE edema. Warm. Objective Last Vital Signs Temp 36.7 C 08/24/24 16:21 Pulse 77 08/24/24 15:30 Resp 13 08/24/24 15:30 BP 148/78 H 08/24/24 12:01 Pulse Ox 91 L 08/24/24 15:30 Laboratory Results - last 24 hr 08/24/24 08/24/24 08/24/24 06:20 09:00 11:58 WBC 30.23 H* RBC 2.80 L Hgb 8.2 L Hct 27.3 L MCV 98 H MCH 29.3 MCHC 30.0 L RDW 17.5 H Plt Count 446 H MPV 11.1 H Immature Gran % 1.3 Neutrophils % 84.6 Lymphocytes % 5.9 Monocytes % 7.8 Eosinophils % 0.2 Basophils % 0.2 Nucleated RBC % 2.0 H Absolute Neutrophils 25.57 H Absolute Lymphocytes 1.78 Absolute Monocytes 2.36 H Absolute Eosinophils 0.06 Absolute Basophils 0.06 RBC Morphology See Below Polychromasia Present VBG Lactate 2.1 Sodium 141 Potassium 3.9 D Chloride 105 Carbon Dioxide 30.7 Anion Gap 5.3 BUN 23 H Creatinine 0.9 Est GFR (CKD-EPI 2020) 91.31 Glucose 112 H Calcium 9.1 Magnesium 2.2 Total Bilirubin 1.46 H AST 40 H ALT 18 Alkaline Phosphatase 71 Total Protein 5.7 L Albumin 2.2 L Random Vancomycin 13.0 Time Spent with Patient Time Spent with Patient: >50 minutes Time was spent: preparing to see the patient(eg.review tests), obtaining and/or reviewing separately otained hiistory, ordering medications,tests, procedures, referring, communicating with other health adult daycare coordinator, indepentently interpreting results, counseling the patient and care coordination
[2024-08-24] MEDS: oxyCODONE 10 MG TAB PO (18:33)
[2024-08-24] MEDS: Mirtazapine 15 MG TAB 30 MG PO (20:17)
[2024-08-24] MEDS: Magnesium Oxide 400 MG TAB PO (20:17)
[2024-08-25] VITALS (8 sets, daily range): BP systolic 129–142; BP diastolic 55–64; PULSE 61–86; RESP 9–18; TEMP 36.4–37; O2SAT 92–100
[2024-08-25] MEDS: PIPERACILLIN/TAZO 4.5 GM in Normal Saline 100 ML IVPB ×3 (00:54→16:00)
[2024-08-25] MEDS: Normal Saline Flush 10 ML SYR IVP ×5 (00:55→20:19)
[2024-08-25] MEDS: Albuterol/Ipratropium 3 ML UPD VIAL UPD ×4 (02:47→20:03)
--- NOTE | 2024-08-25 03:39 | W.PC.ACHO ---
Registration Status: Primary Language: Preferred Language: ED Information & Data Chief Complaint SOB 08/23/24 05:13 Triage Note c/o cough with a lot of 08/23/24 04:34 mucous that started 4-5 days ago and LLQ pain. has not been able to eat x4 days. no BM for the last 3-4 days. SOB with exertion. Denies CP , N/V. Hx COPD. 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) Chronic hepatitis C without mention of hepatic coma (09/20/12) Benign essential hypertension (10/21/12) Pulmonary emboli Pleural effusion, left COPD (chronic obstructive pulmonary disease) (Last Reviewed 08/23/24 @ 14:27 by Carlton Mcdonough) H/O splenectomy Recurrent right pleural effusion Status post unilateral inguinal hernia repair H/O colonoscopy (05/07/18) Thoracentesis (06/08/16) Repair of inguinal hernia Most Recent Vital Signs Temperature 36.4 C L 08/25/24 03:02 Temperature Source Temporal Artery Scan 08/25/24 03:02 Pulse 61 08/25/24 03:02 Pulse 69 08/24/24 20:01 Respiratory Rate 17 08/25/24 03:02 Respiratory Effort Short of Breath, Incrsd Work of Breathing 08/23/24 04:41 Respiratory Depth Shallow 08/23/24 04:41 Respiratory Pattern Normal 08/23/24 04:41 Blood Pressure 131/56 L 08/25/24 03:02 Blood Pressure Mean 73 08/24/24 20:01 Blood Pressure Position Sitting 08/23/24 04:40 Pulse Oximetry 100 08/25/24 03:02 Oxygen Delivery Method OxyMask 08/25/24 03:02 Oxygen Flow Rate 5.5 08/25/24 03:02 Pain Level 0 08/25/24 03:02 Comment pt woken and BP cuff adj 08/23/24 12:30 Allergies No Known Allergies Allergy (Verified 07/07/24 09:32) Precautions Isolation PUI 08/23/24 04:39 Active Medications Generic Name Dose Route Start Last Admin Trade Name Freq PRN Reason Stop Dose Admin Albuterol/Ipratropium 3 ml 08/23/24 08:00 08/25/24 02:47 Albuterol/Ipratropium 3 Ml Upd Vial UPD 3 ml Q6H DIANDRA Administration Alendronate Sodium 70 mg 08/24/24 07:00 08/24/24 09:34 Alendronate 70 Mg Tab PO 70 mg We DIANDRA Administration Calcium Carbonate 500 mg 08/23/24 08:30 08/24/24 08:56 Calcium Carbonate *Tums* 500 Mg Chew PO 500 mg DAILY DIANDRA Administration Docusate Sodium 200 mg 08/23/24 08:30 08/24/24 08:56 Docusate Sodium 100 Mg Cap PO 200 mg DAILY DIANDRA Administration Duloxetine HCl 60 mg 08/23/24 08:30 08/24/24 08:55 Duloxetine 30 Mg Cap PO 60 mg DAILY DIANDRA Administration Enoxaparin Sodium 60 mg 08/23/24 08:00 08/24/24 20:16 Enoxaparin 60 Mg/0.6 Ml Syr SC 60 mg Q12H DIANDRA Administration Folic Acid 1 mg 08/23/24 08:30 08/24/24 08:56 Folic Acid 1 Mg Tab PO 1 mg DAILY DIANDRA Administration Furosemide 20 mg 08/23/24 08:30 08/24/24 08:56 Furosemide 20 Mg Tab PO 20 mg DAILY DIANDRA Administration Gabapentin 300 mg 08/23/24 08:30 08/24/24 20:17 Gabapentin 300 Mg Cap PO 300 mg TID DIANDRA Administration Vancomycin HCl 1,500 mg/ 250 mls @ 166.667 mls/hr 08/23/24 16:00 08/24/24 18:04 Sodium Chloride IVPB Infused Q24H DIANDRA Infusion Piperacillin Sod/Tazobactam 100 mls @ 25 mls/hr 08/25/24 00:00 08/25/24 00:54 Sod 4.5 gm/ Sodium Chloride IVPB 25 mls/hr Q8H DIANDRA Administration Lisinopril 5 mg 08/23/24 08:30 08/24/24 08:57 Lisinopril 10 Mg Tab PO 5 mg DAILY DIANDRA Administration Lorazepam 0.5 mg 08/23/24 08:30 08/24/24 08:56 Lorazepam 0.5 Mg Tab PO 0.5 mg QAM DIANDRA Administration Magnesium Oxide 400 mg 08/23/24 20:00 08/24/24 20:17 Magnesium Oxide 400 Mg Tab PO 400 mg HS DIANDRA Administration Methadone HCl 130 mg 08/23/24 08:30 08/24/24 09:55 Methadone Liquid 10 Mg/Ml PO 130 mg DAILY DIANDRA Administration Mirtazapine 30 mg 08/23/24 20:00 08/24/24 20:17 Mirtazapine 15 Mg Tab PO 30 mg HS DIANDRA Administration Multivitamins 1 tab 08/23/24 08:30 08/24/24 08:57 Multivitamin Tab PO 1 tab DAILY DIANDRA Administration Omeprazole 20 mg 08/24/24 07:30 08/24/24 08:57 Omeprazole 20 Mg Capcr PO 20 mg DAILY@0730 DIANDRA Administration Oxycodone HCl 10 mg 08/24/24 18:18 08/24/24 18:33 Oxycodone 10 Mg Tab PO 10 mg Q6H PRN PRN Administration Pt's Own Tiotropium 2 each 08/24/24 12:36 08/24/24 13:30 2.5 Mcg-Olodaterol 2 IH 2 each .5 Mcg/Actuation DAILY DIANDRA Administration Prednisone 40 mg 08/23/24 08:30 08/24/24 08:56 Prednisone 20 Mg Tab PO 40 mg DAILY DIANDRA Administration Sodium Chloride 0 ml 08/23/24 04:46 08/25/24 00:55 Normal Saline Flush 10 Ml Syr IVP 10 ml PRN PRN Administration Sodium Chloride 0 ml 08/23/24 08:30 08/24/24 20:30 Normal Saline Flush 10 Ml Syr IVP 10 ml BID DIANDRA Administration IV IV Catheter Type [] Saline Lock IV Catheter Type [Left Forearm Saline Lock ] IV Catheter Type [Right Saline Lock Antecubital] IV Catheter Gauge [] 20 IV Catheter Gauge [Left 20 Forearm] IV Catheter Gauge [Right 18 Antecubital] Diagnostics 08/24/24 08/24/24 08/24/24 Range/Units 11:58 09:00 06:20 WBC 30.23 H* (4.4-10.8) 10^3/uL RBC 2.80 L (4.36-5.78) 10^6/uL Hgb 8.2 L (13.5-17.5) g/dL Hct 27.3 L (40.0-50.0) % MCV 98 H (80-95) fL MCH 29.3 (27.0-33.0) pg MCHC 30.0 L (32.0-36.0) % RDW 17.5 H (11.8-14.1) % Plt Count 446 H (130-400) 10^3/uL MPV 11.1 H (8.0-11.0) fL Immature Gran % 1.3 % Neutrophils % 84.6 % Lymphocytes % 5.9 % Monocytes % 7.8 % Eosinophils % 0.2 % Basophils % 0.2 % Nucleated RBC % 2.0 H (0.0-0.3) % Absolute Neutrophils 25.57 H (1.2-6.7) 10^3/uL Absolute Lymphocytes 1.78 (1.2-3.4) 10^3/uL Absolute Monocytes 2.36 H (0.1-0.8) 10^3/uL Absolute Eosinophils 0.06 (0.0-0.7) 10^3/uL Absolute Basophils 0.06 (0.0-0.2) 10^3/uL RBC Morphology See Below Polychromasia Present VBG Lactate 2.1 (<or=2.0) mmol/L Sodium 141 (136-145) mmol/L Potassium 3.9 D (3.5-5.1) mmol/L Chloride 105 (98-107) mmol/L Carbon Dioxide 30.7 (21.0-32.0) mmol/L Anion Gap 5.3 (3-11) mmol/L BUN 23 H (7-18) mg/dL Creatinine 0.9 (0.70-1.30) mg/dL Est GFR (CKD-EPI 2020) 91.31 (mL/min/1.73m2) Glucose 112 H (74-106) mg/dL Calcium 9.1 (8.5-10.1) mg/dL Magnesium 2.2 (1.8-2.4) mg/dL Total Bilirubin 1.46 H (0.2-1.0) mg/dL AST 40 H (15-37) U/L ALT 18 (16-63) U/L Alkaline Phosphatase 71 (46-116) U/L Total Protein 5.7 L (6.4-8.2) g/dL Albumin 2.2 L (3.4-5.0) g/dL Random Vancomycin 13.0 ug/mL 03/04/25 14:06 Sputum Culture - Preliminary Sputum - Expectorated Gram positive kush, mixed Gram Stain - Final 08/23/24 08:20 Blood Culture - Preliminary Blood NO GROWTH 24 HOURS 08/23/24 08:28 Blood Culture - Preliminary Blood NO GROWTH 24 HOURS Intake and Output - 24 Hour Total 08/23/24 04:31 thru 08/24/24 20:15 Intake Total 4530 Output Total 2100 Balance 2430 Weight 58.5 kg Intake: IV 2310 Oral 2220 Output: Urine 2100 Other: Urine Color Yellow Urine Appearance Clear Urine Odor Normal Stool Size Large Stool Characteristics Soft Formed Brown Falls Risk Assessment History of Falls No History 08/23/24 04:40 Contributing Factors No Factors 08/23/24 04:40 Ambulatory Aids Independent 08/23/24 04:40 Tubes/Lines None 08/23/24 04:40 Gait Evaluation No gait disturbance 08/23/24 04:40 Cognition No cognitive impairment 08/23/24 04:40 Fall Total Score 0 08/23/24 04:40 Level of Risk Standard/Low Risk 08/23/24 04:40 Problems (Last Reviewed 08/23/24 @ 14:27 by Carlton Mcdonough) LLQ abdominal pain (Acute) Severe sepsis (Acute) Acute hypoxic respiratory failure (Acute) Multifocal pneumonia (Acute) Acute exacerbation of chronic obstructive pulmonary disease (COPD) (Acute) Pneumonia (Acute) Methadone dependence (Acute) Tobacco abuse (Acute) Autoimmune hemolytic anemia (Acute) History of pulmonary embolism (Chronic) v v v v v v v v v Sending and/or Receiving Nurses: Please use comment section below to note any information pertinent to the patient hand-off not included above. Information / Comments: report rec'd at 2200 on 08/24. pt is on 1L/min O2 via NC. pt takes daily methadone. pt has tremors baseline but exacerbated by fine motor activity. generalized weakness and unsteady on feet. R AC IV removed at time of transition to med-surg as it was infiltrated and leaking. pt has LLQ pain that is exacerbated by coughing. Pt to have US in the morning to evaluate for hernia. pt on IV pip/jason and vanco Report received from: OKSANA Hairston
--- NOTE | 2024-08-25 07:00 | DI.US_ITS ---
Exam(s) US HERNIA EXAM: US HERNIA CLINICAL HISTORY: LLQ/groin pain with cough. TECHNIQUE: Ultrasound was performed using standard protocol. COMPARISON: US US ECHOCARDIOGRAM from 06/24/2024 FINDINGS: It ultrasound of the left groin was performed. There appears to be bowel loops within the left inguinal canal. IMPRESSION: Suspicious for inguinal hernia. Recommend follow-up CT scan DATA REPOSITORY:
[2024-08-25] MEDS: Enoxaparin 60 MG/0.6 ML SYR SC ×2 (08:02→20:18)
[2024-08-25] MEDS: Gabapentin 300 MG CAP PO ×3 (08:03→20:18)
[2024-08-25] MEDS: Docusate Sodium 100 MG CAP 200 MG PO (08:03)
[2024-08-25] MEDS: Omeprazole 20 MG CAPCR PO (08:04)
[2024-08-25] MEDS: DULoxetine 30 MG CAP 60 MG PO (08:04)
[2024-08-25] MEDS: LORazepam 0.5 MG TAB PO (08:05)
[2024-08-25] MEDS: Calcium Carbonate *TUMS* 500 MG CHEW PO (08:05)
[2024-08-25] MEDS: Folic Acid 1 MG TAB PO (08:05)
[2024-08-25] MEDS: predniSONE 20 MG TAB 40 MG PO (08:05)
[2024-08-25] MEDS: Multivitamin TAB 1 TAB PO (08:05)
[2024-08-25] MEDS: Lisinopril 10 MG TAB 5 MG PO (08:06)
[2024-08-25] MEDS: Furosemide 20 MG TAB PO (08:06)
[2024-08-25] MEDS: Methadone Liquid 10 MG/ML 130 MG PO (08:08)
--- NOTE | 2024-08-25 09:56 | PDOC.CMPRO ---
Date of service: 08/25/24 Time of Service: 09:57 Care Management Progress Note Progress Note Text Progress Note Text: Franc was sitting up in bed when CM met with him. He was quiet but polite and agreeable to conversation. Franc complained of LLQ abdominal pain this morning. An ultrasound was ordered and was suspicious for an inguinal hernia. Franc is improving from a respiratory standpoint. His oxygen saturation has remained in the 90s and he is now on room air. He had been using 0.5 to 1L/min since yesterday and was maintaining his saturation in the 92-94% range. Franc's vital signs are stable and he is afebrile. His WBC is elevated at >30, however he is also on steroids. Discharge Potential Discharge Needs: PCP F/U Appt Anticipated Barriers to Discharge: None Identified Patient/Family Education Needs: Review discharge instructions, discuss Ask Me Three Transportation: Private vehicle Plan: Anticipate Franc will be discharged home with no new services when medically cleared. He will follow up with his PCP and plan of care as prescribed and transport with a friend or family member. CM will follow and continue to support discharge planning efforts. Social Determinants of Health Screening Social Determinants of Health last assessed: 08/25/24 Will the Patient Participate in the Screening?: Yes Do you worry about having a steady place to live?: no Problems where you live: no known problems In the past 12 months, have you had to go without electric, gas, oil or water in your home?: choose not to answer Have you or anyone in your house had to go without enough food to eat?: choose not to answer Has lack of transportation kept you from medical appointments or from doing things needed for daily living?: yes Has anyone in your life made you feel unsafe or unsupported?: no How hard is it for you to pay for the very basics like food, housing, medical care, and heating? Would you say it is:: Somewhat hard Do you want help finding or keeping work or a job?: I do not need or want help If for any reason you need help with day-to-day activities such as bathing, preparing meals, shopping, managing finances, etc., do you get the help you need?: I could use a little more help How often do you feel lonely or isolated from those around you?: Sometimes Do you speak a language other than Hungarian at home?: Yes Does the patient want assistance with any of the above?: Yes Social Determinants of Health Comments(SDOH Details): pt vague about housing issues, does explain after some prompting well my girlfriend of ____ yrs just told me she doesn't love me anymore and now I need a place to live but it cant have too many stairs RN asked if pt would accept CM review to maybe they could share some resources to help you find a place? pt states that would be good. Pt also saif girlfriend but had previously said his son had to take his to surgery appoint today. Health Related Social Needs Health related social needs: transportation insecurity (Z59.82), material hardship(utilities) (Z59.12), problems related to housing/economic circumstances (Z59.89), problems with daily activities (Z73.9), feeling lonely/isolated (Z60.8) and education (Z55.6)
--- NOTE | 2024-08-25 13:08 | W.NUTRFU ---
Date of service: 08/25/24 Nutrition Note NOTE: MR Guzmán is 69yo male being treated for COPD exac., PNA, sepsis. Hx of tobaacco use (current use), methadone dependence, autoimmune hemolytic anemia, and pulm embolism. BMI is currently 21.3 with general trend of weight going down about 3kg over the last
--- NOTE | 2024-08-25 16:15 | W.PM.PROGNOT ---
Date of Service Date of service: 08/25/24 Time of Service: 16:15 Assessment and Plan Assessment and plan (1) Multifocal pneumonia: Status: Acute Assessment and plan: Noted on chest x-ray. Viral swabs negative. Given his immune suppression, sepsis picture, and history he was started on piperacillin/vancomycin. Blood and sputum cultures pending. Get MRSA nasal screen negative, stopped vancomycin as clinically stable, started doxycycline with pip/tazo My only concern is elevated WBC, though he did get steroids and runs chronically high, follow in AM. Clinically he is clearly imrpoving. (2) Acute hypoxic respiratory failure: Status: Acute Assessment and plan: Secondary to above pneumonia in setting of COPD. BNaP high but clinically not in CHF, BNaP higher last visit. No hypercarbia on VBG History not c/w another PE, he is on treatment. Still on oxygen, add acapella and IS and try to mobilize to improve. (3) Severe sepsis: Status: Acute Assessment and plan: Met criteria on admission with high WBC, elevated RR, and hypotension responsive to fluids, pneumonia as source. Did not get full 30 cc/kilo fluids with h/o HFpEF and responsiveness initial bolus. Lactate was high but improved by second day. (4) Tobacco abuse: Status: Acute Assessment and plan: NRT prn (5) Acute exacerbation of chronic obstructive pulmonary disease (COPD): Status: Acute Assessment and plan: Treating with prednisone burst along with nebulized bronchodilators. 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 (7) Autoimmune hemolytic anemia: Status: Acute Assessment and plan: hemoglobin near recent levels. Bili does suggest ongoing hemolysis, AST also possibly related. Trend is down, continue to follow in AM. (8) History of pulmonary embolism: Status: Chronic Assessment and plan: Continue enoxaparin (9) LLQ abdominal pain: Status: Acute Assessment and plan: With cough suggesting MSK or hernia. I don't feel a hernia, but u/s suggestive of inguinal hernia, suggests CT. Get surgical consult non-emergent. Subjective Subjective Patient reports: no new complaints, feels better, tolerating a regular diet and voiding w/o difficulty; denies diarrhea, nausea, vomiting or fever Interval history since last seen: breathing is getting better. He is coughing less. His LLQ pain is better today because of less cough. Exam Narrative Exam Narrative: GEN: Alert and oriented x 4, No acute distress at rest. LUNGS: Somewhat diminished diffusely with julius expiratory rhonchi. CV: RRR with no murmurs, gallops, or rubs. ABD: active bowel sounds, soft, nontender and nondistended abdomen. No masses. hernia exam not repeated EXT: no cyanosis, clubbing. Trace bilateral LE edema. Warm. Objective Last Vital Signs Temp 36.7 C 08/25/24 15:44 Pulse 76 08/25/24 15:44 Resp 16 08/25/24 15:44 BP 132/64 08/25/24 15:44 Pulse Ox 94 08/25/24 15:44 Time Spent with Patient Time Spent with Patient: 25-34 minutes Time was spent: preparing to see the patient(eg.review tests), obtaining and/or reviewing separately otained hiistory, ordering medications,tests, procedures, referring, communicating with other health care mgr, indepentently interpreting results, counseling the patient and care coordination
[2024-08-25] MEDS: DOXYCYCLINE 100 MG in Normal Saline 100 ML IVPB (17:37)
[2024-08-25] MEDS: Magnesium Oxide 400 MG TAB PO (20:19)
[2024-08-25] MEDS: Mirtazapine 15 MG TAB 30 MG PO (20:19)
--- NOTE | 2024-08-25 23:00 | NUR.NOTE ---
During bedside rounding pt was found to have removed his nasal cannula. O2 checked, sats were 78%. reapplied O2 and increased to 4L/min. Pt recovered slowly. Once O2 sat reached 94% O2 via NC was decreased to 2L/min. Pt maintained sats of 93% at 2L/min.
[2024-08-26] VITALS (13 sets, daily range): BP systolic 122–146; BP diastolic 57–76; PULSE 68–81; RESP 8–16; TEMP 36–36.8; O2SAT 87–95
[2024-08-26] MEDS: PIPERACILLIN/TAZO 4.5 GM in Normal Saline 100 ML IVPB ×3 (00:17→17:08)
[2024-08-26] MEDS: Albuterol/Ipratropium 3 ML UPD VIAL UPD ×4 (01:59→20:45)
[2024-08-26] MEDS: DOXYCYCLINE 100 MG in Normal Saline 100 ML IVPB ×2 (04:57→16:02)
[2024-08-26 06:51] LABS: Abs Immature Grans 0.15 10^3/uL (0.0-0.06); Eosinophils % 0.1 %; HCT 26.3 % (40.0-50.0); Immature Grans % 0.6 %; Lymphocytes % 14.3 %; MCH 29.1 pg (27.0-33.0); MCHC 30.4 % (32.0-36.0); MCV 96 fL (80-95); MPV 10.9 fL (8.0-11.0); Monocytes % 12.2 %; Neutrophils % 72.8 %; Nucleated RBC 2.2 % (0.0-0.3); RBC 2.75 10^6/uL (4.36-5.78); RDW 17.4 % (11.8-14.1); RDW-SD 59.1 fL; WBC 23.16 10^3/uL (4.4-10.8)
[2024-08-26 06:55] LABS: Absolute Eosinophil Count 0.02 10^3/uL (0.0-0.7); Absolute Lymphocyte Count 3.31 10^3/uL (1.2-3.4); Absolute Monocyte Count 2.83 10^3/uL (0.1-0.8); Absolute Neutrophil Count 16.86 10^3/uL (1.2-6.7)
[2024-08-26 07:03] LABS: Anion Gap 4.3 mmol/L (3-11); BUN 8 mg/dL (7-18); CO2 34.7 mmol/L (21.0-32.0); CREATININE 0.7 mg/dL (0.70-1.30); Calcium 8.8 mg/dL (8.5-10.1); Chloride 109 mmol/L (98-107); Estimated GFR 98.51 (mL/min/1.73m2); Glucose 67 mg/dL (74-106); Magnesium 1.5 mg/dL; Potassium 3.1 mmol/L (3.5-5.1); Sodium 148 mmol/L (136-145)
[2024-08-26 07:16] LABS: Anisocytosis 2+; Diff Comment RBC Morph Reviewed
[2024-08-26 07:17] LABS: Platelet Count 573 10^3/uL (130-400); Polychromasia Present; Stomatocytes 2+
[2024-08-26] MEDS: Docusate Sodium 100 MG CAP 200 MG PO (08:14)
[2024-08-26] MEDS: Furosemide 20 MG TAB PO (08:14)
[2024-08-26] MEDS: LORazepam 0.5 MG TAB PO (08:14)
[2024-08-26] MEDS: Enoxaparin 60 MG/0.6 ML SYR SC ×2 (08:14→20:45)
[2024-08-26] MEDS: Multivitamin TAB 1 TAB PO (08:15)
[2024-08-26] MEDS: Calcium Carbonate *TUMS* 500 MG CHEW PO (08:15)
[2024-08-26] MEDS: Omeprazole 20 MG CAPCR PO (08:15)
[2024-08-26] MEDS: Folic Acid 1 MG TAB PO (08:15)
[2024-08-26] MEDS: Gabapentin 300 MG CAP PO ×3 (08:15→20:46)
[2024-08-26] MEDS: predniSONE 20 MG TAB 40 MG PO (08:15)
[2024-08-26] MEDS: Lisinopril 10 MG TAB 5 MG PO (08:15)
[2024-08-26] MEDS: Normal Saline Flush 10 ML SYR IVP ×2 (08:16→20:47)
[2024-08-26] MEDS: DULoxetine 30 MG CAP 60 MG PO (08:16)
[2024-08-26] MEDS: Methadone Liquid 10 MG/ML 130 MG PO (09:21)
--- NOTE | 2024-08-26 10:11 | PDOC.CMPRO ---
Date of service: 08/26/24 Time of Service: 10:11 Care Management Progress Note Progress Note Text Progress Note Text: Franc was sitting up in bed when CM met with him. He remains pleasant in interaction and agreeable to conversation. Franc stated that he is feeling better. This afternoon he was transitioned to room air and his O2 sats are in the high 80s to low 90s. He was seen by surgery today who confirmed the presence of an inguinal hernia but he felt that it was stable an ddi not require immediatre intervention. Franc's WBC remains elevated but is lower than it has been (23.16 vs 30.23 yesterday). His vital signs are stable and he is afebrile. Discharge Potential Discharge Needs: PCP F/U Appt Anticipated Barriers to Discharge: None Identified Patient/Family Education Needs: Review discharge instructions, discuss Ask Me Three Transportation: Private vehicle Plan: Anticipate Franc will be discharged home with no new services when medically cleared. He will follow up with his PCP and plan of care as prescribed and transport with a friend or family member. CM will follow and continue to support discharge planning efforts. Social Determinants of Health Screening Social Determinants of Health last assessed: 08/26/24 Will the Patient Participate in the Screening?: Yes Do you worry about having a steady place to live?: no Problems where you live: no known problems In the past 12 months, have you had to go without electric, gas, oil or water in your home?: choose not to answer Have you or anyone in your house had to go without enough food to eat?: choose not to answer Has lack of transportation kept you from medical appointments or from doing things needed for daily living?: yes Has anyone in your life made you feel unsafe or unsupported?: no How hard is it for you to pay for the very basics like food, housing, medical care, and heating? Would you say it is:: Somewhat hard Do you want help finding or keeping work or a job?: I do not need or want help If for any reason you need help with day-to-day activities such as bathing, preparing meals, shopping, managing finances, etc., do you get the help you need?: I could use a little more help How often do you feel lonely or isolated from those around you?: Sometimes Do you speak a language other than Upper Sorbian at home?: Yes Does the patient want assistance with any of the above?: Yes Social Determinants of Health Comments(SDOH Details): pt vague about housing issues, does explain after some prompting well my girlfriend of ____ yrs just told me she doesn't love me anymore and now I need a place to live but it cant have too many stairs RN asked if pt would accept CM review to maybe they could share some resources to help you find a place? pt states that would be good. Pt also saif girlfriend but had previously said his son had to take his to surgery appoint today. Health Related Social Needs Health related social needs: transportation insecurity (Z59.82), material hardship(utilities) (Z59.12), problems related to housing/economic circumstances (Z59.89), problems with daily activities (Z73.9), feeling lonely/isolated (Z60.8) and education (Z55.6)
--- NOTE | 2024-08-26 13:41 | W.PM.PROGNOT ---
Date of Service Date of service: 08/26/24 Time of Service: 13:41 Assessment and Plan Assessment and plan (1) Multifocal pneumonia: Status: Acute Assessment and plan: Noted on chest x-ray. Viral swabs negative. Given his immune suppression, sepsis picture, and history he was started on piperacillin/vancomycin. Blood and sputum cultures pending. Get MRSA nasal screen negative, stopped vancomycin as clinically stable, started doxycycline with pip/tazo My only concern is elevated WBC, though he did get steroids and runs chronically high, follow in AM. Clinically he is clearly imrpoving. 08/26/24 pt with elevated wbc but has to be viewed in light of continued steroid use. Sputum culture with streptococcus pneumonia. Blood cultures negative thus far. Zosyn and doxycycline (2) Acute hypoxic respiratory failure: Status: Acute Assessment and plan: Secondary to above pneumonia in setting of COPD. BNaP high but clinically not in CHF, BNaP higher last visit. No hypercarbia on VBG History not c/w another PE, he is on treatment. Still on oxygen, add acapella and IS and try to mobilize to improve. (3) Severe sepsis: Status: Acute Assessment and plan: Met criteria on admission with high WBC, elevated RR, and hypotension responsive to fluids, pneumonia as source. Did not get full 30 cc/kilo fluids with h/o HFpEF and responsiveness initial bolus. Lactate was high but improved by second day. (4) Tobacco abuse: Status: Acute Assessment and plan: NRT prn (5) Acute exacerbation of chronic obstructive pulmonary disease (COPD): Status: Acute Assessment and plan: Treating with prednisone burst along with nebulized bronchodilators. 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 (7) Autoimmune hemolytic anemia: Status: Acute Assessment and plan: hemoglobin near recent levels. Bili does suggest ongoing hemolysis, AST also possibly related. Trend is down, continue to follow in AM. (8) History of pulmonary embolism: Status: Chronic Assessment and plan: Continue enoxaparin (9) LLQ abdominal pain: Status: Acute Assessment and plan: With cough suggesting MSK or hernia. I don't feel a hernia, but u/s suggestive of inguinal hernia, suggests CT. Get surgical consult non-emergent. Subjective Subjective Interval history since last seen: Pt seen and examined in his room this afternoon. POC d/w pt as well as with bedside nurse during MDR Exam Narrative Exam Narrative: GEN: Alert and oriented x 4, No acute distress at rest. LUNGS: Somewhat diminished diffusely with julius expiratory rhonchi. Speaks in complete sentences CV: RRR with no murmurs, gallops, or rubs. ABD: active bowel sounds, soft, nontender and nondistended abdomen. No masses. hernia exam not repeated EXT: no cyanosis, clubbing. Trace bilateral LE edema. Warm. Objective Last Vital Signs Temp 36.8 C 08/26/24 10:53 Pulse 76 08/26/24 10:53 Resp 16 08/26/24 10:53 BP 146/60 H 08/26/24 10:53 Pulse Ox 88 L 08/26/24 10:53 Laboratory Results - last 24 hr 08/26/24 06:15 WBC 23.16 H RBC 2.75 L Hgb 8.0 L Hct 26.3 L MCV 96 H MCH 29.1 MCHC 30.4 L RDW 17.4 H Plt Count 573 H MPV 10.9 Immature Gran % 0.6 Neutrophils % 72.8 Lymphocytes % 14.3 Monocytes % 12.2 Eosinophils % 0.1 Basophils % 0.0 Nucleated RBC % 2.2 H Absolute Neutrophils 16.86 H Absolute Lymphocytes 3.31 Absolute Monocytes 2.83 H Absolute Eosinophils 0.02 Absolute Basophils 0.00 RBC Morphology See Below Polychromasia Present Anisocytosis 2+ Stomatocytes 2+ Sodium 148 H Potassium 3.1 L Chloride 109 H Carbon Dioxide 34.7 H Anion Gap 4.3 BUN 8 Creatinine 0.7 Est GFR (CKD-EPI 2020) 98.51 Glucose 67 L Calcium 8.8 Magnesium 1.5 Time Spent with Patient Time Spent with Patient: 25-34 minutes Time was spent: preparing to see the patient(eg.review tests), obtaining and/or reviewing separately otained hiistory, ordering medications,tests, procedures, referring, communicating with other health assurance services manager health care, indepentently interpreting results, counseling the patient and care coordination
--- NOTE | 2024-08-26 15:30 | CHAPLAIN ---
Franc was sitting up in bed when I visited. I explained my role and offered support. We had a short conversation and then I got him the arturo sia he requested.
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
[2024-08-26] MEDS: Magnesium Oxide 400 MG TAB PO (20:45)
[2024-08-26] MEDS: Potassium Chloride 20 MEQ TABCR PO (20:46)
[2024-08-26] MEDS: guaiFENesin 600 MG TABCR PO (20:46)
[2024-08-26] MEDS: Mirtazapine 15 MG TAB 30 MG PO (20:46)
[2024-08-27] VITALS (11 sets, daily range): BP systolic 130–150; BP diastolic 61–70; PULSE 70–86; RESP 3–18; TEMP 36.5–37.4; O2SAT 91–95
[2024-08-27] MEDS: PIPERACILLIN/TAZO 4.5 GM in Normal Saline 100 ML IVPB ×3 (01:13→18:45)
[2024-08-27] MEDS: Albuterol/Ipratropium 3 ML UPD VIAL UPD ×4 (01:15→19:37)
[2024-08-27] MEDS: DOXYCYCLINE 100 MG in Normal Saline 100 ML IVPB ×2 (05:14→17:09)
[2024-08-27 07:06] LABS: Lactate 3.3 mmol/L (<or=2.0)
[2024-08-27 07:08] LABS: Abs Immature Grans 0.33 10^3/uL (0.0-0.06); Absolute Eosinophil Count 0.11 10^3/uL (0.0-0.7); Absolute Monocyte Count 2.81 10^3/uL (0.1-0.8); Absolute Neutrophil Count 12.69 10^3/uL (1.2-6.7); Basophils % 0.1 %; Eosinophils % 0.5 %; HCT 32.7 % (40.0-50.0); HGB 9.8 g/dL (13.5-17.5); Immature Grans % 1.5 %; Lymphocytes % 27.4 %; MCH 28.3 pg (27.0-33.0); MCV 95 fL (80-95); MPV 10.5 fL (8.0-11.0); Monocytes % 12.8 %; Neutrophils % 57.7 %; Nucleated RBC 2.8 % (0.0-0.3); RBC 3.46 10^6/uL (4.36-5.78); RDW 16.9 % (11.8-14.1); WBC 21.99 10^3/uL (4.4-10.8)
[2024-08-27 07:12] LABS: Absolute Basophil Count 0.02 10^3/uL (0.0-0.2); Absolute Lymphocyte Count 6.03 10^3/uL (1.2-3.4)
[2024-08-27 07:37] LABS: ALT 24 U/L (16-63); AST 28 U/L (15-37); Albumin 2.5 g/dL (3.4-5.0); Alkaline Phosphatase 88 U/L (46-116); Anion Gap 6.9 mmol/L (3-11); BUN 9 mg/dL (7-18); Bilirubin, Total 1.5 mg/dL (0.2-1.0); CO2 34.1 mmol/L (21.0-32.0); Calcium 9.5 mg/dL (8.5-10.1); Chloride 105 mmol/L (98-107); Estimated GFR 80.47 (mL/min/1.73m2); Glucose 73 mg/dL (74-106); Potassium 3.3 mmol/L (3.5-5.1); Sodium 146 mmol/L (136-145); Total Protein 6.4 g/dL (6.4-8.2)
[2024-08-27 07:47] LABS: Diff Comment Agrees w/ Instrument; Platelet Count 713 10^3/uL (130-400); Polychromasia Present
[2024-08-27] MEDS: Enoxaparin 60 MG/0.6 ML SYR SC ×2 (08:01→20:21)
[2024-08-27] MEDS: Methadone Liquid 10 MG/ML 130 MG PO (08:01)
[2024-08-27] MEDS: Normal Saline Flush 10 ML SYR IVP ×3 (08:01→20:23)
[2024-08-27] MEDS: Gabapentin 300 MG CAP PO ×3 (08:02→20:22)
[2024-08-27] MEDS: Lisinopril 10 MG TAB 5 MG PO (08:02)
[2024-08-27] MEDS: Calcium Carbonate *TUMS* 500 MG CHEW PO (08:03)
[2024-08-27] MEDS: Potassium Chloride 20 MEQ TABCR PO ×2 (08:03→20:22)
[2024-08-27] MEDS: LORazepam 0.5 MG TAB PO (08:03)
[2024-08-27] MEDS: Docusate Sodium 100 MG CAP 200 MG PO (08:04)
[2024-08-27] MEDS: predniSONE 20 MG TAB 40 MG PO (08:04)
[2024-08-27] MEDS: guaiFENesin 600 MG TABCR PO ×2 (08:04→20:22)
[2024-08-27] MEDS: Furosemide 20 MG TAB PO (08:04)
[2024-08-27] MEDS: DULoxetine 30 MG CAP 60 MG PO (08:04)
[2024-08-27] MEDS: Multivitamin TAB 1 TAB PO (08:04)
[2024-08-27] MEDS: Folic Acid 1 MG TAB PO (08:04)
[2024-08-27] MEDS: Omeprazole 20 MG CAPCR PO (08:04)
--- NOTE | 2024-08-27 15:07 | W.PM.PROGNOT ---
Date of Service Date of service: 08/27/24 Time of Service: 15:07 Assessment and Plan Assessment and plan (1) Multifocal pneumonia: Status: Acute Assessment and plan: Noted on chest x-ray. Viral swabs negative. Given his immune suppression, sepsis picture, and history he was started on piperacillin/vancomycin. Blood and sputum cultures pending. Get MRSA nasal screen negative, stopped vancomycin as clinically stable, started doxycycline with pip/tazo My only concern is elevated WBC, though he did get steroids and runs chronically high, follow in AM. Clinically he is clearly imrpoving. 08/26/24 pt with elevated wbc but has to be viewed in light of continued steroid use. Sputum culture with streptococcus pneumonia. Blood cultures negative thus far. Zosyn and doxycycline 08/27/24 WBC still elevated but improving. No ferver over the last 24 hours (2) Acute hypoxic respiratory failure: Status: Acute Assessment and plan: Secondary to above pneumonia in setting of COPD. BNaP high but clinically not in CHF, BNaP higher last visit. No hypercarbia on VBG History not c/w another PE, he is on treatment. Still on oxygen, add acapella and IS and try to mobilize to improve. 08/27/24 Satting 92% on 1LNC, wean as tolerated (3) Severe sepsis: Status: Acute Assessment and plan: Met criteria on admission with high WBC, elevated RR, and hypotension responsive to fluids, pneumonia as source. Did not get full 30 cc/kilo fluids with h/o HFpEF and responsiveness initial bolus. Lactate was high but improved by second day. (4) Tobacco abuse: Status: Acute Assessment and plan: NRT prn (5) Acute exacerbation of chronic obstructive pulmonary disease (COPD): Status: Acute Assessment and plan: Treating with prednisone burst along with nebulized bronchodilators. Prednisone at 40mg po daily (6) Methadone dependence: Status: Acute Assessment and plan: half-way medical treatment for opioid use disorder, continue methadone. 08/27/24 NS as well as RT voice concerns about pt's mental status after methadone. Will decrease to 100 from 130 and monitor (7) Autoimmune hemolytic anemia: Status: Acute Assessment and plan: hemoglobin near recent levels. Bili does suggest ongoing hemolysis, AST also possibly related. Trend is down, continue to follow in AM. (8) History of pulmonary embolism: Status: Chronic Assessment and plan: Continue enoxaparin (9) LLQ abdominal pain: Status: Acute Assessment and plan: With cough suggesting MSK or hernia. I don't feel a hernia, but u/s suggestive of inguinal hernia, suggests CT. Get surgical consult non-emergent. Subjective Subjective Interval history since last seen: PT seen and examined in his room this am. POC d/w pt as well as with bedside nurse during MDR Exam Narrative Exam Narrative: GEN: Alert and oriented x 4, No acute distress at rest. LUNGS: Bilat wheeze worse with expiration. Speaks in complete sentences CV: RRR with no murmurs, gallops, or rubs. ABD: active bowel sounds, soft, nontender and nondistended abdomen. No masses. hernia exam not repeated EXT: no cyanosis, clubbing. Trace bilateral LE edema. Warm. Objective Last Vital Signs Temp 36.8 C 08/27/24 11:22 Pulse 72 08/27/24 14:57 Resp 16 08/27/24 14:53 BP 130/65 08/27/24 11:22 Pulse Ox 91 L 08/27/24 14:53 Laboratory Results - last 24 hr 08/27/24 06:50 WBC 21.99 H RBC 3.46 L Hgb 9.8 L Hct 32.7 L MCV 95 MCH 28.3 MCHC 30.0 L RDW 16.9 H Plt Count 713 H MPV 10.5 Immature Gran % 1.5 Neutrophils % 57.7 Lymphocytes % 27.4 Monocytes % 12.8 Eosinophils % 0.5 Basophils % 0.1 Nucleated RBC % 2.8 H Absolute Neutrophils 12.69 H Absolute Lymphocytes 6.03 H Absolute Monocytes 2.81 H Absolute Eosinophils 0.11 Absolute Basophils 0.02 RBC Morphology See Below Polychromasia Present VBG Lactate 3.3 H* Sodium 146 H Potassium 3.3 L Chloride 105 Carbon Dioxide 34.1 H Anion Gap 6.9 BUN 9 Creatinine 1.0 Est GFR (CKD-EPI 2020) 80.47 Glucose 73 L Calcium 9.5 Total Bilirubin 1.5 H AST 28 ALT 24 Alkaline Phosphatase 88 Total Protein 6.4 Albumin 2.5 L Time Spent with Patient Time Spent with Patient: 25-34 minutes Time was spent: preparing to see the patient(eg.review tests), obtaining and/or reviewing separately otained hiistory, ordering medications,tests, procedures, referring, communicating with other health child care attendant school, indepentently interpreting results, counseling the patient and care coordination
[2024-08-27] MEDS: Magnesium Oxide 400 MG TAB PO (20:22)
[2024-08-27] MEDS: Mirtazapine 15 MG TAB 30 MG PO (20:22)
[2024-08-28] VITALS (14 sets, daily range): BP systolic 121–150; BP diastolic 58–74; PULSE 66–95; RESP 3–20; TEMP 36–36.7; O2SAT 88–96
[2024-08-28] MEDS: PIPERACILLIN/TAZO 4.5 GM in Normal Saline 100 ML IVPB ×3 (00:53→18:08)
[2024-08-28] MEDS: Normal Saline Flush 10 ML SYR IVP ×6 (00:53→21:26)
[2024-08-28] MEDS: Albuterol 2.5 MG/3 ML INH SOLN VIAL UPD (03:09)
[2024-08-28] MEDS: DOXYCYCLINE 100 MG in Normal Saline 100 ML IVPB ×2 (06:03→17:01)
[2024-08-28] MEDS: Omeprazole 20 MG CAPCR PO (07:38)
[2024-08-28] MEDS: Calcium Carbonate *TUMS* 500 MG CHEW PO (07:38)
[2024-08-28] MEDS: Furosemide 20 MG TAB PO (07:38)
[2024-08-28] MEDS: Multivitamin TAB 1 TAB PO ×2 (07:39→09:24)
[2024-08-28] MEDS: guaiFENesin 600 MG TABCR PO ×2 (07:39→21:25)
[2024-08-28] MEDS: DULoxetine 30 MG CAP 60 MG PO (07:39)
[2024-08-28] MEDS: LORazepam 0.5 MG TAB PO (07:39)
[2024-08-28] MEDS: Potassium Chloride 20 MEQ TABCR PO ×2 (07:39→21:25)
[2024-08-28] MEDS: Folic Acid 1 MG TAB PO (07:40)
[2024-08-28] MEDS: Docusate Sodium 100 MG CAP 200 MG PO (07:40)
[2024-08-28] MEDS: Enoxaparin 60 MG/0.6 ML SYR SC ×2 (07:40→21:25)
[2024-08-28] MEDS: Gabapentin 300 MG CAP PO ×3 (07:40→21:24)
[2024-08-28] MEDS: predniSONE 20 MG TAB 40 MG PO (07:40)
[2024-08-28] MEDS: Lisinopril 10 MG TAB 5 MG PO (07:47)
[2024-08-28] MEDS: Albuterol/Ipratropium 3 ML UPD VIAL UPD ×3 (08:01→20:10)
[2024-08-28 08:59] LABS: Lactate 2.5 mmol/L (<or=2.0)
[2024-08-28 09:13] LABS: Abs Immature Grans 0.33 10^3/uL (0.0-0.06); HCT 35.2 % (40.0-50.0); HGB 10.7 g/dL (13.5-17.5); MCH 28.8 pg (27.0-33.0); MCHC 30.4 % (32.0-36.0); MCV 95 fL (80-95); MPV 10.7 fL (8.0-11.0); RBC 3.71 10^6/uL (4.36-5.78); RDW 16.8 % (11.8-14.1); RDW-SD 55.8 fL; WBC 21.94 10^3/uL (4.4-10.8)
[2024-08-28 09:22] LABS: ALT 20 U/L (16-63); AST 25 U/L (15-37); Absolute Basophil Count 0.22 10^3/uL (0.0-0.2); Absolute Eosinophil Count 0.44 10^3/uL (0.0-0.7); Absolute Lymphocyte Count 4.39 10^3/uL (1.2-3.4); Absolute Monocyte Count 3.51 10^3/uL (0.1-0.8); Absolute Neutrophil Count 13.38 10^3/uL (1.2-6.7); Albumin 2.3 g/dL (3.4-5.0); Alkaline Phosphatase 90 U/L (46-116); Anion Gap 6.7 mmol/L (3-11); BUN 13 mg/dL (7-18); Bilirubin, Total 1.2 mg/dL (0.2-1.0); CO2 33.3 mmol/L (21.0-32.0); CREATININE 0.9 mg/dL (0.70-1.30); Calcium 9.3 mg/dL (8.5-10.1); Chloride 106 mmol/L (98-107); Estimated GFR 91.31 (mL/min/1.73m2); Glucose 110 mg/dL (74-106); Platelet Count 766 10^3/uL (130-400); Potassium 3.5 mmol/L (3.5-5.1); Sodium 146 mmol/L (136-145); Total Protein 6.1 g/dL (6.4-8.2)
[2024-08-28] MEDS: Thiamine 100 MG TAB PO (09:22)
[2024-08-28 09:23] LABS: Diff Comment Manual Differential; Polychromasia Present
[2024-08-28] MEDS: Methadone Liquid 10 MG/ML 100 MG PO (09:36)
--- NOTE | 2024-08-28 13:30 | W.PM.PROGNOT ---
Date of Service Date of service: 08/28/24 Time of Service: 13:30 Assessment and Plan Assessment and plan (1) Multifocal pneumonia: Status: Acute Assessment and plan: Noted on chest x-ray. Viral swabs negative. Given his immune suppression, sepsis picture, and history he was started on piperacillin/vancomycin. Blood and sputum cultures pending. Get MRSA nasal screen negative, stopped vancomycin as clinically stable, started doxycycline with pip/tazo My only concern is elevated WBC, though he did get steroids and runs chronically high, follow in AM. Clinically he is clearly imrpoving. 08/26/24 pt with elevated wbc but has to be viewed in light of continued steroid use. Sputum culture with streptococcus pneumonia. Blood cultures negative thus far. Zosyn and doxycycline 08/27/24 WBC still elevated but improving. No ferver over the last 24 hours 08/28/24 wbc is still in the 21-22k range. Sputum cx show strep pneumo and blood cx are negative at 120hrs. Pt on Zosyn and doxy. currently. Vanc was held on 08/25/24 2/2 negative MRSA nasal screen. Consideration needs to be made for his chronic steroid use (2) Acute hypoxic respiratory failure: Status: Acute Assessment and plan: Secondary to above pneumonia in setting of COPD. BNaP high but clinically not in CHF, BNaP higher last visit. No hypercarbia on VBG History not c/w another PE, he is on treatment. Still on oxygen, add acapella and IS and try to mobilize to improve. 08/27/24 Satting 92% on 1LNC, wean as tolerated 08/28/24 Pt is currently satting 96% at 1LNC (3) Severe sepsis: Status: Acute Assessment and plan: Met criteria on admission with high WBC, elevated RR, and hypotension responsive to fluids, pneumonia as source. Did not get full 30 cc/kilo fluids with h/o HFpEF and responsiveness initial bolus. Lactate was high but improved by second day. (4) Tobacco abuse: Status: Acute Assessment and plan: NRT prn (5) Acute exacerbation of chronic obstructive pulmonary disease (COPD): Status: Acute Assessment and plan: Treating with prednisone burst along with nebulized bronchodilators. Prednisone at 40mg po daily (6) Methadone dependence: Status: Acute Assessment and plan: salvage determiner medical treatment for opioid use disorder, continue methadone. 08/27/24 NS as well as RT voice concerns about pt's mental status after methadone. Will decrease to 100 from 130 and monitor 08/28/24 Pt with improved mentation with a decrease in methadone. Consider sending with lower dose methadone (7) Autoimmune hemolytic anemia: Status: Acute Assessment and plan: hemoglobin near recent levels. Bili does suggest ongoing hemolysis, AST also possibly related. Trend is down, continue to follow in AM. (8) History of pulmonary embolism: Status: Chronic Assessment and plan: Continue enoxaparin (9) LLQ abdominal pain: Status: Acute Assessment and plan: With cough suggesting MSK or hernia. I don't feel a hernia, but u/s suggestive of inguinal hernia, suggests CT. Get surgical consult non-emergent. 08/28/24 consult from Franc does have a left inguinal hernia, but it is quite easily reducible, and at least by his account sounds like it has been relatively stable for many years. There is no indication for emergent repair at this point. As he recovers from his pneumonia, supportive measures to help buttress the area during episodes of coughing are probably smart. We talked a little bit about the use of gentle pressure over the groin, and the role of some other supportive devices like hernia belt as an outpatient. In the big picture, Franc probably would benefit from surgical repair of this, but he obviously has a number of comorbidities. I am happy to see him as an outpatient, although I suspect I would eventually refer him down to [facility] given the complexity and number of his other medical issues. Subjective Subjective Interval history since last seen: PT seen and examined in his room this am. Still with cough. POC d/w pt as well as bedside nurse during MDR Exam Narrative Exam Narrative: GEN: Alert and oriented x 4, No acute distress at rest. LUNGS: Bilat wheeze worse with expiration. Speaks in complete sentences CV: RRR with no murmurs, gallops, or rubs. ABD: active bowel sounds, soft, nontender and nondistended abdomen. No masses. hernia exam not repeated EXT: no cyanosis, clubbing. Trace bilateral LE edema. Warm. Objective Last Vital Signs Temp 36.5 C 08/28/24 11:19 Pulse 95 H 08/28/24 11:19 Resp 20 08/28/24 11:19 BP 141/68 H 08/28/24 11:19 Pulse Ox 91 L 08/28/24 11:19 Laboratory Results - last 24 hr 08/28/24 08:45 WBC 21.94 H RBC 3.71 L Hgb 10.7 L Hct 35.2 L MCV 95 MCH 28.8 MCHC 30.4 L RDW 16.8 H Plt Count 766 H* MPV 10.7 Immature Gran % See Differential Neutrophils % 61.0 Lymphocytes % 20.0 Monocytes % 16.0 Eosinophils % 2.0 Basophils % 1.0 Nucleated RBC % 2.0 H Absolute Neutrophils 13.38 H Absolute Lymphocytes 4.39 H Absolute Monocytes 3.51 H Absolute Eosinophils 0.44 Absolute Basophils 0.22 H RBC Morphology See Below Polychromasia Present VBG Lactate 2.5 H* Sodium 146 H Potassium 3.5 Chloride 106 Carbon Dioxide 33.3 H Anion Gap 6.7 BUN 13 Creatinine 0.9 Est GFR (CKD-EPI 2020) 91.31 Glucose 110 H Calcium 9.3 Total Bilirubin 1.2 H AST 25 ALT 20 Alkaline Phosphatase 90 Total Protein 6.1 L Albumin 2.3 L Time Spent with Patient Time Spent with Patient: 25-34 minutes Time was spent: preparing to see the patient(eg.review tests), obtaining and/or reviewing separately otained hiistory, ordering medications,tests, procedures, referring, communicating with other health healthcare or medical, indepentently interpreting results, counseling the patient and care coordination
[2024-08-28] MEDS: Mirtazapine 15 MG TAB 30 MG PO (21:25)
[2024-08-28] MEDS: Magnesium Oxide 400 MG TAB PO (21:25)
[2024-08-29] VITALS (11 sets, daily range): BP systolic 128–159; BP diastolic 60–73; PULSE 74–119; RESP 2–24; TEMP 36.6–37.5; O2SAT 84–94
[2024-08-29] MEDS: Albuterol/Ipratropium 3 ML UPD VIAL UPD ×3 (01:56→15:35)
[2024-08-29] MEDS: PIPERACILLIN/TAZO 4.5 GM in Normal Saline 100 ML IVPB ×2 (03:07→10:52)
[2024-08-29] MEDS: DOXYCYCLINE 100 MG in Normal Saline 100 ML IVPB (05:44)
[2024-08-29 07:14] LABS: Lactate 1.5 mmol/L (<or=2.0)
[2024-08-29 07:29] LABS: Abs Immature Grans 0.23 10^3/uL (0.0-0.06); Absolute Basophil Count 0.03 10^3/uL (0.0-0.2); Absolute Monocyte Count 2.58 10^3/uL (0.1-0.8); Basophils % 0.2 %; Eosinophils % 2.2 %; HCT 34.3 % (40.0-50.0); HGB 10.8 g/dL (13.5-17.5); Immature Grans % 1.5 %; Lymphocytes % 19.9 %; MCH 28.7 pg (27.0-33.0); MCHC 31.5 % (32.0-36.0); MCV 91 fL (80-95); Monocytes % 16.4 %; Neutrophils % 59.8 %; Nucleated RBC 2.9 % (0.0-0.3); Platelet Count 534 10^3/uL (130-400); RBC 3.76 10^6/uL (4.36-5.78); RDW 17.7 % (11.8-14.1); RDW-SD 53.2 fL; WBC 15.74 10^3/uL (4.4-10.8)
[2024-08-29 07:39] LABS: ALT 24 U/L (16-63); AST 27 U/L (15-37); Albumin 2.3 g/dL (3.4-5.0); Alkaline Phosphatase 82 U/L (46-116); Anion Gap 5.2 mmol/L (3-11); BUN 14 mg/dL (7-18); Bilirubin, Total 1.5 mg/dL (0.2-1.0); CO2 31.8 mmol/L (21.0-32.0); CREATININE 0.7 mg/dL (0.70-1.30); Calcium 9.3 mg/dL (8.5-10.1); Chloride 106 mmol/L (98-107); Estimated GFR 98.51 (mL/min/1.73m2); Glucose 75 mg/dL (74-106); Potassium 3.7 mmol/L (3.5-5.1); Sodium 143 mmol/L (136-145); Total Protein 5.9 g/dL (6.4-8.2)
[2024-08-29 07:42] LABS: Absolute Eosinophil Count 0.35 10^3/uL (0.0-0.7); Absolute Lymphocyte Count 3.13 10^3/uL (1.2-3.4); Absolute Neutrophil Count 9.41 10^3/uL (1.2-6.7)
[2024-08-29] MEDS: Enoxaparin 60 MG/0.6 ML SYR SC (08:14)
[2024-08-29] MEDS: Potassium Chloride 20 MEQ TABCR PO (08:15)
[2024-08-29] MEDS: predniSONE 20 MG TAB 40 MG PO (08:15)
[2024-08-29] MEDS: guaiFENesin 600 MG TABCR PO (08:15)
[2024-08-29] MEDS: Multivitamin TAB 1 TAB PO (08:15)
[2024-08-29] MEDS: Folic Acid 1 MG TAB PO (08:15)
[2024-08-29] MEDS: Gabapentin 300 MG CAP PO ×2 (08:15→14:22)
[2024-08-29] MEDS: DULoxetine 30 MG CAP 60 MG PO (08:15)
[2024-08-29] MEDS: LORazepam 0.5 MG TAB PO (08:15)
[2024-08-29] MEDS: Furosemide 20 MG TAB PO (08:16)
[2024-08-29] MEDS: Normal Saline Flush 10 ML SYR IVP ×2 (08:16→10:51)
[2024-08-29] MEDS: Omeprazole 20 MG CAPCR PO (08:16)
[2024-08-29] MEDS: Calcium Carbonate *TUMS* 500 MG CHEW PO (08:16)
[2024-08-29] MEDS: Lisinopril 10 MG TAB 5 MG PO (08:16)
[2024-08-29] MEDS: Thiamine 100 MG TAB PO (08:16)
[2024-08-29 08:18] LABS: Anisocytosis 2+; Diff Comment Diff Reviewed; Polychromasia Present
[2024-08-29] MEDS: Methadone Liquid 10 MG/ML 100 MG PO (08:36)
--- NOTE | 2024-08-29 09:32 | PDOC.CMPRO ---
Date of service: 08/29/24 Time of Service: 09:32 Care Management Progress Note Discharge Potential Discharge Needs: PCP F/U Appt Anticipated Barriers to Discharge: None Identified Patient/Family Education Needs: Review discharge instructions, discuss Ask Me Three Transportation: Private vehicle Plan: Anticipate Franc will be discharged home with no new services when medically cleared. He will follow up with his PCP and plan of care as prescribed and transport with a friend or family member. CM will follow and continue to support discharge planning efforts. Social Determinants of Health Screening Social Determinants of Health last assessed: 08/29/24 Will the Patient Participate in the Screening?: Yes Do you worry about having a steady place to live?: no Problems where you live: no known problems In the past 12 months, have you had to go without electric, gas, oil or water in your home?: choose not to answer Have you or anyone in your house had to go without enough food to eat?: choose not to answer Has lack of transportation kept you from medical appointments or from doing things needed for daily living?: yes Has anyone in your life made you feel unsafe or unsupported?: no How hard is it for you to pay for the very basics like food, housing, medical care, and heating? Would you say it is:: Somewhat hard Do you want help finding or keeping work or a job?: I do not need or want help If for any reason you need help with day-to-day activities such as bathing, preparing meals, shopping, managing finances, etc., do you get the help you need?: I could use a little more help How often do you feel lonely or isolated from those around you?: Sometimes Do you speak a language other than Spanish at home?: Yes Does the patient want assistance with any of the above?: Yes Social Determinants of Health Comments(SDMO Details): pt vague about housing issues, does explain after some prompting well my girlfriend of ____ yrs just told me she doesn't love me anymore and now I need a place to live but it cant have too many stairs RN asked if pt would accept CM review to maybe they could share some resources to help you find a place? pt states that would be good. Pt also saif girlfriend but had previously said his son had to take his to surgery appoint today. Health Related Social Needs Health related social needs: transportation insecurity (Z59.82), material hardship(utilities) (Z59.12), problems related to housing/economic circumstances (Z59.89), problems with daily activities (Z73.9), feeling lonely/isolated (Z60.8) and education (Z55.6)
--- NOTE | 2024-08-29 14:53 | W.PM.PROGNOT ---
Date of Service Date of service: 08/29/24 Time of Service: 14:53 Assessment and Plan Assessment and plan (1) Severe sepsis: Status: Acute Assessment and plan: -Met criteria on admission with high WBC, elevated RR, and hypotension responsive to fluids, pneumonia as source. -Did not get full 30 cc/kilo fluids with h/o HFpEF and responsiveness initial bolus. -Lactate was high but improved by second day -was on zosyn and doxy -transitioned to PO cefpodoxime and doxy on 08/29 (2) Multifocal pneumonia: Status: Acute Assessment and plan: -source of infection as noted above (3) Acute hypoxic respiratory failure: Status: Acute Assessment and plan: -secondary to CAP and COPD exacerbation -required up to 2L NC -worked with Respiratory therapy; RA at rest, but requires 2L NC with ambulation which will be set up at discharge (4) Tobacco abuse: Status: Acute Assessment and plan: NRT prn (5) Acute exacerbation of chronic obstructive pulmonary disease (COPD): Status: Acute Assessment and plan: -continue PO prednisone and inhalers (6) Methadone dependence: Status: Acute Assessment and plan: -manager long term care medical treatment for opioid use disorder, continue methadone at lower dose of 100mg, as patient had mental status change after 130mg dose (7) Autoimmune hemolytic anemia: Status: Acute Assessment and plan: hemoglobin near recent levels. Bili does suggest ongoing hemolysis, AST also possibly related. Trend is down, continue to follow in AM. (8) History of pulmonary embolism: Status: Chronic Assessment and plan: Continue enoxaparin (9) LLQ abdominal pain: Status: Acute Assessment and plan: -secondary to reducable inguinal hernia -apprecaite General Surgery recs; supportive measures, but would rec any potential procedure to be done at [facility] given comorbid conditions Subjective Subjective Interval history since last seen: Patient states that he is doing well today. He understands Care Management is working on a safe discharge plan for him, and he otherwise has no complaints or concerns at this time. Exam Narrative Exam Narrative: cachectic appearing gentleman sitting up in the bed in no acute distress, AOx4, heart RRR, lungs CTAB, abdomen soft, non-tender, non-distended Objective Last Vital Signs Temp 99.5 F 08/29/24 12:51 Pulse 98 H 08/29/24 12:51 Resp 24 08/29/24 12:51 BP 131/66 08/29/24 12:51 Pulse Ox 91 L 08/29/24 12:51 Laboratory Results - last 24 hr 08/29/24 07:05 WBC 15.74 H RBC 3.76 L Hgb 10.8 L Hct 34.3 L MCV 91 D MCH 28.7 MCHC 31.5 L RDW 17.7 H Plt Count 534 H MPV 11.0 Immature Gran % 1.5 Neutrophils % 59.8 Lymphocytes % 19.9 Monocytes % 16.4 Eosinophils % 2.2 Basophils % 0.2 Nucleated RBC % 2.9 H Absolute Neutrophils 9.41 H Absolute Lymphocytes 3.13 Absolute Monocytes 2.58 H Absolute Eosinophils 0.35 Absolute Basophils 0.03 RBC Morphology See Below Polychromasia Present Anisocytosis 2+ VBG Lactate 1.5 Sodium 143 Potassium 3.7 Chloride 106 Carbon Dioxide 31.8 Anion Gap 5.2 BUN 14 Creatinine 0.7 Est GFR (CKD-EPI 2020) 98.51 Glucose 75 Calcium 9.3 Total Bilirubin 1.5 H AST 27 ALT 24 Alkaline Phosphatase 82 Total Protein 5.9 L Albumin 2.3 L Time Spent with Patient Time Spent with Patient: >50 minutes Time was spent: preparing to see the patient(eg.review tests), obtaining and/or reviewing separately otained hiistory, ordering medications,tests, procedures, referring, communicating with other health client care manager, indepentently interpreting results, counseling the patient and care coordination
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
--- NOTE | 2024-08-29 18:17 | RESPIRATORY ---
Pt will be discharged home today with portable POC-[employer] concentrator from [facility] consignment closet. # [phone]. Pt's prescription is for room air at rest, and 2L continuous flow with ambulation.
--- NOTE | 2024-08-29 18:22 | PDOC.CMDIS ---
Date of service: 08/29/24 Time of Service: 18:22 LACE Index Scoring Tool Questions: Length of Stay (in days): 4 - 6 Was the patient admitted via the E.D.?: Yes Comorbidities: Congestive Heart Failure, Chronic Pulmonary Disease and Liver or Renal Disease E.D. Visits: 2 Answers: Total Score: 14 Risk of Readmission: High Risk Care Management Discharge Plan Reason for Hospitalization: Pneumonia and COPD Discharge Plan: Franc's discharge plan was complicated by the news that his girlfriend of 26 years did not intend to allow him to return home. As he has a new oxygen need, he needs to be discharged to a place that has electricity and for which he has an address. Franc has 2 sons but neither one was willing to have him come and stay with them. After many phone calls, Franc informed CM that his girlfriend would allow him to stay temporarily. His son was willing to pick him up and transport him to his truck, then Franc would drive himself back to his home. RT set him up with an oxygen concentrator and he will have a tank delivered to the home. CM coordinated the completion of a form for [employer], written by the provider, that would support Franc's medical need for emergency housing. He was advised to present to [employer] in person tomorrow to request assistance with housing. Patient/Family Education Needs: Review of discharge instructions, limitations, follow up plan and discuss Ask Me Three. Services Needed at Discharge: DME Agency and Oxygen Therapy SDOH Health Related Social Needs: Health related social needs transportation insecurity (Z59.82), material hardship(utilities) (Z59.12), problems related to housing/economic circumstances (Z59.89), problems with daily activities (Z73.9), feeling lonely/isolated (Z60.8), education (Z55.6)
== END 2024-08-29 18:34 | disposition home or self-care (01) | DRG 871 ==
LOC: ER 12:10 → ICU 14:42 → MS 08-24 22:20
PROVIDERS: Hospitalist; Admitting Provider Family Medicine; Emergency Provider Emergency Medicine Emergency Medical Services; PCP Nurse Practitioner Family; Responsible Provider Family Medicine; Visit Provider Family Medicine
DX: A41.9 Sepsis, unspecified organism (principal); J13 Pneumonia due to Streptococcus pneumoniae; J96.01 Acute respiratory failure with hypoxia; J44.0 Chronic obstructive pulmonary disease with (acute) lower respiratory infection; J44.1 Chronic obstructive pulmonary disease with (acute) exacerbation; D59.11 Warm autoimmune hemolytic anemia; F11.20 Opioid dependence, uncomplicated; I50.30 Unspecified diastolic (congestive) heart failure; D84.821 Immunodeficiency due to drugs; R65.20 Severe sepsis without septic shock; F17.210 Nicotine dependence, cigarettes, uncomplicated; Z86.711 Personal history of pulmonary embolism; R10.32 Left lower quadrant pain; K40.90 Unilateral inguinal hernia, without obstruction or gangrene, not specified as recurrent; Z90.81 Acquired absence of spleen; G25.0 Essential tremor; E78.00 Pure hypercholesterolemia, unspecified; I27.20 Pulmonary hypertension, unspecified; F41.9 Anxiety disorder, unspecified; J32.8 Other chronic sinusitis; Z79.52 Long term (current) use of systemic steroids; I44.7 Left bundle-branch block, unspecified
CPT/HCPCS: 00123; 36415; 76857; 80048; 80053; 82805; 87040; 87077; 87637; 87641; 93005; 94618; 94640; 94761; 96365; 96366; 96367; 96372; 96375; 99222; 99285; 71045; 80202; 83605; 83735; 83880; 84484; 85025; 87070; 87186; 87205; 93010; 94664; 94667; 94668; 94760; 99223; 99232; 99233; 99239; J1650; J2543; J2919; J3370; J3475; J7512; J7613; J7620

== ENCOUNTER 2024-09-07 03:38 | Outpatient (CLI) | payer MEDICARE, SELFPAY ==
[2024-09-07 11:22] LABS: Abs Immature Grans 0.07 10^3/uL (0.0-0.06); Absolute Basophil Count 0.01 10^3/uL (0.0-0.2); Absolute Eosinophil Count 0.01 10^3/uL (0.0-0.7); Absolute Lymphocyte Count 0.41 10^3/uL (1.2-3.4); Absolute Monocyte Count 0.82 10^3/uL (0.1-0.8); Absolute Neutrophil Count 9.77 10^3/uL (1.2-6.7); Basophils % 0.1 %; Eosinophils % 0.1 %; HGB 10.5 g/dL (13.5-17.5); Immature Grans % 0.6 %; Lymphocytes % 3.7 %; MCH 28.3 pg (27.0-33.0); MCHC 31.8 % (32.0-36.0); MCV 89 fL (80-95); MPV 10.1 fL (8.0-11.0); Monocytes % 7.4 %; Neutrophils % 88.1 %; Nucleated RBC 1.5 % (0.0-0.3); RBC 3.71 10^6/uL (4.36-5.78); RDW 18.7 % (11.8-14.1); WBC 11.09 10^3/uL (4.4-10.8)
[2024-09-07 11:32] LABS: Reticulocyte 10.3 % (0.5-2.4)
[2024-09-07 11:38] LABS: ALT 24 U/L (16-63); AST 23 U/L (15-37); Albumin 3.4 g/dL (3.4-5.0); Alkaline Phosphatase 72 U/L (46-116); Anion Gap 5.9 mmol/L (3-11); BUN 28 mg/dL (7-18); Bilirubin, Total 1.9 mg/dL (0.2-1.0); CO2 32.1 mmol/L (21.0-32.0); CREATININE 0.9 mg/dL (0.70-1.30); Calcium 9.8 mg/dL (8.5-10.1); Chloride 101 mmol/L (98-107); Estimated GFR 91.31 (mL/min/1.73m2); Glucose 125 mg/dL (74-106); LDH 406 U/L (85-227); Potassium 4.8 mmol/L (3.5-5.1); Sodium 139 mmol/L (136-145)
[2024-09-07 11:46] LABS: Platelet Count 728 10^3/uL (130-400)
[2024-09-07 11:47] LABS: Diff Comment Diff Reviewed; Polychromasia Present
== END 2024-09-07 03:39 | disposition home or self-care (01) ==
LOC: LBO 03:38
PROVIDERS: PCP Nurse Practitioner Family; Visit Provider Internal Medicine Hematology & Oncology
DX: D59.10 Autoimmune hemolytic anemia, unspecified (principal)
CPT/HCPCS: 36415; 80053; 83615; 85025; 85045

== ENCOUNTER → 2024-10-25 08:04 | Outpatient (BNVA) | payer MEDICARE, SELFPAY | PROVIDERS: PCP Nurse Practitioner Family; Referring Provider Nurse Practitioner Family; Visit Provider Physician Assistant Surgical | DX: J44.9 Chronic obstructive pulmonary disease, unspecified (principal); I26.99 Other pulmonary embolism without acute cor pulmonale; I27.20 Pulmonary hypertension, unspecified; I50.30 Unspecified diastolic (congestive) heart failure; F17.210 Nicotine dependence, cigarettes, uncomplicated; G47.34 Idiopathic sleep related nonobstructive alveolar hypoventilation | CPT/HCPCS: 94618; 99215 ==

== ENCOUNTER 2024-10-27 08:57 | Outpatient (CLI) | payer MEDICARE, SELFPAY ==
[2024-10-27] MEDS: Inhaler, Assist Device 1 EACH MC (16:11)
[2024-10-27] MEDS: Levalbuterol HFA 15 GM INH 4 PUFF IH (16:11)
--- NOTE | 2024-12-11 08:53 | W.PFT ---
Date of service: 10/27/24 Time of Service: 14:49 Pulmonary Function Test Result Indications: COPD Interpretation Spirometry: No airflow limitation. No significant bronchodilator response. Lung Volumes: Normal lung volumes Diffusion Capacity: Reduced diffusion Airway Pressure: Normal airways resistance Impression Normal pulmonary function testing Clinical Correlation therefore is recommended.
== END 2024-10-27 08:58 | disposition home or self-care (01) ==
LOC: RT 11-12 08:57
PROVIDERS: PCP Nurse Practitioner Family; Visit Provider Student in an Organized Health Care Education/Training Program
DX: J44.9 Chronic obstructive pulmonary disease, unspecified (principal); G47.34 Idiopathic sleep related nonobstructive alveolar hypoventilation
CPT/HCPCS: 94060; 94726; 94729; 94762

== ENCOUNTER 2024-11-14 00:33 | Outpatient (CLI) | payer MEDICARE, SELFPAY | END 2024-11-14 00:34 | disposition home or self-care (01) | LOC: RT 00:33 | PROVIDERS: PCP Nurse Practitioner Family; Visit Provider Physician Assistant Surgical | DX: G47.34 Idiopathic sleep related nonobstructive alveolar hypoventilation (principal) | CPT/HCPCS: 94762 ==

== ENCOUNTER → 2024-11-24 10:04 | Outpatient (BNVA) | payer MEDICARE, SELFPAY | PROVIDERS: PCP Nurse Practitioner Family; Referring Provider Nurse Practitioner Family; Visit Provider Physician Assistant Surgical | DX: J44.9 Chronic obstructive pulmonary disease, unspecified (principal); I26.99 Other pulmonary embolism without acute cor pulmonale; I27.20 Pulmonary hypertension, unspecified; I50.30 Unspecified diastolic (congestive) heart failure; Z72.0 Tobacco use; G47.34 Idiopathic sleep related nonobstructive alveolar hypoventilation | CPT/HCPCS: 99214 ==

== ENCOUNTER 2025-03-02 10:22 | Outpatient (CLI) | payer MEDICARE, SELFPAY ==
--- NOTE | 2025-03-02 10:22 | RT.EKG_ITS ---
APPROVED REPORT Exam: Resting ECG Reason for Exam: Shortness of breath Patient Location: O HR:70 bpm ECG Measurements Heart Rate 70 AXIS IA 178 P 40 QRSd 147 QRS 31 QT 484 T 66 QTc 523 Conclusion Sinus rhythm...normal P axis, V-rate 50- 99 Probable left atrial enlargement...P >50mS, <-0.10mV V1 Left bundle branch block...QRSd>120, broad/notched R Excessive artifact
== END 2025-03-02 10:23 | disposition home or self-care (01) ==
LOC: DI.CM 10:23
PROVIDERS: PCP Nurse Practitioner Family; Visit Provider Nurse Practitioner Family
DX: R06.02 Shortness of breath (principal); I44.7 Left bundle-branch block, unspecified; I51.7 Cardiomegaly
CPT/HCPCS: 93010

== ENCOUNTER 2025-03-02 14:52 | Outpatient (CLI) | payer MEDICARE, SELFPAY ==
--- NOTE | 2025-03-02 12:00 | DI.CT_ITS ---
Exam(s) CT CHEST PE CTA EXAM: CT CHEST PE CTA CLINICAL HISTORY: r/o PE, satting 93%, chest pain, hx pe, R07.9. TECHNIQUE: Imaging Protocol: CT angiography of the chest was performed using pulmonary embolus protocol. Multi planar reconstructions were performed. CONTRAST MATERIAL: Intravenous: Omnipaque 350 Contrast volume: 100 cc COMPARISON: CT CT CHEST PE CTA from 06/24/2024 FINDINGS: CHEST: PULMONARY ARTERIES: There are no intraluminal filling defects to suggest acute pulmonary emboli. LUNGS: There is mildly decreased left hemithoracic volume.. The previously described pleural based infiltrates in the anterior segment of the left upper lobe and left lower lobe remain unchanged from prior CT scans dating back to May 2023. Mildly increased markings in the right lung base are also unchanged. MEDIASTINUM: Mild bilateral hilar adenopathy again noted. No significant mediastinal adenopathy. Visualized thyroid unremarkable. CARDIAC: Mild cardiomegaly again noted. The diameter of the ascending thoracic aorta remains upper normal.No evidence of dissection. There is no significant reflux of intravenous contrast into the intrahepatic IVC. There is no significant shift of the interventricular septum. PARTIALLY VISUALIZED UPPERMOST ABDOMEN: New significant findings. Spleen appears to be surgically absent. OSSEOUS: Compression fracture at superior endplate of T8 is again unchanged. Calcification of the will disc space at T11-T12 also unchanged. IMPRESSION: 1. No evidence of obvious acute pulmonary emboli. No evidence of pulmonary infarction.No pleural effusions. 2. There again noted unchanged pleural base infiltrates in left lower lobe and left upper lobe superimposed upon emphysematous changes. Also mild infiltrate in the right lower lobe posterior basal segment also appears unchanged. There are no pleural effusions. 3. Mild bilateral hilar adenopathy noted. RADIATION DOSE DELIVERED: 66.46mGy.cm Total DLP DATA REPOSITORY: All CT scans at this facility are submitted to the National Radiology Data Registry (NRDR) Dose Index Registry (DIR) with the [employer] (ACR). RADIATION OPTIMIZATION: All CT scans at this facility use at least one of these dose optimization techniques: automated exposure control; mA and/or kV adjustment per patient size (includes targeted exams where dose is matched to clinical indication); or iterative reconstruction.
[2025-03-02 13:59] LABS: Anion Gap 4.6 mmol/L (3-11); BUN 13 mg/dL (7-18); CO2 34.4 mmol/L (21.0-32.0); Calcium 9.5 mg/dL (8.5-10.1); Chloride 103 mmol/L (98-107); Estimated GFR 91.31 (mL/min/1.73m2); Glucose 101 mg/dL (74-106); Potassium 4.7 mmol/L (3.5-5.1); Sodium 142 mmol/L (136-145)
[2025-03-02] MEDS: Omnipaque 350 MG/ML 500 ML BTL-Imaging package IJ (14:05)
[2025-03-02] MEDS: Normal Saline - Diluent 50 ML VIAL IJ (14:07)
[2025-06-05 11:12] LABS: ALT 19 U/L (10-49); AST 27 U/L (<34); Albumin 4.0 g/dL (3.2-5.0); Alkaline Phosphatase 84 U/L (46-116); Anion Gap 8.3 mmol/L (3-11); BUN 13 mg/dL (9-23); Bilirubin, Total 1.1 mg/dL (0.2-1.2); CO2 30.7 mmol/L (20.0-31.0); Calcium 9.7 mg/dL (8.3-10.6); Chloride 105 mmol/L (98-107); Cholesterol 195 mg/dL (<200); Glucose 84 mg/dL (74-106); HDL Cholesterol 67 mg/dL (>40); Potassium 4.5 mmol/L (3.5-5.1); Sodium 144 mmol/L (136-145); Total Protein 6.5 g/dL (5.7-8.2)
== END 2025-03-02 15:12 ==
LOC: DI 14:52
PROVIDERS: PCP Nurse Practitioner Family; Visit Provider Nurse Practitioner Family
DX: R07.9 Chest pain, unspecified (principal); Z86.711 Personal history of pulmonary embolism; R91.8 Other nonspecific abnormal finding of lung field; E78.00 Pure hypercholesterolemia, unspecified
CPT/HCPCS: 71275; 80048

== ENCOUNTER → 2025-03-06 09:09 | Outpatient (BNVA) | payer MEDICARE, SELFPAY | PROVIDERS: PCP Nurse Practitioner Family; Referring Provider Nurse Practitioner Family; Visit Provider Internal Medicine Pulmonary Disease | DX: J90 Pleural effusion, not elsewhere classified (principal); Z86.711 Personal history of pulmonary embolism; J44.9 Chronic obstructive pulmonary disease, unspecified; Z72.0 Tobacco use; Z29.11 Encounter for prophylactic immunotherapy for respiratory syncytial virus (RSV) | CPT/HCPCS: 90471; 90679; 99214 ==

== ENCOUNTER 2025-06-05 10:06 | Outpatient (CLI) | payer MEDICARE, SELFPAY | END 2025-06-05 10:07 | disposition home or self-care (01) | LOC: LBO 10:06 | PROVIDERS: PCP Nurse Practitioner Family; Visit Provider Nurse Practitioner Family | DX: D59.10 Autoimmune hemolytic anemia, unspecified (principal) | CPT/HCPCS: 36415; 80053; 80061 ==

== ENCOUNTER 2025-06-07 00:50 | Outpatient (CLI) | payer MEDICARE, SELFPAY ==
[2025-06-07 10:08] LABS: Abs Immature Grans 0.10 10^3/uL (0.0-0.06); HCT 40.3 % (40.0-50.0); HGB 14.3 g/dL (13.5-17.5); MCH 33.3 pg (27.0-33.0); MCHC 35.5 % (32.0-36.0); MCV 94 fL (80-95); MPV 10.3 fL (8.0-11.0); Platelet Count 447 10^3/uL (130-400); RBC 4.29 10^6/uL (4.36-5.78); RDW 16.1 % (11.8-14.1); RDW-SD 51.7 fL
[2025-06-07 10:28] LABS: WBC 18.88 10^3/uL (4.4-10.8)
[2025-06-07 10:29] LABS: RBC Morphology Normal
== END 2025-06-07 00:51 | disposition home or self-care (01) ==
LOC: LBO 00:50
PROVIDERS: PCP Nurse Practitioner Family; Visit Provider Internal Medicine Hematology & Oncology
DX: D59.10 Autoimmune hemolytic anemia, unspecified (principal)
CPT/HCPCS: 36415; 85025